=== PATIENT | female | born 1970 | race Caucasian/White ===

== ENCOUNTER 2019-03-08 19:54 | Inpatient (IN) | payer MEDICARE, MEDICAID ==
[~2019-03-08] VITALS: Ht 170.2 cm; Wt 110.7 kg
[~2019-03-08 19:54] MED LIST: AMARYL1 MG PO; ASPIRIN325 MG PO; BACLOFEN10 MG PO; BACTRIM DS TAB1 EACH PO; BUPROPION XL300 MG PO; CARISOPRODOL350 MG PO; CLINDAMYCIN HC150 MG PO; GABAPENTIN100 MG; GABAPENTIN400 MG PO; HYDROCODON-ACE1 EA10 PO; IMIPRAMINE HCL25 MG PO; KEFLEX500 MG PO; LEVOTHYROXINE112 MCG PO; LISINOPRIL-HCT1 EAC2 PO; MELOXICAM15 MG PO; METFORMIN HCL1000 MG PO; MOBIC7.5 MG PO; OMEPRAZOLE20 MG PO; OXYCODONE HCL10 MG PO; PERCOCET 5-3251 EACH PO; PREDNISONE10 MG; PRENATAL 19 TA1 EACH PO; SOMA350 MG PO; WAL-DRYL ALLERG25 MG PO
[2019-03-08] MEDS ORDERED: ALLOPURINOL300 MG PO (20:40)
[2019-03-08] MEDS ORDERED: VITAMIN D1000 UNIT PO (20:47)
--- NOTE | 2019-03-08 23:30 | NUR ---
PATIENT ARRIVED TO THE UNIT VIA STRETCHER. TRANSFERED TO BED WITHOUT ASSISTANCE. VS STABLE, HR ELEVATED. PATIENT AFEBRILE. DENIES PAIN.
--- NOTE | 2019-03-09 01:07 | NUR ---
PATIENT ASSESSMENT COMPLETE. POOR CIRCULATION AND NOTED IN SUDHAKAR LOWER EXTREMITIES. LEFT LEGS HAS NO FEELING FROM MID CALF DOWN. CAP REFILL < 3 SEC. WOUND COVERED IN ED WITH GAUZE, LEFT DRESSING IN PLACE. NO DRAINAGE NOTED. PATIENT'S VS ARE STABLE. PROVIDED WITH WATER AND CRACKERS. BCG WNL, NO INSULIN COVERAGE REQUIRED. PATIENT'S IV SITE INFILTRATED, NEW SITE ATTEMPTED BY THIS RN AND SILVANO RN WITH NO SUCCESS. BURR GRINDER CONTACTED FOR ASSISTANCE.
--- NOTE | 2019-03-09 01:54 | NUR ---
PT AMB TO BR USING OWN WALKER. BERRY WELL HR 100-110. VOIDED LARGE AMT URINE, UNABLE TO MEASURE "HAT" FELL INTO TOILET. BACK TO BED.
--- NOTE | 2019-03-09 03:00 | NUR ---
ULTRASOUND GUIDED IV ACCESS PLACED BY LANDSCAPE ARCHITECT AND PLANNER IN RIGHT UPPER ARM, INFILTRATED WITHIN 10MINS OF INFUSION. DISCUSSED DIFFICULTIES PLACING IV WITH . ORDERS FOR PICC CONSULT RECIEVED TO TAKE PLACE IN THE MORNING. LANDSCAPE ARCHITECT AND PLANNER IN WITH ULTRASOUND AGAIN, ABLE TO PLACE IV SITE IN LEFT AC AFTER 2 MORE ATTEMPTS. PATIENT TOLERATED WELL. IV FLUIDS DECREASED TO 500 ML/HR FOR LAST BOLUS AND VANCO INFUSING. VS STABLE. ENCOURAGED PATIENT TO DRINK ORAL FLUIDS.
--- NOTE | 2019-03-09 06:18 | NUR ---
PATIENT UP TO VOID. TOLERATED WELL. DILUTE YELLOW URINE, 1700 ML.
--- NOTE | 2019-03-09 08:20 | NUR ---
PT ALERT AND ORIENTED RESTING IN BED. ASSESSMENT AND VS COMPLETE. PT C/O 12/30 LOWER BACK PAIN THAT IS CHRONIC, WARM PACK PROVIDED. BREAKFAST ORDERED. CALL LIGHT IN REACH.
[2019-03-09] MEDS ORDERED: BACTRIM DS TAB1 EACH PO (08:37)
--- NOTE | 2019-03-09 08:47 | NUR ---
PT GIVEN PRN TYLENOL FOR BACK PAIN, HEATING PAD PROVIDED FOR LOWER BACK ALSO. AM MEDS GIVEN WITHOUT DIFFICULTY, CBG 119. PT SITTING UP IN BED EATING BREAKFAST AT THIS TIME.
--- NOTE | 2019-03-09 09:49 | NUR ---
PT AMB TO BR WITH PERSONAL WALKER AND SBA TO VOID 950 ML CLEAR YELLOW URINE. NO C/O PAIN WITH AMBULATION. PT BACK TO BED, LLE ELEVATED WITH PILLOWS. HEATING PAD APPLIED TO LOWER BACK. NO OTHER REQUESTS AT THIS TIME. CALL LIGHT IN REACH.
--- NOTE | 2019-03-09 10:00 | NUR ---
PT LYING IN BED RESTING WITH EYES CLOSED. LLE ELEVATED. IV ABX INFUSING WITHOUT DIFFICULTY. HR IN THE 80'S, RR EVEN AND UNLABORED. CALL LIGHT IN REACH.
--- NOTE | 2019-03-09 11:30 | NUR ---
DRESSING REPLACED ON PT'S LEFT INNER HEEL AFTER MD ASSESSMENT. KERLIX AND NON-ADHERENT PADS USED. SMALL AMOUNT OF SEROUS DRAINAGE NOTED ON PILLOW CASE UNDER FOOT. PT ABLE TO HOLD HER OWN LEG UP WHILE WRAPPING THE FOOT. DENIES PAIN.
--- NOTE | 2019-03-09 14:51 | NUR ---
UNABLE TO VISIT PT-OR STAFF AND CCU MELISSA VARELA IN WORKING TO PUT PICC LINE IN. WILL COME BACK AGAIN.
--- NOTE | 2019-03-09 16:20 | NUR ---
PT ARRIVED TO UNIT FROM CCU VIA HOSPITAL BED. PT ALERT AND ORIENTED TO ALL. DENIES PAIN OR OTHER CONCERNS AT THIS TIME. NEW PICC LINE IN PLACE TO LEFT UPPER ARM, FLUSHES EASILY WITH GOOD BLOOD RETURN TO BOTH LUMENS, DRESSING CDI. LEFT FOOT WITH CHRONIC FOOT DROP. PT REPORT CHRONIC NUMBNESS OF LEFT LE. KERLEX GAUZE AND NON ADHERANT PAD TO LEFT FOOT WOUND, SMALL AMOUNT OF SEROUS DRAINAGE NOTED. PT EDUCATED ON PLAN OF CARE. ORIENTED TO ROOM. CALL LIGHT WITHIN REACH.
--- NOTE | 2019-03-09 16:23 | NUR ---
PT TRANSPORTED TO IMAGING DEPT FOR MRI VIA WHEELCHAIR.
--- NOTE | 2019-03-09 16:24 | NUR ---
PICC INSERTION NOTE: ASKED BY DR. MACIAS TO EVALUATE PATIENT FOR POTENTIAL PICC LINE PLACEMENT. AFTER REVIEWING THE CHART AND INTERVIEWING THE PATIENT, NO ABSOLUTE CONTRAINDICATIONS WERE IDENTIFIED. PATIENT ABLE TO SIGN CONSENT. PATIENT'S RIGHT ARM WAS EVALUTED FIRST USING THE SITE RITE U/S AND BOTH THE BASILIC AND BRACHIAL VEINS WERE EASILY IDENTIFIED, AND GREATER THAN 8 FR APPROXIMATELY NOTED BY U/S. PATIENT'S CEPHALIC VEIN WAS NOT EASILY FOUND AND WAS SMALL. CDC RECOMMENDED GUIDELINES WERE FOLLOWED FOR ASEPTIC TECHNIQUE TO PREPARE PATIENT'S RIGHT ARM. PT'S BASILIC VEIN WAS ATTEMPTED FIRST AND EASILY ACCESSED UPON THE FIRST ATTEMPT. DARK BLOOD, NON PULSATILE WAS EASILY RETURNED. GUIDEWIRE DID ADVANCE INTO VEIN WITH MILD RESISTANCE. INTRODUCER WAS EASILY ADVANCED OVER WIRE. PICC WAS ALSO EASILY ADVANCED INTO VEIN, BUT SHERLOCK MAGNET SHOWED TIP TO NOT BE TRACING ACROSS CHEST IT SHOULD. ATTEMPTS WERE MADE TO READVANCE PICC WITH DIFFERENT MANUEVERS. CHEST XRAY WAS TAKEN WHICH SHOWED PICC LINE TURNING BACK UPON ITSELF. TOTAL OF 3 ATTEMPTS TO READVANCE PICC WERE TAKEN WELL 3 CHEST XRAYS. AFTER 3RD ATTEMPT, PICC WAS REMOVED. A COUPLE HOURS LATER, PATIENT'S LEFT ARM WAS EVALUATED. LEFT BASILIC VEIN WAS EASILY IDENTIFIED AND APPEARED TO BE GREATER THAN 8 FR. PT'S BRACHIAL VEIN ON LEFT SIDE WAS ANOTHER POTENTIAL CANDIDATE, BUT BASILIC WAS THE BEST CHOISE. AGAIN, FOLLOWING CDC RECOMMENDED TECHNIQUE FOR STERILE PROCEDURE, THE ARM WAS PREPPED. IV ACCESS WAS EASILY OBTAINED IN BASILIC UPON FIRST TRY, AND DARK, NON PULSATILE BLOOD WAS RETURNED. GUIDEWIRE THREADED WITH EASE, INTRODUCER AND PICC WELL. PICC WAS LEFT WITH 0 CM EXPOSED AND STERILE DRESSING PLACED. CHEST XRAY TAKEN AND TIP CONFIRMATION OBTAINED BY RACHNA FINN. PT GIVEN EDUCATION MATERIAL REGARDING HER PICC LINE AND CARE INSTRUCTIONS. PT ENCOURAGED TO ASK QUESTIONS IF SHE HAD ANY AT ANY TIME. PT TOLERATED PROCEDURE VERY WELL.
--- NOTE | 2019-03-09 17:45 | NUR ---
PT RETURNED FROM IMAGING DEPT. SITTING UP IN CHAIR. PT AMB SBA WITH FWW TO RESTROOM. VOIDED WITHOUT DIFFICULTY. PT AMB TO BED. VISITOR AT BEDSIDE. PT REFUSES DINNER AT THIS TIME, STATES SHE IS STILL FULL FROM LUNCH. PICC LINE FLUSHED AND ABX INFUSING. CALL LIGHT WITHIN REACH.
--- NOTE | 2019-03-10 00:11 | NUR ---
PATIENT'S PAIN IS DOWN TO 3/10 AND IV VANCO JUST HUNG. PATIENT HAS REQUESTED 2 HOT PACKS, ONE FOR HER NECK AND ONE FOR HER RIGHT ARM, SINTA THE CATHEAD WORKER IS GETTING THESE FOR HER.
--- NOTE | 2019-03-10 00:17 | NUR ---
2 WARM PACKS PROVIDED.
--- NOTE | 2019-03-10 02:30 | NUR ---
PATIENT RESTING QUIETLY IN SEMI-FOWLERS POSITION, EYES CLOSED, RESPIRATIONS REGULAR AND EVEN, CALL LIGHT IN REACH, AND IV INFUSING IN PICC LINE.
--- NOTE | 2019-03-10 05:35 | NUR ---
PATIENT RESTED WELL WHEN NOT BEING BOTHERED BY STAFF, BUT HAS HAD ANTIBIOTICS HUNG ALL NIGHT. OTHERWISE SHE HAS REMAINED FAIRLY COMFORTABLE AND IV IS INFUSING THROUGH PICC LINE WNL.
--- NOTE | 2019-03-10 07:40 | NUR ---
PATIENT RESTING IN BED. CLEANED HANDS AND FACE. PATIENT'S BREAKFAST ORDERED. CALL LIGHT WITHIN REACH. NO OTHER NEEDS AT THIS TIME
--- NOTE | 2019-03-10 09:40 | NUR ---
SPOKE WITH PATIENT IN ROOM. PATIENT AWAKE, ALERT. PATIENT EATING BREAKFAST. DENIES PAIN. PATIENT LIVES ALONE IN TRAILER WITH STEPS IN. HAS FWW AND 4WW IN ROOM. PATIENT PLANS TO RETURN HOME AT DISCHARGE. DISCUSSED ANTIBIOTICS, USUAL PLAN FOR STAY. DISCUSSED [facility] TREATMENT FOR HER DIAGNOSIS IS USUAL. QUESTIONS ANSWERED. PATIENT HAS FAMILY IN AREA FOR HELP WHEN NEEDED. IS DISABLED. WILL CONTINUE TO FOLLOW.
--- NOTE | 2019-03-10 09:56 | NUR ---
PATIENT SITTING UP IN BED EATING BREAKFAST AND WATCHING TV. CASE MANAGEMENT IN ROOM. ABX RUNNING AT 25 MLS/HR. HEPARIN FLUSH ADMINISTERED TO RED PORT OF PICC LINE. PATIENT DENIES ANY FURTHER NEEDS AT THIS TIME, CALL LIGHT WITHIN REACH.
--- NOTE | 2019-03-10 09:58 | NUR ---
PATIENT IN BED TAKING HER BREAKFAST. RN IN ROOM. VITAL SIGNS AND I&O DONE. CALL LIGHT WITHIN REACH. NO OTHER NEEDS AT THIS TIME
--- NOTE | 2019-03-10 10:12 | NUR ---
PATIENT RETURNED FROM PACU, REPORT RECEIVED. PATIENT TRANSFERRED TO BED, VITAL SIGNS TAKEN. WARM BLANKETS PROVIDED. PATIENT REQUESTING TO CALL SISTER, PHONE PROVIDED. PLAN OF CARE DISCUSSED, PATIENT AGREEABLE. DENIES ANY FURTHER NEEDS AT THIS TIME, CALL LIGHT WITHIN REACH.
--- NOTE | 2019-03-10 13:17 | NUR ---
PATIENT SITTING UP IN BED IN HIGH FOWLERS. DRESSING ON LEFT FOOT REDRESSED WITH NONABSORBENT PAD AND GAUZE. PURULENT DRAINAGE NOTED ON DRESSING REMOVED. FAMILY IN ROOM VISITING WITH PATIENT. DENIES ANY FURTHER NEEDS AT THIS TIME, CALL LIGHT WITHIN REACH.
--- NOTE | 2019-03-10 14:00 | NUR ---
PT SITTING UP IN BED, VISITORS IN . PT HAS GOOD ATTITUDE AND IS WORKING HARD TO STAY POSITIVE. EXTENDED A BLESSING, WILL LET PT VISIT WITH FRIENDS.
--- NOTE | 2019-03-10 14:32 | NUR ---
PATIENT RESTING IN BED. SISTER IN ROOM. VITAL SIGNS AND I&O DONE. PATIENT GOES TO USE BATHROOM. PATIENT USES WALKER. ONE PERSON ASSISTING. LINENS CHANGED. GOWN CHANGED. PATIENT BACKS TO BED. CALL LIGHT WITHIN REACH. NO OTHER NEEDS AT THIS TIME
--- NOTE | 2019-03-10 16:23 | NUR ---
PATIENT ASKING TO SEE ME. SPOKE WITH HER AND HER SISTER IN ROOM. THEY HAD QUESTIONS REGARDING TRYING TO GET MEDICAID BENEFITS TO COVER OTHER COSTS. DISCUSSED GENERAL GUIDELINES FOR THIS, ENCOURAGED THEM TO CONTACT [facility] DIRECTLY. SISTER IS GOING TO [facility] OFFICE DIRECTLY TO TALK WITH THEM AND LEFT. SPOKE WITH PATIENT AT LENGTH ABOUT HER DIAGNOSIS AND TEST RESULTS. 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 SHE STATES SHE IS GOING TO GO AHEAD WITH THIS SHE IS AFRAID SHE WILL END UP THERE EVENTUALLY ANYWAY. SHE WAS A LITTLE TEARFUL WITH TALK. PATIENT IS PLANNING TO TALK WITH DR VEGA AGAIN IN THE MORNING. WE DID NOT DISCUSS POST-OP OPTIONS THIS IS A LOT TO TAKE IN FOR TODAY. PATIENT WORRIED ABOUT HER LITTLE DOG. DID ENCOURAGE HER TO HAVE HER FAMILY BRING HIM IN FOR A VISIT IF SHE THOUGHT IT WOULD HELP. SHE WAS GREATFUL FOR THIS. NO FURTHER QUESTIONS AT THIS TIME.
--- NOTE | 2019-03-10 17:54 | NUR ---
PATIENT RESTING IN BED. RN AND VISITORS IN ROOM. VITAL SIGNS AND I&O DONE. CALL LIGHT WITHIN REACH. NO OTHER NEEDS AT THIS TIME
--- NOTE | 2019-03-10 18:10 | NUR ---
PATIENT HAS BEEN ON ABX: CEFEPIME, VANCO, AND FLAGYL. PATIENT HAS WOUND ON LEFT HEEL THAT WAS REDRESSED TODAY AND IS CONTINUING TO DRAIN. HER BLOOD SUGARS HAVE BEEN IN NORMAL RANGE AND HAS NOT REQUIRED INSULIN. SHE IS ON CONTACT PRECAUTIONS. SHE HAS A DOUBLE LUMEN PICC LINE AND THE RED PORT WAS HEPARINIZED. PATIENT IS A 1 PERSON SBA WITH WALKER.
--- NOTE | 2019-03-10 20:00 | NUR ---
PATIENT'S FAMILY AND FRIEND GOING HOME FROM VISITING. PATIENT RELAXING IN BED WATCHING TV. CALL LIGHT IN REACH.
--- NOTE | 2019-03-10 22:00 | NUR ---
PATIENT LOOKING DEPRESSED, BUT NOT TEARFUL. RESTING IN BED WATCHING TV. PICC LINE FLUSHESS WELL. PATIENT HAS NO NEEDS AT THIS TIME. CALL LIGHT IN REACH.
--- NOTE | 2019-03-11 02:10 | NUR ---
PATIENT RESTING QUITLEY IN SEMI-FOWLERS POSITION, EYES CLOSED, 0200 ANTIIOTIC UP AND RUNNING. CALL LIGHT IN REACH.
--- NOTE | 2019-03-11 03:17 | NUR ---
PATIENT RESTING IN SEMI-FOWLERS POSITION WITH REGULAR AND EVEN RESPIRATIONS. PICC LINE FLUSHING WELL AND RUNNING WELL WHEN USED. PATIENT'S EYES ARE CLOSED AND CALL LIGHT IN REACH.
--- NOTE | 2019-03-11 05:17 | NUR ---
PATIENT'S STATUS HAS PRETTY MUCH BEEN UNCHANGED THROUGH THE NIGHT, SHE HAS BEEN FAIRLY CALM INLIGHT OF HER NEW DIAGNOSIS AND TREATMENT WITH SURGERY FOR HER FOOT THAT HAS BEEN SUGGESTED TO HER. SHE SAYS,"I WILL ADAPT." SHE CONTINUES TO TRY AND BE POSITIVE SHE CAN BE AND HAS RESTED WELL WHEN WE ARE NOT IN CHANGING HER IV FLUIDS.
--- NOTE | 2019-03-11 07:10 | NUR ---
PT RESTING SUPINE IN BED, EYES CLOSED AND RESPIRATIONS EVEN AND UNLABORED AT 14. CALL LIGHT AND H2O IN REACH. REPORT RECEIVED FROM MELISSA DONALDSON.
--- NOTE | 2019-03-11 08:10 | NUR ---
PT RESTING IN SEMIFOWLERS POSITION IN BED WATCHING TV. PT ASSESSMENT COMPLETED AND AM MEDS ADMINISTERED. CALL LIGHT AND H2O IN REACH. PT DENIES PAIN, SOB OR ANY OTHER SYMPTOMS OR NEEDS. DSG HAS SCANT AMOUNT OF DRIED SS DRAINAGE NOTED.
--- NOTE | 2019-03-11 10:20 | NUR ---
Pt sitting up in chair watching TV, pt requested and received assistance in repositioning chair towards window so she could visit with family that she says will visit soon. IV ABX infusing. Pt states she is comfortable. Call light and h2o in reach. Pt denies further needs or concerns.
--- NOTE | 2019-03-11 11:00 | NUR ---
ASKED BY STAFF TO SEE PATIENT SHE HAS QUESTIONS. SPOKE WITH PATIENT IN ROOM. DISCUSSED SHE HAS CHOSEN THE AMPUTATION AND SURGERY IS FRIDAY. SHE STATES HER SISTER HAS SPOKEN WITH [facility] AND THEY ARE FILLING OUT PAPERWORK FOR POSSIBLE HELP WITH HOUSEKEEPING AFTER SHE IS DONE WITH REHAB AND HOME. SHE STATES SHE DOES NOT QUALIFY FOR STATE MEDICAID HOWEVER DUE TO DISABILITY INCOME. SHE IS WORRIED ABOUT REHAB AFTER AND HOW LONG SHE WILL NEED TO BE SEMI-INDEPENDENT AGAIN. SHE STATES SHE IS CONSIDERING MOVING CLOSER TO HER SISTER IN [place] AT SOME POINT SHE IS A GREAT HELP AND HAS TWO STRONG NEPHEWS THERE, ALSO. WE DISCUSSED REHAB POSSIBILITIES INCLUDING SNF IN [place] AND TRANSITIONAL CARE HERE. SHE WOULD LIKE TO DO THAT FIRST CHOICE. SHE UNDERSTANDS THIS CAN'T BE DECIDED UNTIL SHE IS CLOSER TO DISCHARGE FROM THE ACUTE SURGERY. QUESTIONS ANSWERED.
--- NOTE | 2019-03-11 14:15 | NUR ---
SPOKE AGAIN BY REQUEST WITH PATIENT AND HER SISTER IN ROOM. DISCUSSED [employer] VISIT BY SISTER. DISCUSSED ADVANCE DIRECTIVES, THEY HAVE THIS IN ROOM AND ARE GOING TO WORK ON THESE. QUESTIONS ANSWERED REGARDING DURABLE HEALTH POA. DISCUSSED TRANSITIONAL CARE BED PROGRAM AND BROCHURE GIVEN. LENGTHY DISCUSSION WAS HAD, ALL QUESTIONS ANSWERED AT THIS TIME.
--- NOTE | 2019-03-11 14:30 | NUR ---
PT SITTING UP IN CHAIR VISITING WITH FRIENDS. PT ASSESSMENT COMPLETED AND VSS. I/O'S NOTED. CALL LIGHT AND H2O IN REACH. PT PROVIDED WITH FRESH ICE WATER AND DENIES NEEDS OR CONCERNS.
--- NOTE | 2019-03-11 14:54 | NUR ---
PT SITTING IN CHAIR, FACING VISITORS ON COUCH. SHE IS ALERT, ORIENTED AND THANKED ME FOR CHECKING. WILL FOLLOW NEEDED
--- NOTE | 2019-03-11 16:00 | NUR ---
PT SITTING UP RECLINED IN CHAIR VISITING WITH FAMILY. FRESH H2O AND CALL LIGHT IN REACH. PT DENIES NEEDS OR CONCERNS.
--- NOTE | 2019-03-11 21:15 | NUR ---
CHARGE NURSE ROUNDING. pt RESTING IN BED. PROPER WRIST BANDS IN PLACE. WHITEBOARD UPDATED. PRIMARY RN IN ROOM. NO COMPLAINTS OR REQUESTS AT THIS TIME. CALL LIGHT WITHIN REACH.
--- NOTE | 2019-03-11 23:25 | NUR ---
Awake, watching tv, no c/o pain, L leg elevated with pillows, red tender L knee, L heel dressing intact. 2+ edema, red warm to touch area ablve L ankle. States no feelings to L leg. PICC line L arm patent, no redness. Tolerating fluids and diet well.
--- NOTE | 2019-03-12 01:02 | NUR ---
Resting, no distress, eyes closed, resp even, unlabored. On room air. Legs elevated with pullows. Fluids and call light at bedside
--- NOTE | 2019-03-12 03:41 | NUR ---
resting, eyes closed, continues on Contact Isolation. Legs elevated, no s/sx distress. call light at bedside
--- NOTE | 2019-03-12 05:33 | NUR ---
Pt has slept most of this shift, no c/o pain or distress, On room air. L leg elevated with pillows, dressing intact. c/o no feeling in lower L leg. PICC line LAC patent, no c/o adverse reaction to abx IV. No c/o urinary problems. Cooperative and pleasant.
--- NOTE | 2019-03-12 07:08 | NUR ---
PT RESTING SUPINE IN BED, EYES CLOSED AND RESPIRATIONS EVEN AND UNLABORED. CALL LIGHT AND H2O IN REACH. PT APPEARS TO BE SLEEPING COMFORTABLY. REPORT RECEIVED FROM MELISSA BOURGEOIS.
--- NOTE | 2019-03-12 08:35 | NUR ---
Pt sitting in high fowlers watchign tv and eating breakfast. Am assessment completed and am meds administered. Call light and h2o in reach. No needs or concerns voiced. Pt denies pain sob or nausea.
--- NOTE | 2019-03-12 11:38 | NUR ---
PT RESTING IN SEMI FOWLERS POSITION IN BED, ALERT AND ORIENTED. PT REQUESTED AND RECEIVED EDUCATION ON HGB A1C LAB VALUE. FRESH ICE WATER IN REACH. NO OTHER CONCERNS OR NEEDS VOICED.
--- NOTE | 2019-03-12 13:05 | NUR ---
PT TO HAVE SURGERY FRIDAY AND REQUESTED A OPERATIONS INTELLIGENCE SUPERINTENDENT TO BE WITH HER BEFORE. I NOTIFIED ON-CALL OPERATIONS INTELLIGENCE SUPERINTENDENT LARISA TO BE PRESENT, HE SAID HE WOULD PLAN ON BEING HERE. HAD GOOD VISIT WITH PT, SHE REQUESTED PRAYER. GAVE HER A PURPLE P.PATSY WILL FOLLOW NEEDED
--- NOTE | 2019-03-12 15:12 | NUR ---
PT SITTING UP IN CHAIR IN ROOM 115 CHARGE,RN FACILITATED PT'S MOVE TO THIS ROOM. PICC FLUSHED WITH NS AND HEP LOCKED -SEE EMAR. CALL LIGHT AND PERSONAL BELONGINGS IN REACH. NO NEEDS OR CONCERNS VOICED. FAMILY VISITING AT BEDSIDE.
--- NOTE | 2019-03-12 17:18 | NUR ---
PATIENT SITTING UP IN CHAIR. SISTER IN ROOM. VITAL SIGNS AND I&O DONE. PATIENT'S DINNER ORDERED. CALL LIGHT WITHIN REACH. NO OTHER NEEDS AT THIS TIME
--- NOTE | 2019-03-12 17:32 | NUR ---
PT SITTING UP IN CHAIR VISITING WITH FAMILY. ACCUCHECK COMPLETED AND CULTERELLE ADMINISTERED. NO FURHTER NEEDS OR CONCERNS VOICED. H2O AND CALL LIGHT IN REACH.
--- NOTE | 2019-03-12 19:25 | NUR ---
RECEIVED REPORT FROM MELISSA HEWITT. pt SITTING IN CHAIR WITH VISITOR AT BEDSIDE. QUESTIONS ANSWERED. WHITEBOARD UPDATED. CALL LIGHT WITHIN REACH.
--- NOTE | 2019-03-12 20:05 | NUR ---
patient requested assistance into the restroom. Her vitals and I&Os were complete. nothing further needed at this time.
--- NOTE | 2019-03-12 21:37 | NUR ---
ASSESSMENT DONE. DRESSING CDI. MEDICATIONS GIVEN (SEE MAR). WATER REFRESHED. NO FURTHER REQUESTS AT THIS TIME. CALL LIGHT WITHIN REACH.
--- NOTE | 2019-03-12 21:50 | NUR ---
PT'S IV PUMP WAS BEEPING. IT IS INFUSING FINE NOW. PT DENIES NEEDS. CALL LIGHT IS WITHIN REACH.
--- NOTE | 2019-03-12 22:06 | NUR ---
PT IS AWAKE IN BED, SHE DENIES NEEDS AT THIS TIME. CALL LIGHT IS CLOSE.
--- NOTE | 2019-03-12 22:43 | NUR ---
IV ABX COMPLETE. PICC FLUSHED. BLOOD RETURN IN BOTH LUMENS, HEP LOCKED PER PROTOCOL. ICE WATER REFILLED. NO FURTHER REQUESTS AT THIS TIME. CALL LIGHT WITHIN REACH.
--- NOTE | 2019-03-13 01:02 | NUR ---
ROUNDED ON pt. RESTING WITH EYES CLOSED, RESPIRATIONS REGULAR AND UNLABORED. CALL LIGHT WITHIN REACH.
--- NOTE | 2019-03-13 02:00 | NUR ---
ROUNDED ON pt. RESTING WITH EYES CLOSED, RESPIRATIONS REGULAR. pt AWOKE. PULSE RECHECKED, ASSESSMENT DONE. pt UP TO VOID AND BACK TO BED. 1PA FWW. NO REQUESTS AT THIS TIME. CALL LIGHT WITHIN REACH.
--- NOTE | 2019-03-13 04:00 | NUR ---
ROUNDED ON pt. RESTING WITH EYES CLOSED, RESPIRATIONS REGULAR AND UNLABORED. CALL LIGHT WITHIN REACH.
--- NOTE | 2019-03-13 06:08 | NUR ---
pt RESTED MOST OF SHIFT. ACCU CHECK. 1PA FWW. WOUND ON LEFT HEEL DRESSED, CDI. PICC HEPLOCKED, IV ABX. TOLERATING ADA DIET. USES CALL LIGHT APPROPRIATELY.
--- NOTE | 2019-03-13 06:09 | NUR ---
MEDICATIONS GIVEN (SEE MAR). VITALS AND I&O RECORDED. CALL LIGHT WITHIN REACH. NO REQUESTS AT THIS TIME.
--- NOTE | 2019-03-13 07:11 | NUR ---
PT SITTING UP IN HIGH FOWLERS IN BED VISITING WITH FAMILY. CALL LIGHT AND H2O IN REACH. PT STATES HE IS COMFORTABLE AND DENIES NEEDS OR CONCERNS. BEDSIDE REPORT RECEIVED FROM MELISSA HWANG
--- NOTE | 2019-03-13 07:30 | NUR ---
PATIENT RESTING IN BED. CLEANED HANDS AND FACE. SETS UP BATHROOM FOR SHOWER. CALL LIGHT WITHIN REACH. NO OTHER NEEDS AT THIS TIME
--- NOTE | 2019-03-13 08:22 | NUR ---
PT RESTING IN SEMIFOWLERS POSITION IN BED WATCHING TV. AM ASSESSMENT COMPLETED AND AM MEDS ADMINISTERED. CALL LIGHT AND FRESH H2O IN REACH. NO FURTHER NEEDS OR CONCERNS VOICED.
--- NOTE | 2019-03-13 09:34 | NUR ---
PATIENT SITTING UP ON THE EDGE OF THE BED. VITAL SIGNS AND I&O DONE. CALL LIGHT WITHIN REACH. NO OTHER NEEDS AT THIS TIME
--- NOTE | 2019-03-13 10:41 | NUR ---
PATIENT SITTING UP IN CHAIR. PATIENT GOES TO USE BATHROOM. PATIENT USES WALKER. ONE PERSON ASSISTING. PATIENT'S IV WRAPPED. PATIENT TAKES A SHOWER. PATIENT DID ORAL CARE. LINENS CHANGED. CALL LIGHT WITHIN REACH. NO OTHER NEEDS AT THIS TIME
--- NOTE | 2019-03-13 10:45 | NUR ---
PT FINISHED SHOWERING AND DSG SOILED SO WAS CLEANSED WITH NS PAT DRIED WITH 4X4 GUAZE AND NEW NONADHERANT GUAZE APPLIED THEN 4X4 GUAZE AND WRAPPED WITH KERLIX. PT UP TO CHAIR CALL LIGHT AND H2O IN REACH.
--- NOTE | 2019-03-13 11:07 | NUR ---
PATIENT SITTING UP IN CHAIR. PATIENT'S LUNCH ORDERED. CALL LIGHT WITHIN REACH. NO OTHER NEEDS AT THIS TIME
--- NOTE | 2019-03-13 13:25 | NUR ---
PATIENT USING BATHROOM. RN IN ROOM. PATIENT BACKS TO CHAIR. ONE PERSON ASSISTING. VITAL SIGNS AND I&O DONE. CALL LIGHT WITHIN REACH. NO OTHER NEEDS AT THIS TIME
--- NOTE | 2019-03-13 14:32 | NUR ---
PT SITTING UP IN CHAIR VISITING WITH FAMILY. PT ALERT AND ORIENTED. PT DENIES HAVING ANY SYMPTOMS, CONCERNS OR NEEDS. ASSESSMENT COMPLETED. CALL LIGHT AND H2O IN REACH.
--- NOTE | 2019-03-13 16:55 | NUR ---
Pt sitting up in chair talking on cell phone, no needs or concerns voiced. Call light and h2o in reach.
--- NOTE | 2019-03-13 17:07 | NUR ---
PATIENT USING BATHROOM. PATIENT BACKS TO CHAIR. VITAL SIGNS AND I&O DONE. ICE WATER GIVEN. CALL LIGHT WITHIN REACH. NO OTHER NEEDS AT THIS TIME
--- NOTE | 2019-03-13 19:00 | NUR ---
SHIFT REPORT RECEIVED FROM DAYSHIFT MELISSA HEWITT AT BEDSIDE. PT AWAKE AND RESTING IN CHAIR, DENIES NEEDS. APPEARS COMFORTABLE, NO DISTRESS NOTED, CALL LIGHT IN REACH.
--- NOTE | 2019-03-13 22:00 | NUR ---
ASSESSMENT COMPLETE, VSS. PT ON RA. IV ABX INFUSING THROUGH PICC LINE, BLOOD RETURN NOTED. DRESSING TO LLE C/D/I. BILATERAL PEDAL PULSES OBTAINED. PT DENIES PAIN, A/OX4. DENIES NEEDS, CALL LIGHT IN REACH.
--- NOTE | 2019-03-13 22:45 | NUR ---
IV ABXS COMPLETE, PICC LINE FLUSHED WITH NORMAL SALINE AND HEP LOCKED. NO FURTHER NEEDS, CALL LIGHT IN REACH.
--- NOTE | 2019-03-14 02:30 | NUR ---
PT RESTING IN BED, EYES CLOSED. RR WNL, NO DISTRESS NOTED. CALL LIGHT IN REACH.
--- NOTE | 2019-03-14 06:25 | NUR ---
assessment complete, no new changes or concerns. vss, pt on ra. dressing to lll c/d/i. iv abx infusing, picc line patent, blood return noted. no further needs, call light in reach.
--- NOTE | 2019-03-14 07:22 | NUR ---
PT SITTING UP IN CHAIR, ALERT AND ORIENTED. CALL LIGHT AND H2O IN REACH. PT DENIES NEEDS OR CONCERNS. DSG CDI TO LEFT FOOT. BEDSIDE REPORT RECEIVED FROM MELISSA CUENCA.
--- NOTE | 2019-03-14 08:08 | NUR ---
PATIENT RESTING IN BED. PATIENT'S BREAKFAST ORDERED. IV WRAPPED. SETS UP BATHROOM FOR SHOWER. PATIENT GOES TO USE BATHROOM. PATIENT TAKES A SHOWER. LINENS CHANGED. WARM BLANKET PROVIDED. CALL LIGHT WITHIN REACH. NO OTHER NEEDS AT THIS TIME
--- NOTE | 2019-03-14 08:53 | NUR ---
PT SITTING UP IN CHAIR DISCUSSING SURGERY WITH DR VEGA. AM MEDS ADMINISTERED AND ASSESSMENT COMPLETED. PICC LINE DSG PEELING OFF SO IT WAS CHANGED USING STERILE TECHNIQUE PER POLICY. CALL LIGHT AND FRESH ICE WATER IN REACH. NO FURTHER NEEDS VOICED.
--- NOTE | 2019-03-14 09:07 | NUR ---
PATIENT SITTING UP IN CHAIR TAKING HER BREAKFAST. VITAL SIGNS AND I&O DONE. CALL LIGHT WITHIN REACH. NO OTHER NEEDS AT THIS TIME
--- NOTE | 2019-03-14 11:45 | NUR ---
PT SITTING UP IN CHAIR USING CELL PHONE, PT DENIES NEEDS OR CONCERNS. CALL LIGHT AND H2O IN REACH.
--- NOTE | 2019-03-14 12:59 | NUR ---
PATIENT SITTING UP IN CHAIR. VITAL SIGNS AND I&O DONE. CALL LIGHT WITHIN REACH. NO OTHER NEEDS AT THIS TIME
--- NOTE | 2019-03-14 14:29 | NUR ---
IN TO SEE PATIENT, PT SITTING UP IN CHAIR TEXTING ON CELL PHONE. ASSESSMENT COMPLETED. PM MEDS ADMINISTERED. CALL LIGHT AND FRESH H2O IN REACH. NO NEEDS OR CONCERNS VOICED.
--- NOTE | 2019-03-14 17:40 | NUR ---
PATIENT SITTING UP IN CHAIR. VISITORS IN ROOM. VITAL SIGNS AND I&O DONE. CALL LIGHT WITHIN REACH. NO OTHER NEEDS AT THIS TIME
--- NOTE | 2019-03-14 18:04 | NUR ---
PT SITTING UP IN CHAIR AND TRANSFERS TO BED WITH SBA AND FWW. PM MED AMDINISTERED. PT DENIES NEEDS/CONCERNS AT THIS TIME. CALL LIGHT AND H2O IN REACH.
--- NOTE | 2019-03-14 19:15 | NUR ---
SHIFT REPORT RECEIVED FROM DAYSHIFT RN AT BEDSIDE. PT AWAKE AND RESTING IN BED. DENIES NEEEDS, APPEARS COMFORTABLE AND IN GOOD SPIRITS AT THIS TIME. CALL LIGHT IN REACH.
--- NOTE | 2019-03-14 22:20 | NUR ---
ASSESSMENT COMPLETE, PT AWAKE AND RESTING IN BED. A/OX4, VSS. SCHEDULED MEDICATIONS GIVEN (SEE EMAR). BS WNL, NO INSULIN SS REQUIRED. IV ABX GIVEN, PICC DRESSING C/D/I. BLOOD RETURN NOTED. SALINE LOCKED AT THIS TIME, PT WILL BE STARTED ON FLUIDS AT MIDNIGHT FOR UPCOMING SURGERY. DRESSING TO LLE, C/D/I, ELEVATED ON PILLOWS. NO FURTHER NEEDS, CALL LIGHT IN REACH.
--- NOTE | 2019-03-15 00:10 | NUR ---
IV FLUIDS INFUSING PER MD ORDERS, IV SITE WNL. PICC LINE DRESSING C/D/I. BLOOD RETURN NOTED. PT MADE NPO. DISCUSSED S/SX OF HYPOGLYCEMIA, PT VERBALIZED UNDERSTANDING. PT ALSO UP SBA TO VOID, 700 MLS OUTPUT. NO FURTHER NEEDS, CALL LIGHT IN REACH.
--- NOTE | 2019-03-15 01:45 | NUR ---
PT HAS DOUBLE LUMEN PICC LINE INFUSING WITH IV FLUIDS IN PURPLE LUMEN. RED LUMEN HEP LOCKED BY TORI TORRES.
--- NOTE | 2019-03-15 03:00 | NUR ---
PT RESTING IN BED, EYES CLOSED. RR WNL. PT APPEARS COMFORTABLE, NO DISTRESS NOTED. IV FLUIDS INFUSING AT 75MLS/HR. IV SITE WNL.
--- NOTE | 2019-03-15 04:00 | NUR ---
ASSESSMENT COMPLETE, NO NEW CHANGES OR CONCERNS. PT RESTING IN BED, EYES CLOSED. RR WNL. PICC LINE DRESSING C/D/I, IV FLUIDS INFUSING PER MD ORDERS. DRESSING TO LLL C/D/I, ELEVATED ON PILLOWS. NO FURTHER NEEDS, CALL LIGHT IN REACH.
--- NOTE | 2019-03-15 05:13 | NUR ---
PT HAD A GOOD NIGHT, SLEPT FOR MOST OF SHIFT. A/OX4, VSS, ON RA. SBA WITH FWW. PICC DRESSING C/D/I, IV LR INFUSING AT 75MLS/HR, PATENT WITH BLOOD RETURN. NPO SINCE MIDNIGHT, NO NAUSEA THIS SHIFT. INSULIN SS PRN WITH SCHEDULED ACCU CHECKS. DRESSING TO LLE C/D/I. PLAN IS FOR LEFT BKA. USES CALL LIGHT APPROPERAITELY.
--- NOTE | 2019-03-15 08:29 | NUR ---
PATIENT UP TO SHOWER CHAIR, 1PA FWW. PATIENT IND. IN SHOWER. HIBBACLENS PROVIDED. NEW GOWN PROVIDED. CALL LIGHT IN REACH. NO FURTHER NEEDS AT THIS TIME.
--- NOTE | 2019-03-15 09:00 | NUR ---
PT COMPLETED HIBACLEANSE SHOWER WITH ASSISTANCE FROM DEE MCKEON. PT REQUIRES MINIMAL ASSIST WITH AMB AND WALKER. LEFT ANKLE ULCER DRESSED PER PT REQUEST, DRESSED WITH NON ADHERANT PAD AND KERLEX WRAP. PT TRANSPORTED TO DAY SURGERY AT THIS TIME.
--- NOTE | 2019-03-15 09:47 | NUR ---
HAD THE OPPORTUNITY TO VISIT WITH THE PT IN DAY SURGERY. PT SEEMS TO BE DOING WELL AND IS IN RELATIVELY GOOD SPIRITS CONSIDERING THE UPCOMING SURGERY. SHE IS SAD OVER THE LOSS OF HER GRANDFATHER SO THERE IS SOME COMPOUND ISSUES THERE. SHE HAS A SUPPORT SYSTEM FOR FOLLOW UP. I PRAYED WITH THE PT AT TIME OF VISIT.
--- NOTE | 2019-03-15 11:59 | NUR ---
03/15/19 1159 Sheets,[place] 1153 PT ARRIVED TO PACU ON 6L VIA MASK, PT NONAROUSABLE TO PAINFUL STIMULI. ORAL AIRWAY ON PLACE AND RESP EVEN AND UNLABORED.
--- NOTE | 2019-03-15 13:44 | NUR ---
PT ARRIVED TO UNIT VIA HOSPITAL BED APPROX 1235. PT ALERT AND ORIENTED UPON ARRIVAL. REPORTS 5/10 CHRONIC BACK PAIN, DENIES PAIN ELSEWHERE. KPAD SET UP PER PT REQUEST, IN PLACE TO LOWER PACK. LEFT BELOW THE KNEE AMP COMPLETED, STUMP DRESSED WITH ABD AND COBAN, CDI. SATTING 95% ON RA. PICC LINE INFUSING WNL, BOTH LUMENS FLUSH EASILY WITH GOOD BLOOD RETURN, DRESSING CDI.
--- NOTE | 2019-03-15 13:48 | NUR ---
PT SITTING UP IN BED TAKING CLEAR LIQUIDS, BERRY WELL. CALL LIGHT WITHIN REACH.
--- NOTE | 2019-03-15 15:41 | NUR ---
PT SITTING UP IN BED. ALERT AND ORIENTED. DENIES PAIN OR OTHER CONCERN AT THIS TIME. DRESSING REMAINS CDI. CALL LIGHT WITHIN REACH.
--- NOTE | 2019-03-15 17:25 | NUR ---
PT ASSISTED TO BSC WITH 1PA, PIVOT TRANSFER WITH WALKER. PT BERRY WELL. VOIDED 700ML WITHOUT DIFFICULTY. PT TRANSFERRED BACK TO BED. SITTING UP IN BED EATING DINNER NOW. DENIES PAIN, NAUSEA, OR OTHER CONCERN AT THIS TIME. BOTH LUMENS OF LEFT ARM PICC GIVEN PULSATING FLUSH OF 20ML NS. HEP LOCKED, ORANGE CAPS IN PLACE. LEFT STUMP DRESSING REMAINS CDI, GOOD MOVEMENT OF LEFT LEG, WARM AND PINK. PT APPEARS TO BE IN GOOD SPIRITS. MULTIPLE VISITORS IN ROOM. CALL LIGHT WITHIN REACH.
--- NOTE | 2019-03-15 18:16 | EKG ---
[facility] [address] [facility] [place] [address] Signed Normal sinus rhythm Low voltage QRS Borderline ECG No previous ECGs available Confirmed by CORTNEY MACIAS MD ([id number]) on 03/15/2019 6:16:08 PM Electronically Signed By: CORTNEY MACIAS MD 03/15/19 1816 PATIENT NAME: ANTWAN NUNEZ Electrocardiogram DATE OF : 68 PHYSICIAN: CORTNEY MACIAS MD REPORT #: [id number] REPORT IS CONFIDENTIAL AND NOT TO BE RELEASED WITHOUT AUTHORIZATION
--- NOTE | 2019-03-15 19:30 | NUR ---
BEDSIDE REPORT RECEIVED FROM MELISSA FIELDS. PT RESTING IN BED. DENIES ANY PAIN. STATES "THE BLOCK IS STILL WORKING". NUMBNESS THIGH ON LEFT LEG DOWN. PT STATES "FEELING PHANTOM ITCH IN LEFT FOOT". CALL LIGHT IN REACH. NO REQUESTS AT THIS TIME. PICC LINE HEP LOCKED.
--- NOTE | 2019-03-15 22:28 | NUR ---
IN PT ROOM FOR SCHEDULED MEDICATION ADMINISTRATION. 2PA TO PIVOT TO BSC FOR VOID. PT REQUESTING TO SIT ON COMMODE FOR BM AT THIS TIME. CALL LIGHT IN REACH. PT VERBALIZES UNDERSTANDING NOT TO GET OUT OF BED BY SELF.
--- NOTE | 2019-03-15 22:45 | NUR ---
2PA TO PIVOT BACK TO BED. ASSESSMENT COMPLETE. PT DENIES PAIN, "STARTING TO FEEL SOME SENSATION IN LEFT LEG". NUMBNESS LEFT THIGH. LEGS ELEVATED ON PILLOWS. CALL LIGHT IN REACH. PICC LINE HEP LOCKED WNL, GOOD BLOOD RETURN. ICE WATER PROVIDED.
--- NOTE | 2019-03-16 00:36 | NUR ---
CALL LIGHT ANSWERED, PT STATES "MY LEG IS WAKING UP" DESCRIBES "IN BETWEEN A TINGLING AND BURNING AT BOTTOM OF STUMP". DENIES PAIN OR NEED FOR ADDITIONAL MEDICATIONS. DISCUSSED SCHEDULED MEDICATIONS TIMES WITH PT AND PLAN OF CARE. NO ADDITIONAL NEEDS AT THIS TIME. CALL LIGHT IN REACH.
--- NOTE | 2019-03-16 02:24 | NUR ---
IN PT ROOM FOR VS AND SCHEDULED PAIN MEDICATION ADMINISTRATION. PT SLEEPING, AWAKENS TO VOICE. VSS. PT DENIES PAIN. SENSATION IN LEFT UPPER THIGH ABOVE KNEE. PT DENIES SENSATION BELOW THIS POINT WITH PALPATION. EXTREMITY WARM TO TOUCH. DRESSING CDI. DENIES TOILETING NEEDS. CALL LIGHT IN REACH. ICE WATER PROVIDED.
--- NOTE | 2019-03-16 04:26 | NUR ---
PT RESTING IN BED WITH EYES CLOSED. APPEARS TO BE SLEEPING. RR 18. LIGHTS OFF IN ROOM. SCD ON RIGHT LEG. CALL LIGHT IN REACH.
--- NOTE | 2019-03-16 05:06 | NUR ---
2PA WITH WALKER TO PIVOT TO BSC. NO SENSATION BELOW MID THIGH ON LEFT SIDE. DENIES PAIN THROUGHOUT SHIFT. SCHEDULED PAIN MEDICATIONS. SCD ON RIGHT LEG. PT ON RA. TOLERATING ADA DIET. DRESSING CDI LEFT LEG. PICC LINE HEPARIN LOCKED WNL, GOOD BLOOD RETURN. USING CALL LIGHT APPROPRIATELY. VSS.
--- NOTE | 2019-03-16 07:53 | NUR ---
PATIENT SITTING UP IN BED WATCHING TV. HANDS AND FACE WASHED. FRESH ICE WATER. PATIENT WILL WASH UP AND BRUSH TEETH AFTER BREAKFAST. NO OTHER NEEDS AT THIS TIME CALL BUTTON IN REACH.
--- NOTE | 2019-03-16 08:01 | OR ---
[facility] [address], [place] [address] Signed DATE OF OPERATION: 03/15/2019 SURGEON: Mao Villareal MD PREOPERATIVE DIAGNOSIS: Chronic osteomyelitis, left calcaneus with acute abscesses in medial and lateral ankle. POSTOPERATIVE DIAGNOSIS: Chronic osteomyelitis, left calcaneus with acute abscesses in medial and lateral ankle. PROCEDURE PERFORMED: Below-knee amputation, left. ANESTHESIA: General. BLOOD LOSS: 150 mL. BRIEF HISTORY: Antonio is a 49-year-old female with diabetes. She had history of back surgery with resultant footdrop. She wore an AFO and ultimately developed a blister on her heel that she self-treated for 18 months. She presented to the hospital in sepsis with osteomyelitis and a large abscess in the bone and tracking medially and laterally at the ankle and into the foot. The MRI showed extensive osteomyelitis throughout the hindfoot and hip up into the midfoot. Risks and benefits of operative debridement versus amputation were discussed with her. I advised her I did not think that a debridement would work and would result in multiple surgeries in the foot that did not work any way. She elected to proceed with a below-knee amputation. DESCRIPTION OF PROCEDURE: Once consent was obtained, she was taken to the operating room. After adequate anesthesia she was placed on operating table, all downside pressure points well padded. The left leg was placed in well-padded proximal thigh tourniquet, prepped and draped in a standard sterile fashion with bag over the foot. The posterior flap amputation was then marked out 10 cm below the tuberosity. The skin incision was made and carried fully around. This was taken through the skin and subcutaneous tissue. The underlying muscle was for the most part already atrophied and due to the neuropathy. There were a couple of slips that were intact. We did go through these with the Bovie and all bleeders were clamped as we went. Once this was accomplished, Electronically Signed By: MAO VILLAREAL MD 03/16/19 0801 PATIENT NAME: ANTONIO NUNEZ OPERATIVE REPORT DATE OF : 68 REPORT #: [id number] PHYSICIAN: MAO VILLAREAL MD PCP: RHONDA BUCKLEY NP REPORT IS CONFIDENTIAL AND NOT TO BE RELEASED WITHOUT AUTHORIZATION [facility] [address], [place] [address] Signed the osteotomy of the fibula was accomplished just above the tibia. The tibial osteotomy was made 2 cm proximal to the skin cut. It was then beveled anteriorly. The sharp edges were then debrided with a rasp and the wound was copiously irrigated with antibiotic solution. All bleeders were then tied with 0 and 2-0 silk and cauterized as needed. The tourniquet was then released. Any remaining bleeders were tied off and the wound was dried at the end of the procedure. The fascia of the flap was then brought anteriorly and sutured to the anterior fascia using #1 Vicryl, the subcutaneous tissue with 2-0 Monocryl and the skin with 2-0 nylon. Excellent apposition with good skin color was obtained. The wound was then dressed with Acticoat 7 and sterile gauze and a Coban. She was awakened and taken to the recovery room in satisfactory condition. All sponge, needle, and instrument counts were correct. Mao Villareal MD BA/DELTA /[id number] Copies: ~ Electronically Signed By: MAO VILLAREAL MD 03/16/19 0801 PATIENT NAME: ANTONIO NUNEZ OPERATIVE REPORT DATE OF : [birth year] REPORT #: [id number] PHYSICIAN: MAO VILLAREAL MD PCP: RHONDA BUCKLEY NP REPORT IS CONFIDENTIAL AND NOT TO BE RELEASED WITHOUT AUTHORIZATION
--- NOTE | 2019-03-16 08:39 | NUR ---
PT SITTING UP IN BED VISITING WITH FRIENDS AND FAMILY, EATING BREAKFAST, BERRY WELL. PT DENIES PAIN, NAUSEA OR OTHER CONCERNS. REPORTS SENSATION AT LEFT MID THIGH, NUMBNESS BELOW THAT. LEFT STUMP DRESSED WITH ABD AND GAUZE, CDI. RIGHT LEG AT BASELINE. PT SATTING 98% ON RA. CALL LIGHT WITHIN REACH.
--- NOTE | 2019-03-16 09:30 | NUR ---
SPOKE WITH PATIENT IN ROOM. PATIENT FEELING WELL, SOME PAIN AT STUMP. PATIENT WANTS TO STAY FOR SWINGBED PROGRAM. DISCUSSED THAT DR MACIAS IS AGREEING TO COVER HER STAY, SHE STATES HE DID COME AND TALK WITH HER. WE DISCUSSED PROGRAM, SHE STILL HAS BROCHURE I GAVE HER LAST WEEK. SISTER CAME IN, SHE IS HELPING PATIENT WITH ADVANCE DIRECTIVE AND WORKING WITH [facility] FOR POSSIBLE IN-HOME HELP AFTER DISCHARGE HOME. WE DISCUSSED AGAIN WHAT MEDICARE COVERS FOR SWINGBED COSTS. WE DISCUSSED AGAIN THAT PARTICIPATION IS RICHARDSON AND PROGRESS MONITORED. THEY UNDERSTAND AND WANT TO MOVE FORWARD. QUESTIONS ANSWERED. WILL CONTINUE TO FOLLOW.
--- NOTE | 2019-03-16 10:11 | NUR ---
THIS PT IS IN VERY GOOD SPIRIT. HER TWO BEST FRIENDS ARE WITH HER, SO SHE HAS VERY GOOD SUPPORT. I PRAYED WITH THEM AND TALKED A FEW MINUTES. I PRAY GOOD AND SPEEDY RECOVERY FOR HER.
--- NOTE | 2019-03-16 10:19 | NUR ---
PT SITTING UP IN BED VISITING WITH FRIEND. DENIES PAIN OR OTHER CONERNS AT THIS TIME. CALL LIGHT WITHIN REACH.
== END 2019-03-16 12:15 | disposition swing bed (61) | DRG 854 ==
LOC: ED 19:54 → MS 22:15 → CCU 22:15 → MS 03-09 15:59
PROVIDERS: Specialist; ADMIT Internal Medicine
PROC: 02HV33Z Insertion of Infusion Device into Superior Vena Cava, Percutaneous Approach (ICD-10-PCS; 2019-03-09)
PROC: 3E0T3BZ Introduction of Anesthetic Agent into Peripheral Nerves and Plexi, Percutaneous Approach (ICD-10-PCS; 2019-03-15)
PROC: 3E0T33Z Introduction of Anti-inflammatory into Peripheral Nerves and Plexi, Percutaneous Approach (ICD-10-PCS; 2019-03-15)
PROC: 0Y6J0Z1 Detachment at Left Lower Leg, High, Open Approach (ICD-10-PCS; principal; 2019-03-15 12:15)
DX: A41.01 Sepsis due to Methicillin susceptible Staphylococcus aureus (principal); N17.9 Acute kidney failure, unspecified; M86.672 Other chronic osteomyelitis, left ankle and foot; L02.416 Cutaneous abscess of left lower limb; N39.0 Urinary tract infection, site not specified; R65.20 Severe sepsis without septic shock; E66.9 Obesity, unspecified; M21.372 Foot drop, left foot; I12.9 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e 4 chronic kidney disease, or unspecified chronic kidney disease; E11.22 Type 2 diabetes mellitus with diabetic chronic kidney disease; N18.9 Chronic kidney disease, unspecified; K21.9 Gastro-esophageal reflux disease without esophagitis; D63.1 Anemia in chronic kidney disease; E11.69 Type 2 diabetes mellitus with other specified complication; I25.10 Atherosclerotic heart disease of native coronary artery without angina pectoris; E11.40 Type 2 diabetes mellitus with diabetic neuropathy, unspecified; F32.9 Major depressive disorder, single episode, unspecified; G89.29 Other chronic pain; M54.9 Dorsalgia, unspecified; E79.0 Hyperuricemia without signs of inflammatory arthritis and tophaceous disease; F51.04 Psychophysiologic insomnia; B95.1 Streptococcus, group B, as the cause of diseases classified elsewhere; Z88.0 Allergy status to penicillin; Z87.891 Personal history of nicotine dependence; Z79.84 Long term (current) use of oral hypoglycemic drugs; Z79.1 Long term (current) use of non-steroidal anti-inflammatories (NSAID); Z79.82 Long term (current) use of aspirin; Z79.899 Other long term (current) drug therapy; Z68.38 Body mass index [BMI] 38.0-38.9, adult
CPT/HCPCS: 01482; 0297T; 0298T; 36415; 64445; 64447; 71045; 73723; 76942; 80048; 80053; 80202; 81001; 82570; 83036; 83605; 84300; 84540; 85025; 86060; 87040; 87070; 93005; 93010; 96361; 96365; 96375; 97110; 97163; 99284-25; A9579; C1751; J0690; J0692; J1100; J1650; J1815; J1885; J2250; J2405; J2704; J2765; J3010; J3370; J7030; J7050; J7060; J7120

== ENCOUNTER 2019-03-16 12:15 | Inpatient (IN) | payer MEDICARE, MEDICAID ==
[~2019-03-16] VITALS: Ht 170.2 cm; Wt 113.4 kg
--- OUTSIDE RECORDS SUMMARY | ~2019-03-16 | XMS | Encounter Summary ---
Demographics + + + | Address | [address] | | | [place] [address] | + + + | Home Phone | | + + + | Preferred Language | Unknown | + + + | Marital Status | Single | + + + | Jain Affiliation | Unknown | + + + | Race | White | + + + | Ethnic Group | Not or | + + + Author + + + | Author | [place] [employer] [facility] | + + + | Organization | [facility] [employer] [facility] | + + + [...] Team Providers + +------+ + | Care Checkroom Chief Name | Role | Phone | + +------+ + | Scott Parmar MD | PCP | | + +------+ + Encounter Details +--------+ + + + + | Date | Type | Department | Care Team | Description | +--------+ + + + + | 11/07/ | Hospital | Radiology/Imaging | | Canceled (Provider | | 2016 | Encounter | Lab at [facility] [address] | | Request) | | | | [address] Mailcode: | | | | | | [facility] | | [facility] | [facility], | | | | | | [facility] [address] 3rd | | | | | | Floor [place], [place] | | | | | | [address] | | | | | | [phone] | | | +--------+ + + + [...] | | 0 | | | | [id number] | | | | | | | [...] Final/Electronically | | | | | | rafael / NEELAM | | | | | [...] | | + +---------+ + + | [facility] DEPARTMENT OF | | | | | RADIOLOGY | | | | + +---------+ + + documented in this encounter Visit Diagnoses + + | Diagnosis | + + | Lumbar spine pain Lumbago | + + documented in this encounter"
--- OUTSIDE RECORDS SUMMARY | ~2019-03-16 | XMS | Encounter Summary ---
Demographics + + + | Address | [address] | | | [place] [address] | + + + | Home Phone [...] Author + + + | Author | [place] [facility] [facility] | + + + | Organization | [facility] [employer] [facility] | + + + | Address [...] Team Providers + +------+ + | Care Blade Boner Name | Role | Phone | + +------+ + | Scott Parmar MD | PCP | | + +------+ + Encounter Details +--------+ + + + + | Date | Type | Department | Care Team | Description | +--------+ + + + + | 11/07/ | Hospital | Radiology/Imaging | | | | 2015 | Encounter | Lab at [facility] [address] | | | | | | [place] Mailcode: | | | | | | [facility] | | | | | | Health and Healing, | | | | | | Building [facility] | | | | | | Floor [place], [place] | | | | | | [address] | | | | | | [phone] | | | +--------+ + + + [...] | | 0 | | | | [id number] | | | | | | | [...]
--- OUTSIDE RECORDS SUMMARY | ~2019-03-16 | XMS | Encounter Summary ---
Demographics + + + | Address | [address] | | | [place] [address] | + + + | Home Phone | | + + + | Preferred Language | Unknown | + + + | Marital Status | Single | + + + | Quaker Affiliation | Unknown | + + + | Race | White | + + + | Ethnic Group | Not or | + + + Author + + + | Author | [place] [facility] [facility] | + + + | Organization | [facility] | + + + | [...] Team Providers + +------+ + | Care Spool Carrier Name | Role | Phone | + +------+ + | Scott Parmar MD | PCP | | + +------+ + Encounter Details +--------+ + + + + | Date | Type | Department | Care Team | Description | +--------+ + + + + | 11/12/ | Documentati | Digestive Health | Radha Urbina, | | | 2016 | on | Center at [facility] [address] | [facility] [address] | | | | | [address] | [address] [place], [place] | | | | | Mailcode: [place] | [address] | | | | | [facility] and | | | | | | [place] [address] | | | | | | [place], [place] | | | | | | [address] | | | | | | | [...]
--- OUTSIDE RECORDS SUMMARY | ~2019-03-16 | XMS | Encounter Summary ---
Demographics + + + | Address | [address] | | | [place] [address] | + + + | Home Phone [...] Author + + + | Author | [place] [employer] [facility] | + + + | Organization | [facility] [employer] [facility] | + + + | Address | [...] Team Providers + +------+ + | Care Marketing Teacher Name | Role | Phone | + +------+ + | Scott Parmar MD | PCP | | + +------+ + Encounter Details +--------+---------+ + + + | Date | Type | Department | Care Team | Description | +--------+---------+ + + + | 11/29/ | Office | Neurosurgery at | Eitan Cortez, | | | 2007 | Visit | [facility] [address] | | | | | Rebekah Mailcode: [facility] | | | | | | [facility] | | | | | | and Healing, | | | | | | Building | | | | | | Floor [place], [place] | | | | | | [address] | | | | | | [phone] | | | +--------+---------+ + + + [...] Eitan Cortez - 12/02/2007 8:21 AM PDT [id number] ENRIQUE Shields [id number] Referred From and Faxed To: Scott Parmar M.D. Referred To: Eitan Cortez M.D. Consulting Physician: Eitan Cortez M.D. Consultation Date: 11/30/2007 Referring Physician: Scott Parmar M.D. Reason For Requested Consultation: Back pain and lumbar stenosis. Dear Dr. Parmar: Thank you for referring Antonio Orozco to my [facility] in [place], [place]. It was a pleasure to see this young woman and her mother today in the clinic. You may recall, this 37-year-old female is status post L3-4 and L4-5 decompressive lumbar surgery in March [address] Bryant Coker in [place], [place]. After that surgery, she has had [...] Eitan Cortez M.D. DANIEL / ANA M [id number] / [id number] / [id number] / [id number] cc: Scott Parmar M.D. [facility] [address] [place] [address] documented in this enco unter Plan of Treatment Not on filedocumented as of this encounter Visit Diagnoses Not on filedocumented in this encounter"
--- OUTSIDE RECORDS SUMMARY | ~2019-03-16 | XMS | Encounter Summary ---
Demographics + + + | Address | [address] | | | [place] [address] | + + + | Home Phone [...] + + + | Author | [place] [employer] [facility] | + + + | Organization | [facility] [employer] [facility] | + + + | Address | [...] Team Providers + +------+ + | Care Chief Informatics Officer Name | Role | Phone | + +------+ + | Scott Parmar MD | PCP | | + +------+ + Encounter Details +--------+ + + + + | Date | Type | Department | Care Team | Description | +--------+ + + + + | 12/17/ | Abstract | Digestive Health | Clinic, Surgery | | | 2015 | | Center at [facility] [address] | | | | | | [address] | | | | | | Mailcode: Center | | | | | | for Health and | | | | | | Healing, [address] | | | | | | [place], [place] | | | | | | [address] | | | | | | [phone] | | | +--------+ + + + [...]
--- OUTSIDE RECORDS SUMMARY | ~2019-03-16 | XMS | Encounter Summary ---
Demographics + + + | Address | [address] | | | [place] [address] | + + + | Home Phone [...] Author + + + | Author | [place] [employer] [facility] | + + + | Organization | [facility] [employer] [facility] | + + + | Address | [...] Team Providers + +------+ + | Care Orchid Superintendent Name | Role | Phone | + +------+ + | Scott Parmar MD | PCP | | + +------+ + Encounter Details +--------+ + + + + | Date | Type | Department | Care Team | Description | +--------+ + + + + | 12/18/ | Abstract | Digestive Health | Clinic, Surgery | | | 2015 | | Center at [facility] [address] | | | | | | [address] | | | | | | Mailcode: Center | | | | | | for Health and | | | | | | Healing, [address] | | | | | | [place], [place] | | | | | | [address] | | | | | | [phone] | | | +--------+ + + + [...]
--- OUTSIDE RECORDS SUMMARY | ~2019-03-16 | XMS | Encounter Summary ---
Demographics + + + | Address | [address] | | | [place] [address] | + + + | Home Phone | | + + + | Preferred Language | Unknown | + + + | Marital Status | Single | + + + | Confucianism Affiliation | Unknown | + + + | Race | White | + + + | Ethnic Group | Not or | + + + Author + + + | Author | [place] [employer] [facility] | + + + | Organization | [facility] [employer] [facility] | + + + | Address | [...] Team Providers + +------+ + | Care Project Analyst Name | Role | Phone | + +------+ + | Scott Parmar MD | PCP | | + +------+ + Encounter Details +--------+ + + + + | Date | Type | Department | Care Team | Description | +--------+ + + + + | 11/07/ | Hospital | Radiology/Imaging | | | | 2015 | Encounter | Lab at [facility] [address] | | | | | | [address] Mailcode: | | | | | | [facility] | | | | | | Health and Healing, | | | | | | Building [facility] | | | | | | Floor [place], [place] | | | | | | [address] | | | | | | [phone] | | | +--------+ + + + [...] | | 0 | | | | [id number] | | | | | | | [...] | | + +---------+ + + | [facility] DEPARTMENT OF | | | | | RADIOLOGY | | | | + +---------+ + + documented in this encounter Visit Diagnoses Not on filedocumented in this encounter"
--- OUTSIDE RECORDS SUMMARY | ~2019-03-16 | XMS | Encounter Summary ---
Demographics + + + | Address | [address] | | | [place] [address] | + + + | Home Phone [...] + + + | Author | [place] [employer] [facility] | + + + | Organization | [facility] [employer] [facility] | + + + | Address | [...] Providers + +------+ + | Care Senior Oracle Applications Developer Name | Role | Phone | [...] | | Scheduled | | Lumbar | [address] | [facility] | | | with FROZEN MEAT CUTTER | | spine pain | Zack Shrestha | [address] | | | | | Procedures | Alyse Berry | [address] | | | | | CONSULT TO | [place], [place] | Mailcode: | | | | | BARIATRIC | [address] | [facility] | | | | | SURG[facility] | Phone: | Health and | | | | | | [phone] | Healing, | | | | | | Fax: | Building [address] | | | | | | [phone] | [facility] [place] | | | | | | | [address] | | | | | | | Phone: | | | | | | | [phone] | | | | | | | Fax: | | | | | | | [phone] | +--------+ + + + + + [...] | | unspecified | [address] | [place], [place] | | | | | | [place], | [address] | | | | | Radiculopath | [place] [address] | Phone: | | | | | y, lumbar | Phone: | [phone] | | | | | region | [phone] | Fax: | | | | | Lumbago with | Fax: | [phone] | | | | | sciatica, | [phone] | | | | | | right side | | | +--------+--------+ + + + + Encounter Details +--------+---------+ + + + | Date | Type | Department | Care Team | Description | +--------+---------+ + + + | 11/07/ | Office | Orthopaedic Spine | Thomas Hair MD | Lumbar spine pain | | 2016 | Visit | Center at [facility] [address] | [address] | (Primary Dx) | | | | [facility] Rebekah | Alyse Berry [place], | | | | | Mailcode: [facility] | [place] [address] | | | | | [facility] | [phone] | | | | | and Healing, | | | | | | [facility] | | | | | | [place], [place] | | | | | | [address] | | | | | | [phone] | | | +--------+---------+ + + + [...] the surgery. She had surgery done at [place] on. She has gone to the surgeon [...] AM PDTCalled and spoke to someone at [facility]'s image library in [place], [place]. They will push images immediately. They will also fax over reports. They are now in [employer]. d ocumented in this encounter Plan of [...]
--- OUTSIDE RECORDS SUMMARY | ~2019-03-16 | XMS | Clinical Summary ---
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
--- OUTSIDE RECORDS SUMMARY | ~2019-03-16 | XMS | Clinical Summary ---
Demographics + + + | Address | [address] | | | [place] [address] | + + + | Home Phone [...] | Latha Solano | ECON | [address] | | | | | [place] | | | | | [address] | | + + + + + | Maria G Deutsch | ECON | Unknown | | + + + + + Care Team Providers + +------+ + | Care Dragline Engineer Name | Role | Phone | [...] | | + + + +---------+------+------+-------+ | Locke 3 1200 MG | Take by mouth. [...] | [employer] | [employer] | [id number] | 05/18/ | [phone] | | [employer] | | MEDICAID HMO [...] | | | 1 (Home) | [place] [address] | + +--------+ +--------+ + + Advance Directives Patient has advance care planning documents on file. For more information, please contact:[facility] and [facility] [place] [address]
[~2019-03-16 12:15] MED LIST changes: +ALLOPURINOL300 MG PO; +VITAMIN D1000 UNIT PO
--- NOTE | 2019-03-16 12:45 | NUR ---
PT CALLED FOR ASSISTANCE TO COMMODE. 1PA WITH WALKER FOR PIVOT TRANSFER. PT VOIDED AND HAD SMALL SOFT BM. 1P PIVOT TRANSFER BACK TO BED. PT REQURING MINIMAL ASSIST. DENIES PAIN OR OTHER CONCERNS AT THIS TIME. ICE WATER REFRESHED. CALL LIGHT WITHIN REACH.
--- NOTE | 2019-03-16 13:29 | NUR ---
PT ADMITTED TO SWINGBED STATUS AT 1215.
--- NOTE | 2019-03-16 14:49 | NUR ---
PT REQUESTING OXY. STATES "I'M NOT REALLY HAVING PAIN YET BUT I CAN FEEL MY LEG STARTING TO WAKE UP AND I WANT TO STAY AHEAD OF IT." PT JUST FINISHING UP WITH P.T. MULTIPLE VISITORS AT BEDSIDE. IV ABX INFUSION STARTED IN LEFT ARM PICC, CONT TO FLUSH EASILY WITH GOOD BLOOD RETURN. DRESSING CDI. CALL LIGHT WITHIN REACH.
--- NOTE | 2019-03-16 15:00 | NUR ---
PATIENT ADMITTED TO [facility] AND UNDERSTANDS SHE IS NOW STAYING FOR THERAPY DAILY TO PREPARE HER BEST FOR DISCHARGE SHE INTENDS TO RETURN HOME ON HER OWN. SHE UNDERSTANDS SHE NEEDS TO CONTINUE TO PROGRESS TOWARD GOALS THAT WILL BE DECIDED BETWEEN HER AND HER THERAPISTS.
--- NOTE | 2019-03-16 18:01 | NUR ---
PT UP TO COMMODE WITH 1PA MINIMAL ASSIST. BACK TO BED. DENIES PAIN OR OTHER CONCERNS AT THIS TIME. LINENS CHANGED WHILE UP. CALL LIGHT WITHIN REACH.
--- NOTE | 2019-03-16 19:38 | NUR ---
BEDSIDE REPORT RECEIVED FROM MELISSA FIELDS. PT RESTING IN BED WITH LEFT LEG ELEVATED. TALKING ON CELL PHONE. NO REQUESTS AT THIS TIME.
--- NOTE | 2019-03-16 22:50 | NUR ---
PT ASSESSMENT COMPLETE. LYING IN BED AWAKE. DRESSING CDI. PT RATES PAIN 2/10, "FEELING" IN POSTERIOR OF L THIGH. NO SENSATION BELOW MID THIGH, OCCASIONAL "TINGLE". PICC LINE FLUSHED WNL, GOOD BLOOD RETURN, SL AT THIS TIME, IV ANTIBIOTIC ADMINISTERED WNL ORDERED. CALL LIGHT IN REACH.
--- NOTE | 2019-03-17 00:52 | NUR ---
CHECKED ON PT. RESTING IN BED WITH EYES CLOSED. BREATHING EQUAL AND UNLABORED. LEFT LEG ELEVATED. SCD ON RIGHT LEG.
--- NOTE | 2019-03-17 03:35 | NUR ---
CHECKED ON PT. RESTING IN BED WITH EYES CLOSED, SNORING. RR 16. LIGHTS OFF IN ROOM. CALL LIGHT IN REACH.
--- NOTE | 2019-03-17 06:28 | NUR ---
PT AWAKENS EASILY TO VOICE. 2PA WITH FOUR WHEEL WALKER TO BSC FOR VOID AND BACK TO BED. PT DENIES ANY PAIN. ABLE TO MOVE LEFT EXTREMITY, BEND AT KNEE. PICC LINE WITH GOOD BLOOD RETURN. IV ANTIBIOTIC INFUSING ORDERED. CALL LIGHT IN REACH. ICE WATER PROVIDED.
--- NOTE | 2019-03-17 06:29 | NUR ---
PT SLEPT WELL THROUGHOUT SHIFT. PICC LINE WNL, GOOD BLOOD RETURN. IV ANTIBIOTICS. VOIDING QS. 2PA TO PIVOT TO C WITH FOUR WHEEL WALKER. FULL MOTION AT KNEE OF AMPUTATED LEG. SENSATION ABOVE KNEE, NO SENSATION BELOW KNEE ON OPERATED SIDE. DRESSING CDI. DENIES PAIN.
--- NOTE | 2019-03-17 07:40 | NUR ---
BEDSIDE REPORT RECIEVED FROM LIZ TORRES. PT RESTING IN HER BED WITH HER CALL LAMBERT WITHIN REACH. SHE APPEARS IN NO DISTRESS WITH HER LEFT BKA SITE ELEVATED ON A PILLOW AND SHE STATES HER PAIN IS UNDER GOOD CONTROL AT THIS TIME.
--- NOTE | 2019-03-17 07:41 | NUR ---
PATIENT RESTING IN BED. PATIENT CLEANED HER FACE AND HANDS. ICE WATER GIVEN. CALL LIGHT WITHIN REACH. NO OTHER NEEDS AT THIS TIME
--- NOTE | 2019-03-17 08:38 | NUR ---
PT RESTING IN HER BED AND SHE NOW STATES HER PAIN HAS INCREASED TO A 4/10 AND SHE IS REQEUSTING PAIN MEDICATION. SEE EMAR. CALL WITHIN REACH.
--- NOTE | 2019-03-17 09:53 | NUR ---
PATIENT SITTING UP IN BED. RN STUDENT IN ROOM. VITAL SIGNS AND I&O DONE. CALL LIGHT WITHIN REACH. NO OTHER NEEDS AT THIS TIME
--- NOTE | 2019-03-17 11:13 | NUR ---
PATIENT GIVEN NEWS PAPER.
--- NOTE | 2019-03-17 11:33 | NUR ---
Pt denies any new problems and states her pain is under control at this time. She denies the need of anything and her call whaley is within reach.
--- NOTE | 2019-03-17 12:00 | NUR ---
SPOKE AT LENGTH WITH PATIENT IN ROOM. FEELS SHE IS DOING WELL. IS GETTING UP WITH ASSISTANCE. DISCUSSED SWINGBED PROGRAM AGAIN, SHE HAS NO QUESTIONS AT THIS TIME. PHONE NUMBER GIVEN FOR [employer] BENEFITS PROGRAM TO CALL REGARDING OPTIONS AND POSSIBLE EXTRA COVERAGE. DISCUSSED THAT PATIENT IS STILL HOPEFUL TO RETURN HOME AFTER THERAPY STAY HERE. SHE IS CONSIDERING A LIFT CHAIR AT HOME TO HELP WITH MOBILITY. WE DISCUSSED THAT HER PCP IS IN [place], SHE WOULD LIKE TO FIND A LOCAL PCP. WE DISCUSSED THREE CLINICS SHE COULD TRY HER IN TOWN. SHE IS GOING TO THINK ABOUT THIS. QUESTIONS ANSWERED. WILL CONTINUE TO FOLLOW. ASKED CASHIER RECEPTIONIST PETROLEUM GEOLOGY FACULTY MEMBER TO HELP PATIENT WITH GADIEL FOR GETTING RECORDS TO SELECTED NEW PCP OFFICE.
--- NOTE | 2019-03-17 12:44 | NUR ---
PATIENT RESTING IN BED. PATIENT GOES TO USE BASE COMMODE. PATIENT USES WALKER. ONE PERSON ASSISTING. CALL LIGHT WITHIN REACH. NO OTHER NEEDS AT THIS TIME
--- NOTE | 2019-03-17 13:39 | NUR ---
STARTED HELPING PATIENT GET ESTABLISHED WITH A LOCAL PCP. NATY FILLING OUT INFORMATION RELEASE FORM. DR. RICH'S OFFICE TOLD ME THEY WOULD TAKE A NEW PATIENT THEN TOLD PATIENT THEY WERE UNSURE IF THEY WOULD EXCEPT HER. PATIENT WAITING TO HEAR BACK FROM DRS OFFICE. WILL CONTINUE TO HELP HER GET SET UP WHEN DECISION IN MADE.
--- NOTE | 2019-03-17 14:04 | NUR ---
PATIENT WITH PHYSICAL THERAPIST. KULDEEP BEAVER
--- NOTE | 2019-03-17 14:17 | NUR ---
PATIENT RESTING IN BED. I&O DONE. CALL LIGHT WITHIN REACH. NO OTHER NEEDS AT THIS TIME
--- NOTE | 2019-03-17 15:56 | NUR ---
PATIENT RESTING IN BED. BED BATH DONE. CALL LIGHT WITHIN REACH. NO OTHER NEEDS AT THIS TIME
--- NOTE | 2019-03-17 16:14 | NUR ---
Pt sitting at the bedside at this time, she states her pain is controled at a 2/10. Left stump site dressing is cdi.
--- NOTE | 2019-03-17 17:06 | NUR ---
Pt states her pain level is acceptable to her at this time.
--- NOTE | 2019-03-17 17:58 | NUR ---
PATIENT RESTING IN BED. PATIENT IS GOING TO USE BASE COMMODE. PATIENT USES WALKER. ONE PERSON ASSISTING. PATIENT BACKS TO BED. I&O DONE. CALL LIGHT WITHIN REACH. NO OTHER NEEDS AT THIS TIME
--- NOTE | 2019-03-17 19:07 | NUR ---
IN ROOM FOR REPORT, PT HAS A VISITOR. SHE DENIES NEEDS AT THIS TIME. CALL LIGHT IS WITHIN REACH.
--- NOTE | 2019-03-17 22:25 | NUR ---
IN ROOM TO ASSESS PT AND ADMINISTER MEDICATIONS. PT'S BKA DRESSING REMAINS INTACT AND NO DRAINAGE NOTED. ADMINISTERED OXYCODONE FOR PAIN. WILL REMOVE PICC AFTER LAST ANCEF IS INFUSED. PT DENIES NEEDS AT THIS TIME. CALL LIGHT IS WITHIN REACH.
--- NOTE | 2019-03-18 00:24 | NUR ---
REMOVED PICC LINE WITH STERILE TECHNIQUE, GAUZE AND OPSITE APPLIED FOR PRESSURE DRESSING. PT IN SUPINE POSITION AND HELD BREATH DURING REMOVAL CATH TIP IS INTACT AND PT TOLERATED WELL. PT ADVISED TO NOTIFY RN IF BLEEDING OCCURS. SHE DENIES FURTHER NEEDS AT THIS TIME. CALL LIGHT IS WITHIN REACH.
--- NOTE | 2019-03-18 02:14 | NUR ---
PT IS RESTING WITH EYES CLOSED, RR IS EVEN AND NONLABORED. CALL LIGHT IS WITHIN REACH.
--- NOTE | 2019-03-18 05:53 | NUR ---
PT IS RESTING WITH EYES CLOSED, RR IS EVEN AND NONLABORED. CALL LIGHT IS WITHIN REACH.
--- NOTE | 2019-03-18 05:55 | NUR ---
PT SLEPT WELL THE LAST HALF OF THE NIGHT. SHE AMBUALTES 1-2PA WITH FWW. HER PICC WAS REMOVED LAST NIGHT PER ORDERS. SHE RECEIVES OXYCODONE FOR PAIN. DRESSING ON LEFT BKA IS INTACT. SHE IS ON AN ADA DIET. SHE HAS NYSTATIN POWDER FOR GROIN.
--- NOTE | 2019-03-18 06:43 | NUR ---
IN ROOM TO ADMINISTER THYROID MED. FRESH WATER AT BEDSIDE AND PT DENIES FURTHER NEEDS AT THIS TIME. CALL LIGHT IS WITHIN REACH.
--- NOTE | 2019-03-18 07:00 | NUR ---
BEDSIDE HANDOFF REPORT RECEIVED FROM FOUNDRY WORKER GENERAL RN. PT SLEEPING, LEFT UNDISTURBED.
--- NOTE | 2019-03-18 09:20 | NUR ---
PT SITTING ON EDGE OF BED, FINISHING WITH BED BATH. PT ON ROOMA IR, LUNG SOUNDS CLEAR. PT RATING PAIN 2/10, DECLINING PAIN MEDICATION AT THIS TIME. PT TOLERATING 60G CRAB DIET, DENIES NAUSEA, BOWEL TONES ACTIVE. PT WITH DRESSING TO LEFT BKA STUMP, CDI. WITHOUTED EDEMA TO RIGHT LOWER LEG, SCD IN PLACE, CHRONIC NEUROPATHY. PT WITHOUT IV ACCESS. PT ASSITED TO CHAIR, 1-2PA WITH 4WW. DISCUSSSED PLAN OF CARE FOR THE DAY. PT DENIES OTHER NEEDS AT THIS TIME.
--- NOTE | 2019-03-18 13:25 | NUR ---
PT REQUESTING PAIN MEDICATION, GIVEN 5 MG OXYCODONE. PT SBA TO PIVOT TO EDGE OF BED AND BACK TO CHAIR. PT DENIES OTHER NEEDS AT THIS TIME.
--- NOTE | 2019-03-18 17:58 | NUR ---
PT HAD UNEVENTFUL DAY. PT ON ROOM AIR, LUNG SOUNDS CLEAR. PAIN WELL CONTROLLED WITH OXYCODONE. PT UP 1PA WITH 4WW, ABLE TO AMBULATE TO CHAIR. PT WITH LLE DRESSING TO BKA STUMP, CDI. PT VOIDING QS.
--- NOTE | 2019-03-18 21:43 | NUR ---
Pt continues on transitional care/Swing Bed status. Awake, alert and oriented, watching TV, c/o L stump site pain 5/10, medicated with Oxycodone 7.5mg po. Ice to area. Stump elevated in pillows, moves it well. slight edema antonia dressing, below knee, warm to touch. SCDS in R leg, no IV sites. Tolerating diet and fluids well. Call light at bedside. Has KPad at bedside, not using right now. IS at bedside.
--- NOTE | 2019-03-18 23:57 | NUR ---
Pt up to BSC, voided yellow urine. Semi indeoendent, uses FWW. Did very well. L stump dressing CDI. elevated w pillows, ice to area, Medicated with Tylenol 500mg po c/o 08/30 L stump achiness. Tolerating fluids well, no other c/o. Call light at bedside
--- NOTE | 2019-03-19 01:35 | NUR ---
Eyes closed, no resp distress noted, L stump elevated with pillows, ice to area, SCDS in R leg, IS at bedside. HOB elevated. Call light at bedside
--- NOTE | 2019-03-19 05:19 | NUR ---
PT CONTINUES ON SWING BED STATUS. ON ROOM AIR. HAS BEEN MEDICATED WITH OXYCODONE AND TYLENOL FOR LBKA WITH GOOD PAIN RELIEF. STUMP COVERED WITH PRESSURE DRESSING, ELEVATED IN PILLOWS AND ICE TO AREA HER REQUESTS, MOVES IT WELL. SCDS R LEG. UP TO BSC W MINIMUM OF ASSIST AND FWW, DOES OWN PERICARE. MUCH IMPROVED. GOOD AFFECT AND OUTLOOK TO SITUATION. CALL LIGHT AND FLUIDS AT BEDSIDE, NO N/V
--- NOTE | 2019-03-19 07:53 | NUR ---
0728: BEDSIDE REPORT RECEIVED FROM CHRISTELLE TORRES. PT LYING IN HER BED WITH HER LEFT LEG STUMP ELEVATED ON A PILLOW. THE DRESSING IS CDI WITH NO NOTED SWELLING OR REDNESS ABOUT THE DRESSING, GOOD PULSE NOTED BEHIND THE KNEE. THE PT STATES THAT HER PAIN REMAINS UNDER CONTROL AT THIS TIME. CALL LAMBERT WITHIN REACH.
--- NOTE | 2019-03-19 08:49 | NUR ---
PT SITTING UP IN HER BED EATING BREAKFAST. SHE DENIES ANY CURRENT PAIN. THE LEFT LEG SURGICAL SITE DRESSING IS INTACT WITH NO DRAINAGE NOTED. NO NOTED S/S OF INFECTION, STUMP IS ELEVATED ON A PILLOW. PT DENIES ANY NEW PROBLEMS.
--- NOTE | 2019-03-19 10:50 | NUR ---
PT WORKING WITH PHYSICAL THERAPY AT THIS TIME.
--- NOTE | 2019-03-19 12:38 | NUR ---
LEFT STUMP DRESSING HAD BEEN REMOVED BY DR VEGA. THE SITE APPEARS HEALTHY WITH SUTURES IN PLACE AND NO S/S OF INFECTION AND INCISION IS INTACT. THERE WAS A SMALL AMOUNT OF DRAINAGE PER DR VEGA WHICH WAS NO LONGER PRESENT UPON MY ARRIVAL TO THE ROOM. DRESSING APPLIED ORDERED BY DR VEGA.
--- NOTE | 2019-03-19 12:51 | NUR ---
Pt working with physical therapy at this time.
--- NOTE | 2019-03-19 13:47 | NUR ---
PT SITTING UP IN HER CHAIR SPEAKING WITH A VISITOR. SHE DENIES ANY PROBLEMS AT THIS TIME.
--- NOTE | 2019-03-19 14:21 | NUR ---
Pt resting in her chair and has visitors at this time. Pt states her pain control is good rating it at a 2/10. Pt denies any new problems.
--- NOTE | 2019-03-19 16:23 | NUR ---
Pt states her pain remains well controled at a 2/10. Pt denies any other problems.
--- NOTE | 2019-03-19 17:54 | NUR ---
Pt sleeping at this time.
--- NOTE | 2019-03-19 18:00 | NUR ---
PT SITTING IN HER CHAIR VISITING WITH HER GUEST AND WATCHING TV. SHE DENIES ANY PROBLEMS STATING, "I'M DOING GOOD".
--- NOTE | 2019-03-19 20:21 | NUR ---
coop with assessment, L BKA stump with pressure dressing in place, CDI, no c/o pain at that time. ice packs to L stump. Tolerating diet well, no c.o n/v no c/o sob , call light at bedside
--- NOTE | 2019-03-19 21:57 | NUR ---
MOLINA TORRES ROUNDING NOTE. PT RESTING IN BED WITH EYES CLOSED. RESPIRATIONS EVEN AND UNLABORED. PT APPEARS TO BE SLEEPING. CALL LIGHT IN REACH. WHITE BOARD UPDATED.
--- NOTE | 2019-03-19 22:31 | NUR ---
medicated with oxycodone 7.5mg po c/o 6/10 L BKA stump pain. leg elevated with pillows, ice to area,
--- NOTE | 2019-03-20 00:30 | NUR ---
RSTING, EYES CLOSED, NO FURTHER S/SX FACIAL C/O PAIN. LBKA STUMP ELEVATED WITH PILLOWS, ICE TO AREA. DRESSING CDI. SCDS IN R LEG, CALL LIGHT AT BEDSIDE
--- NOTE | 2019-03-20 01:33 | NUR ---
ANSWERED CALL LIGHT. 1PA TO BEDSIDE COMMODE AND BACK TO BED. ICE PACK 2 MADE. ICE WATER RREFILLED.
--- NOTE | 2019-03-20 04:54 | NUR ---
PT CURRENTLY RESTING, WAS MEDICATED WITH OXYCODONE 7.5MG PO PER LBKA STUMP PAIN. PRESSURE DRESSING INTACT, ICE TO AREA. SKIN WARM.R LEG SCDS IN PLACE, WORKING WITH OT/PT. PT REQUIRES 1PA AND FWW, TOLERATING FLUIDS WELL, CALL LIGHT AT BEDSIDE
--- NOTE | 2019-03-20 07:45 | NUR ---
0722: REPORT RECIEVED FROM CHRISTELLE TORRES. PT SLEEPING AT THIS TIME.
--- NOTE | 2019-03-20 09:29 | NUR ---
PATIENT UP TO BSC, THEN TO SHOWER CHAIR, THEN TO CHAIR, SBA FWW. PATIENT IND IN SHOWER AND GETTING DRESSED. AM CARE DONE AT SINK. LINENS CHANGED. ICE PACKS FILLED. FRESH WATER GIVEN. RN IN ROOM. CALL LIGHT IN REACH. NO FURTHER NEEDS AT THIS TIME.
--- NOTE | 2019-03-20 09:31 | NUR ---
Pt showered this am and she states that she feels great after her shower. Dressing remains intact and dry with no drainage. Pt denies any pain or new problems. VSS, stump site elevated with ice in place which she is using on and off. Pt requested to speak with the dc regional planner to help figure out her plan. DC regional planner will be called.
--- NOTE | 2019-03-20 10:45 | NUR ---
Pt just recently completed her therapy and now states her pain is a 2.5/10 which is acceptable and that she does not need anything.
--- NOTE | 2019-03-20 14:23 | NUR ---
Pt states her surgical site pain is now a 4 and she requested something for it, see emar. pt denied any other problems. Dressing remains cdi, skin around the dressing is healthy. Stump remains elevated and she continues to use ice on and off.
--- NOTE | 2019-03-20 14:31 | NUR ---
PATIENT IN CHAIR WATCHING TV. CALL LIGHT IN REACH. NO FURTHER NEEDS AT THIS TIME.
--- NOTE | 2019-03-20 16:23 | NUR ---
1545: Pt states she is doing well and that her pain level is a 3 and is decreasing and she denies the need of anything needed for her pain at this time.
--- NOTE | 2019-03-20 18:42 | NUR ---
Pt assisted to bed after using the commode. She states that her pain is a 3 which is acceptable to her. Pt denies any other problems.
--- NOTE | 2019-03-21 01:00 | NUR ---
Awake, watching TV. no c/o pain. L stump elevated with pillows, pressure dressing inplace, ice to area, call light and fluids at bedside
--- NOTE | 2019-03-21 03:17 | NUR ---
RESTING, AWAKES EASILY, NO FURTHER C/O PAIN. L STUNMP ELEVATED INPILLOWS, SKIN WARM, PINK, SCDS R LEG, CALL LIGHT AT BEDSIDEM ON ROOM AIR
--- NOTE | 2019-03-21 05:49 | NUR ---
PT HAS SLEPT MOST OF THIS SHIFT, CONTINUES ON SWING BED STATUS. SCDS R LEG. L STUMP PRESSURE DRESSING CDI, ELEVATED IN PILLOWS AND ICE TO AREA. PT CONTINUES TO STATE THAT SHE HAS NEUROPATHY BOTH LEG AND STUMP. WAS MEDICATED WITH OXYCODONE 7.5MG PO PER PAIN, EFFECTIVE, TOLERATING DIET AND FLUIDS WELL. UP TO BSC WITH MINIMUM OF ASSIST AND FWW. STATES THAT SHE DOES NOT THINK THAT SHE SHOULD GO HOME UNTIL HER PROSTHESIS GET HERE. PT INSTRUCTED TO DISCUSS HER CONCERNS WITH CM. REASSURED AND NO FURTHER QUESTIONS ASKED
--- NOTE | 2019-03-21 08:51 | NUR ---
pt up in shower at this time.
--- NOTE | 2019-03-21 12:03 | NUR ---
physical therapy in room with patient.
--- NOTE | 2019-03-21 13:24 | NUR ---
PT RESTING IN CHAIR. REPORTS BEING TIRED AFTER PHYSICAL THERAPY BUT DENIES NEEDS FOR PAIN MEDICATION AT THIS TIME.
--- NOTE | 2019-03-21 16:24 | NUR ---
pt resting in chair with visitor in room. fresh water given. denies further needs at this time. call light within reach.
--- NOTE | 2019-03-21 17:24 | NUR ---
pt has had an uneventful shift. working with physical therapy. 1 person assist with fww. dressing to left stump C/D/I. pt recieved tylenol for pain throughout shift.
--- NOTE | 2019-03-21 18:15 | NUR ---
Pt up to bedside commode with mininal assist. instructed to call when done. call light within reach.
--- NOTE | 2019-03-21 22:43 | NUR ---
COOP WITH ASSESSMENT, IN BED WATCHING TV. ON ROOM AIR, IS AT BEDSIDE, TOLERATING LIQUIDS AND DIET WELL, NO N/V. SCDS R LEG, L STUMP WITH PRESSURE DRESSING INPLACE, TRACE EDEMA , ELEVATED WITH PILLOWS, ICE TO AREA. C/O 4/10 LEFT STUMP PAIN. MEDICATED WITH 7.5MG PO OXYCODONE. CALL LIGHT AT BEDSIDE
--- NOTE | 2019-03-22 00:27 | NUR ---
PT AWAKE, PLAYING VIDEO GAMES, NO C/O PAIN, SCD R LEG, LEFT BKA STUMP WARM, PRESSURE DRESSING INPLACE, ELEVATED, ICE TO AREA. CALL LIGHT AT BEDSIDE PT ON SWING BED STATUS
--- NOTE | 2019-03-22 01:52 | NUR ---
CALL LIGHT ANSWERED. 1 SBA TO BEDSIDE COMMODE. PATIENT IS BACK IN BED. SCD ON. ICE WATER REFILLED. ICE PACK X2 MADE. NO OTHER NEEDS AT THIS TIME.
--- NOTE | 2019-03-22 02:41 | NUR ---
Resting, eyes closed, no resp distress, SCDS R leg, L stump pressure dressing in place, leg elevated in pillows, ice to area, call light at bedside
--- NOTE | 2019-03-22 06:36 | NUR ---
PT CONTINUES ON SWING BED/TRANSITIONAL CARE STATUS. HAS SLEPT ABOUT 6 HOURS THIS SHIFT. WAS MEDICATED 1X WITH OXYCODONE 7.5MG PO PER L STUMP PAIN, EFFECTIVE. L BKA W PRESSURE DRESSING IN PLACE, SKIN WARM R LEG W SCDS IN PLACE, PT STATSES SHE HAS BILAT NEUROPATHY W TINGLING AND NUMBNESS BOTH LE. L STUMP ELEVATED WITH PILLOWS ANS ICE TO AREA, . TOLERATING DIET WELL, WORKING WITH PT/OT. GETS UP TO BS WITH 1PA/FWW, VOIDING QS AND HAD A BM, TAKING SENNA TABS. PT DECLINED MIRALAX. CALL LIGHT AT BEDSIDE
--- NOTE | 2019-03-22 08:01 | NUR ---
BEDSIDE REPORT RECEIVED PT SLEEPING SOUNDLY APPEARS COMFORTABLE BREATHING EVEN AND UNLABORED
--- NOTE | 2019-03-22 08:40 | NUR ---
PATIENT WAS IN BED EATING BREAKFAST, PATIENT WAS DELIVERED A NEWS PAPER AND WAS VERY EXCITED TO READ IT
--- NOTE | 2019-03-22 09:00 | NUR ---
SPOKE AT LENGTH WITH PATIENT REGARDING DISCHARGE PLANS. ALSO IN ON THE CONVERSATION WAS HER SISTER ANUJA BY PHONE SPEAKER. PATIENT PLANS ON RETURNING HOME AT DISCHARGE. SOME CONVERSATION WAS HAS REGARDING HER GOING TO [email or web address] TO HER SISTERS HOME, BUT IT APPEARS THERE IS STAIRS AT BOTH PLACES, AND ALTHOUGH THERE ARE NARROW HALLS AT HER HOME, SISTER AND PATIENT FEEL SHE WOULD HAVE SAME BARRIERS AT SISTERS HOUSE, PLUS SHE WOULD BE LESS COMFORTABLE AND CANNOT HAVE PET. ALSO, SISTER'S FAMILY WORKS, SO SHE WILL BE ALONE ABOUT THE SAME AMOUNT OF TIME. IT WAS DECIDED TO MODIFY SOME THINGS AT HER HOME AND SISTER WILL COME AND HELP HER THERE. THEY HAVE TURNED IN PAPERS TO OBTAIN MEDICAID WITH [facility]. SHE HAS BEEN ASSIGNED A BRICK SIDING APPLICATOR THERE, CONNIE. THEY ARE LOOKING FOR IN-HOME HELP, HELP WITH A RAMP AND MODIFICATIONS TO HOUSE FOR WHEELCHAIR. WE DISCUSSED TIMELINE REGARDING PROSTHESIS, SHE HAS MANY QUESTIONS. DISCUSSED THAT IT TAKES WEEKS BEFORE THE SWELLING IS DOWN ENOUGH AND INCISION HEALED ENOUGH FOR MEASUREMENTS TO EVEN START. DISCUSSED THIS WILL BE DONE OUTPATIENT AFTER SHE SEES DR VEGA FOR FOLLOW UP. DISCUSSED SHE WILL BE DISCHARGED PRIOR TO THIS AND WE NEED TO HAVE SET-UP DONE FOR SAFETY WITHOUT PROSTHESIS. BOTH STATE UNDERSTANDING. WE DISCUSSED HER HOME SET-UP, HER BEDROOM IS STRAIGHT DOWN SHORT NARROW WILD, SHE HAS KIND SIZE BED THAT IS ABLE TO RAISE HEAD SHE HAS SLEEP APNEA. THIS BED IS TOO BIG TO BE MOVED TO LIVING ROOM. PATIENT STATES SHE IS LOOKING AT BUYING A LIFT CHAIR, SHE FEELS SHE COULD SLEEP IN THAT AND USE THE WIDER SOFA SHE HAS AT TIMES. BATHROOM IS TO THE LEFT IN WILD, WITH WATER HEATER AND LAUNDRY ACROSS FROM DOOR WHICH WILL MAKE TURNING A WHEELCHAIR HARD TO DO TO GET IN. THEY WILL BORROW A BSC [employer] App TO USE IN LIVINGROOM UNTIL SET-UP CAN BE CHANGED. IT IS DECIDED I WILL CALL [facility] AND TRY TO TALK WITH CONNIE ON WHEN THEY CAN COME DO THE ASSESSMENT FOR MEDICAID. THEY AGREE THIS CAN BE DONE AT HOME, ALSO. SISTER WILL BE AVAILABLE FRIDAY, SAT, SUN THIS WEEK TO STAY WITH HER IF DISCHARGED THEN. DISCUSSED SHE NEEDS TO MEET NEW GOALS HERE FIRST. THEY WILL WORK ON GETTING LIFT CHAIR ORDERED. DISCUSSED I WILL CALL DR VEGA TO SEE IF THEY HAVE ANYTHING DIFFERENT ON TIMELINE FOR PROSTHESIS. UPDATED OT AND STAFF.
--- NOTE | 2019-03-22 09:25 | NUR ---
PT EATS 100% OF MORNING MEAL SITTING UP IN BED LLE ELEVATED. NEWSPAPER DELIVERED. DC SCHOOL PHYSICAL THERAPIST MEETING WITH PT AT THIS TIME DISCUSSING DC AND PLANS FOR HOME SAFETY
--- NOTE | 2019-03-22 09:51 | NUR ---
PT AMBULATES TO BATHROOM USING 4WW STANDBY ASSIST ONLY SHE DOES WELL WITH THIS TASK. ASSISTED WITH NEEDED ITEMS FOR SHOWER, LOWER EXTREMITY WRAPPED, PT USING SHOWER CHAIR ABLE TO WASH INDEPENDANTLY CALL LIGHT IN REACH SHE AGREES TO CALL WHEN COMPLETE
--- NOTE | 2019-03-22 10:26 | NUR ---
PATIENT UP TO SHOWER CHAIR, THEN TO SINK FOR AM CARE, THEN TO CHAIR, SBA FWW. PATIENT IND IN SHOWER AND AT SINK DOING AM CARE. LINENS CHANGED. FRESH WATER GIVEN. CALL LIGHT IN REACH. NO FURTHER NEEDS AT THIS TIME.
--- NOTE | 2019-03-22 10:37 | NUR ---
PT BACK TO CHAIR AFTER WELL TOLERATED SHOWER. REFUSES LINEN CHANGES STATES SHE HAS PILLOWS AND ITEMS ARRANGED THE WAY SHE WANTS IT. PT RATES PAIN 3/10 REFUSES OFFER OF TYLENOL OR OTHER STATES SHE WILL REQUEST NEEDED. VERBALIZES UNDERSTANDING IT'S BETTER TO KEEP AHEAD OF PAIN RATHER THAN TRY TO CATCH UP
--- NOTE | 2019-03-22 11:40 | NUR ---
LEFT MESSAGE FOR CONNIE AT [facility] FOR RETURN CALL REGARDING ASSESSMENT SCHEDULED. SPOKE WITH ERI TORRES FOR DR VEGA REGARDING WHEN SHE WOULD BE SEEING THEM. SHE STATES AFTER SHE IS HOME 1-2 WEEKS THEY WILL SEE HER. SHE AGREES THAT PROSTHESIS WILL BE PROBABLY 1-2 MONTHS OUT, SO INFORMATION GIVEN IS CORRECT. SHE AGREES HOME HEALTH WOULD BE ORDERED AND THIS IS USUALLY DONE OUTPATIENT.
--- NOTE | 2019-03-22 12:30 | NUR ---
PT SITTING IN CHAIR, ALERT AND ORIENTED. PT HAS STRUGGLED TO FIND ANY MEAL OFFERINGS THAT ARE PLEASING. WE TALKED ABOUT SOME OTHER OPTIONS, I OFFERED TO VISIT WITH HER RN REGARDING MEAL OPTIONS. PT SEEMS FAIRLY COMFORTABLE TALKING ABOUT HER AMPUTATION. CONCERNED THOUGH ABOUT GOING HOME AND IT NOT BEING READY YET. PT WAS UNDER THE IMPRESSION THAT SHE WOULD BE HERE LONGER. PT REQUESTED PRAYER, DROPPED OFF A G.POST. WILL FOLLOW NEEDED
--- NOTE | 2019-03-22 12:51 | NUR ---
PT SITTING UP IN RECLINER CHAIR WITH LUNCH WATCHING TV. READING MATERIALS ARE AVAILABLE. SHE DENIES FURTHER NEEDS AT THIS TIME
--- NOTE | 2019-03-22 14:29 | NUR ---
PATIENT UP TO BSC AND BACK TO CHAIR, SBA FWW. CALL LIGHT IN REACH. NO FURTHER NEEDS AT THIS TIME.
--- NOTE | 2019-03-22 14:31 | NUR ---
PT UP TO BSC. CONTINUES TO TRANSFER AND MOVE ABOUT WITHOUT NEED OF ASSIST. NO C/O PAIN THIS SHIFT. PT HAS CELL PHONE AND READING ITEMS SHE IS USING. OFFERED PUZZLES AND OTHER ITEMS SHE STATES SHE HAS ALL SHE NEEDS.
--- NOTE | 2019-03-22 17:46 | NUR ---
VISITORS X2 PRESENT IN ROOM PT UP TO CHAIR FOR EVENING MEAL.
--- NOTE | 2019-03-22 18:52 | NUR ---
PATIENT TO BED FROM BSC, SBA FWW. FRESH WATER GIVEN. CALL LIGHT IN REACH. NO FURTHER NEEDS AT THIS TIME.
--- NOTE | 2019-03-22 19:22 | NUR ---
CHARGE NURSE REPORT RECEIVED FROM DAMARIS. PT IN BED, TV ON. NO NEEDS AT THIS TIME.
--- NOTE | 2019-03-22 19:43 | NUR ---
PT AWAKE IN ROOM, WATCHING TV. SHIFT REPORT RECIEVED FROM ANGÉLICA TORRES. NO NEEDS AT THIS TIME. CALL LIGHT IN REACH.
--- NOTE | 2019-03-22 22:46 | NUR ---
PT AWAKE IN ROOM, WATCHING TV. ASSESSMENT, VS AND I&O COMPLETED. SCHEDULED MEDS AND PRN PAIN MED GIVEN. PT DECLINED MIRALAX SHE HAS STARTED TO HAVE BOWEL MOVEMENTS. 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 COLD PACKS PROVIDED. NO OTHER NEEDS AT THIS TIME. CALL LIGHT IN REACH.
--- NOTE | 2019-03-23 00:48 | NUR ---
PT IN BED, PLAYING ON A HAND HELD DEVICE. PAIN 08/30. PT UP TO COMMODE AND BACK TO BED. L LEG ELEVATED. ICE PACK APPLIED. NO OTHER NEEDS AT THIS TIME. CALL LIGHT IN REACH.
--- NOTE | 2019-03-23 03:07 | NUR ---
PT RESTING IN BED WITH EYES CLOSED. RR 16, EVEN, UNLABORED. PT DOES NOT WAKE WHEN RN COMES INTO ROOM. ICE PACKS ON LLE. CALL LIGHT IN REACH.
--- NOTE | 2019-03-23 05:36 | NUR ---
PT SLEPT WELL MOST THE SHIFT. 60G CC DIET, IS ENCOURAGED, FWW, SBA, USES BEDSIDE COMMODE. COLD PACKS PROVIDED THROUGHOUT SHIFT.
--- NOTE | 2019-03-23 05:54 | NUR ---
PT RESTING IN BED WITH EYES CLOSED. RR 16, EVEN, UNLABORED. CALL LIGHT IN REACH. I&O COMPLETE.
--- NOTE | 2019-03-23 06:48 | NUR ---
PT RESTING IN BED WITH EYES CLOSED. WAKES TO VOICE. SCHEDULED MEDICATION GIVEN. PAIN 08/02. NO NEEDS AT THIS TIME.
--- NOTE | 2019-03-23 07:37 | NUR ---
In to see pt. Pt's left stump dressing came off. New dressing placed at this time to protect stump. Non adherent dressing, gauze, abd pad then ruslan wrap. Dressing placed and ensured not too tight. Pt denies pain at this time. Personal supplies and call light withini reach.
--- NOTE | 2019-03-23 11:23 | NUR ---
CHW RECEIVED CALL FROM [facility]-CONNIE CRENSHAW- STATING SHE IS RETURING ROZINA TORRESDIRECTOR OF RESERVATIONS CALL.CONNIE STATED SHE WILL COME OVER AND MEET WITH THE PATIENT TODAY AT 1300 TO DISCUSS MEDICAID INFORMATION AND ELIGIBILITY. CONNIE STATED THE ASSESSMENT FOR [facility] WILL NOT BE COMPLETED UNTIL SOMETIME NEXT WEEK WHEN SOMEONE IS AVAILABLE TO DO THE ASSESSMENT. CONNIE STATED THAT THE WHEELCHAIR RAMP ACCESS - CAN TAKE UP TO 6 MONTHS TO BE APPROVED. WHEN THE ASSESSMENT IS DONE BY [facility] THEN THE OPERATIONS LEAD CAN APPLY FOR THE WHEELCHAIR ACCESS RAMP- AND HAS TO BE APPROVED BY THE [facility] OFFICE IN [place].
--- NOTE | 2019-03-23 11:28 | NUR ---
WENW CALLED DR HORTA OFFICE-THEY HAVE NOT RECVD AN GADIEL FORM FOR PATIENT TO ESTABLISH CARE. CHW REQUESTED GADIEL FORM TO BE FAXED TO CASE MANAGEMENT OFFICE. FAX RECVD.
--- NOTE | 2019-03-23 14:49 | NUR ---
Oxycodone 4mg po admin for reports of 5/10 left knee pain.
--- NOTE | 2019-03-23 14:58 | NUR ---
PT SITTING IN CHAIR, WATCHING TV. SHE IS CHEERFUL, LITTLE PAIN WITH SOME OF THE "PHANTOM" PAIN AND SENSATIONS. GAVE PT A BLESSING, WILL FOLLOW NEEDED
--- NOTE | 2019-03-23 19:52 | NUR ---
PT RESTING IN BED, WATCHING TV. SHIFT REPORT RECIEVED FROM FRANCES TORRES. DRESSING CDI. PAIN 08/02. PT WOULD LIKE PRN PAIN MED AT BEDTIME, IF NOT NEEDED BEFORE. NO NEEDS AT THIS TIME. CALL LIGHT IN REACH.
--- NOTE | 2019-03-23 22:30 | NUR ---
PT LAYING IN BED, WATCHING TV. ASSESSMENT, VS AND I&O COMPLETED. PT IS HAVING "SHOOTERS" IN HER LLL DESCIBED A SHARP PAIN THAT SHOOT ACROSS THE LOWER LEG AREA. PAIN 4/10. SCHEDULED MEDS AND PRN PAIN MEDS GIVEN. LLL ELEVATED, ICE PACKS PROVIDED. LIGHTS LOW, CALL LIGHT IN REACH. NO OTHER NEEDS.
--- NOTE | 2019-03-24 01:07 | NUR ---
PT AWAKE IN BED, WATCHING TV. PT UP TO BEDSIDE COMMODE AND BACK TO BED, SBA, FWW. PAIN 08/30, "SHOOTING" PAIN IN LLE. ICE PACKS PROVIDED, LLL ELEVATED, REPOSITIONED. NO OTHER NEEDS AT THIS TIME. LIGHTS LOW, CALL LIGHT IN REACH.
--- NOTE | 2019-03-24 03:55 | NUR ---
PT RESTING IN BED WITH EYES CLOSED. LLL ELEVATED WITH ICE PACKS APPLIED. RR 14, EVEN, UNLABORED. CALL LIGHT IN REACH.
--- NOTE | 2019-03-24 05:37 | NUR ---
PT SLEPT MOST OF SHIFT. ADA DIET, IS. FWW, SBA, BEDSIDE COMMODE. PT HAS HAD "SHOOTING" PAIN IN LLL. COLD PACKS, ELEVATION AND PRN PAIN MEDICATION GIVEN.
--- NOTE | 2019-03-24 06:24 | NUR ---
PT RESTING IN BED WITH EYES CLOSED, WAKES TO VOICE. ICE PACKS PROVIDED. SCHEDULED MED GIVEN. PAIN 3, DENIES NEED FOR PRN PAIN MEDS. CALL LIGHT IN REACH.
--- NOTE | 2019-03-24 07:37 | NUR ---
Pt in bed at this time sleeping, resp even and non labored. Pt has no s/s of distress. Left stump elevated on pillow at this time. Personal supplies and call light within reach.
--- NOTE | 2019-03-24 10:24 | NUR ---
PATIENT SITTING UP IN CHAIR. VITAL SIGNS AND I&O DONE. CALL LIGHT WITHIN REACH. NO OTHER NEEDS AT THIS TIME
--- NOTE | 2019-03-24 11:05 | NUR ---
Tylenol 500mg po for 5/10 left leg pain.
--- NOTE | 2019-03-24 12:50 | NUR ---
SPOKE AT LENGTH WITH PATIENT REGARDING DISCHARGE PLAN. PATIENT STATES SHE HASN'T YET WORKED ON GETTING INTO A CAR. SHE STILL FEELS SHE NEEDS TO WORK ON UPPER STRENGTH USING THE WHEELCHAIR. DISCUSSED POSSIBLE DISCHARGE FRIDAY WITH HOME HEALTH COMING OVER WEEKEND. PATIENT IS "NERVOUS" BUT KNOWS SHE HAS TO GO AT SOME POINT. DISCUSSED THIS IS ALL DEPENDING ON THERAPY NEEDS AND GOALS. DISCUSSED THAT HER SISTER ANUJA HAS SAID SHE WOULD BE AVAILABLE TO STAY WITH HER FRI THROUGH FRIDAY IF SHE WENT HOME. SHE STATES SHE ORDERED HER LIFT CHAIR, IS UNSURE WHEN IT WILL BE DELIVERED. DISCUSSED SHE STILL NEEDS TO GET BSC TO USE AND SHOWER CHAIR. DISUCSSED OUR CHW PROGRAM AND THAT [facility] CHW WILL WILL MEETING HER AND COMING TO HER HOME. DISCUSSED THAT [facility] MET WITH HER YESTERDAY AND ASSESSMENT WILL BE DONE NEXT WEEK AT HER HOME WHERE THEY CAN SEE WHAT ALL SHE NEEDS. DISCUSSED WE WILL KEEP WORKING ON HER PLAN. QUESTIONS ANSWERED. WILL CONTINUE TO FOLLOW.
--- NOTE | 2019-03-24 13:12 | NUR ---
PATIENT SITTING UP IN CHAIR. I&O DONE. CALL LIGHT WITHIN REACH. NO OTHER NEEDS AT THIS TIME
--- NOTE | 2019-03-24 14:30 | NUR ---
PT SITTING IN CHAIR, ON TABLET. SHE MENTIONED THAT SHE IS BUSY TRYING TO GET THINGS READY FOR DC FRIDAY. PT REALLY DOING A GOOD JOB AT STAYING POSITIVE. I ENCOURAGED HER TO WRITE A BOOK ABOUT HER STORY. SHE SAID I JUST MIGHT DO THAT. I WILL BRING IN A NOTEBOOK FOR HER TO BEGIN TOMORROW. WILL FOLLOW NEEDED
--- NOTE | 2019-03-24 15:15 | NUR ---
CALL LIGHT ANSWERED. PATIENT SITTING UP IN CHAIR. PATIENT GOES TO USE BASE COMMODE. PATIENT USES WALKER. ONE PERSON ASSISTING. PATIENT BACKS TO CHAIR. ICE WATER GIVEN. ICE PACKS PROVIDED. CALL LIGHT WITHIN REACH. NO OTHER NEEDS AT THIS TIME
--- NOTE | 2019-03-24 16:26 | NUR ---
Pt sitting up in chair, resp even and non labored. Pt denies needs at this time. Personal supplies and call light within reach.
--- NOTE | 2019-03-24 17:22 | NUR ---
LET PATIENT KNOW ABOUT MDT MEETING TOMORROW UPON CASE MANAGMENT REQUEST.
--- NOTE | 2019-03-24 17:36 | NUR ---
PATIENT SITTING UP IN CHAIR. I&O DONE. CALL LIGHT WITHIN REACH. NO OTHER NEEDS AT THIS TIME
--- NOTE | 2019-03-24 18:55 | NUR ---
DRESSING CHANGE D/T PT REQUEST AND C/O "SWELLING FEELING". INCISION WELL APPROX, HEALING WELL, STITCHES NOTED. NON ADHERENT DRESSING, THEN ABD AND GAUZE THEN DARSHAN WRAP. DRESSING ENSURED TO BE NOT TOO TIGHT. PT TOLERATING WELL. TRACE SWELLING NOTED TO STUMP AREA. NO REDNESS NOTED.
--- NOTE | 2019-03-24 19:54 | NUR ---
PT UP IN CHAIR, FAMILY IN ROOM. PT WITH TEARS IN HER EYES. PAIN 5/10. PAIN DESCRIBED "SHOOTERS". ICE PACKS ON LLE. PRN PAIN MED PROVIDED. PT STATED SHE FEELS LIKE THE STUMP HAS "SWELLING". PT EDUCATED TO USE CALL LIGHT WHEN PAIN IS NOT COMFORTABLE. PT VERBALIZES UNDERSTANDING. CALL LIGHT IN REACH.
--- NOTE | 2019-03-24 21:54 | NUR ---
PT ASSISTED BACK TO BED FROM CHAIR TO BED. PT TOLERATED WELL. PT IS RESTING IN BED, WATCHING TV. ASSESSMENT, VS AND I&O COMPLETED. PAIN 08/30, "SHOOTING". ICE PACKS PROVIDED, LEG ELEVATED. PT DENIES NEED FOR PRN PAIN MED AT THIS TIME. NO FURTHER NEEDS AT THIS TIME. CALL LIGHT IN REACH.
--- NOTE | 2019-03-24 23:55 | NUR ---
PT UP TO BEDSIDE COMMODE AND BACK TO BED. FWW, SBA. PAIN 3/10, DULL, ACHING, "STIFF". PRN PAIN MEDICATION PROVIDED, LLL ELEVATED, COLD PACKS PROVIDED. SCD ON. ICE WATER PROVIDED. NO OTHER NEEDS AT THIS TIME. CALL LIGHT IN REACH.
--- NOTE | 2019-03-25 02:00 | NUR ---
PT RESTING IN BED WITH EYES CLOSED. RR 16, EVEN UNLABORED. LLE ELEVATED, ICE PACKS ON LLE. CALL LIGHT IN REACH.
--- NOTE | 2019-03-25 04:04 | NUR ---
PT RESTING IN BED, EYES CLOSED. SCD ON, LLE ELEVATED. RR 14, EVEN, UNLABORED. CALL LIGHT IN REACH.
--- NOTE | 2019-03-25 04:54 | NUR ---
PT HAS SLEPT MOST OF SHIFT. SBA, FWW TO BEDSIDE COMMODE. PT VOICES CONCERNS FOR HER SAFETY IF SHE IS DC'D ON FRIDAY PLANNED. EDUCATED PT TO TALK WITH FAMILY LAW ATTORNEY. PT STATES "THERE IS A MEETING IN MY ROOM AT 9:00A.M. TOMORROW." PT EDUCATED TO TALK TO HER TEAM ABOUT HER CONCERNS AT THE MEETING. SCD ON. IS PROMOTED. PAIN DESCRIBED "STIFF" AND "ACHE" HS. PRN PAIN MED PROVIDED. ICE PACKS, LLE ELEVATED.
--- NOTE | 2019-03-25 06:43 | NUR ---
PT HAS SLEPT MOST OF SHIFT. SBA, FWW TO BEDSIDE COMMODE. PT VOICES CONCERNS FOR HER SAFETY IF SHE IS DC'D ON FRIDAY PLANNED. SCD ON. IS PROMOTED. PAIN DESCRIBED "STIFF" AND "ACHE" HS. PRN PAIN MED PROVIDED. ICE PACKS, LLE ELEVATED.
--- NOTE | 2019-03-25 06:44 | NUR ---
PT RESTING IN BED WITH EYES CLOSED. PT WAKES TO VOICE. SCHEDULED MED GIVEN. ICE WATER PROVIDED. PAIN 08/30. PT DENIES NEED FOR PAIN MEDICATION AT THIS TIME. NO OTHER NEEDS. CALL LIGHT IN REACH.
--- NOTE | 2019-03-25 07:40 | NUR ---
PATIENT SLEEPING. CALL LIGHT WITHIN REACH.
--- NOTE | 2019-03-25 07:50 | NUR ---
0708: Pt sleeping, report recieved from Charisse TORRES.
--- NOTE | 2019-03-25 09:07 | NUR ---
PT JUST FINISHED BREAKFAST AND IS NOW WATCHING TV. SHE USED HER IS WHEN ENCOURAGED AND SHE STATES HER PAIN IS A 3/10 WHICH IS ACCEPTABLE. LEFT BKA DRESSING WAS CHANGED YESTERDAY PER THE PT AND IS CDI AND IS ELEVATED ON PILLOWS AT THIS TIME. WILL CONTINUE TO MONITOR.
--- NOTE | 2019-03-25 10:19 | NUR ---
PATIENT RESTING IN BED. PATIENT GOES TO USE BASE COMMODE. PATIENT USES WALKER. ONE PERSON ASSISTING. PATIENT BACKS TO CHAIR. VITAL SIGNS AND I&O DONE. LINENS CHANGED. CALL LIGHT WITHIN REACH. NO OTHER NEEDS AT THIS TIME
--- NOTE | 2019-03-25 10:21 | NUR ---
PT WORKING WITH OT AT THIS TIME. THEY ARE LEAVING THE BUILDING TO WORK ON CAR TRANSFERS.
--- NOTE | 2019-03-25 10:27 | NUR ---
CHW CALLED KAMALJIT- AT [facility] [employer]. REQUESTED PATIENT TO RECEIVE MEALS ON WHEELS. KAMALJIT STATED THEY WILL CONTACT PATIENT NEXT WEEK TO SET UP A DATE AND TIME FOR AN ASSESSMENT SO THE MEALS ON WHEELS CAN START.
[2019-03-25] MEDS ORDERED: METFORMIN HCL1000 MG PO (11:21)
--- NOTE | 2019-03-25 11:25 | NUR ---
PT RESTING IN HER CHAIR AND STATES HER PAIN REMAINS A 3 AFTER WORKING WITH OT WHICH IS ACCEPTABLE TO HER. SHE DENIES ANY NEW PROBLEMS, DRESSING REMAINS INTACT.
--- NOTE | 2019-03-25 11:53 | NUR ---
PT CALL LIGHT ON. PT REQUESTS TO SHOWER. BANDAGE COVERED. SBA, WALKER UP TO SHOWER. PT INDEPENDANT WITH SHOWER. CALL LIGHT WITHIN REACH. PT DEMONSTRATES UNDERSTANDING OF CALL LIGHT.
--- NOTE | 2019-03-25 12:08 | NUR ---
STOPPED BY TO CHECK ON PT, Blanca HANDY IN WITH PT. GAVE HER THE JOURNAL I PROMISED, GAVE BLESSING. WILL FOLLOW NEEDED
--- NOTE | 2019-03-25 12:42 | NUR ---
PATIENT USING THE BATHROOM. SHOWER DONE. ORAL CARE DONE. PATIENT BACKS TO CHAIR. PATIENT USES WALKER. ONE PERSON ASSISTING. CALL LIGHT WITHIN REACH. NO OTHER NEEDS AT THIS TIME
--- NOTE | 2019-03-25 12:56 | NUR ---
PATIENT SITTING UP IN CHAIR. I&O DONE. ICE WATER GIVEN. ICE PACKS PROVIDED. CALL LIGHT WITHIN REACH. NO OTHER NEEDS AT THIS TIME
--- NOTE | 2019-03-25 13:14 | NUR ---
THE PT IS TRYING TO BE SEEN BY A NEW PROVIDER AT DR HORTA'S OFFICE WHICH WERE NOTIFIED OF THE PT'S NEED FOR AN APPOINTMENT. THE OFFICE STATES THEY WILL CALL BACK WITH AN APPOINTMENT PER OUR WORD GINGER FARMER. DR AVALOS'S OFFICE WAS CALLED AND A REQUEST MADE FOR A FOLLOW UP APPOINTMENT AFTER THE PT IS DC'D AND TO FIND OUT WHEN THE HAO ARE TO BE DC'D. THE OFFICE STAFF STATE THEY WILL CALL BACK WITH THIS INFORMATION.
--- NOTE | 2019-03-25 14:15 | NUR ---
RECEIVED PHONE CALL FROM CONSTANTIN BREAUX WHO STATES SHE WANTS TO SCHEDULE HOME ASSESSMENT WITH PATIENT. DISCUSSED PROBABLE DISCHARGE TOMORROW. SHE ASKS TO HAVE PATIENT CALL HER HEATHER AT [phone]. WENT STRAIGHT TO PATIENTS ROOM AND GAVE MESSAGE, PATIENT CALLED PATIENT IMMEDIATELY.
--- NOTE | 2019-03-25 15:54 | NUR ---
Pt resting in her chair with no complains at this time and she denies any needs.
--- NOTE | 2019-03-25 17:01 | NUR ---
SPOKE WITH PATIENT IN ROOM REGARDING DISCHARGE TOMORROW. PATIENT SIGNED INTENT TO DISCHARGE FROM SWINGBED LETTER. COPY GIVEN, ORIGINAL TO CHART. SHE STATES SHE HAS [employer] ASSESSMENT SCHEDULED FOR FRIDAY. DISCUSSED I WILL ORDER HOME HEALTH TOMORROW, WITH PROBABLE RN VISIT OVER WEEKEND FOR ADMIT. HER SISTER IS PLANNING ON TAKING HER HOME, AND STAYING WITH HER FOR AWHILE, ESPECIALLY AT NIGHT. SHE WILL BE WORKING WITH CHW FOR LIFE ALERT AND MEALS ON WHEELS. THEY ARE WORKING WITH [employer] REGARDING RAMP. SHE HAS BORROWED A BSC FROM [facility] AND SHE FEELS SHE CAN USE HER SEATED WALKER TO GET AROUND HOUSE WITH HELP OF SISTER UNTIL HER TRANSPORT CHAIR IS HERE. HER LIFT CHAIR SHOULD BE THERE IN A FEW DAYS. SHE STATES SHE IS NERVOUS, BUT FEELS SHE HAS MOST EVERYTHING IN PLACE AND IS READY TO GO. WILL SEE HER TOMORROW. QUESTIONS ANSWERED.
--- NOTE | 2019-03-25 18:15 | NUR ---
Pt denies any new problems and her dressing is cdi.
--- NOTE | 2019-03-25 18:40 | NUR ---
PATIENT SITTING UP IN CHAIR. PATIENT GOES TO USE BASE COMMODE. PATIENT USES WALKER. ONE PERSON ASSISTING. PATIENT BACKS TO BED. I&O DONE. CALL LIGHT WITHIN REACH. NO OTHER NEEDS AT THIS TIME
--- NOTE | 2019-03-25 19:05 | NUR ---
SHIFT REPORT RECEIVED FROM DAYSHIFT MELISSA TANG AT BEDSIDE. PT AWAKE AND WATCHING TELEVISION. PT APPEARS COMFORTABLE, DENIES NEEDS, BKA DRESSING C/D/I. CALL LIGHT IN REACH.
--- NOTE | 2019-03-25 20:30 | NUR ---
ASSESSMENT COMPLETE, SCHEDULED MEDICATIONS GIVEN. PER PT REQUEST, VAGINAL SUPPOSITORY HELD UNTIL CLOSER TO 2230. VSS, PT REPORTS 3/10 PAIN, WISHES TO HAVE PAIN PILL WITH VAGINAL SUPPOSITORY. DRESSING TO LEFT BKA C/D/I. PT DESCRIBES PAIN "DULL ACHE" IN LLE. WILL MONITOR. CALL LIGHT IN REACH.
--- NOTE | 2019-03-25 22:40 | NUR ---
SCHEDULED VAGINAL SUPPOSITORY GIVEN ALONG WITH PRN OXYXODONE. PT UP SBA WITH HELP FROM GOVERNMENT CONTRACTS MANAGER. DENIES ADDITIONAL NEEDS, CALL LIGHT IN REACH.
--- NOTE | 2019-03-26 01:58 | NUR ---
PT RESTING IN BED, EYES CLOSED. RR WNL, NO DISTRESS NOTED. CALL LIGHT IN REACH.
--- NOTE | 2019-03-26 03:46 | NUR ---
PT RESTING IN BED, EYES CLOSED. RESPIRATIONS EVEN AND UNLABORED. ICE TO LLE, DRESSING C/D/I. CALL LIGHT IN REACH.
--- NOTE | 2019-03-26 06:47 | NUR ---
SCHEDULED THYROID MEDICATION GIVEN. PT DENIES NEED TO VOID, WILL MONITOR. NO ADDITIONAL NEEDS. CALL LIGHT IN REACH.
--- NOTE | 2019-03-26 06:52 | NUR ---
PT HAD UNEVENTFUL NIGHT, VSS. PAIN CONTROLLED WITH PRN OXYCODONE GIVEN X1. DRESSING TO LEFT BKA C/D/I. PT SBA WITH FWW, USES CALL LIGHT APPROPERIATELY. 60 G CARB DIET, TOLERATING WELL. DENIED NAUSEA THIS SHIFT.
--- NOTE | 2019-03-26 07:15 | NUR ---
0705: Report recieved from Dedra TORRES. Pt sleeping at this time, call whaley within reach. Pt slept well per report.
--- NOTE | 2019-03-26 08:35 | NUR ---
PATIENT SITTING UP IN BED TAKING HER BREAKFAST. RN IN ROOM. ICE WATER GIVEN. CALL LIGHT WITHIN REACH. NO OTHER NEEDS AT THIS TIME
--- NOTE | 2019-03-26 08:40 | NUR ---
PT RESTING IN BED HAVING JUST AWAKEN THIS AM. ANTWAN STATES SHE SLEPT WELL AND THAT HER PAIN IS A 3 WHICH IS UNDER CONTROL FOR HER. SHE IS NOW HAVING HER BREAKFAST AND DENIES ANY NEW PROBLEMS. CALL LAMBERT WITHIN REACH.
[2019-03-26] MEDS ORDERED: MICONAZOLE 7100 MG PV (08:55)
[2019-03-26] MEDS ORDERED: HEALTHYLAX17 GM PO (08:55)
[2019-03-26] MEDS ORDERED: SENNA-TIME S T1 EACH PO (08:55)
--- NOTE | 2019-03-26 10:00 | NUR ---
SPOKE WITH PATIENT REGARDING DISCHARGE TODAY. SHE IS "LITTLE NERVOUSE BUT FEEL LIKE I'M READY I EVER WILL BE". HER SISTER WILL BE PICKING HER UP. SHE HAS CHW COMING FRIDAY TO HELP WORK ON LIFE [employer] AND MEALS ON WHEELS. SHE HAS [employer] SCHEDULED FOR ASSESSMENT AT HOME FRIDAY AT 11AM. SHE KNOWS [facility] WILL BE CALLING HER TO SCHEDULE ADMITTING HER THIS AND THEN SHE WILL HAVE RN, PT, OT AND BATH AIDE WEEKLY WITH THEM. SHE HAS HER LIFT CHAIR COMING, SHE HAS BSC HER FAMILY IS PICKING UP TODAY. SHE WILL USE A LIFT ASSIST FROM EMS TO GET INSIDE HER HOME AFTER DISCHARGE. SHE UNDERSTANDS SHE WILL HAVE A FOLLOW UP APPOINTMENT WITH DR VEGA AND HER CHW WILL CHECK NEXT WEEK ON GETTING HER A NEW PATIENT APPT WITH [facility]. QUESTIONS ANSWERED. SHE HAS OUR CONTACT INFO TO CALL IF SHE HAS CONCERNS. REMINDED HER WITH HOME HEALTH SHE WILL HAVE ON-CALL RN 13/01 TO CALL IF NEEDED.
--- NOTE | 2019-03-26 10:17 | NUR ---
Pt just got out of the shower and the dressing remains cdi and she denies any new problems.
--- NOTE | 2019-03-26 10:32 | NUR ---
PATIENT SITTING UP IN CHAIR. VITAL SIGNS AND I&O DONE. CALL LIGHT WITHIN REACH. NO OTHER NEEDS AT THIS TIME
--- NOTE | 2019-03-26 11:54 | NUR ---
PT IS VISITING WITH HER SISTER AT THIS TIME. PT CONTINUES TO APPEAR COMFORTABLE AND DENIE ANY PAIN.
--- NOTE | 2019-03-26 12:13 | NUR ---
LEFT BKA DRESSING CHANGED PER THE PT'S REQUEST. THERE WAS NO DRAINAGE NOTED ON THE OUTSIDE OR THE INSIDE OF THE DRESSING. THE SURGICAL SITE APPEARS HEALTHY WITH NO DRAINAGE, REDNESS, OPEN AREAS OR SIGNS OR SYMPTOMS OF INFECTION. SUTURES REMAIN INPLACE. PT TOLERATED THE DRESSING CHANGE WELL AND IS NOW ELEVATING HER LEFT LEG.
--- NOTE | 2019-03-26 12:42 | NUR ---
PT SITTING IN CHAIR, WATCHING TV. SHE IS DRESSED AND SEEMS READY FOR DC. PT HAD ME PRAY FOR HER, EXTENDED A BLESSING. SHE TOLD ME I WILL BE OK WITH A TWINKLE IN HER EYE
--- NOTE | 2019-03-26 13:32 | NUR ---
HOME HEALTH ORDER/CLINICALS SCANNED TO [facility]. SPOKE WITH JOHN AND THEY RECEIVED. THEY PLAN FOR RN TO ADMIT HER THIS WEEKEND.
--- NOTE | 2019-03-26 13:36 | NUR ---
PATIENT USING BASE COMMODE. PATIENT BACKS TO CHAIR. PATIENT USES WALKER. ONE PERSON ASSISTING. I&O DONE. CALL LIGHT WITHIN REACH. NO OTHER NEEDS AT THIS TIME
[2019-03-26] MEDS ORDERED: OXYCODONE HCL5 MG PO (15:44)
== END 2019-03-26 15:53 | disposition home health service (06) | DRG 561 ==
LOC: MS 12:15
PROVIDERS: ADMIT Internal Medicine
DX: Z47.81 Encounter for orthopedic aftercare following surgical amputation (principal); Z89.512 Acquired absence of left leg below knee; I10 Essential (primary) hypertension; E11.9 Type 2 diabetes mellitus without complications; K21.9 Gastro-esophageal reflux disease without esophagitis; E79.0 Hyperuricemia without signs of inflammatory arthritis and tophaceous disease; F39 Unspecified mood [affective] disorder; M54.9 Dorsalgia, unspecified; G89.29 Other chronic pain; G47.00 Insomnia, unspecified; E03.9 Hypothyroidism, unspecified; E66.9 Obesity, unspecified; Z68.39 Body mass index [BMI] 39.0-39.9, adult; Z88.0 Allergy status to penicillin; Z79.84 Long term (current) use of oral hypoglycemic drugs; Z79.1 Long term (current) use of non-steroidal anti-inflammatories (NSAID); Z79.82 Long term (current) use of aspirin; Z79.891 Long term (current) use of opiate analgesic; Z79.899 Other long term (current) drug therapy
CPT/HCPCS: 90688; 97110; 97116; 97166; 97530; 97535; J0690; J1650

== ENCOUNTER 2019-03-26 17:37 | Observation (INO) | payer MEDICARE, MEDICAID ==
[~2019-03-26] VITALS: Ht 170.2 cm; Wt 104.1 kg
--- OUTSIDE RECORDS SUMMARY | ~2019-03-26 | XMS | Clinical Summary ---
Demographics + + + | Address | [address] | | | [place] [address] | + + + | Home Phone | | + + + | Preferred Language | Unknown | + + + | Marital Status | Single | + + + | Presybeterian Affiliation | Unknown | + + + | Race | White | + + + | Ethnic Group | Not or | + + + Author + + + | Author | [facility] | + + + | Organization | [facility] | + + + | Address | [...] Team Providers + +------+ + | Care Form Setter Steel Forms Name | Role | Phone | + +------+ + | Scott Parmar MD | PCP | | + +------+ + Source Comments [facility]ТР[facility] is fully live on both EpicCare Ambulatory and EpicCare InPatient[facility] Allergies + + + + + + | Active Allergy | Reactions | Severity | Noted | Comments | | | | | Date | | + + + + + + | Penicillins | Rash | Low | 11/08/19 | | | | | | 16 | | + + + + + + Medications + + + +---------+------+------+-------+ | Medication | Sig | Dispensed | Refills | Star | End | Statu | | | | | | t | Date | s | | | | | | Date | | | + + + +---------+------+------+-------+ | aspirin 325 mg | Take by mouth. | | 0 | | | Activ | | oral tablet | | | | | | e | + + + +---------+------+------+-------+ | buPROPion XL 300 | Take by mouth. | | 0 | | | Activ | | mg oral tablet | | | | | | e | | extended release 24 | | | | | | | | hr | | | | | | | + + + +---------+------+------+-------+ | levothyroxine 112 | Take by mouth. | | 0 | | | Activ | | mcg oral tablet | | | | | | e | + + + +---------+------+------+-------+ | omeprazole 20 mg | Take by mouth. | | 0 | | | Activ | | oral capsule,delayed | | | | | | e | | release(DR/EC) | | | | | | | + + + +---------+------+------+-------+ | gabapentin 400 mg | Take by mouth. | | 0 | | | Activ | | oral capsule | | | | | | e | + + + +---------+------+------+-------+ | metFORMIN 1,000 mg | Take by mouth. | | 0 | | | Activ | | oral tablet | | | | | | e | + + + +---------+------+------+-------+ | meloxicam 15 mg | Take by mouth. | | 0 | | | Activ | | oral tablet | | | | | | e | + + + +---------+------+------+-------+ | | Take by mouth. | | 0 | | | Activ | | gpwqckef-qpao-jpnbf | | | | | | e | | acid 27-0.8 mg oral | | | | | | | | tablet | | | | | | | + + + +---------+------+------+-------+ | | Take by mouth. | | 0 | | | Activ | | lisinopril-hydrochlo | | | | | | e | | rothiazide 10-12.5 | | | | | | | | mg oral tablet | | | | | | | + + + +---------+------+------+-------+ | glimepiride 1 mg | Take by mouth. | | 0 | | | Activ | | oral tablet | | | | | | e | + + + +---------+------+------+-------+ | carisoprodol 350 | Take by mouth. | | 0 | | | Activ | | mg oral tablet | | | | | | e | + + + +---------+------+------+-------+ | | Take by mouth. | | 0 | 11/2 | | Activ | | oxyCODONE-acetaminop | | | | 7/20 | | e | | hen 5-325 mg oral | | | | 15 | | | | tablet | | | | | | | + + + +---------+------+------+-------+ | imipramine 25 mg | Take by mouth. | | 0 | | | Activ | | oral tablet | | | | | | e | + + + +---------+------+------+-------+ Active Problems Not on file Social History + +-------+ +--------+------+ | Tobacco [...] recent travel history available. | + + Last Filed Vital Signs + + + + + | Vital Sign | Reading | Time Taken | Comments | + + + + + | Blood Pressure | 143/88 | 11/08/2015 11:15 AM | | | | | PDT | | + + + + + | Pulse | 117 | 11/08/2015 11:15 AM | | | | | PDT | | + + + + + | Temperature | - | - | | + + + + + | Respiratory Rate | - | - | | + + + + + | Oxygen Saturation | 96% | 11/08/2015 11:15 AM | | | | | PDT | | + + + + + | Inhaled Oxygen | - | - | | | Concentration | | | | + + + + + | Weight | 119.7 kg (264 lb) | 11/08/2015 11:15 AM | | | | | PDT | | + + + + + | Height | 172.7 cm (5' 8") | 11/08/2015 11:15 AM | | | | | PDT | | + + + + + | Body Mass Index | 40.14 | 11/08/2015 11:15 AM | | | | | PDT | | + + + + + Plan of Treatment + + + + + | Health Maintenance | Due Date | Last Done | Comments | + + + + + | Influenza (Flu) | | | | | vaccination (#1) | 9 | | | + + + + + | Pneumococcal | Aged Out | | No longer eligible | | vaccination | | | based on patient's | | | | | age to complete this | | | | | topic | + + + + + Results Not on filefrom Last 3 Months Insurance + +--------+ +--------+-------+---------+--------+ | Payer | Benefi | Subscriber | Effect | Phone | Address | Type | | | t Plan | ID | maxine | | | | | | / | | Dates | | | | | | Group | | | | | | + +--------+ +--------+-------+---------+--------+ | [employer]ER [employer]ICAID | HEELER | xxxxxxxx | 12/27/19 | | | Medica | | | [place] | | 15-Pre | | | id | | | [place] | | sent | | | | + +--------+ +--------+-------+---------+--------+ + +--------+ +--------+ + + | Guarantor Name | Accoun | Relation to | Date | Phone | Billing Address | | | t Type | Patient | of | | | | | | | | | | + +--------+ +--------+ + + | Antonio Orozco | Person | Self [birth year] | [address] | | | al/Fam | | 1970 | [phone] [place] | | | danika | | | [address] (Home) | [place] [address] | + +--------+ +--------+ + +
--- OUTSIDE RECORDS SUMMARY | ~2019-03-26 | XMS | Encounter Summary ---
Demographics + + + | Address | [address] | | | [place] [address] | + + + | Home Phone | | + + + | Preferred Language | Unknown | + + + | Marital Status | Single | + + + | Lutheran Affiliation | Unknown | + + + | Race | White | + + + | Ethnic Group | Not or | + + + Author + + + | Author | [place] [employer] [facility] | + + + | Organization | [facility] | + + + | Address | [...] Team Providers + +------+ + | Care Sleep Tech Name | Role | Phone | + +------+ + | Scott Parmar MD | PCP | | + +------+ + Encounter Details +--------+---------+ + + + | Date | Type | Department | Care Team | Description | +--------+---------+ + + + | 11/29/ | Office | Neurosurgery at | Eitan Cortez, | | | 2007 | Visit | [facility] [address] | | | | | Rebekah Mailcode: [facility] | | | [facility] | | [facility] | | | [facility], | | | | | | Building | | | | | | Floor [place], [place] | | | | | | [address] | | | | | | [phone] | | | +--------+---------+ + + + Social History [...] + + documented as of this encounter Progress Notes Eitan Cortez - 12/02/2007 8:21 AM PDT [id number] ENRIQUE Shields [id number] Referred From and Faxed To: Scott Parmar M.D. Referred To: Eitan Cortez M.D. Consulting Physician: Eitan Cortez M.D. Consultation Date: 11/30/2007 Referring Physician: Scott Parmar M.D. Reason For Requested Consultation: Back pain and lumbar stenosis. Dear Dr. Parmar: Thank you for referring Antonio Orozco to my [facility] in [place], [place]. It was a pleasure to see this young woman and her mother today in the clinic. You may recall, this 37-year-old female is status post L3-4 and L4-5 decompressive lumbar surgery in March [address] Bryant Coker in [place], [place]. After that surgery, she has had a progressive increase in her low back pain as well as a left-sided footdrop. She states that the footdrop has significantly improved over the last several months with physical therapy and strengthening, but she still has unremitting severe low back pain. She denies bowel and bladder incontinence. She denies significant pain down her right leg though she does sometimes get mild pain down that leg. She states that most of her pain is in her back, and the leg pain represents a small portion of it. She says sometimes her foot feels numb. Past Medical History: Significant for diabetes mellitus and hypertension. She also is beng treated for depression and hypothyroidism. Past Surgical History: She had an L3-4 and L4-5 diskectomy in 2006 as noted in the history of present illness. Social History: She is single with no children, rarely drinks alcohol and does not use tobacco. Medications: Levoxyl, lisinopril, Budeprion, aspirin, Nexium, piroxicam, glipizide, gabapentin, oxycodone, carisoprodol, Lunesta, and Vicodin. Allergies: SHE STATES SHE IS ALLERGIC TO PENICILLIN. Review of Systems: Review of systems is negative except as noted in the HPI. Physical Exam: She is alert and oriented x3, very obese female who looks appropriate for her stated age. She stands in a position such that she is leaning forward and way out of sagittal balance. Manual motor muscle testing reveals 4/5 strength in the left tibialis anterior and the left extensor hallucis longus. She does not drag her foot when she walks. She has difficulty with walking on her heel on the left side. Her ankle jerk reflexes are absent in the left ankle. Otherwise, her lower extremity reflexes are 2+ and symmetric. She complains of numbness in a left L5 distribution; however, she does seem to sense light touch and pinprick on today's exam. She has significant pain with range of motion of her lumbar spine. More so with flexion than extension. MRI scan: An MRI scan from August 12, 2007, with and without contrast. This shows postoperative changes at L3-4 and L4-5 with some residual mild disk bulging. She also has a herniated disk at L1-2 which is eccentric to the left side. Of note, she has a near-complete loss of lordosis in her lumbar spine with an almost perfectly flat back. 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 This is largely due to a loss of lordosis in her spine and severe degenerative disk disease. While this may sometimes be addressed surgically with fusion-type operations with very limited successes, this patient is absolutely not a surgical candidate given her morbid obesity in addition to her diabetes. Recommendations: At this point, I would refer her to a Pain Management Center for management of her leg pain. It appears that her footdrop is improving significantly with physical therapy, and I will continue with this. I would also refer her for evaluation for bariatric surgery as a woman of this size certainly must suffer from increased risks of other medical problems. If she were to lose 100 pounds or more, she may be considered a surgical candidate for fusion surgery for her low back. At that point in time, I would consider doing a discogram, and if this were concordant with the MRI scan and with her pain, we could discuss the possibility of fusion surgery for her low back pain. Again, today I discussed with her extensively the fact that even in the best of circumstances for good surgical candidates, the results of the surgery for this kind of a problem are in fact relatively mediocre. I told her that approximately 50% of the patient have a 50% reduction in their pain. She understands, and she will be contacting her primary care doctor to discuss weight loss options. Thank you again for referring this nice woman to my clinic for evaluation and management. I do not feel that there are indications for decompressive surgery on her at present, and I do not feel that the L1-2 disk there is likely causing any of her symptoms as that would tend to cause symptoms in more of an L2 distribution, and her problems neurologically clearly are more localized to the lower lumbar spine and represent likely damage either from the previous disk herniation or perhaps iatrogenic injury after surgery. This is unclear to me given her history and exam. Please feel free to call me should you have any questions or concerns about her care, and again, it was a pleasure to meet your patient in clinic today. Eitan Cortez M.D. DANIEL / ANA M [id number] / [id number] / [id number] / [id number] cc: Scott Parmar M.D. [facility] [address] [place] [address] documented in this enco unter Plan of Treatment Not on filedocumented as of this encounter Visit Diagnoses Not on filedocumented in this encounter"
--- OUTSIDE RECORDS SUMMARY | ~2019-03-26 | XMS | Encounter Summary ---
Demographics + + + | Address | [address] | | | [place] [address] | + + + | Home Phone | | + + + | Preferred Language | Unknown | + + + | Marital Status | Single | + + + | Temple Affiliation | Unknown | + + + | Race | White | + + + | Ethnic Group | Not or | + + + Author + + + | Author | [place] [employer] | + + + | Organization | [facility] | + + + | Address | [...] Team Providers + +------+ + | Care Wildlife And Game Protector Name | Role | Phone | + +------+ + | Scott Parmar MD | PCP | | + +------+ + Encounter Details +--------+ + + + + | Date | Type | Department | Care Team | Description | +--------+ + + + + | 11/07/ | Hospital | Radiology/Imaging | | | | 2015 | Encounter | Lab at [facility] [address] | | | | | | [address] Mailcode: | | | | | | [facility] | | | | | [facility] and [facility], | | | | | | Building [facility] | | | | | | Floor [place], [place] | | | | | | [address] | | | | | | [phone] | | | +--------+ + + + [...] | | 0 | | | | [id number] | | | | | | | [...]
--- OUTSIDE RECORDS SUMMARY | ~2019-03-26 | XMS | Encounter Summary ---
Demographics + + + | Address | [address] | | | [place] [address] | + + + | Home Phone | | + + + | Preferred Language | Unknown | + + + | Marital Status | Single | + + + | Amish Affiliation | Unknown | + + + | Race | White | + + + | Ethnic Group | Not or | + + + Author + + + | Author | [place] [facility] | + + + | Organization | [facility] | + + + | [...] Team Providers + +------+ + | Care Hot Strip Mill Supervisor Name | Role | Phone | + +------+ + | Scott Parmar MD | PCP | | + +------+ + Encounter Details +--------+ + + + + | Date | Type | Department | Care Team | Description | +--------+ + + + + | 12/17/ | Abstract | Digestive Health | Clinic, Surgery | | | 2015 | | Center at [facility] [address] | | | | | | [address] | | | | | | Mailcode: Center | | | | | | for Health and | | | | | | Healing, [address] | | | | | | [place], [place] | | | | | | [address] | | | | | | [phone] | | | +--------+ + + + [...]
--- OUTSIDE RECORDS SUMMARY | ~2019-03-26 | XMS | Clinical Summary ---
Demographics + + + | Address | [address] | | | [place] [address] | + + + | Home Phone | | + + + | Preferred Language | Unknown | + + + | Marital Status | Single | + + + | Orthodox Affiliation | Unknown | + + + | Race | Unknown | + + + | Ethnic Group | Unknown | + + + Author + + + | Author | [facility] | | | and [place] | + + + | Organization | [facility] | | | and [place] | + + + | Address | Unknown | + + + | Phone | Unavailable | + + + Support + + + + + | Name | Relationship | Address | Phone | + + + + + | Latha Solano | ECON | [address] | | | | | [place] | | | | | [address] | | + + + + + | Maria G Deutsch | ECON | Unknown | | + + + + + Care Team Providers + +------+ + | Care Pecan Cleaner Name | Role | Phone | + +------+ + | Scott Parmar | PCP | Unavailable | + +------+ + Allergies + + + + + + | Active Allergy | Reactions | Severity | Noted | Comments | | | | | Date | | + + + + + + | Penicillins | Rash | Low | 05/18/20 | | | | | | 15 | | + + + + + + Medications + + + +---------+------+------+-------+ | Medication | Sig | Dispensed | Refills | Star | End | Statu | | | | | | t | Date | s | | | | | | Date | | | + + + +---------+------+------+-------+ | | Take 1-2 tablets by | 15 | 0 | 11/2 | | Activ | | oxyCODONE-acetaminop | mouth every 4 hours | tablet | | /20 | | e | | hen (PERCOCET) 5-325 | as needed for Pain. | | | 15 | | | | mg per tablet | | | | | | | + + + +---------+------+------+-------+ | promethazine | Take 25 mg by mouth | | 0 | | | Activ | | (PHENERGAN) 25 mg | every 6 hours as | | | | | e | | tablet | needed. | | | | | | + + + +---------+------+------+-------+ | meloxicam (MOBIC) | Take 15 mg by mouth | | 0 | | | Activ | | 15 mg tablet | Daily. | | | | | e | + + + +---------+------+------+-------+ | clindamycin | Take 300 mg by mouth | | 0 | | | Activ | | (CLEOCIN) 300 MG | 3 times daily. | | | | | e | | capsule | | | | | | | + + + +---------+------+------+-------+ | levothyroxine | Take 112 mcg by | | 0 | | | Activ | | (SYNTHROID, | mouth every morning | | | | | e | | LEVOTHROID) 112 mcg | (before breakfast). | | | | | | | tablet | | | | | | | + + + +---------+------+------+-------+ | | Take 1 tablet by | | 0 | | | Activ | | lisinopril-hydrochlo | mouth Daily. | | | | | e | | rothiazide | | | | | | | | (PRINZIDE,ZESTORETIC | | | | | | | | ) 10-12.5 MG per | | | | | | | | tablet | | | | | | | + + + +---------+------+------+-------+ | metFORMIN | Take 1,000 mg by | | 0 | | | Activ | | (GLUCOPHAGE) 1000 MG | mouth 2 times daily | | | | | e | | tablet | (with breakfast & | | | | | | | | dinner). | | | | | | + + + +---------+------+------+-------+ | imipramine | Take 25 mg by mouth | | 0 | | | Activ | | (TOFRANIL) 25 mg | nightly. | | | | | e | | tablet | | | | | | | + + + +---------+------+------+-------+ | [place] 3 1200 MG | Take by mouth. | | 0 | | | Activ | | CAPS | | | | | | e | + + + +---------+------+------+-------+ | aspirin 325 mg | Take 325 mg by mouth | | 0 | | | Activ | | tablet | Daily. | | | | | e | + + + +---------+------+------+-------+ | gabapentin | Take 400 mg by mouth | | 0 | | | Activ | | (NEURONTIN) 400 mg | 3 times daily. | | | | | e | | capsule | | | | | | | + + + +---------+------+------+-------+ | omeprazole | Take 20 mg by mouth | | 0 | | | Activ | | (PRILOSEC) 20 mg | every morning | | | | | e | | capsule | (before breakfast). | | | | | | + + + +---------+------+------+-------+ | | Inject 150 mg into | | 0 | | | Activ | | medroxyPROGESTERone | the muscle Every 3 | | | | | e | | (DEPO-PROVERA) 150 | months. | | | | | | | mg/mL injection | | | | | | | + + + +---------+------+------+-------+ | carisoprodol | Take 350 mg by mouth | | 0 | | | Activ | | (SOMA) 350 mg tablet | 4 times daily as | | | | | e | | | needed for Muscle | | | | | | | | spasms. | | | | | | + + + +---------+------+------+-------+ | buPROPion | Take 300 mg by mouth | | 0 | | | Activ | | (WELLBUTRIN XL) 300 | every morning. | | | | | e | | mg 24 hr tablet | | | | | | | + + + +---------+------+------+-------+ | mupirocin | Apply topically 2 | | 0 | | | Activ | | (BACTROBAN) 2% | times daily. | | | | | e | | ointment | | | | | | | + + + +---------+------+------+-------+ | glimepiride | Take 1 mg by mouth 2 | | 0 | | | Activ | | (AMARYL) 1 mg tablet | times daily. | | | | | e | + + + +---------+------+------+-------+ | 27-0.8 mg | Take 1 tablet by | | 0 | | | Activ | | multivitamin tablet | mouth Daily. | | | | | e | + + + +---------+------+------+-------+ Active Problems No known active problems Family History + + +---------+ + | Medical History | Relation | Name | Comments | + + +---------+ + | Heart defect | Brother | | | + + +---------+ + | Mental illness | Brother | | | + + +---------+ + | Heart defect | Father | | | + + +---------+ + | High blood pressure | Father | | | + + +---------+ + | Diabetes | Maternal | | | | | Grandfath | | | | | er | | | + + +---------+ + | Diabetes | Maternal | | | | | Grandmoth | | | | | er | | | + + +---------+ + | Alcohol abuse | Maternal | | | | | Uncle | | | + + +---------+ + | Diabetes | Maternal | | | | | Uncle | | | + + +---------+ + | Arthritis | Mother | MARIA G DEUTSCH | | + + +---------+ + | COPD | Mother | MARIA G DEUTSCH | | + + +---------+ + | Emphysema | Mother | MARIA G DEUTSCH | | + + +---------+ + | Lupus | Paternal | | | | | Aunt | | | + + +---------+ + | Arthritis | Sister | | | + + +---------+ + | Asthma | Sister | | | + + +---------+ + | High blood pressure | Sister | | | + + +---------+ + + +---------+ + + | Relation | Name | Status | Comments | + +---------+ + + | Brother | | | | + +---------+ + + | Father | | | | | | | (Age | | | | | 59) | | + +---------+ + + | Maternal Grandfather | | | | + +---------+ + + | Maternal Grandmother | | | | + +---------+ + + | Maternal Uncle | | | | + +---------+ + + | Mother | MARIA G DEUTSCH | Alive | | + +---------+ + + | Paternal Aunt | | | | + +---------+ + + | Sister | | | | + +---------+ + + Social History + +-------+ +--------+------+ [...] + +---------+ + | Alcohol Use | Drinks/We | oz/Week | Comments | | | ek | | | + + +---------+ + | Yes | 0 | 0.0 | rarely | | | Standard | | | | | drinks or | | | | | | | | | | equivalen | | | | | t | | | + + +---------+ + [...] Filed Vital Signs + + + + | Vital Sign | Reading | Time Taken | + + + + | Blood Pressure | 118/83 | 10/02/20151112 PDT | + + + + | Pulse | 112 | 10/02/20151112 PDT | + + + + | Temperature | 37.9 C (100.3 F) | 09/21/2015 1018 PDT | + + + + | Respiratory Rate | 20 | 10/02/20151112 PDT | + + + + | Oxygen Saturation | 99% | 05/18/20152200 PST | + + + + | Inhaled Oxygen | - | - | | Concentration | | | + + + + | Weight | 119.7 kg (264 lb) | 10/02/20151112 PDT | + + + + | Height | 170.2 cm (5' 7") | 10/02/20151112 PDT | + + + + | Body Mass Index | 41.35 | 10/02/20151112 PDT | + + + + Plan of Treatment + + + + + | Health Maintenance | Due Date | Last Done | Comments | + + + + + | Vaccine: | | | | | Dtap/Tdap/Td (1 - | 8 | | | | Tdap) | | | | + + + + + | Cervical Cancer | | | | | Screening (Pap) | 9 | | | + + + + + | Vaccine: Zoster (1 | | | | | of 2) | 9 | | | + + + + + | Vaccine: Influenza | | | | | (#1) | 9 | | | + + + + + Results Not on filefrom Last 3 Months Insurance + +--------+ +--------+ +---------+--------+ | Payer | Benefi | Subscriber | Effect | Phone | Address | Type | | | t Plan | ID | maxine | | | | | | / | | Dates | | | | | | Group | | | | | | + +--------+ +--------+ +---------+--------+ | [employer] | MODA | [id number] | 05/18/ | [phone] | | Medica | | MEDICAID HMO | HEALTH | | 2015-P | 1 | | id | | | MDCD | | [place] | | | | | | [place] | | | | | | + +--------+ +--------+ +---------+--------+ + +--------+ +--------+ + + | Guarantor Name | Accoun | Relation to | Date | Phone | Billing Address | | | t Type | Patient | of | | | | | | | | | | + +--------+ +--------+ + + | Antonio Orozco | Person | Self [birth year] | [address] | | | al/Fam | | 1970 | [phone] | [address] [place], | | | [place] | | | 1 (Home) | [place] [address] | + +--------+ +--------+ + + Advance Directives Patient has advance care planning documents on file. For more information, please contact:[facility] [place] [address]
--- OUTSIDE RECORDS SUMMARY | ~2019-03-26 | XMS | Clinical Summary ---
Demographics + + + | Address | [address] | | | [place] [address] | + + + | Home Phone | | + + + | Preferred Language | Unknown | + + + | Marital Status | Single | + + + | Jewish Affiliation | Unknown | + + + [...] Team Providers + +------+ + | Care Yard Demurrage Clerk Name | Role | Phone | + +------+ + | Scott Parmar MD | PCP | | + +------+ + Source Comments ДМИТРИЙ is fully live on both EpicCare Ambulatory and EpicCare InPatient.[facility] Allergies + + + + + + [...] 0 | | | Activ | | [id number] | | | | | | e [...] | | | + +--------+ +--------+-------+---------+--------+ | DENTAL AIDE MEDICAID | DENTAL AIDE | [id number] | 12/27/19 | | | [...] Self | [birth year] | [address] | | | al/Fam | | 1970 | [phone] | [address] [place] | | | [place] | | | 1 (Home) | [place] [address] | + +--------+ +--------+ + +
--- OUTSIDE RECORDS SUMMARY | ~2019-03-26 | XMS | Clinical Summary ---
Demographics + + + | Address | [address] | | | [place] [address] | + + + | Home Phone | | + + + | Preferred Language | Unknown | + + + | Marital Status | Single | + + + | Rastafari Affiliation | Unknown | + + + | Race | Unknown | + + + | Ethnic Group | Unknown | + + + Author + + + | Author | [facility] | | | and [place] | + + + | Organization | [facility] | | | and [place] | + + + | Address | Unknown | + + + | Phone | Unavailable | + + + Support + + + + + | Name | Relationship | Address | Phone | + + + + + | Latha Solano | ECON | [address] | | | | | [place] | | | | | [address] | | + + + + + | Maria G Deutsch | ECON | Unknown | | + + + + + Care Team Providers + +------+ + | Care Tester Electronic Scale Name | Role | Phone | + [...] | | + + + +---------+------+------+-------+ | [place] 3 1200 MG | Take by mouth. [...] | + + + + + | Breast Cancer | | | | | Screening | 4 | | | + + + + [...] | [employer] | MODA | [id number] | 05/18/ | [phone] | | Medica | | MEDICAID HMO [...] Self | [birth year] | [address] | | | al/Fam | | 1970 | [phone] | [address] [place], | | | [place] | | | 1 (Home) | [place] [address] | + +--------+ +--------+ + + Advance Directives Patient has advance care planning documents on file. For more information, please contact:[facility] [place] [address]
--- OUTSIDE RECORDS SUMMARY | ~2019-03-26 | XMS | Encounter Summary ---
Demographics + + + | Address | [address] | | | [place] [address] | + + + | Home Phone [...] + + + | Author | [place] [employer] [facility] | + + + | Organization | [facility] | + + + | Address [...] Team Providers + +------+ + | Care Last Code Striper Name | Role | Phone | + +------+ + | Scott Parmar MD | PCP | | + +------+ + Encounter Details +--------+ + + + + | Date | Type | Department | Care Team | Description | +--------+ + + + + | 12/17/ | Abstract | Digestive Health | Clinic, Surgery | | | 2015 | | Center at [facility] [address] | | | | | | [address] | | | | | | Mailcode: Center | | | | | | for Health and | | | | | | Healing, [address] | | | | | | [place], [place] | | | | | | [address] | | | | | | [phone] | | | +--------+ + + + [...]
--- OUTSIDE RECORDS SUMMARY | ~2019-03-26 | XMS | Encounter Summary ---
Demographics + + + | Address | [address] | | | [place] [address] | + + + | Home Phone [...] + + + | Author | [place] [employer] [facility] | + + + | Organization | [facility] [employer] [facility] | + + + | [...] Team Providers + +------+ + | Care Community Organization Worker Name | Role | Phone | + +------+ + | cSott Parmar MD | PCP | | + +------+ + Encounter Details +--------+ + + + + | Date | Type | Department | Care Team | Description | +--------+ + + + + | 11/07/ | Hospital | Radiology/Imaging | | | | 2015 | Encounter | Lab at [facility] [address] | | | | | | [address] Mailcode: | | | | | | [facility] | | | | | | Health and Healing, | | | | | | Building [facility] | | | | | | Floor [place], [place] | | | | | | [address] | | | | | | [phone] | | | +--------+ + + + [...] | | 0 | | | | [id number] | | | | | | | [...] | | + +---------+ + + | [facility] DEPARTMENT OF | | | | | RADIOLOGY | | | | + +---------+ + + documented in this encounter Visit Diagnoses Not on filedocumented in this encounter"
--- OUTSIDE RECORDS SUMMARY | ~2019-03-26 | XMS | Encounter Summary ---
Demographics + + + | Address | [address] | | | [place] [address] | + + + | Home Phone [...] Author + + + | Author | [place] [employer] [facility] | + + + | Organization | [facility] [employer] [facility] | + + + | [...] Team Providers + +------+ + | Care Medical Collector Name | Role | Phone | + +------+ + | Scott Parmar MD | PCP | | + +------+ + Encounter Details +--------+---------+ + + + | Date | Type | Department | Care Team | Description | +--------+---------+ + + + | 11/29/ | Office | Neurosurgery at | Eitan Cortez, | | | 2007 | Visit | [facility] [address] | | | | | [place] Mailcode: CH[address]N | | | | | | Center for Health | | | | | | and Healing, | | | | | | Building | | | | | | Floor [place], [place] | | | | | | [address] | | | | | | [phone] | | | +--------+---------+ + + + [...] Eitan Cortez - 12/02/2007 8:21 AM PDT [id number] [place] [id number] Referred From and Faxed To: Scott Parmar M.D. Referred To: Eitan Cortez M.D. Consulting Physician: Eitan Cortez M.D. Consultation Date: 11/30/2007 Referring Physician: Scott Parmar M.D. Reason For Requested Consultation: Back pain and lumbar stenosis. Dear Dr. Parmar: Thank you for referring Antonio Orozco to [facility] [place], [place]. It was a pleasure to see this young woman and her mother today in the clinic. You may recall, this 37-year-old female is status post L3-4 and L4-5 decompressive lumbar surgery in March [address] Bryant Coker in [place], [place]. After that surgery, she has had [...] Eitan Cortez M.D. DANIEL / ANA M [id number] / [id number] / [id number] / [id number] cc: Scott Parmar M.D. [facility] [address] [place] [address] documented in this enco unter Plan of Treatment Not on filedocumented as of this encounter Visit Diagnoses Not on filedocumented in this encounter"
--- OUTSIDE RECORDS SUMMARY | ~2019-03-26 | XMS | Encounter Summary ---
Demographics + + + | Address | [address] | | | [place] [address] | + + + | Home Phone [...] Author + + + | Author | [place] [employer] [facility] | + + + | Organization | [facility] | + + + | Address | [...] Team Providers + +------+ + | Care Office Assistant Name | Role | Phone | + +------+ + | Scott Parmar MD | PCP | | + +------+ + Encounter Details +--------+ + + + + | Date | Type | Department | Care Team | Description | +--------+ + + + + | 11/12/ | Documentati | Digestive Health | Radha Urbina, | | | 2016 | on | Center at [facility] [address] | ACNP [address] | | | | | [address] | Ave [place], [place] | | | | | Mailcode: [place] | [address] | | | | | [facility] and | | | | | | [place] [address] | | | | | | [place], [place] | | | | | | [address] | | | | | | | [...]
--- OUTSIDE RECORDS SUMMARY | ~2019-03-26 | XMS | Encounter Summary ---
Demographics + + + | Address | [address] | | | [place] [address] | + + + | Home Phone | | + + + | Preferred Language | Unknown | + + + | Marital Status | Single | + + + | Islam Affiliation | Unknown | + + + | Race | White | + + + | Ethnic Group | Not or | + + + Author + + + | Author | [place] [employer] [facility] | + + + | Organization | [facility] [employer] [facility] | + + + | Address | [...] Team Providers + +------+ + | Care Chlorine Cells Operator Name | Role | Phone | + +------+ + | Scott Parmar MD | PCP | | + +------+ + Encounter Details +--------+ + + + + | Date | Type | Department | Care Team | Description | +--------+ + + + + | 12/18/ | Abstract | Digestive Health | Clinic, Surgery | | | 2015 | | Center at [facility] [address] | | | | | | [address] | | | | | | Mailcode: Center | | | | | | for Health and | | | | | | Healing, [address] | | | | | | [place], [place] | | | | | | [address] | | | | | | [phone] | | | +--------+ + + + [...]
--- OUTSIDE RECORDS SUMMARY | ~2019-03-26 | XMS | Encounter Summary ---
Demographics + + + | Address | [address] | | | [place] [address] | + + + | Home Phone [...] Author + + + | Author | [place] [facility] | + + + | Organization | [facility] | + + + | Address | [...] Team Providers + +------+ + | Care Pineapple Plantation Manager Name | Role | Phone | [...] | | Scheduled | | Lumbar | [address] | | | with OXYGEN FURNACE OPERATOR | | spine pain | Zack [address]restha | [address] | | | | | Procedures | [address] | [address] | | | | | CONSULT TO | [place], [place] | Mailcode: | | | | | BARIATRIC | [address] | Center for | | | | | SURGERY | Phone: | Health and | | | | | | [phone] | Healing, | | | | | | Fax: | [address] | | | | | | [phone] | [facility] [place] | | | | | | | [address] | | | | | | | Phone: | | | | | | | [phone] | | | | | | | Fax: | | | | | | | [phone] | +--------+ + + + + + [...] | | unspecified | [address] | [place], [place] | | | | | | [place], | [address] | | | | | Radiculopath | [place] [address] | Phone: | | | | | y, lumbar | Phone: | [phone] | | | | | region | [phone] | Fax: | | | | | Lumbago with | Fax: | [phone] | | | | | sciatica, | [phone] | | | | | | right side | | | +--------+--------+ + + + + Encounter Details +--------+---------+ + + + | Date | Type | Department | Care Team | Description | +--------+---------+ + + + | 11/07/ | Office | Orthopaedic Spine | Thomas Hair MD | Lumbar spine pain | | 2016 | Visit | Center at [facility] [address] | [address] | (Primary Dx) | | | | [address] | [place], | | | | | Mailcode: [facility] | [place] [address] | | | | | [facility] | [phone] | | | | | and Healing, | | | | | | [facility] | | | | | | [place], [place] | | | | | | [address] | | | | | | [phone] | | | +--------+---------+ + + + [...] the surgery. She had surgery done at [place] on. She has gone to the surgeon [...] AM PDTCalled and spoke to someone at [facility]'s image library in [place], [place]. They will push images immediately. They will also fax over reports. They are now in [employer]. d ocumented in this encounter Plan of [...]
--- OUTSIDE RECORDS SUMMARY | ~2019-03-26 | XMS | Encounter Summary ---
Demographics + + + | Address | [address] | | | [place] [address] | + + + | Home Phone [...] Author + + + | Author | [place] [employer] [facility] | + + + | Organization | [facility] | + + + [...] Team Providers + +------+ + | Care Program Clinician Name | Role | Phone | + +------+ + | Scott Parmar MD | PCP | | + +------+ + Encounter Details +--------+ + + + + | Date | Type | Department | Care Team | Description | +--------+ + + + + | 11/07/ | Hospital | Radiology/Imaging | | Canceled (Provider | | 2016 | Encounter | Lab at [facility] [address] | | Request) | | | | [address] Mailcode: | | | | | | [facility] for | | | | | | Health and Healing, | | | | | | [facility] [address], 3rd | | | | | | Floor [place], [place] | | | | | | [address] | | | | | | [phone] | | | +--------+ + + + [...] | | 0 | | | | [id number]-ymem-iigcl | | | | | | | [...] | | + +---------+ + + | [facility] DEPARTMENT OF | | | | | RADIOLOGY | | | | + +---------+ + + documented in this encounter Visit Diagnoses + + | Diagnosis | + + | Lumbar spine pain Lumbago | + + documented in this encounter"
--- OUTSIDE RECORDS SUMMARY | ~2019-03-26 | XMS | Encounter Summary ---
Demographics + + + | Address | [address] | | | [place] [address] | + + + | Home Phone | | + + + | Preferred Language | Unknown | + + + | Marital Status | Single | + + + | Mosque Affiliation | Unknown | + + + | Race | White | + + + | Ethnic Group | Not or | + + + Author + + + | Author | [place] [employer] [facility] | + + + | Organization | [facility] | + + + [...] Team Providers + +------+ + | Care Bibliographic Services Specialist Name | Role | Phone | + +------+ + | Scott Parmar MD | PCP | | + +------+ + Encounter Details +--------+ + + + + | Date | Type | Department | Care Team | Description | +--------+ + + + + | 11/07/ | Hospital | Radiology/Imaging | | | | 2015 | Encounter | Lab at [facility] [address] | | | | | | [address] Mailcode: | | | | | | [facility] | | | | | | Health and Healing, | | | | | | Building [facility] | | | | | | Floor [place], [place] | | | | | | [address] | | | | | | [phone] | | | +--------+ + + + [...] | | 0 | | | | [id number]-vnhr-jyulj | | | | | | | [...] | | + +---------+ + + | [facility] DEPARTMENT OF | | | | | RADIOLOGY | | | | + +---------+ + + documented in this encounter Visit Diagnoses Not on filedocumented in this encounter"
--- OUTSIDE RECORDS SUMMARY | ~2019-03-26 | XMS | Encounter Summary ---
Demographics + + + | Address | [address] | | | [place] [address] | + + + | Home Phone | | + + + | Preferred Language | Unknown | + + + | Marital Status | Single | + + + | Hindu Affiliation | Unknown | + + + | Race | White | + + + | Ethnic Group | Not or | + + + Author + + + | Author | [place] [facility] | + + + | Organization | [facility] | + + + | Address [...] Team Providers + +------+ + | Care Area Loss Prevention Manager Name | Role | Phone | + +------+ + | Scott Parmar MD | PCP | | + +------+ + Encounter Details +--------+---------+ + + + | Date | Type | Department | Care Team | Description | +--------+---------+ + + + | 11/29/ | Office | Neurosurgery at | Eitan Cortez, | | | 2007 | Visit | [facility] [address] | | | | | Rebekah Mailcode: CH8N | | | | | | Center for Health | | | | | | and Healing, | | | | | | Building | | | | | | Floor [place], [place] | | | | | | [address] | | | | | | [phone] | | | +--------+---------+ + + + [...] Eitan Cortez - 12/02/2007 8:21 AM PDT [id number] ENRIQUE Shields [id number] Referred From and Faxed To: Scott Parmar M.D. Referred To: Eitan Cortez M.D. Consulting Physician: Eitan Cortez M.D. Consultation Date: 11/30/2007 Referring Physician: Scott Parmar M.D. Reason For Requested Consultation: Back pain and lumbar stenosis. Dear Dr. Parmar: Thank you for referring Antonio Orozco to my [facility] in [place], [place]. It was a pleasure to see this young woman and her mother today in the clinic. You may recall, this 37-year-old female is status post L3-4 and L4-5 decompressive lumbar surgery in March [address] Bryant Coker in [place], [place]. After that surgery, she has had [...] Eitan Cortez M.D. DANIEL / ANA M [id number] / [id number] / [id number] / [id number] cc: Scott Parmar M.D. [facility] [address] [place] [address] documented in this enco unter Plan of Treatment Not on filedocumented as of this encounter Visit Diagnoses Not on filedocumented in this encounter"
--- OUTSIDE RECORDS SUMMARY | ~2019-03-26 | XMS | Encounter Summary ---
Demographics + + + | Address | [address] | | | [place] [address] | + + + | Home Phone | | + + + | Preferred Language | Unknown | + + + | Marital Status | Single | + + + | Catholic Affiliation | Unknown | + + + | Race | White | + + + | Ethnic Group | Not or | + + + Author + + + | Author | [place] [facility] [employer] [facility] | + + + | Organization | [facility] | + + + | [...] Team Providers + +------+ + | Care Laboratory Coordinator Name | Role | Phone | + +------+ + | Scott Parmar MD | PCP | | + +------+ + Encounter Details +--------+ + + + + | Date | Type | Department | Care Team | Description | +--------+ + + + + | 11/07/ | Hospital | Radiology/Imaging | | | | 2015 | Encounter | Lab at [facility] [address] | | | | | | [address] Mailcode: | | | | | | [facility] | | | | | | Health and Healing, | | | | | | Building [facility] | | | | | | Floor [place], [place] | | | | | | [address] | | | | | | [phone] | | | +--------+ + + + [...] | | 0 | | | | [id number] | | | | | | | [...]
--- OUTSIDE RECORDS SUMMARY | ~2019-03-26 | XMS | Encounter Summary ---
Demographics + + + | Address | [address] | | | [place] [address] | + + + | Home Phone | | + + + | Preferred Language | Unknown | + + + | Marital Status | Single | + + + | Rastafarian Affiliation | Unknown | + + + | Race | White | + + + | Ethnic Group | Not or | + + + Author + + + | Author | [place] [facility] | + + + | Organization | [facility] | + + + [...] Team Providers + +------+ + | Care Kiosk Sales Representative Name | Role | Phone | + +------+ + | Scott Parmar MD | PCP | | + +------+ + Encounter Details +--------+ + + + + | Date | Type | Department | Care Team | Description | +--------+ + + + + | 11/07/ | Hospital | Radiology/Imaging | | Canceled (Provider | | 2016 | Encounter | Lab at [facility] [address] | | Request) | | | | [address] Mailcode: | | | | | | [facility] | | | | | | Health and Healing, | | | | | | [facility] [address] 3rd | | | | | | Floor [place], [place] | | | | | | [address] | | | | | | [phone] | | | +--------+ + + + [...] | | 0 | | | | [id number] | | | | | | | [...] | | + +---------+ + + | [facility] DEPARTMENT OF | | | | | RADIOLOGY | | | | + +---------+ + + documented in this encounter Visit Diagnoses + + | Diagnosis | + + | Lumbar spine pain Lumbago | + + documented in this encounter"
--- OUTSIDE RECORDS SUMMARY | ~2019-03-26 | XMS | Encounter Summary ---
Demographics + + + | Address | [address] | | | [place] [address] | + + + | Home Phone | | + + + | Preferred Language | Unknown | + + + | Marital Status | Single | + + + | Denominational Affiliation | Unknown | + + + | Race | White | + + + | Ethnic Group | Not or | + + + Author + + + | Author | [place] [facility] | + + + | Organization | [facility] | + + + | Address | [...] Team Providers + +------+ + | Care Court Stenographer Name | Role | Phone | + +------+ + | Scott Parmar MD | PCP | | + +------+ + Encounter Details +--------+ + + + + | Date | Type | Department | Care Team | Description | +--------+ + + + + | 12/18/ | Abstract | Digestive Health | Clinic, Surgery | | | 2015 | | Center at [facility] [address] | | | | | | [address] | | | | | | Mailcode: Center | | | | | | for Health and | | | | | | Healing, Building [address] | | | | | | [place], [place] | | | | | | [address] | | | | | | [phone] | | | +--------+ + + + [...]
--- OUTSIDE RECORDS SUMMARY | ~2019-03-26 | XMS | Clinical Summary ---
Demographics + + + | Address | [address] | | | [place] [address] | + + + | Home Phone | | + + + | Preferred Language | Unknown | + + + | Marital Status | Single | + + + | Yazdanism Affiliation | Unknown | + + + | Race | Unknown | + + + | Ethnic Group | Unknown | + + + Author + + + | Author | [facility] | | | and [place] | + + + | Organization | [facility] | | | and [place] | + + + | Address | Unknown | + + + | Phone | Unavailable | + + + Support + + + + + | Name | Relationship | Address | Phone | + + + + + | Latha Solano | ECON | [address] | | | | | [place] | | | | | [address] | | + + + + + | Maria G Deutsch | ECON | Unknown | | + + + + + Care Team Providers + +------+ + | Care Rest Room Attendant Name | Role | Phone | + [...] | | + + + +---------+------+------+-------+ | [place] 3 1200 MG | Take by mouth. [...] | [employer] | [employer] | [id number] | 05/18/ | [phone] | | [employer] | | MEDICAID HMO [...] | | | 1 (Home) | [place] [address] | + +--------+ +--------+ + + Advance Directives Patient has advance care planning documents on file. For more information, please contact:[facility] [place] [address]
--- OUTSIDE RECORDS SUMMARY | ~2019-03-26 | XMS | Encounter Summary ---
Demographics + + + | Address | [address] | | | [place] [address] | + + + | Home Phone [...] + + | Author | [place] [employer] [facility] | + + + | Organization | [facility] [employer] [facility] | + + + | Address | [...] Team Providers + +------+ + | Care Hemmer Chainstitch Name | Role | Phone | + +------+ + | Scott Parmar MD | PCP | | + +------+ + Encounter Details +--------+ + + + + | Date | Type | Department | Care Team | Description | +--------+ + + + + | 11/07/ | Hospital | Radiology/Imaging | | | | 2015 | Encounter | Lab at [facility] [address] | | | | | | [address] Mailcode: | | | | | | [facility] | | | | | | Health and Healing, | | | | | | Building [facility] | | | | | | Floor [place], [place] | | | | | | [address] | | | | | | [phone] | | | +--------+ + + + [...] | | 0 | | | | [id number] | | | | | | | [...] | | + +---------+ + + | [facility] DEPARTMENT OF | | | | | RADIOLOGY | | | | + +---------+ + + documented in this encounter Visit Diagnoses Not on filedocumented in this encounter"
--- OUTSIDE RECORDS SUMMARY | ~2019-03-26 | XMS | Encounter Summary ---
Demographics + + + | Address | [address] | | | [place] [address] | + + + | Home Phone [...] + + + | Author | [place] [facility] | + + + | Organization | [facility] [employer] [facility] | + + + | Address | [...] Team Providers + +------+ + | Care Hop Separator Name | Role | Phone | + +------+ + | Scott Parmar MD | PCP | | + +------+ + Encounter Details +--------+ + + + + | Date | Type | Department | Care Team | Description | +--------+ + + + + | 11/07/ | Hospital | Radiology/Imaging | | | | 2015 | Encounter | Lab at [facility] [address] | | | | | | [address] Mailcode: | | | | | | [facility] | | | | | | Health and Healing, | | | | | | Building [facility] | | | | | | Floor [place], [place] | | | | | | [address] | | | | | | [phone] | | | +--------+ + + + [...] | | 0 | | | | [id number] | | | | | | | [...]
--- OUTSIDE RECORDS SUMMARY | ~2019-03-26 | XMS | Encounter Summary ---
Demographics + + + | Address | [address] | | | [place] [address] | + + + | Home Phone [...] + + | Author | [place] [facility] | + + + | Organization | [facility] | + + + | Address | [...] Team Providers + +------+ + | Care Enterprise Systems Architect Name | Role | Phone | + +------+ + | Scott Parmar MD | PCP | | + +------+ + Encounter Details +--------+ + + + + | Date | Type | Department | Care Team | Description | +--------+ + + + + | 11/07/ | Hospital | Radiology/Imaging | | Canceled (Provider | | 2016 | Encounter | Lab at [facility] [address] | | Request) | | | | [address] Mailcode: | | | | | | [facility] | | | | | | Health and Healing, | | | | | | [facility] 1, 3rd | | | | | | Floor [place], [place] | | | | | | [address] | | | | | | [phone] | | | +--------+ + + + [...] | | 0 | | | | [id number] | | | | | | | [...] | | + +---------+ + + | [facility] DEPARTMENT OF | | | | | RADIOLOGY | | | | + +---------+ + + documented in this encounter Visit Diagnoses + + | Diagnosis | + + | Lumbar spine pain Lumbago | + + documented in this encounter"
--- OUTSIDE RECORDS SUMMARY | ~2019-03-26 | XMS | Encounter Summary ---
Demographics + + + | Address | [address] | | | [place] [address] | + + + | Home Phone | | + + + | Preferred Language | Unknown | + + + | Marital Status | Single | + + + | Buddhism Affiliation | Unknown | + + + | Race | White | + + + | Ethnic Group | Not or | + + + Author + + + | Author | [place] [facility] | + + + | Organization | [facility] | + + + [...] Providers + +------+ + | Care Structural Worker Name | Role | Phone | [...] | | Scheduled | | Lumbar | [address] | | | with CLOCK MECHANIC | | spine pain | [address]restha | [address] | | | | | Procedures | Alyse Berry | [address] | | | | | CONSULT TO | [place], [place] | Mailcode: | | | | | BARIATRIC | [address] | Center for | | | | | SURGERY | Phone: | Health and | | | | | | [phone] | Healing, | | | | | | Fax: | Building 2 | | | | | | [phone] | [facility] [place] | | | | | | | [address] | | | | | | | Phone: | | | | | | | [phone] | | | | | | | Fax: | | | | | | | [phone] | +--------+ + + + + + [...] | | unspecified | [address] | [place], [place] | | | | | | [place], | [address] | | | | | Radiculopath | [place] [address] | Phone: | | | | | y, lumbar | Phone: | [phone] | | | | | region | [phone] | Fax: | | | | | Lumbago with | Fax: | [phone] | | | | | sciatica, | [phone] | | | | | | right side | | | +--------+--------+ + + + + Encounter Details +--------+---------+ + + + | Date | Type | Department | Care Team | Description | +--------+---------+ + + + | 11/07/ | Office | Orthopaedic Spine | Thomas Hair MD | Lumbar spine pain | | 2016 | Visit | Center at [facility] [address] | [address] | (Primary Dx) | | | | [address] | [address] [place], | | | | | Mailcode: [facility] | [place] [address] | | | | | [facility] | [phone] | | | | | and Healing, | | | | | | [facility] | | | | | | [place], [place] | | | | | | [address] | | | | | | [phone] | | | +--------+---------+ + + + [...] the surgery. She had surgery done at [place] on. She has gone to the surgeon [...] AM PDTCalled and spoke to someone at [facility]'s image library in [place], [place]. They will push images immediately. They will also fax over reports. They are now in [employer]. d ocumented in this encounter Plan of [...]
--- OUTSIDE RECORDS SUMMARY | ~2019-03-26 | XMS | Encounter Summary ---
Demographics + + + | Address | [address] | | | [place] [address] | + + + | Home Phone | | + + + | Preferred Language | Unknown | + + + | Marital Status | Single | + + + | Evangelical Affiliation | Unknown | + + + | Race | White | + + + | Ethnic Group | Not or | + + + Author + + + | Author | [place] [facility] | + + + | Organization | [facility] [employer] [facility] | + + + | Address [...] Team Providers + +------+ + | Care Recreational Resort Manager Name | Role | Phone | + +------+ + | Scott Parmar MD | PCP | | + +------+ + Encounter Details +--------+ + + + + | Date | Type | Department | Care Team | Description | +--------+ + + + + | 12/18/ | Abstract | Digestive Health | Clinic, Surgery | | | 2015 | | Center at [facility] [address] | | | | | | [address] | | | | | | Mailcode: Center | | | | | | for Health and | | | | | | Healing, Building [address] | | | | | | [place], [place] | | | | | | [address] | | | | | | [phone] | | | +--------+ + + + [...]
--- OUTSIDE RECORDS SUMMARY | ~2019-03-26 | XMS | Encounter Summary ---
Demographics + + + | Address | [address] | | | [place] [address] | + + + | Home Phone [...] + + | Author | [place] [employer] [facility] | + + + | Organization | [facility] [employer] [facility] | + + + | [...] Team Providers + +------+ + | Care Facility Designer Name | Role | Phone | + +------+ + | Scott Parmar MD | PCP | | + +------+ + Encounter Details +--------+ + + + + | Date | Type | Department | Care Team | Description | +--------+ + + + + | 12/17/ | Abstract | Digestive Health | Clinic, Surgery | | | 2015 | | Center at [facility] [address] | | | | | | [address] | | | | | | Mailcode: Center | | | | | | for Health and | | | | | | Healing, Building [address] | | | | | | [place], [place] | | | | | | [address] | | | | | | [phone] | | | +--------+ + + + [...]
--- OUTSIDE RECORDS SUMMARY | ~2019-03-26 | XMS | Encounter Summary ---
Demographics + + + | Address | [address] | | | [place] [address] | + + + | Home Phone [...] + + + | Author | [place] [email or web address] [facility] | + + + | Organization | [facility] [employer] [facility] | + + [...] Team Providers + +------+ + | Care Science Writer Name | Role | Phone | + [...] | | Scheduled | | Lumbar | [address] | [address] | | | with DOCUMENT MANAGER | | spine pain | Z[address] Shrestha | [address] | | | | | Procedures | Alyse Berry | [address] | | | | | CONSULT TO | [place], [place] | Mailcode: | | | | | BARIATRIC | [address] | Center for | | | | | SURGERY | Phone: | Health and | | | | | | [phone] | Healing, | | | | | | Fax: | Building 2 | | | | | | [phone] | [facility] [place] | | | | | | | [address] | | | | | | | Phone: | | | | | | | [phone] | | | | | | | Fax: | | | | | | | [phone] | +--------+ + + + + + [...] | | unspecified | [address] | [place], [place] | | | | | | [place], | [address] | | | | | Radiculopath | [place] [address] | Phone: | | | | | y, lumbar | Phone: | [phone] | | | | | region | [phone] | Fax: | | | | | Lumbago with | Fax: | [phone] | | | | | sciatica, | [phone] | | | | | | right side | | | +--------+--------+ + + + + Encounter Details +--------+---------+ + + + | Date | Type | Department | Care Team | Description | +--------+---------+ + + + | 11/07/ | Office | Orthopaedic Spine | Thomas Hair MD | Lumbar spine pain | | 2016 | Visit | Center at [facility] [address] | [address] | (Primary Dx) | | | | [address] | Alyse Berry [place], | | | | | Mailcode: [facility] | [place] [address] | | | | | [facility] | [phone] | | | | | and Healing, | | | | | | [facility] | | | | | | [place], [place] | | | | | | [address] | | | | | | [phone] | | | +--------+---------+ + + + [...] the surgery. She had surgery done at [place] on. She has gone to the surgeon [...] AM PDTCalled and spoke to someone at [facility]'s image library in [place], [place]. They will push images immediately. They will also fax over reports. They are now in [employer]. d ocumented in this encounter Plan of [...]
--- OUTSIDE RECORDS SUMMARY | ~2019-03-26 | XMS | Encounter Summary ---
Demographics + + + | Address | [address] | | | [place] [address] | + + + | Home Phone | | + + + | Preferred Language | Unknown | + + + | Marital Status | Single | + + + | Sabianist Affiliation | Unknown | + + + | Race | White | + + + | Ethnic Group | Not or | + + + Author + + + | Author | [place] [employer] [facility] | + + + | Organization | [facility] [employer] [facility] | + + + [...] Team Providers + +------+ + | Care Dental Scheduler Name | Role | Phone | + +------+ + | Scott Parmar MD | PCP | | + +------+ + Encounter Details +--------+ + + + + | Date | Type | Department | Care Team | Description | +--------+ + + + + | 11/12/ | Documentati | Digestive Health | Radha Urbina, | | | 2016 | on | Center at [facility] [address] | ACNP [address] | | | | | [address] | Ave [place], [place] | | | | | Mailcode: [place] | [address] | | | | | [facility] and | | | | | | [place] [address] | | | | | | [place], [place] | | | | | | [address] | | | | | | | [...]
--- OUTSIDE RECORDS SUMMARY | ~2019-03-26 | XMS | Encounter Summary ---
Demographics + + + | Address | [address] | | | [place] [address] | + + + | Home Phone | | + + + | Preferred Language | Unknown | + + + | Marital Status | Single | + + + | Voodoo Affiliation | Unknown | + + + | Race | White | + + + | Ethnic Group | Not or | + + + Author + + + | Author | [place] [employer] [facility] | + + + | Organization | [facility] | + + + [...] Team Providers + +------+ + | Care Aeronautics Commission Director Name | Role | Phone | + +------+ + | Scott Parmar MD | PCP | | + +------+ + Encounter Details +--------+ + + + + | Date | Type | Department | Care Team | Description | +--------+ + + + + | 11/12/ | Documentati | Digestive Health | Radha Urbina, | | | 2016 | on | Center at [facility] [address] | [facility] [address] | | | | | [address] | [place], [place] | | | | | Mailcode: [place] | [address] | | | | | [facility] and | | | | | | [address] [address] | | | | | | [place], [place] | | | | | | [address] | | | | | | | [...]
--- OUTSIDE RECORDS SUMMARY | ~2019-03-26 | XMS | Clinical Summary ---
Demographics + + + | Address | [address] | | | [place] [address] | + + + | Home Phone | | + + + | Preferred Language | Unknown | + + + | Marital Status | Single | + + + | Yarsani Affiliation | Unknown | + + + [...] Team Providers + +------+ + | Care Sustainable Agriculture Faculty Name | Role | Phone | + +------+ + | Scott Parmar MD | PCP | | + +------+ + Source Comments ДМИТРИЙ is fully live on both EpicCare Ambulatory and EpicCare InPatient.[facility] Allergies + + + + [...] 0 | | | Activ | | [id number] | | | | | | e [...] | | | + +--------+ +--------+-------+---------+--------+ | SECURITY TECH MEDICAID | SECURITY TECH | xxxxxxxx | 12/27/19 | | | [...] | | | 1 (Home) | [place] [address] | + +--------+ +--------+ + +
[~2019-03-26 17:37] MED LIST changes: +HEALTHYLAX17 GM PO; +MICONAZOLE 7100 MG PV; +OXYCODONE HCL5 MG PO; +SENNA-TIME S T1 EACH PO
--- OUTSIDE RECORDS SUMMARY | 2019-03-26 17:40 | XMS ---
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 Carolann has no Care Guidelines for this patient. Karen VISIT COUNT (12 MO.) 2 [facility] T[facility] 2 NOTE: Visits indicate total known visits. ED/C VISIT TRACKING (12 MO.) 03/26/2019 17:37 [facility] [place] TYPE: Emergency COMPLAINT: - LEFT ARM SWELLING, NON INJ 03/08/2019 19:55 [facility] [place] TYPE: Emergency COMPLAINT: - SKIN ISSUE INPATIENT VISIT TRACKING (12 MO.) 03/16/2019 12:15 [facility] [place] TYPE: Medical Surgical COMPLAINT: - SEPSIS DIAGNOSES: - Other chronic pain - rn long term care (current) use of opiate analgesic - Unspecified mood [affective] disorder - Encounter for orthopedic aftercare following surgical amputation - Dorsalgia, unspecified - Type 2 diabetes mellitus without complications - rn long term care (current) use of oral hypoglycemic drugs - Essential (primary) hypertension - Insomnia, unspecified - Hyperuricemia without signs of inflammatory arthritis and tophaceous disease - Gastro-esophageal reflux disease without esophagitis - intermediate (current) use of aspirin - rn long term care (current) use of non-steroidal anti-inflammatories (NSAID) - Other superintendent container terminal (current) drug therapy - Allergy status to penicillin - Acquired absence of left leg below knee 03/08/2019 22:[address] [facility] [place] TYPE: Medical Surgical COMPLAINT: - SEPSIS DIAGNOSES: - intermediate (current) use of non-steroidal anti-inflammatories (NSAID) - Body mass index (BMI) 38.0-38.9, adult - Psychophysiologic insomnia - Body mass index (BMI) 38.0-38.9, adult - Acute kidney failure, unspecified - Foot drop, left foot - Other chronic osteomyelitis, left ankle and foot - Allergy status to penicillin - Type 2 diabetes mellitus with other specified complication - Type 2 diabetes mellitus with other specified complication - Major depressive disorder, single episode, unspecified - Dorsalgia, unspecified - Other superintendent container terminal (current) drug therapy - Streptococcus, group B, as the cause of diseases classified elsewhere - intermediate (current) use of aspirin - 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e 4 chronic kidney disease, or unspecified chronic kidney disease - Gastro-esophageal reflux disease without esophagitis - Type 2 diabetes mellitus with diabetic chronic kidney disease - Anemia in chronic kidney disease - Hyperuricemia without signs of inflammatory arthritis and tophaceous disease - Sepsis due to Methicillin susceptible Staphylococcus aureus - Foot drop, left foot - intermediate (current) use of oral hypoglycemic drugs - Personal history of nicotine dependence - Other acute postprocedural pain - Cutaneous abscess of left lower limb - Obesity, unspecified - Type 2 diabetes mellitus with diabetic neuropathy, unspecified - Allergy status to penicillin - Chronic kidney disease, unspecified - Severe sepsis without septic shock - Psychophysiologic insomnia - Major depressive disorder, single episode, unspecified - Sepsis, unspecified organism - 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 - Other chronic pain - Other chronic osteomyelitis, left ankle and foot - 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e 4 chronic kidney disease, or unspecified chronic kidney disease - Personal history of nicotine dependence - Chronic kidney disease, unspecified - Type 2 diabetes mellitus with diabetic chronic kidney disease - Other chronic pain - Urinary tract infection, site not specified - rn long term care (current) use of aspirin - Obesity, unspecified - Other superintendent container terminal (current) drug therapy - Severe sepsis without septic shock - 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 - Sepsis due to Methicillin susceptible Staphylococcus aureus - Acute kidney failure, unspecified - Anemia in chronic kidney disease - Gastro-esophageal reflux disease without esophagitis - Streptococcus, group B, as the cause of diseases classified elsewhere - intermediate (current) use of oral hypoglycemic drugs - Urinary tract infection, site not specified - Cutaneous abscess of left lower limb - Hyperuricemia without signs of inflammatory arthritis and tophaceous disease - Type 2 diabetes mellitus with diabetic neuropathy, unspecified - intermediate (current) use of non-steroidal anti-inflammatories (NSAID) - Dorsalgia, unspecified [email or web address]
[2019-03-30] MEDS ORDERED: ELIQUIS5 MG PO (11:37)
[2019-03-30] MEDS ORDERED: OXYCODONE HCL5 MG PO (11:38)
[2019-03-30] MEDS ORDERED: TYLENOL EXTRA500 MG PO (11:38)
== END 2019-03-30 14:20 ==
LOC: ED 17:37 → MS 17:38
PROVIDERS: ADMIT Student in an Organized Health Care Education/Training Program
DX: I82.622 Acute embolism and thrombosis of deep veins of left upper extremity (principal); E11.9 Type 2 diabetes mellitus without complications; I10 Essential (primary) hypertension; K21.9 Gastro-esophageal reflux disease without esophagitis; E79.0 Hyperuricemia without signs of inflammatory arthritis and tophaceous disease; F39 Unspecified mood [affective] disorder; E03.9 Hypothyroidism, unspecified; M54.9 Dorsalgia, unspecified; M54.5 Low back pain; Z89.512 Acquired absence of left leg below knee; Z88.0 Allergy status to penicillin; Z79.84 Long term (current) use of oral hypoglycemic drugs; Z79.1 Long term (current) use of non-steroidal anti-inflammatories (NSAID); Z79.82 Long term (current) use of aspirin; Z79.891 Long term (current) use of opiate analgesic; Z79.899 Other long term (current) drug therapy
CPT/HCPCS: 36415; 73206; 80053; 85025; 85610; 85730; 93971; 97110; 97162; 97166; 99285-25; G0378; J1170; J1815; Q9967

== ENCOUNTER 2019-11-01 06:05 | Inpatient (IN) | payer MEDICARE, OTHER ==
[~2019-11-01] VITALS: Ht 167.6 cm; Wt 100.5 kg
--- OUTSIDE RECORDS SUMMARY | ~2019-11-01 | XMS | Encounter Summary ---
Demographics + + + | Address | [address] | | | [place] [address] | + + + | Home Phone | | + + + | Preferred Language | Unknown | + + + | Marital Status | Single | + + + | Church Affiliation | Unknown | + + + | Race | Unknown | + + + | Ethnic Group | Unknown | + + + Author + + + | Author | [facility] | | | and [place] | + + + | Organization | [facility] | | | and [place] | + + + | Address | Unknown | + + + | Phone | Unavailable | + + + Support + + + + + | Name | Relationship | Address | Phone | + + + + + | Latha Solano | ECON | [address] | | | | | [place] | | | | | [address] | | + + + + + | Maria G Nj | ECON | Unknown | | + + + + + Care Team Providers + +------+ + | [facility] General Manager Name | Role | Phone | + +------+ + | Scott Parmar MD | PCP | | + +------+ + Reason for Referral Evaluate & Treat (Routine) +--------+ + + + + + | Status | Reason | Specialty | Diagnoses / | Referred By | Referred To | | | | | Procedures | Contact | Contact | +--------+ + + + + + | Closed | Specialty | Orthopedic | Diagnoses | Jerson, | Grabiel, | | | Services | Surgery | | Declan Johns, | Garfield Kelly MD | | | Required | | Contracture, | PA-C [address] | | | | | left foot | [address] | [address] [place] | | | | | Pain in left | [address] | [place], [place] | | | | | ankle and | [place], | [address] Phone: | | | | | joints of | [place] [address] | [phone] | | | | | left foot | Phone: | Fax: | | | | | Other | [phone] | [phone] | | | | | instability, | Fax: | | | | | | left ankle | [phone] | | | | | | Foot drop, | | | | | | | left foot | | | +--------+ + + + + + Reason for Visit + + + | Reason | Comments | + + + | New Patient | Back pain | + + + Evaluate & Treat (Routine) +--------+--------+ + + + + | Status | Reason | Specialty | Diagnoses / | Referred By | Referred To | | | | | Procedures | Contact | Contact | +--------+--------+ + + + + | Closed | | Neurosurgery | Diagnoses | [facility] | Samantha, | | | | | Back pain | Followup | Werner Dover DO | | | | | Procedures | | [address] | | | | | AR OFFICE | | [address] | | | | | CONSULTATION | | [place] | | | | | [place]/ESTAB | | [address] Phone: | | | | | PATIENT 60 | | [phone] | | | | | MIN | | Fax: | | | | | | | [phone] | +--------+--------+ + + + + Encounter Details +--------+---------+ + + + | Date | Type | Department | Care Team | Description | +--------+---------+ + + + | 07/05/ | Office | [facility] | Declan Arthur, | Left ankle pain | | 2016 | Visit | NEUROSURGERY [address] PA-C [address] | (Primary Dx); Left | | | | [address] [place] | ankle instability; | | | | [place], [place] | [place] [address] | Left foot drop; | | | | [id number] | [phone] | Lumbar foraminal | | | | [phone] | | stenosis; Postural | | | | | | kyphosis of lumbar | | | | | | region; Lumbar | | | | | | spinal stenosis; | | | | | | Flexion contracture | | | | | | of joint of left | | | | | | foot; Poor | | | | | | peripheral | | | | | | circulation (HCC) | +--------+---------+ + + + Social History + +-------+ +--------+------+ | Tobacco Use | Types | Packs/Day | Years | Date | | | | | Used | | + +-------+ +--------+------+ | Never Smoker | | | | | + +-------+ +--------+------+ + +---+---+---+ | Smokeless Tobacco: | | | | | Never Used | | | | + +---+---+---+ + + +---------+ + | Alcohol Use | Drinks/Week | oz/Week | Comments | + + +---------+ + | Yes | 0 Standard drinks | 0.0 | rarely | | | or equivalent | | | + + +---------+ + + + + | Sex Assigned at | Date Recorded | | | | + + + | Not on file | | + + + + + + + | Job Start Date | Occupation | Industry | + + + + | Not on file | Not on file | Not on file | + + + + + + + + | Travel History | Travel Start | Travel End | + + + + + + | No recent travel history available. | + + documented as of this encounter Last Filed Vital Signs + + + + + | Vital Sign | Reading | Time Taken | Comments | + + + + + | Blood Pressure | 112/82 | 07/05/2015 10:51 AM | | | | | PST | | + + + + + | Pulse | 111 | 07/05/2015 10:51 AM | | | | | PST | | + + + + + | Temperature | - | - | | + + + + + | Respiratory Rate | 16 | 07/05/2015 10:51 AM | | | | | PST | | + + + + + | Oxygen Saturation | - | - | | + + + + + | Inhaled Oxygen | - | - | | | Concentration | | | | + + + + + | Weight | 120.2 kg (265 lb) | 07/05/2015 10:51 AM | | | | | PST | | + + + + + | Height | 170.2 cm (5' 7") | 07/05/2015 10:51 AM | | | | | PST | | + + + + + | Body Mass Index | 41.5 | 07/05/2015 10:51 AM | | | | | PST | | + + + + + documented in this encounter Progress Notes Andreea Ferreira, Molded Grid And Parts Inspector - 07/05/2015 11:06 AM PST RIK Alexander [address] [place], [place] [address] FAX: NEUROSURGERY HISTORY AND PHYSICAL EXAMINATION CHIEF COMPLAINT: Chief Complaint Patient presents with New Patient Back pain HISTORY OF PRESENT ILLNESS: The patient is a 45 y.o. female with the complaint of Back and left leg symptoms that began 2004 after she fell at [employer]. following this , patient missed 2 weeks of work and ultimately progressed into work slowly with the help of physical therapy. For 18-24 months after this patient had ongoing back pain that was intol erable and she was able to go to work. Then, in February or March 2007 patient had surgery in [place] where she underwent an L3-L 4 and L4-L5 laminectomy and discectomy. Patient struggled recovering from the surgery. Jazmyn olivas had severe pain for several months following the surgery. She did ultimately receive a n epidural steroid injection 2 months after surgery and recalls that this helped quite a bit . Patient did not have physical therapy following the surgery and lives with her mother for 3 months. As a result of the surgery, patient ended up with a left foot drop that has porfirioe nancy been addressed or treated. Patient worked at a [employer] and did purchase an L FO but has never gotten it fit. Following this surgery patient never recovered to the level that she was at prior to surgery. Patient ultimately went to a pain clinic in the [facility] where she has continued to get conservative treatment primarily through injections for th e last 7 or 8 years. She has had 2 rounds of facet injections at L5-S1 on the left and L2-L 5 on the right. Typically these would give her about 50% relief for 3 weeks. During this time patient also underwent nerve conduction studies by Dr. Daniel in 2005. 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 Patient has enough loss of sensation in her foot that she was unaware that the na il had protruded into her foot. Then, on April 282014 patient was lifting a tire and twisting when she had a sudden o nset of severe back pain. This is the worst back pain that she has had. Long time. In Apr 12 after 6 days of trying to treat this conservatively she went to the walk-in clinic where she was given pain medication. 2 days later, through an unknown source, patient devel oped significant left leg cellulitis. Patient was put on 3 weeks of oral antibiotics and ul timately the cellulitis cleared. However, since this time patient has noted a change in the color of her foot as well as increased coldness in her left foot. Patient states that prio r to this she did not have left foot circulation problems. However, during her exam today I noticed that her right foot has similar but less severe findings. Following this injury in early April patient had 5-8 weeks where she was unable to care for herself. During this time her sister who lives in [place] would have to clean the house, help her get dresse d, and go grocery shopping for her. Since this time, patient has improved close to her bas courtney that she was at prior to April. With this being said, and further discussion, it was evident that during this time patient could not walk for more than 30 minutes. Even then, patient needed a shopping cart to rest on and then forward. Patient is unable to stand up straight and is flexed at the hips by ab out 30. Patient has not been able to stand up straight for several years. Patient back i nto her house sitting in a 4 wheeled walker with a seat. She does her dishes the same way. At times, patient has been unable to sleep in bed and would stand at her bedside, bent at 90, and sleep with her chest resting on the mattress. Due to her footdrop patient has fal clark several times. The last important historic event occurred in the last year where she underwent a disabilit y evaluation. The patient and her sister who accompanied her stated that they felt this exa mination was completely inadequate and lacked significant thoroughness. In total, approxima tely 20 minutes was spent on her evaluation and exam. Patient's disability was denied and s he is currently trying to appeal this decision. She has been let go from her job at the [employer] and is currently unemployed. Patient feels at this time there are very fe w jobs that she can successfully participate in. As far as her specific symptoms. Patient now complains of constant back pain. At best her pain as a 5-6 out of 10. On average her pain is around a 7 or 8. Patient states that at l east 5 days a week her back will be at a 9 or 10 for several hours. Patient has bilateral l eg pain associated with her back pain but reports that the left leg is much worse than the r ight. The pain that she has in her left leg appears to be sciatic pain running straight justin n the back of her leg. Patient also describes some mild associated L5 pathology but readily admits that a lot of this is probably from her peripheral neuropathy as well. On occasion patient has had her left leg give out on her. The symptoms have been gradually worsening. Patient's leg pain is intermittent but daily. The patient does not report any change in bowel or bladder function recently. Her symptoms improve with rest and changing position. Her symptoms worsen with changing position, standing, sitting, walking, bending, twisting a nd light exertion. She has tried physical therapy multiple times, surgery is mentioned above, TENS unit, stero id injections as mentioned above, muscle relaxers, anti-inflammatories, and intermittent sergei cotics. All of these have provided her temporary and partial relief. PAST MEDICAL HISTORY: Past Medical History Diagnosis Date Benign essential hypertension Type 2 diabetes mellitus (HCC) Hypothyroidism Diverticulitis Spondylosis Acute maxillary sinusitis Cystitis Bronchitis Irregular menstrual cycle Hypertension PAST SURGICAL HISTORY: Past Surgical History Procedure Laterality Date Back surgery 04/09/2007 [facility] CURRENT MEDICATIONS: Current Outpatient Prescriptions Medication Sig Dispense Refill aspirin 325 mg tablet Take 325 mg by mouth Daily. buPROPion (WELLBUTRIN XL) 300 mg 24 hr tablet Take 300 mg by mouth every morning. carisoprodol (SOMA) 350 mg tablet Take 350 mg by mouth 4 times daily as needed for Musc le spasms. clindamycin (CLEOCIN) 300 MG capsule Take 300 mg by mouth 3 times daily. gabapentin (NEURONTIN) 400 mg capsule Take 400 mg by mouth 3 times daily. glimepiride (AMARYL) 1 mg tablet Take 1 mg by mouth 2 times daily. imipramine (TOFRANIL) 25 mg tablet Take 25 mg by mouth nightly. levothyroxine (SYNTHROID, LEVOTHROID) 112 mcg tablet Take 112 mcg by mouth every mornin g (before breakfast). lisinopril-hydrochlorothiazide (PRINZIDE,ZESTORETIC) 10-12.5 MG per tablet Take 1 table t by mouth Daily. medroxyPROGESTERone (DEPO-PROVERA) 150 mg/mL injection Inject 150 mg into the muscle Ev kera 3 months. meloxicam (MOBIC) 15 mg tablet Take 15 mg by mouth Daily. metFORMIN (GLUCOPHAGE) 1000 MG tablet Take 1,000 mg by mouth 2 times daily (with breakf ast & dinner). mupirocin (BACTROBAN) 2% ointment Apply topically 2 times daily. [place] 3 1200 MG CAPS Take by mouth. omeprazole (PRILOSEC) 20 mg capsule Take 20 mg by mouth every morning (before breakfast ). oxyCODONE-acetaminophen (PERCOCET) 5-325 mg per tablet Take 1-2 tablets by mouth every 4 hours as needed for Pain. 15 tablet 0 27-0.8 mg multivitamin tablet Take 1 tablet by mouth Daily. promethazine (PHENERGAN) 25 mg tablet Take 25 mg by mouth every 6 hours as needed. No current facility-administered medications for this visit. ALLERGIES: Allergies Allergen Reactions Penicillins Rash SOCIAL HISTORY: The patient reports that she has never smoked. She has never used smokeless tobacco. She r eports that she drinks alcohol. She reports that she does not use illicit drugs. FAMILY HISTORY: Family History Problem Relation Age of Onset High blood pressure Father Heart defect Father Emphysema Mother COPD Mother Arthritis Mother Heart defect Brother Mental illness Brother High blood pressure Sister Asthma Sister Arthritis Sister Diabetes Maternal Grandfather Diabetes Maternal Grandmother Lupus Paternal Aunt Diabetes Maternal Uncle Alcohol abuse Maternal Uncle REVIEW OF SYSTEMS GENERALLY: No fever, no night sweats, no anemia, no fatigue, - recent profound weight kian nges. EYES: No eye problems, + use of corrective lenses, no eye injury, no double vision, no bli ndness. EARS, NOSE, AND THROAT: No changes in taste or smell, no hearing difficulty, no ringing in the ears, no ear drainage, no dizziness, no voice changes, no difficulty swallowing, + sign ificant snoring, + sleep apnea, no sinus problems, no major dental work. NEUROLOGICALLY: Please see the review of systems discussed above in the history of present illness. In addition, the patient has numbness/fingers, numbness/pain of legs, weakness,mu scle aching, coordination difficulty, change in walk, back injury, pain in back, numbness of face. PSYCHIATRIC: + depression, + sleep disorders, no anxiety, no bipolar disorder, no psychoti c episodes. CARDIOVASCULAR: No heart attacks, no heart murmur, no heart fluttering, no chest pain, + a nkle swelling. LUNG DISEASE: No shortness of breath, no cough, no tuberculosis, no bloody cough, no asth ma, no emphysema/COPD. GASTROINTESTINAL: + bowel disease, no nausea or vomiting, no rectal bleeding, no constipat ion, no stool incontinence, no liver disease, no gallbladder disease, no abdominal pain, no ulcers. KIDNEY DISEASE: No urinary frequency, no painful or difficult urination, no incontinence. ENDOCRINE: + diabetes, + thyroid disease, no osteopenia or osteoporosis, no breast drainag e. SKIN: No breast lumps, + skin changes, no rashes, no itches. HEMATOLOGIC/LYMPHATIC: No enlarged lymph nodes, no easy or unusual bleeding, no personal h istory of cancer. RHEUMATOLOGIC: + joint arthritis, no rheumatoid arthritis. PHYSICAL EXAMINATION: Blood pressure 112/82, pulse 111, resp. rate 16, height 1.702 m (5' 7"), weight 120.203 kg (265 lb). Body mass index is 41.5 kg/(m^2). GENERAL: Antonio Orozco is in no acute distress with unlabored respirations. The pat ient does not appear uncomfortable throughout the exam today. Patient is unable to stand up straight. Patient is flexed forward at her hips about 30. If patient stands up straight thighs will follow-up into flexion to keep the 30 angle consistent. HEENT: Head: Normocephalic/atraumatic with no areas of recent trauma. Eyes: Normal sclerae without icterus. Ears: No drainage or tenderness. Nasopharnyx: Clear without drainage. Oropharnyx: Clear without erythema. NECK (ANTERIOR): Supple and without palpable masses. CHEST: Clear to ausculation without crackles or wheeze. HEART: Regular rate and rhythm without murmurs. ABDOMEN: Soft, non-tender, non-distended, and without palpable masses. The patient is obese . Most of her obesity appears to be carried in front which is a benefit if surgery is consi dered. SPINE: There is no midline tenderness of the cervical spine. The lumbar spine shows there is tenderness in the midline of the L1, L2, L3, L4, L5, S1 lev els. To palpation, there is significant bilateral myofascial tenderness. Left worse than r ight. There is no significant pain to provacative testing of the SI joint. There is kyphosis of the lumbar region. EXTREMITIES: No cyanosis, clubbing, or edema. Distal pulses are palpable. Patient has a p lantarflexion flexion contracture. I am unable to get the foot into a neutral position of 9 0 on the left. Both feet have mild to moderate swelling with ecchymosis. The left is sig nificantly worse than the right. The feet are cold bilaterally with the left again being wo rse than the right. NEUROLOGICAL EXAM: MENTAL STATUS: The patient is awake, alert, and oriented. She follows simple and complex commands. Her speech is fluent, she comprehends speech well, and she repeats well. She has no apparent deficits with short or care home memory. CRANIAL NERVES: II: Acuity is intact. Villegas are full to confrontation. III, IV, : The pupils are reactive. Extraocular movements are intact. No ptosis is note d. V: Facial sensation is intact and symmetric. VII: Facial movements are symmetric. VIII: Hearing is intact bilaterally. IX, X: The uvula and palate move appropriately. XI: Shrug is equal bilaterally. XII: Tongue protrusion is midline. MOTOR EXAM: (5 IS NORMAL) * Indicates pain limited MUSCLE/ MOVEMENT: RIGHT LEFT Deltoids 5 5 Biceps 5 5 Triceps 5 5 Wrist Flexion 5 5 Wrist Extension 5 5 Median Intrinsics 5 5 Ulnar Intrinsics 5 5 Efficiency Analyst Strength 5 5 Hip Flexion 5 5 Hip Extension 5 5 Knee Flexion 5 5 Knee Extension 5 5 Dorsiflexion 5 0 to maybe 1? Extensor Hallicus Longus 5 5 Plantarflexion 5 5 SENSORY EXAM: Sensory exam shows no diminished sensation to light touch or pain throughout the upper and lower extremities. REFLEXES: (2 OR 2+ IS NORMAL) REFLEX: RIGHT LEFT BICEPS 2+ 2+ BRACHIORADIALIS 2+ 2+ TRICEPS 2+ 2+ PATELLAR 2+ 2+ ACHILLES 1+ unable to assess NOLAND'S ABSENT ABSENT PLANTAR DOWNGOING DOWNGOING GAIT: Gait is steady. PERIPHERAL NERVE/MISC: Tinel is negative at the wrists and elbows bilaterally. Phalen is negative. Straight leg raise is negative bilaterally. Calin's test of the hips is negative bilaterally. TEST AND RADIOGRAPHIC REVIEW: The patient's imaging was reviewed in detail with the patient today during the visit. The MRI of her lumbar spine from May 2015 shows reverse lumbar lordosis. There are multipl e levels of degenerative disc disease with the worst occurring at L3-L4 with the anterior en dplates being a near contact with each other. This results in subsequent anterior osteophyt e formation. In addition, there are multiple levels of lumbar spondylosis with bulging disk s causing very degrees of spinal stenosis. At L3-L4 there is a bulging disc that occurs in the central and left lateral recess likely affecting the traversing L4 nerve root. There is another large bulging disc on the right at L4-L5 but this does not seem to have as signific ant effect on the traversing nerve. Behind the body of L5 is a extruded disc fragment that appears to be affecting the traversing S1 nerve on the left. This is likely the main source of her pain down her leg. In reviewing the upper images there is a fairly large disc fragm ent between L1 and L2 in the central and left lateral recess that is quite prominent and com pressing the traversing L2 nerve root. I'm unable to appreciate the exiting L5 nerve root o n the left or the right. Lumbar x-rays show degenerative disc disease, reverse lordosis of the lumbar spine, osteoph yte formation, no evidence of spondylolisthesis is appreciated. I did order x-rays of her ankle today. There is no fracture is appreciated there is multip le joints with mild arthritis and osteophytes were mentioned. There is no widening of the a nkle mortise joint. There is no obvious instability on evaluation with plain x-ray. ASSESSMENT: NEUROSURGICAL DIAGNOSES: Encounter Diagnoses Name Primary? Left ankle pain Yes Left ankle instability Left foot drop GENERAL DIAGNOSES: Past Medical History Diagnosis Date Benign essential hypertension Type 2 diabetes mellitus (HCC) Hypothyroidism Diverticulitis Spondylosis Acute maxillary sinusitis Cystitis Bronchitis Irregular menstrual cycle Hypertension PLAN: At this point, Antonio is in a difficult position. It is obvious that her back pain has been affecting her quality of life and her activities of daily living for a long time. Furtherm ore, she has failed conservative treatment after years of physical therapy, injections, and activity modifications. These problems have been exacerbated by a foot drop that has been i nadequately cared for, her diabetes and its vascular effects on her lower Bryan disease, a nd lastly her inability to stand straight which I believe may be a result of a flexion contr acture of her iliopsoas. Patient has obvious pathology that could benefit from surgery. However, her general health and body habitus are concerns for her ability to heal from the surgery predictably well. F urthermore, she is relatively young at age 45. However, it is likely that her life expectan cy is significantly less than that of an average healthy patient. Without surgery patient's mobility certainly be less and this sedentary state will likely exacerbate this problem. T hese issues need to be considered when deciding whether or not to pursue surgery. Lastly, i f she is a surgical candidate at all it will need to be decided what levels to pursue. David retically, patient could be fused from L1-S1 if Dr. Singh felt this was in her best interes t. I have sent her to see Dr. Spain to have her left ankle evaluated since it is causing o ngoing instability. I'm curious if he might be able to do a small procedure making micro-cu ts in the Achilles tendon allowing the foot to come into a neutral position. Following this , we could appropriately fit her with an AFO. I believe this would help address her left an kle issues in her following issues. It is doubtful that any surgery would allow her dorsifl exion function to return. Patient has lost approximate 70 pounds. I am referring her to the [facility] or she ca n participate in weekly classes in the pool. I believe this is the only place that she can exercise safely with significantly decreased risk of further injuring herself. I did not delve into this very much with her today. However, it is entirely possible that patient may need a referral to see Dr. Burnham for vascular evaluation of her lower extremitie s. I do have patient scheduled to see Dr. Singh in August to discuss potential surgical option s. I have prepared the patient for the realistic possibility that Dr. Singh may not recomm end surgery. In the meantime, patient can continue to moderate her activities as tolerated. I do not believe that in her current health status she is capable of very many jobs if any at this time. I do believe it is appropriate for her to go on disability this time. It is possible that with the appropriate procedures and physical therapy patient may be able to r eturn to the work force in the next 1-3 years. ELECTRONICALLY SIGNED BY: RIK Alexander, 07/05/2015 15:26 documented in this encounter Plan of Treatment + + +--------+ + + | Name | Type | Priori | Associated Diagnoses | Order Schedule | | | | ty | | | + + +--------+ + + | Ambulatory referral | Outpatient | Routin | Left ankle pain | Ordered: 07/05/2015 | | to Orthopedic | Referral | e | Left ankle | | | Surgery | | | instability Left | | | | | | foot drop Flexion | | | | | | contracture of joint | | | | | | of left foot | | + + +--------+ + + documented as of this encounter Results XR Ankle Left 3 + Vw (07/05/2015 1:08 PM PST) + + | Specimen | + + | | + + + + + | Narrative | Performed At | + + + | XR ANKLE LEFT 3 + [facility]W 07/05/2015 1:08 PM HISTORY: Left ankle pain | [facility] | | and instability. COMPARISON: None. FINDINGS: There are no | [facility] | | acute osseous abnormalities. Moderate spurs are present of the | [facility] | | calcaneus. Bone mineralization is normal. There is mild soft tissue | - IMAGING | | swelling. IMPRESSION - No acute findings moderate spurs of the | | | calcaneus. Dictated and Signed by: Sherif Hurst MD | | | Electronically signed: 07/05/2015 1:18 PM | | + + + + + | Procedure Note | + + | Marcello, Rad Results In - 07/05/2015 1:21 PM PST XR ANKLE LEFT 3 + VW 07/05/2015 1:08 PM | | | | HISTORY: Left ankle pain and instability. | | | | COMPARISON: None. | | | | FINDINGS: | | There are no acute osseous abnormalities. Moderate spurs are present of the | | calcaneus. Bone mineralization is normal. There is mild soft tissue swelling. | | | | IMPRESSION - | | No acute findings moderate spurs of the calcaneus. | | | | Dictated and Signed by: Sherif Hurst MD | | Electronically signed: 07/05/2015 1:18 PM | + + + + + + + | Performing | Address | City/State/Zipcode | Phone Number | | Organization | | | | + + + + + | [facility] | [address] | [place] | [phone] | | [facility] | | [address] | | | - IMAGING | | | | + + + + + documented in this encounter Visit Diagnoses + + | Diagnosis | + + | Left ankle pain - Primary Pain in joint, ankle and foot | + + | Left ankle instability Other joint derangement, not elsewhere classified, ankle and | | foot | + + | Left foot drop Other acquired deformity of ankle and foot | + + | Lumbar foraminal stenosis Spinal stenosis, lumbar region, without neurogenic | | claudication | + + | Postural kyphosis of lumbar region | + + | Lumbar spinal stenosis Spinal stenosis, lumbar region, without neurogenic | | claudication | + + | Flexion contracture of joint of left foot | + + | Poor peripheral circulation | + + documented in this encounter
--- OUTSIDE RECORDS SUMMARY | ~2019-11-01 | XMS | Encounter Summary ---
Demographics + + + | Address | [address] | | | [place] [address] | + + + | Home Phone | | + + + | Preferred Language | Unknown | + + + | Marital Status | Single | + + + | Confucianist Affiliation | Unknown | + + + | Race | White | + + + | Ethnic Group | Not or | + + + Author + + + | Author | [place] [employer] [facility] | + + + | Organization | [facility] [employer] [facility] | + + + | Address | Unknown | + + + | Phone | Unavailable | + + + Support + + +---------+ + | Name | Relationship | Address | Phone | + + +---------+ + | Namrata Solano | ECON | Unknown | Unavailable | + + +---------+ + | Maria G Nj | ECON | Unknown | | + + +---------+ + Care Team Providers + +------+ + | Care Hunting And Fishing Guide Name | Role | Phone | + +------+ + | Scott Parmar MD | PCP | | + +------+ + Encounter Details +--------+ + + + + | Date | Type | Department | Care Team | Description | +--------+ + + + + | 11/07/ | Hospital | Radiology/Imaging | | | | 2016 | Encounter | Lab at [facility] [address] | | | | | | [address] Mailcode: | | | | | | [facility] | | | | | | [facility] and Healing, | | | | | | Building [facility] | | | | | | Floor [place], [place] | | | | | | [address] | | | | | | [phone] | | | +--------+ + + + + Social History + +-------+ [...] Comments | + + +---------+ + | Not Asked | 0 Standard drinks | 0.0 | | | | or equivalent | | [...] + + documented as of this encounter Medications at Time of Discharge + + + +---------+ + + | Medication | Sig | Dispensed | Refills | Start | End Date | | | | | | Date | | + + + +---------+ + + | aspirin 325 mg | Take by mouth. | | 0 | | | | oral tablet | | | | | | + + + +---------+ + + | buPROPion XL 300 | Take by mouth. | | 0 | | | | mg oral tablet | | | | | | | extended release 24 | | | | | | | hr | | | | | | + + + +---------+ + + | carisoprodol 350 | Take by mouth. | | 0 | | | | mg oral tablet | | | | | | + + + +---------+ + + | gabapentin 400 mg | Take by mouth. | | 0 | | | | oral capsule | | | | | | + + + +---------+ + + | glimepiride 1 mg | Take by mouth. | | 0 | | | | oral tablet | | | | | | + + + +---------+ + + | imipramine 25 mg | Take by mouth. | | 0 | | | | oral tablet | | | | | | + + + +---------+ + + | levothyroxine 112 | Take by mouth. | | 0 | | | | mcg oral tablet | | | | | | + + + +---------+ + + | | Take by mouth. | | 0 | | | | lisinopril-hydrochlo | | | | | | | rothiazide 10-12.5 | | | | | | | mg oral tablet | | | | | | + + + +---------+ + + | meloxicam 15 mg | Take by mouth. | | 0 | | | | oral tablet | | | | | | + + + +---------+ + + | metFORMIN 1,000 mg | Take by mouth. | | 0 | | | | oral tablet | | | | | | + + + +---------+ + + | omeprazole 20 mg | Take by mouth. | | 0 | | | | oral capsule,delayed | | | | | | | release(DR/EC) | | | | | | + + + +---------+ + + | | Take by mouth. | | 0 | 05/19/20 | | | oxyCODONE-acetaminop | | | | 15 | | | hen 5-325 mg oral | | | | | | | tablet | | | | | | + + + +---------+ + + | | Take by mouth. | | 0 | | | | szdireee-swdg-gjfgr | | | | | | | acid 27-0.8 mg oral | | | | | | | tablet | | | | | | + + + +---------+ + + documented as of this encounter Plan of Treatment Not on filedocumented as of this encounter Procedures + +--------+ + + + | Procedure Name | Priori | Date/Time | Associated Diagnosis | Comments | | | ty | | | | + +--------+ + + + | X-RAY SPINE | Routin | 11/08/2015 | Lumbar spine pain | Results for this | | LUMBOSACRAL 1 VIEW | e | 12:37 PM | | procedure are in the | | | | PDT | | results section. | + +--------+ + + + documented in this encounter Results X-RAY SPINE LUMBOSACRAL 1 VIEW (11/08/2015 12:37 PM PDT) + + + + + + | Component | Value | Ref Range | Performed | Pathologist | | | | | At | Signature | + + + + + + | SPINE | STUDY: SPINE LUMBOSACRAL | | | | | LUMBOSACRAL | 1 VIEW 11/08/15 | | | | | 1 VIEW | 12:37:00 COMPARISON: | | | | | | None. HISTORY: Low back | | | | | | pain. FINDINGS: Supine | | | | | | cross table lateral | | | | | | views are provided. | | | | | | There is reversal of | | | | | | normallumbar lordosis | | | | | | centered at L3-L4. | | | | | | Vertebral body heights | | | | | | are maintained. | | | | | | Nofracture or focal | | | | | | destruction is seen. | | | | | | Multilevel endplate | | | | | | spurring is notedwith | | | | | | mild L3-L4 and moderate | | | | | | to severe L4-S1 disc | | | | | | space narrowing. Lumbar | | | | | | facethypertrophy is | | | | | | observed. Endplate | | | | | | spurring is also seen of | | | | | | the lower | | | | | | thoracicspine. No gross | | | | | | soft tissue abnormality | | | | | | is evident. IMPRESSION: | | | | | | Mild L3-L4 and | | | | | | moderate/severe L4-S1 | | | | | | degenerative disc | | | | | | disease and lumbar | | | | | | facethypertrophy. | | | | | | Reversal of normal | | | | | | lumbar lordosis. | | | | | | Attending Radiologists: | | | | | | NEELAM DUPREE, | | | | | | MDAuthor: NEELAM | | | | | | MD Audrey DUPREE | | | | | | personally reviewed the | | | | | | images and, if | | | | | | necessary, edited the | | | | | | report. I agreewith the | | | | | | report as now presented. | | | | | | | | | | | | Final/Electronically | | | | | | signed / NEELAM | | | | | | LEIA 11/08/2015 | | | | | | 13:17 PM | | | | + + + + + + + + | Specimen | + + | | + + + +---------+ + + | Performing | Address | City/State/Zipcode | Phone Number | | Organization | | | | + +---------+ + + | [facility] DEPARTMENT OF | | | | | RADIOLOGY | | | | + +---------+ + + documented in this encounter Visit Diagnoses Not on filedocumented in this encounter"
--- OUTSIDE RECORDS SUMMARY | ~2019-11-01 | XMS | Encounter Summary ---
Demographics + + + | Address | [address] | | | [place] [address] | + + + | Home Phone | | + + + | Preferred Language | Unknown | + + + | Marital Status | Single | + + + | Buddhist Affiliation | Unknown | + + + | Race | White | + + + | Ethnic Group | Not or | + + + Author + + + | Author | [place] [employer] [facility] | + + + | Organization | [facility] | + + + | Address | Unknown | + + + | Phone | Unavailable | + + + Support + + +---------+ + | Name | Relationship | Address | Phone | + + +---------+ + | Namrata Solano | ECON | Unknown | Unavailable | + + +---------+ + | Mraia G Nj | ECON | Unknown | | + + +---------+ + Care Team Providers + +------+ + | Care Door Closer Mechanic Name | Role | Phone | + +------+ + | Scott Parmar MD | PCP | | + +------+ + Encounter Details +--------+ + + + + | Date | Type | Department | Care Team | Description | +--------+ + + + + | 11/12/ | Documentati | [facility] | Radha Urbina, | | | 2016 | on | Center at [facility] [address] | [facility] [address] | | | | | [address] | Ave [place], [place] | | | | | Mailcode: [place] | [address] | | | | | [facility] and | | | | | | [place] [address] | | | | | | [place], [place] | | | | | | [address] | | | | | | | | | +--------+ + + + [...] Not on filedocumented as of this encounter Visit Diagnoses Not on filedocumented in this encounter"
--- OUTSIDE RECORDS SUMMARY | ~2019-11-01 | XMS | Encounter Summary ---
Demographics + + + | Address | [address] | | | [place] [address] | + + + | Home Phone | | + + + | Preferred Language | Unknown | + + + | Marital Status | Single | + + + | Adventism Affiliation | Unknown | + + + | Race | Unknown | + + + | Ethnic Group | Unknown | + + + Author + + + | Author | [facility] | | | and [place] | + + + | Organization | [facility] | | | and [...] [place] | | | | | [address] | | + + + + + | Maria G Nj | ECON | Unknown | | + + + + + Care Team Providers + +------+ + | Care Employment Representative Name | Role | Phone | + [...] + + | Closed | Specialty | Neurosurgery | Diagnoses | Samantha, | [facility] | | | Services | | Kyphosis, | Werner Dover DO | DEPARTMENT OF | | | Required | | unspecified | [address] | NEUROLOGICAL | | | | | kyphosis | [address] | SURGERY | | | | | type, | [place] | [address] | | | | | unspecified | [address] | [address] | | | | | spinal | Phone: | [place], [place] | | | | | region | [phone] | [address] | | | | | Lumbar | Fax: | Phone: | | | | | radicular | [phone] | [phone] | | | | | pain | | Fax: | | | | | Chronic low | | [phone] | | | | | back pain | | | | | | | with | | | | | | | bilateral | | | | | | | sciatica, | | | | | | | unspecified | | | | | | | back pain | | | | | | | laterality | | | +--------+ + + + + + Reason for Visit + + + | Reason | Comments | + + + | Follow-up | MRI f/u | + + + Encounter Details +--------+---------+ + + + | Date | Type | Department | Care Team | Description | +--------+---------+ + + + | 10/01/ | Office | [facility] | Werner Singh, | Kyphosis, | | 2015 | Visit | NEUROSURGERY [address] | DO [address] | unspecified kyphosis | | | | [address] | [address] [place], [place] | type, unspecified | | | | [place], [place] | [id number] | spinal region | | | | [address] | | (Primary Dx); Lumbar | | | | [phone] | | radicular pain; | | | | | | Chronic low back | | | | | | pain with bilateral | | | | | | sciatica, | | | | | | unspecified back | | | | | | pain laterality | +--------+---------+ + + + Social History [...] + + + | Blood Pressure | 118/83 | 10/02/2015 11:13 AM | | | | | PDT | | + + + + + | Pulse | 112 | 10/02/2015 11:13 AM | | | | | PDT | | + + + + + | Temperature | - | - | | + + + + + | Respiratory Rate | 20 | 10/02/2015 11:13 AM | | | | | PDT | | + + + + + | Oxygen Saturation | - | - | | + + + + + | Inhaled Oxygen | - | - | | | Concentration | | | | + + + + + | Weight | 119.7 kg (264 lb) | 10/02/2015 11:13 AM | | | | | PDT | | + + + + + | Height | 170.2 cm (5' 7") | 10/02/2015 11:13 AM | | | | | PDT | | + + + + + | Body Mass Index | 41.35 | 10/02/2015 11:13 AM | | | | | PDT | | + + + + + documented in this encounter Patient Instructions Patient Instructions Werner Singh DO - 10/02/2015 11:41 AM PDTPlease follow-up at [facility]. Please follow-up with me as needed.Electronically signed by Werner Singh DO at 11:41 AM PDT documented in this encounter Progress Notes Werner Singh DO - 10/02/2015 11:42 AM PDTFormatting of this note might be different fro m the original. Werner Singh DO [address] [place] [address] FAX: NEUROSURGERY HISTORY AND PHYSICAL EXAMINATION CHIEF COMPLAINT: Chief Complaint Patient presents with Follow-up MRI f/u HISTORY OF PRESENT ILLNESS: The patient is a 45 y.o. female with the complaint of Back and left leg symptoms that began 2004 after she fell at [employer]. following this , patient missed 2 weeks of work and ultimately progressed into work slowly with the help of physical therapy. For 18-24 months after this patient had ongoing back pain that was intol erable and she was able to go to work. Then, in February or March 2007 patient had surgery in [place] where she underwent an L3-L 4 and [...] with a left foot drop that has josephine cruz been addressed or treated. Patient worked at a [employer] and did purchase an L FO but has never gotten it fit. Following this surgery patient never recovered to the level that she was at prior to surgery. Patient ultimately went to a pain clinic in the [facility] where she has continued to get conservative [...] studies by Dr. Daniel in 2005. T koby studies showed, "evidence of a mostly axonal [...] she has had. Long time. In Apr after 6 days of trying to treat [...] this time her sister who lives in [place] would have to clean the house, help [...] let go from her job at the [employer] and is currently unemployed. Patient feels at [...] have provided her temporary and partial relief. Since her last visit she underwent MRI of the cervical and thoracic spine and scoliosis raquel dies. She presents to discuss options. PAST MEDICAL HISTORY: Past Medical History Diagnosis Date Benign essential hypertension Type 2 diabetes mellitus (HCC) Hypothyroidism Diverticulitis Spondylosis Acute maxillary sinusitis Cystitis Bronchitis Irregular menstrual cycle Hypertension PAST SURGICAL HISTORY: Past Surgical History Procedure Laterality Date Back surgery 04/09/2007 [facility] CURRENT MEDICATIONS: Current Outpatient Prescriptions Medication Sig [...] 2% ointment Apply topically 2 times daily. Idalia 3 1200 MG CAPS Take by mouth. [...] no rheumatoid arthritis. PHYSICAL EXAMINATION: Blood pressure 118/83, pulse 112, resp. rate 20, height 1.702 m (5' 7"), weight 119.75 kg ( 264 lb). Body mass index is 41.34 kg/(m^2). GENERAL: Antonio Orozco is in no [...] clubbing, or edema. Distal pulses are palpable. NEUROLOGICAL EXAM: MENTAL STATUS: The patient is awake, alert, and oriented. She follows simple and complex commands. Her speech is fluent, she comprehends speech well, and she repeats well. She has no apparent deficits with short or terminal worker memory. CRANIAL NERVES: II: Acuity is intact. [...] Intrinsics 5 5 Ulnar Intrinsics 5 5 Tailoring Teacher Strength 5 5 Hip Flexion 5 5 Hip Extension 5 5 Knee Flexion 5 5 Knee Extension 5 5 Dorsiflexion 5 1 Extensor Hallicus Longus 5 5 Plantarflexion 5 5 SENSORY EXAM: Sensory exam shows left L5 and S1-type dysesthesia. REFLEXES: (2 OR 2+ IS NORMAL) REFLEX: RIGHT LEFT BICEPS 2+ 2+ BRACHIORADIALIS 2+ 2+ TRICEPS 2+ 2+ PATELLAR 2+ 2+ ACHILLES 1+ 0 NOLAND'S ABSENT ABSENT PLANTAR DOWNGOING DOWNGOING GAIT: Gait is antalgic and stooped. PERIPHERAL NERVE/MISC: Tinel is negative at the wrists and elbows bilaterally. Phalen is negative. Straight leg raise is negative bilaterally. Calin's test of the hips is negative bilaterally. TEST AND RADIOGRAPHIC REVIEW: MRI of the cervical spine from 09/29/15 demonstrates loss of cervical lordosis with kyphosis from C2-6. There is mild spondylosis and stenosis from C3-6. MRI of the thoracic spine from 09/29/15 demonstrates spondylosis with mild central stenosis T 3-4, and moderate stenosis T10-11 and T11-12. MRI of the lumbar spine from 06/05/15 demonstrates lumbar kyphosis with spondylolisthesis L 2-3. There is diffuse spondylosis with varying degrees of central and lateral recess stenosi s throughout. Lumbar x-rays show lumbar kyphosis and spondylolisthesis L2-3. Scoliosis films demonstrates approximately 6 degrees of thoracolumbar scoliosis with SVA of approximately 23 cm. ASSESSMENT: NEUROSURGICAL DIAGNOSES: Encounter Diagnoses Name Primary? Kyphosis, unspecified kyphosis type, unspecified spinal region Yes Lumbar radicular pain Chronic low back pain with bilateral sciatica, unspecified back pain laterality GENERAL DIAGNOSES: Past Medical History Diagnosis Date Benign essential hypertension Type 2 diabetes mellitus (HCC) Hypothyroidism Diverticulitis Spondylosis Acute maxillary sinusitis Cystitis Bronchitis Irregular menstrual cycle Hypertension PLAN: It was a pleasure seeing this patient and discussing her conditions. She has lumbar kyphosi s, spondylolisthesis, ands stenosis. This is likely contributing to her back pain, leg pain, and leg weakness. After a full discusIion of operative and nonoperative options, she will follow-up at [facility] or neurosurgery consultation. Her deformity, if determined to be operable, will require exte nsive surgery that is safer at a tertiary care center. She will follow-up with me as needed. ELECTRONICALLY SIGNED BY: Werner Singh DO, 10/02/2015 11:55 documented in this en counter Plan of Treatment + + +--------+ + + | Name | Type | Priori | Associated Diagnoses | Order Schedule | | | | ty | | | + + +--------+ + + | Neurosurgery, | Outpatient | Routin | Kyphosis, | Ordered: 10/02/2015 | | External - AMB | Referral | e | unspecified kyphosis | | | Referral | | | type, unspecified | | | | | | spinal region | | | | | | Lumbar radicular | | | | | | pain Chronic Low | | | | | | Back Pain With | | | | | | Bilateral Sciatica, | | | | | | Unspecified Back | | | | | | Pain Laterality | | + + +--------+ + + documented as of this encounter Visit Diagnoses + + | Diagnosis | + + | Kyphosis, unspecified kyphosis type, unspecified spinal region - Primary | + + | Lumbar radicular pain Thoracic or lumbosacral neuritis or radiculitis, unspecified | + + | Chronic low back pain with bilateral sciatica, unspecified back pain laterality | + + documented in this encounter
--- OUTSIDE RECORDS SUMMARY | ~2019-11-01 | XMS | Encounter Summary ---
Demographics + + + | Address | [address] | | | [place] [address] | + + + | Home Phone | | + + + | Preferred Language | Unknown | + + + | Marital Status | Single | + + + | Taoist Affiliation | Unknown | + + + | Race | Unknown | + + + | Ethnic Group | Unknown | + + + Author + + + | Author | [facility] | | | and [place] | + + + | Organization | [facility] | | | and [place] | + + + | Address | Unknown | + + + | Phone | Unavailable | + + + Support + + + + + | Name | Relationship | Address | Phone | + + + + + | Latha Solano | ECON | [address] | | | | | [place] | | | | | [address] | | + + + + + | Maria G Nj | ECON | Unknown | | + + + + + Care Team Providers + +------+ + | Care Stock Digger Name | Role | Phone | + +------+ + | Scott Parmar MD | PCP | | + +------+ + Reason for Visit + + + | Reason | Comments | + + + | Imaging Only | Schedule MRI/Scoliosis | + + + Encounter Details +--------+ + + + + | Date | Type | Department | Care Team | Description | +--------+ + + + + | 09/19/ | Telephone | [facility] | Werner Singh, | Imaging Only | | 2015 | | PHYSIATRY [address] | DO [address] | (Schedule | | | | [address] | [address] [place], [place] | MRI/Scoliosis) | | | | [place], [place] | [address] | | | | | [address] | | | | | | [phone] | | | +--------+ + + + [...]
--- OUTSIDE RECORDS SUMMARY | ~2019-11-01 | XMS | Encounter Summary ---
Demographics + + + | Address | [address] | | | [place] [address] | + + + | Home Phone | | + + + | Preferred Language | Unknown | + + + | Marital Status | Single | + + + | Yazidism Affiliation | Unknown | + + + | Race | Unknown | + + + | Ethnic Group | Unknown | + + + Author + + + | Author | [facility] | | | and [place] | + + + | Organization | [facility] | | [...] [place] | | | | | [address] | | + + + + + | Maria G Nj | ECON | Unknown | | + + + + + Care Team Providers + +------+ + | Care Quality Control Associate Name | Role | Phone | + +------+ + PCP | Unavailable | + +------+ + Encounter Details +--------+ + + + + | Date | Type | Department | Care Team | Description | +--------+ + + + + | 03/03/ | Hospital | [facility] | Garfield De Santiago | | | 1999 | Encounter | MED CTR SLEEP | MD Ingris [address] | | | | | [place] [address] | [address] [facility] | | | | | [place], [place] | [place] [address] | | | | | [address] | [phone] | | | | | [phone] | | | +--------+ + + + + Social History + +-------+ +--------+------+ | Tobacco Use | Types | Packs/Day | Years | Date | | | | | Used | | + +-------+ +--------+------+ | Never Assessed | | | | | + +-------+ +--------+------+ + + + | Sex Assigned at [...]
--- OUTSIDE RECORDS SUMMARY | ~2019-11-01 | XMS | Encounter Summary ---
Demographics + + + | Address | [address] | | | [place] [address] | + + + | Home Phone | | + + + | Preferred Language | Unknown | + + + | Marital Status | Single | + + + | Restorationist Affiliation | Unknown | + + + | Race | Unknown | + + + | Ethnic Group | Unknown | + + + Author + + + | Author | [facility] | | | and [place] | + + + | Organization | [facility] | | [...] [place] | | | | | [address] | | + + + + + | Maria G Nj | ECON | Unknown | | + + + + + Care Team Providers + +------+ + | Care Industrial Mechanic Name | Role | Phone | + +------+ + | Scott Parmar MD | PCP | | + +------+ + Encounter Details +--------+ + + + + | Date | Type | Department | Care Team | Description | +--------+ + + + + | 09/28/ | Hospital | [facility] | Werner Singh, | Postural kyphosis of | | 2016 | Encounter | MED CTR XRAY [address] | DO [address] | lumbar region; | | | | [place] | [address] [place], [place] | Spondylolisthesis, | | | | [place] [address] | [address] | lumbar region; | | | | [phone] | | Lumbar stenosis; | | | | | | Lumbar radicular | | | | | | pain; Bilateral low | | | | | | back pain with | | | | | | left-sided sciatica; | | | | | | Left foot drop; | | | | | | Cervical radicular | | | | | | pain | +--------+ + + + + Social [...] + | aspirin 325 mg | Take 325 mg by mouth | | 0 | | | | tablet | Daily. | | | | | + + + +---------+ + + | buPROPion | Take 300 mg by mouth | | 0 | | | | (WELLBUTRIN XL) 300 | every morning. | | | | | | mg 24 hr tablet | | | | | | + + + +---------+ + + | carisoprodol | Take 350 mg by mouth | | 0 | | | | (SOMA) 350 mg tablet | 4 times daily as | | | | | | | needed for Muscle | | | | | | | spasms. | | | | | + + + +---------+ + + | clindamycin | Take 300 mg by mouth | | 0 | | | | (CLEOCIN) 300 MG | 3 times daily. | | | | | | capsule | | | | | | + + + +---------+ + + | gabapentin | Take 400 mg by mouth | | 0 | | | | (NEURONTIN) 400 mg | 3 times daily. | | | | | | capsule | | | | | | + + + +---------+ + + | glimepiride | Take 1 mg by mouth 2 | | 0 | | | | (AMARYL) 1 mg tablet | times daily. | | | | | + + + +---------+ + + | imipramine | Take 25 mg by mouth | | 0 | | | | (TOFRANIL) 25 mg | nightly. | | | | | | tablet | | | | | | + + + +---------+ + + | levothyroxine | Take 112 mcg by | | 0 | | | | (SYNTHROID, | mouth every morning | | | | | | LEVOTHROID) 112 mcg | (before breakfast). | | | | | | tablet | | | | | | + + + +---------+ + + | | Take 1 tablet by | | 0 | | | | lisinopril-hydrochlo | mouth Daily. | | | | | | rothiazide | | | | | | | (PRINZIDE,ZESTORETIC | | | | | | | ) 10-12.5 MG per | | | | | | | tablet | | | | | | + + + +---------+ + + | | Inject 150 mg into | | 0 | | | | medroxyPROGESTERone | the muscle Every 3 | | | | | | (DEPO-PROVERA) 150 | months. | | | | | | mg/mL injection | | | | | | + + + +---------+ + + | meloxicam (MOBIC) | Take 15 mg by mouth | | 0 | | | | 15 mg tablet | Daily. | | | | | + + + +---------+ + + | metFORMIN | Take 1,000 mg by | | 0 | | | | (GLUCOPHAGE) 1000 MG | mouth 2 times daily | | | | | | tablet | (with breakfast & | | | | | | | dinner). | | | | | + + + +---------+ + + | mupirocin | Apply topically 2 | | 0 | | | | (BACTROBAN) 2% | times daily. | | | | | | ointment | | | | | | + + + +---------+ + + | [place] 3 1200 MG | Take by mouth. | | 0 | | | | CAPS | | | | | | + + + +---------+ + + | omeprazole | Take 20 mg by mouth | | 0 | | | | (PRILOSEC) 20 mg | every morning | | | | | | capsule | (before breakfast). | | | | | + + + +---------+ + + | | Take 1-2 tablets by | 15 | 0 | 05/19/20 | | | oxyCODONE-acetaminop | mouth every 4 hours | tablet | | 15 | | | hen (PERCOCET) 5-325 | as needed for Pain. | | | | | | mg per tablet | | | | | | + + + +---------+ + + | 27-0.8 mg | Take 1 tablet by | | 0 | | | | multivitamin tablet | mouth Daily. | | | | | + + + +---------+ + + | promethazine | Take 25 mg by mouth | | 0 | | | | (PHENERGAN) 25 mg | every 6 hours as | | | | | | tablet | needed. | | | | | + + + +---------+ + + documented as of this encounter Plan of Treatment Not on filedocumented as of this encounter Procedures + +--------+ + + + | Procedure Name | Priori | Date/Time | Associated Diagnosis | Comments | | | ty | | | | + +--------+ + + + | XR SCOLIOSIS ENTIRE | Routin | 09/29/2015 | Postural kyphosis | Results for this | | SPINE 6+ VIEWS | e | 11:36 AM | of lumbar region | procedure are in the | | | | PDT | Spondylolisthesis, | results section. | | | | | lumbar region | | | | | | Lumbar stenosis | | | | | | Lumbar radicular | | | | | | pain Bilateral low | | | | | | back pain with | | | | | | left-sided sciatica | | | | | | Left foot drop | | | | | | Cervical radicular | | | | | | pain | | + +--------+ + + + documented in this encounter Results XR Scoliosis Entire Spine 6+ Views (09/29/2015 11:36 AM PDT) + + | Specimen | + + | | + + + + + | Narrative | Performed At | + + + | [facility] SCOLIOSIS SERIES 09/29/2015 11:35 AM CLINICAL HISTORY: | [facility] | | postural abnormality COMPARISON: Lumbar radiographs July 05 | [facility] | | FINDINGS: A lateral view and frontal views of the thoracolumbar spine [facility] | | in neutral and lateral bending positions are provided. Five non | - IMAGING | | rib-bearing, lumbar-type vertebrae are again visible. There is | | | persistent mild lumbar levoscoliosis centered at L2-3, measuring | | | approximately 6 degrees in the neutral position, decreasing to 4 | | | degrees with left lateral bending and increasing to 9 degrees with | | | right lateral bending. Vertebral height and alignment are otherwise | | | maintained, without evident fracture or spondylolisthesis. There is | | | multilevel thoracolumbar vertebral spondylosis as well as lumbar | | | facet hypertrophy. No vertebral anomaly is apparent. The visible | | | cervical spine is unremarkable. The thoracic cage and bony pelvis | | | are grossly unremarkable. No intrathoracic or abdominal abnormality | | | is apparent aside from scattered abdominal aortic calcification. | | | IMPRESSION - 1. MILD LUMBAR LEVOSCOLIOSIS AND MULTILEVEL | | | SPONDYLOSIS. Dictated and Signed by: Laurent Mata MD | | | Electronically signed: 09/29/2015 1:33 PM | | + + + + + | Procedure Note | + + | Marcello, Rad Results In - 09/29/2015 1:36 PM PDT [facility] SCOLIOSIS SERIES 09/29/2015 | | 11:35 AMCLINICAL HISTORY: postural abnormalityCOMPARISON: Lumbar radiographs June | | 13FINDINGS: A lateral view and frontal views of the thoracolumbar spine in neutraland | | lateral bending positions are provided. Five non rib-bearing, lumbar-typevertebrae are | | again visible. There is persistent mild lumbar levoscoliosiscentered at L2-3, measuring | | approximately 6 degrees in the neutral position,decreasing to 4 degrees with left | | lateral bending and increasing to 9 degreeswith right lateral bending. Vertebral height | | and alignment are otherwisemaintained, without evident fracture or spondylolisthesis. | | There is multilevelthoracolumbar vertebral spondylosis as well as lumbar facet | | hypertrophy. Novertebral anomaly is apparent. The visible cervical spine is | | unremarkable. Thethoracic cage and bony pelvis are grossly unremarkable. No | | intrathoracic orabdominal abnormality is apparent aside from scattered abdominal | | aorticcalcification.IMPRESSION -1. MILD LUMBAR LEVOSCOLIOSIS AND MULTILEVEL | | SPONDYLOSIS.Dictated and Signed by: Laurent Mata MD Electronically signed: 09/29/2015 | | 1:33 PM | |thoracic cage and bony pelvis are grossly unremarkable. No intrathoracic or | |abdominal abnormality is apparent aside from scattered abdominal aortic | |calcification. | | | |IMPRESSION - | |1. MILD LUMBAR LEVOSCOLIOSIS AND MULTILEVEL SPONDYLOSIS. | | | |Dictated and Signed by: Laurent Mata MD | | Electronically signed: 09/29/2015 1:33 PM | + + + + + + + | Performing | Address | City/State/Zipcode | Phone Number | | Organization | | | | + + + + + | [facility] | [address] | [place], [place] | [phone] | | [facility] | | [id number] | | | - IMAGING | | | | + + + + + documented in this encounter Visit Diagnoses + + | Diagnosis | + + | Postural kyphosis of lumbar region | + + | Spondylolisthesis, lumbar region | + + | Lumbar stenosis Spinal stenosis, lumbar region, without neurogenic claudication | + + | Lumbar radicular pain Thoracic or lumbosacral neuritis or radiculitis, unspecified | + + | Bilateral low back pain with left-sided sciatica | + + | Left foot drop Other acquired deformity of ankle and foot | + + | Cervical radicular pain Brachial neuritis or radiculitis nos | + + documented in this encounter"
--- OUTSIDE RECORDS SUMMARY | ~2019-11-01 | XMS | Encounter Summary ---
Demographics + + + | Address | [address] | | | [place] [address] | + + + | Home Phone | | + + + | Preferred Language | Unknown | + + + | Marital Status | Single | + + + | Orthodoxy Affiliation | Unknown | + + + | Race | Unknown | + + + | Ethnic Group | Unknown | + + + Author + + + | Author | [facility] | | | and [place] | + + + | Organization | [facility] | | [...] [place] | | | | | [address] | | + + + + + | Maria G Nj | ECON | Unknown | | + + + + + Care Team Providers + +------+ + | Care Fusion Juncture Grinder Name | Role | Phone | + +------+ + | Scott Parmar MD | PCP | | + +------+ + Encounter Details +--------+ + + + + | Date | Type | Department | Care Team | Description | +--------+ + + + + | 07/05/ | Abstract | [facility] | Declan Arthur, | | | 2015 | | NEUROSURGERY [address] | PA-C [address] | | | | | [address] | [address] | | | | | [place], [place] | [place] [address] | | | | | [address] | [phone] | | | | | [phone] | | | +--------+ + + + [...]
--- OUTSIDE RECORDS SUMMARY | ~2019-11-01 | XMS | Encounter Summary ---
Demographics + + + | Address | [address] | | | [place] [address] | + + + | Home Phone | | + + + | Preferred Language | Unknown | + + + | Marital Status | Single | + + + | Synagogue Affiliation | Unknown | + + + | Race | Unknown | + + + | Ethnic Group | Unknown | + + + Author + + + | Author | [facility] | | | and [place] | + + + | Organization | [facility] | | | and [place] | + + + | Address | Unknown | + + + | Phone | Unavailable | + + + Support + + + + + | Name | Relationship | Address | Phone | + + + + + | Latha Solano | ECON | [address] | | | | | [place] | | | | | [address] | | + + + + + | Maria G Nj | ECON | Unknown | | + + + + + Care Team Providers + +------+ + | Care Foundry Process Engineer Name | Role | Phone | + +------+ + | Scott Parmar MD | PCP | | + +------+ + Reason for Visit + + + | Reason | Comments | + + + | Follow-up | left ankle pain | + + + Encounter Details +--------+---------+ + + + | Date | Type | Department | Care Team | Description | +--------+---------+ + + + | 09/20/ | Office | [facility] | Declan Arthur, | Lumbosacral | | 2016 | Visit | ORTHOPEDIC SURGERY | PA-C [address] | radiculopathy at L5 | | | | [address] [facility] | [address] | (Primary Dx); | | | | [place] | [place] [address] | Equinus deformity of | | | | [address] | [phone] | foot | | | | [phone] | | | | | | | Garfield Spain | | | | | | MD Robin [address] | | | | | | [place] | | | | | | [address] | | | | | | | | +--------+---------+ + + + [...] + + + | Blood Pressure | - | - | | + + + + + | Pulse | - | - | | + + + + + | Temperature | 37.9 C (100.3 F) | 09/21/2015 10:18 AM | | | | | PDT [...] Weight | 119.7 kg (264 lb) | 09/21/2015 10:18 AM | | | | | PDT | | + + + + + | Height | 170.2 cm (5' 7") | 09/21/2015 10:18 AM | | | | | PDT | | + + + + + | Body Mass Index | 41.35 | 09/21/2015 10:18 AM | | | | | PDT | | + + + + + documented in this encounter Progress Notes Garfield Spain MD - 09/21/2015 10:44 AM PDTSee soap note [id number].Electronically sign ed by Garfield Spain MD at 09/21/2015 10:44 AM PDTHenGarfield zaragoza MD - 10:43 AM PDT [facility] [address] [place] [id number] OFFICE NOTE GARFIELD SPAIN MD Patient: ANTONIO NUNEZ Admitting: MR #: [id number] LOC: PT TYPE: Adm Date: 09/21/2015 : 1970 SUBJECTIVE: Antonio returns today for follow up of her left ankle equinus contracture secon ryan to complete loss of active dorsiflexion due to an underlying L5 radiculopathy. Antonio has just obtained a custom ankle/foot orthosis from [employer] in [facility]. This is wor serg well. He did place the dorsiflexion spring on a mild setting and plans to increase t he spring tension in approximately 3 weeks. EXAMINATION: Exam reveals that Antonio is wearing her spring-assisted left ankle/foot arthr osis. It appears to fit her well. There is no evidence of any skin irritation. The patie nt reports that she has not tripped or fallen since wearing the brace for the past 2 days. ELECTRODIAGNOSTIC TESTING: Antonio was able to be evaluated by Dr. Lowry, who indeed p erformed an electrodiagnostic evaluation on 08/21. This showed evidence of rather severe b ilateral lower extremity peripheral neuropathy with a prominent electrical instability of t he left extensor hallucis longus and left anterior tibialis muscles. ADVICE: Antonio clearly has electrodiagnostic evidence of an L5 radiculopathy on the left. She is currently undergoing evaluation by Dr. Singh for this problem and may be a alessandra te for surgical intervention. In the meantime, her new ankle/foot orthosis is helping her in terms of left ankle and foot stability and, hopefully, will help to stretch out her mod erate gastroc-soleus contracture. Currently, she appears to be doing well and we, therefor e, will plan to see Antonio back in the future on an as-needed basis. GARFIELD SPAIN MD Dictated by GARFIELD SPAIN MD 09/21/2015 10:43:59 Transcribed on 09/21/2015 11:07:27 by jeri job# [id number] Confirmation #: [id number] cc: SCOTT PARMAR MD documented in this encounter Plan of Treatment Not on filedocumented as of this encounter Visit Diagnoses + + | Diagnosis | + + | Lumbosacral radiculopathy at L5 - Primary Thoracic or lumbosacral neuritis or | | radiculitis, unspecified | + + | Equinus deformity of foot Other congenital deformity of feet | + + documented in this encounter
--- OUTSIDE RECORDS SUMMARY | ~2019-11-01 | XMS | Encounter Summary ---
Demographics + + + | Address | [address] | | | [place] [address] | + + + | Home Phone | | + + + | Preferred Language | Unknown | + + + | Marital Status | Single | + + + | Sikhism Affiliation | Unknown | + + + | Race | Unknown | + + + | Ethnic Group | Unknown | + + + Author + + + | Author | [facility] | | | and [place] | + + + | Organization | [facility] | | | and [...] [place] | | | | | [address] | | + + + + + | Maria G Nj | ECON | Unknown | | + + + + + Care Team Providers + +------+ + | Care Relocation Commissioner Name | Role | Phone | + +------+ + | Scott Parmar MD | PCP | | + +------+ + Reason for Referral Service/Procedure (Urgent) +--------+ + + + + + | Status | Reason | Specialty | Diagnoses / | Referred By | Referred To | | | | | Procedures | Contact | Contact | +--------+ + + + + + | Closed | Specialty | Physical | Diagnoses | Grabiel, | Essence, | | | Services | Medicine and | Disturbance | Garfield Kelly, | Nikita Boggs MD | | | Required | Rehabilitatio | of skin | MD [address] | | | | n | sensation | [address] | [address] [place] | | | | | Equinus | [place], | [place], [place] | | | | | deformity of | [place] [address] | [address] Phone: | | | | | foot Foot | Phone: | [phone] | | | | | drop, left | [phone] | Fax: | | | | | foot | Fax: | [phone] | | | | | Procedures | [phone] | | | | | | [place] MOTOR | | | | | | | &/SENS 1-2 | | | | | | | NRV CNDJ | | | | | | | PRECONF | | | | | | | ELTRODE LIMB | | | | | | | [place] NEEDLE | | | | | | | EMG EA | | | | | | | EXTREMTY | | | | | | | W/PARASPINL | | | | | | | AREA | | | | | | | COMPLETE | | | +--------+ + + + + + Reason for Visit + + + | Reason | Comments | + + + | New Patient | establish care with Dr. Spain | + + + | Ankle Problem | left ankle problem onset 8 years but worse since 04/2015 | + + + Evaluate & Treat (Routine) +--------+ + + [...] | ankle and | [place], | [address] Phone: | | | | | joints of | [place] [address] | [phone] | | | | | left foot | Phone: | Fax: | | | | | Other | [phone] | [phone] | | | | | instability, | Fax: | | | | | | left ankle | [phone] | | | | | | Foot drop, | | | | | | | left foot | | | +--------+ + + + + + Encounter Details +--------+---------+ + + + | Date | Type | Department | Care Team | Description | +--------+---------+ + + + | 08/14/ | Office | [facility] | Jerson Declan Nat, | Left foot drop | | 2016 | Visit | ORTHOPEDIC SURGERY | PA-C [address] | (Primary Dx); | | | | [address] | [address] [place] | Equinus deformity of | | | | [place], [place] | [place] [address] | foot | | | | [address] | [phone] | | | | | [phone] | | | | | | | Garfield Spain | | | | | | MD Robin [address] | | | | | | [place], [place] | | | | | | [address] | | | | | | | [...] + + + + | Temperature | 36.9 C (98.5 F) | 08/14/2015 3:39 PM | | | | | PST | [...] Weight | 119.7 kg (264 lb) | 08/14/2015 3:39 PM | | | | | PST | | + + + + + | Height | 170.2 cm (5' 7") | 08/14/2015 3:39 PM | | | | | PST | | + + + + + | Body Mass Index | 41.35 | 08/14/2015 3:39 PM | | | | | PST | | + + + + + documented in this encounter Progress Notes Garfield Spain MD - 08/14/2015 5:49 PM PSTSee soap note [id number].Electronically sign ed by Garfield Spain MD at 08/14/2015 5:49 PM Garfield Saucedo MD - 5:39 PM PST [facility] [address] [place] [address] [id number] OFFICE NOTE GARFIELD SPAIN MD Patient: ANTONIO OROZCO Admitting: MR #: [id number] LOC: PT TYPE: Adm Date: 08/14/2015 : 1970 IDENTIFICATION: Antonio Orozco is a 45-year-old female who resides in [place]. She see s Dr. Parmar for primary care. CHIEF COMPLAINT: Left ankle pain and flexion contracture. HISTORY: Antonio states that she sustained an injury in 2004 while employed by a [employer]. She had persistent and worsening back pain and ultimately underwent an L3-4 and L4-5 laminectomy and discectomy. Unfortunately, she had rather severe pain postoperati vely and ended up with a complete left foot drop. She states that she received approximate ly 6 months of physical therapy on her left ankle and her back in 2007. She did have one ep idural steroid injection, postoperatively, which helped transiently. More recently, she stark s been seen at a pain clinic in [facility] where she has had several injections that have helped to relieve some pain for several weeks at a time. She was employed for almost 9 yea rs by in[employer]home [employer] in [place], but was let go from that job in April 2014 a nd has not worked since then. She is currently surviving with help from her family members in terms of financial support. She was seen by Declan Arthur in neurosurgery on and has now been subsequently referred to our office for suggestions regarding her left foot drop as well as ankle pain. Currently, Antonio is unable to stand fully erect. She ei ther has to bend forward if her knee is fully extended, or she has to keep her knees flexe d if her back is fully straight. She states that she is falling on an occasional basis and also sustains inversion rolling injuries of her left ankle because of weakness. She is cu rrently in the process of undergoing a more complete neurosurgical evaluation to address t he cause of her foot drop. PAST MEDICAL HISTORY: Hypertension, type 2 diabetes mellitus, hypothyroidism, diverticuli tis, spondylosis, history of maxillary sinusitis, cystitis, bronchitis, and obesity with a BMI of 41.3. PAST SURGICAL HISTORY: Includes L3-4, L4-5, decompression 04/09/2007. MEDICATION ALLERGIES: PENICILLIN. CURRENT MEDICATIONS: Aspirin 325 mg per day. Wellbutrin XL 300 mg by mouth every morning. Soma 350 mg by mouth 4 times a day as needed for muscle spasm. Neurontin 400 mg by mouth 3 times a day. Amaryl 1 mg by mouth daily. Tofranil 25 mg by mouth at bedtime. Levothyroxine 112 mcg by mouth every day. Prinzide 04/03.5 one by mouth every day. Depo-Provera 150 mg IM every 3 months. Mobic 15 mg by mouth daily. Metformin 1000 mg by mouth twice daily. Bactroban ointment. Parker caps daily. Prilosec 20 mg by mouth every morning. Oxycodone as needed for pain. vitamins daily. Phenergan as needed for nausea. FAMILY HISTORY: Positive for hypertension, heart defect, emphysema, COPD, osteoarthritis, mental illness, asthma, diabetes, lupus, and alcohol abuse. SOCIAL HISTORY: The patient denies use of tobacco. REVIEW OF SYSTEMS: Positive for glasses, hypertension, rheumatic fever, ankle swelling, l eg cramps, teeth problems, diarrhea, constipation, diverticulitis, back pain, joint pain, s welling, skin rashes, depression, sleep pattern changes, numbness, change in handwriting, shooting pains down her left leg, thyroid disorder, diabetes syndrome, a 40-pound weight lo ss in the past year, hot and cold sensitivity, fatigue and sleeping difficulties. EXAMINATION: Exam of the patient's left lower extremity reveals chronic skin changes with some degree of stasis dermatitis over her left distal leg and ankle. She can allow the an kle to be passively flexed to a neutral position with the knee flexed and to approximately 5 degrees of plantar flexion with the knee fully extended, suggesting mild increased tight ness of the gastrocnemius muscles. When standing, she can touch the heal to the floor with the left knee straight only if she is flexed forward at the hip level. She cannot touch t he heal to the floor with her back straight because she has to flex her left knee. Sensati on testing reveals that she has completely absent sensation over the medial left foot and decreased sensation over the dorsum of the foot and the lateral aspect of the left foot. T he patient has absolute complete loss of active left ankle dorsiflexion. Deep tendon refle xes are 2+ in the left infrapatellar tendon, 1-2+ in the right infrapatellar tendon and ab sent in both Achilles tendons. ASSESSMENT: 1. Mild equinus contracture, left ankle secondary to complete loss of active dorsiflexion , left ankle, probably due to underlying left L5 radiculopathy with superimposed diabetic n europathy. 2. Multiple medical comorbidities. ADVICE: I feel that the initial step in controlling Antonio's left ankle instability is to brace it. We will refer her to one of the local prosthetic and orthotic shops for a left a nkle/foot orthosis. She may have to start out with a fixed orthosis and then may be able t o progress to a spring loaded orthosis if possible. We also will refer her to Dr. Savage randhawa for a complete lower extremity electrodiagnostic evaluation to help sort out her nerve dysfunction. We will plan to see her back in our office following completion of her ankle brace. GARFIELD SPAIN MD Dictated by GARFIELD SPAIN MD 08/14/2015 17:39:03 Transcribed on 08/15/2015 08:41:36 by nallely job# [id number] Confirmation #: [id number] cc: SCOTT PARMAR MD documented in this encounter Plan of Treatment + + +--------+ + + | Name | Type | Priori | Associated Diagnoses | Order Schedule | | | | ty | | | + + +--------+ + + | EMG - PHYSIATRY | Outpatient | Routin | Left foot drop | Expected: 08/14/2015 | | | Referral | e | Equinus deformity of | (Approximate), | | | | | foot | Expires: 08/14/2016 | + + +--------+ + + documented as of this encounter Visit Diagnoses + + | Diagnosis | + + | Left foot drop - Primary Other acquired deformity of ankle and foot | + + | Equinus deformity of foot Other congenital deformity of feet | + + documented in this encounter
--- OUTSIDE RECORDS SUMMARY | ~2019-11-01 | XMS | Encounter Summary ---
Demographics + + + | Address | [address] | | | [place] [address] | + + + | Home Phone | | + + + | Preferred Language | Unknown | + + + | Marital Status | Single | + + + | Druze Affiliation | Unknown | + + + | Race | White | + + + | Ethnic Group | Not or | + + + Author + + + | Author | [facility] | + + + | Organization | [facility] | + + + | Address | [...] Team Providers + +------+ + | Care Clinical Data Management Manager Name | Role | Phone | + +------+ + | Scott Parmar MD | PCP | | + +------+ + Reason for Referral Consultation (Routine) +--------+ + + + + + | Status | Reason | Specialty | Diagnoses / | Referred By | Referred To | | | | | Procedures | Contact | Contact | +--------+ + + + + + | Closed | BAR: | Surgery | Diagnoses | Thomas Hair, | Bar | | | Scheduled | | Lumbar | [address] | [facility] | | | with LIGHTOUT EXAMINER | | spine pain | [address] | [address] | | | | | Procedures | [address] | [address] | | | | | CONSULT TO | [place], [place] | Mailcode: | | | | | BARIATRIC | [address] | [facility] | [facility] | Phone: | Health and | | | | | | [phone] | Healing, | | | | | | Fax: | [address] | | | | | | [phone] | [facility] [place] | | | | | | | [address] | | | | | | | Phone: | | | | | | | [phone] | | | | | | | Fax: | | | | | | | [phone] | +--------+ + + + + + Reason for Visit + + + | Reason | Comments | + + + | New patient | NEW PT - review xrays | | consultation | | + + + Consultation (Urgent) +--------+--------+ + + + + | Status | Reason | Specialty | Diagnoses / | Referred By | Referred To | | | | | Procedures | Contact | Contact | +--------+--------+ + + + + | Closed | | Orthopedics | Diagnoses | Samantha, | Thomas Hair, | | | | | Unspecified | Werner Dover DO | [address] | | | | | kyphosis, | [address] | [address] | | | | | site | [address] | [address] | | | | | unspecified | [address] | [place], [place] | | | | | | [place], | [address] | | | | | Radiculopath | [place] [address] | Phone: | | | | | y, lumbar | Phone: | [phone] | | | | | region | [phone] | Fax: | | | | | Lumbago with | Fax: | [phone] | | | | | sciatica, | [phone] | | | | | | right side | | | +--------+--------+ + + + + Encounter Details +--------+---------+ + + + | Date | Type | Department | Care Team | Description | +--------+---------+ + + + | 11/07/ | Office | Orthopaedic Spine | Thomas Hair MD | Lumbar spine pain | | 2016 | Visit | Center at [facility] [address] | (Primary Dx) | | | | [address] | [address] [place], | | | | | Mailcode: [facility] | [place] [address] | | | | | [facility] | [phone] | | | | | and Healing, | | | | | | [facility] | | | | | | [place], [place] | | | | | | [address] | | | | | | [phone] | | | +--------+---------+ + + + [...] + documented in this encounter Progress Notes Thomas Hair MD - 11/08/2015 11:47 AM PDTThe patient is a 45-year-old white female who presen ts moving the back pain and bilateral leg pain. She has had problem for more than 8 years. S he has noticed progressive kyphosis developing since her last back surgery about 8 years ago . She does not remember the nature of the surgery. She had surgery done at [place]. She has gone to the surgeon and Discussed the kyphosis with her. However she was only given pain m edications and no treatment was given to her. She now has to walk with a walker. She does ta ke oxycodone at night but this is rare. She tries to manage pain with a non-opioid medicatio ns. She cannot walk without a walker. That she cannot stand straight. She cannot lay down ei ther arm. She has lost more than 60 pounds. However she still weighs 265 pounds. She has tried to sig n up for gastric procedure but was denied by a private health insurance. She is not currentl y on Medicaid. On physical examination she is a heavy White female in moderate amount of discomfort. She cannot get to an erect position. She is very kyphotic. She has to use a walker for balance. She has had foot drop on the left side for more than 8 years and recently obtained the ankle -foot orthosis. She has 5 over 5 motor strength except for her left ankle dorsiflexion. MRI shows kyphosis of the lumbar spine. X-ray also shows kyphosis and and extension x-ray s he does not come to a neutral position. Assessment this time as patient has fixed kyphosis of the lumbar spine. However she is too heavy to consider any type of surgery at this point. I do not know if she qualifies for the gastric procedure. I will have patient see our Bariatric program to see if she qualifies.El ectronically signed by Thomas Hair MD at 11/08/2015 1:00 PM Trupti Antonio MA - 11/08/2015 11:32 AM PDTCalled and spoke to someone at [facility]'s image library in [place], [place]. They will push images immediately. They will also fax over reports. They are now in [place]. d ocumented in this encounter Plan of Treatment + +---------+--------+ + + | Name | Type | Priori | Associated Diagnoses | Order Schedule | | | | ty | | | + +---------+--------+ + + | X-RAY SPINE | Imaging | Routin | Lumbar spine pain | Expected: | | LUMBOSACRAL 3 VIEWS | | e | | 11/02/2015, Expires: | | | | | | 12/02/2016 | + +---------+--------+ + + documented as of this encounter Results X-RAY SPINE LUMBOSACRAL 1 [...] | | | | | | MD LEIA I | | | | | | personally [...] | | + +---------+ + + | [facility] DEPARTMENT OF | | | | | RADIOLOGY | | | | + +---------+ + + documented in this encounter Visit Diagnoses + + | Diagnosis | + + | Lumbar spine pain - Primary Lumbago | + + documented in this encounter
--- OUTSIDE RECORDS SUMMARY | ~2019-11-01 | XMS | Encounter Summary ---
Demographics + + + | Address | [address] | | | [place] [address] | + + + | Home Phone | | + + + | Preferred Language | Unknown | + + + | Marital Status | Single | + + + | Presybeterian Affiliation | Unknown | + + + | Race | Unknown | + + + | Ethnic Group | Unknown | + + + Author + + + | Author | [facility] | | | and [place] | + + + | Organization | [facility] | | | [...] [place] | | | | | [address] | | + + + + + | Maria G Nj | ECON | Unknown | | + + + + + Care Team Providers + +------+ + | Care Principal Developer Name | Role | Phone | + +------+ + | Scott Parmar MD | PCP | | + +------+ + Reason for Referral Diagnostic/Screening (Routine) +--------+--------+ + + + + | Status | Reason | Specialty | Diagnoses / | Referred By | Referred To | | | | | Procedures | Contact | Contact | +--------+--------+ + + + + | Closed | | Radiology | Diagnoses | Ghulam, | | | | | | Spinal | Scott | | | | | | stenosis of | MD Luis | | | | | | lumbar | [address] | | | | | | region | [address] | | | | | | Procedures | Evelyn, | | | | | | MRI Lumbar | [place] | | | | | | Spine w wo | [address] | | | | | | Contrast | Phone: | | | | | | | [phone] | | | | | | | Fax: | | | | | | | [phone] | | +--------+--------+ + + + + Reason for Visit Diagnostic/Screening (Routine) +--------+--------+ + + + + | Status | Reason | Specialty | Diagnoses / | Referred By | Referred To | | | | | Procedures | Contact | Contact | +--------+--------+ + + + + | Closed | | Radiology | Diagnoses | Ghulam | | | | | | Spinal | Scott | | | | | | stenosis of | MD Luis | | | | | | lumbar | [address] | | | | | | region | [address] | | | | | | Procedures | Evelyn, | | | | | | MRI Lumbar | [place] | | | | | | Spine w wo | [address] | | | | | | Contrast | Phone: | | | | | | | [phone] | | | | | | | Fax: | | | | | | | [phone] | | +--------+--------+ + + + + Encounter Details +--------+ + + + + | Date | Type | Department | Care Team | Description | +--------+ + + + + | 06/05/ | Hospital | [facility] | Scott Parmar | Spinal stenosis of | | 2015 | Encounter | MED CTR MRI [address] | MD Luis [address] | lumbar region | | | | [place], | [address] | | | | | [place] [address] | [place] | | | | | [phone] | [address] | | | | | | [phone] | | | | | | | | +--------+ + + + + Social History + +-------+ +--------+------+ | Tobacco Use | Types | Packs/Day | Years | Date | | | | | Used | | + +-------+ +--------+------+ | Never Smoker | | | | | + +-------+ +--------+------+ + + +---------+ + | Alcohol Use | Drinks/Week | oz/Week | Comments | + + +---------+ + | No | | | | + + +---------+ + [...] | + +--------+ + + + | MRI LUMBAR SPINE W | Routin | 06/05/2015 | Spinal stenosis of | Results for this | | WO CONTRAST | e | 12:59 PM | lumbar region | procedure are in the | | | | PST | | results section. | + +--------+ + + + documented in this encounter Results MRI Lumbar Spine w wo Contrast (06/05/2015 12:59 PM PST) + + | Specimen | + + | | + + + + + | Narrative | Performed At | + + + | EXAM: MRI LUMBAR SPINE W WO CONTRAST dated 06/05/2015 11:58 AM | [facility] | | HISTORY:SPINAL STENOSIS COMPARISON: Lumbar spine MRI dated | | | May 18, 2015. The April study was significantly motion | | | degraded. TECHNIQUE: Multiplanar multisequence MR imaging of the | | | lumbar spine performed prior to and following the uneventful | | | intravenous administration of 10 cc of gadolinium contrast. This is | | | performed on a 3Tesla MRI scanner. FINDINGS:There are 5 | | | lumbar-type vertebral bodies. This is either assumed for counting | | | purposes or documented on prior studies. Leftward curvature may be | | | positional. Reversal of the normal lumbar lordosis. There is | | | slight retrolisthesis of L4 and L5. Anterolisthesis of L2. There | | | are Modic type II endplate changes anteriorly at L3-L4. There are | | | no compression deformities. There is diffuse disc desiccation. | | | There is mild to moderate disc narrowing at L3-L4 and L4-L5. The | | | conus terminates at the T11-T12 level. The following levels are | | | evaluated in the axial plane: T11-T12: Patent central spinal canal | | | and neural foramen. There is a focal area of ligamentous | | | thickening centrally just below the T11-T12 disc which minimally | | | narrows the central spinal canal. T12-L1: Small posterior disc | | | protrusion. Left eccentric component. This does encroach upon the | | | left subarticular recess. The left neural foramen are patent. | | | Similar ligament is thickening below the disc level. L1-2: Central | | | and left eccentric focal disc protrusion. This impacts | | | significantly on the left subarticular recess deviating the course of | | | the left L2 nerve. The neural foramen bilaterally remain patent. | | | L2-3: No significant disc bulge or protrusion. Moderate facet | | | arthrosis bilaterally. Mild ligamentum flavum redundancy. Mild | | | narrowing of the central spinal canal. The neural foramen remain | | | patent. L3-4: Left eccentric focal disc protrusion. This impacts | | | upon the left subarticular recess and the coursing left L4 nerve | | | root bilateral facet arthrosis. Mild left neural foraminal | | | narrowing. L4-5: Right eccentric focal disc protrusion. Mild | | | impact upon the right subarticular recess. Bilateral facet | | | arthrosis. Mild bilateral neural foraminal narrowing. L5-S1: | | | No disc bulge or protrusion. Somewhat high taper of the thecal sac. | | | Bilateral facet arthrosis. Small facet effusions. Severe | | | bilateral neural foraminal narrowing. Small isodense nodular tissue | | | along the posterior left of center aspect of the L5 vertebral body. | | | It is subligamentous. There is peripheral enhancement around it | | | after contrast administration. Small follicle in the left ovary. | | | IMPRESSION - Reversal of the normal lumbar lordosis. | | | Diffuse lumbar spondylosis. Details are as above. Left eccentric | | | discs at L1-L2 and L3-L4 impact upon the subarticular recesses. | | | Right eccentric disc at L4-L5 impacts on the right subarticular | | | recess. Probable sequestered disc fragment left of midline along | | | the posterior aspect of the L5 vertebral body. Severe bilateral | | | neural foraminal narrowing at L5-S1. Dictated and Signed by: Richard | | | T MD Mayra Electronically signed: 06/05/2015 3:52 PM | | + + + + + | Procedure Note | + + | Marcello, Rad Results In - 06/05/2015 3:55 PM PST EXAM: MRI LUMBAR SPINE W WO CONTRAST | | dated 06/05/2015 11:58 AMHISTORY:SPINAL STENOSISCOMPARISON: Lumbar spine MRI dated | | May 18, 2015. The April study wassignificantly motion degraded.TECHNIQUE: | | Multiplanar multisequence MR imaging of the lumbar spine performedprior to and following | | the uneventful intravenous administration of 10 cc ofgadolinium contrast. This is | | performed on a 3Tesla MRI scanner. FINDINGS:There are 5 lumbar-type vertebral bodies. | | This is either assumed forcounting purposes or documented on prior studies. Leftward | | curvature may bepositional. Reversal of the normal lumbar lordosis. There is | | slightretrolisthesis of L4 and L5. Anterolisthesis of L2. There are Modic type | | IIendplate changes anteriorly at L3-L4. There are no compression deformities. There is | | diffuse disc desiccation. There is mild to moderate disc narrowing atL3-L4 and L4-L5. | | The conus terminates at the T11-T12 level.The following levels are evaluated in the | | axial plane:T11-T12: Patent central spinal canal and neural foramen. There is a focal | | areaof ligamentous thickening centrally just below the T11-T12 disc which | | minimallynarrows the central spinal canal.T12-L1: Small posterior disc protrusion. Left | | eccentric component. This doesencroach upon the left subarticular recess. The left | | neural foramen are patent. Similar ligament is thickening below the disc level.L1-2: | | Central and left eccentric focal disc protrusion. This impactssignificantly on the left | | subarticular recess deviating the course of the leftL2 nerve. The neural foramen | | bilaterally remain patent.L2-3: No significant disc bulge or protrusion. Moderate facet | | arthrosisbilaterally. Mild ligamentum flavum redundancy. Mild narrowing of the | | centralspinal canal. The neural foramen remain patent.L3-4: Left eccentric focal disc | | protrusion. This impacts upon the leftsubarticular recess and the coursing left L4 | | nerve root bilateral facetarthrosis. Mild left neural foraminal narrowing. L4-5: Right | | eccentric focal disc protrusion. Mild impact upon the rightsubarticular recess. | | Bilateral facet arthrosis. Mild bilateral neuralforaminal narrowing. L5-S1: No disc | | bulge or protrusion. Somewhat high taper of the thecal sac. Bilateral facet arthrosis. | | Small facet effusions. Severe bilateral neuralforaminal narrowing. Small isodense | | nodular tissue along the posterior left ofcenter aspect of the L5 vertebral body. It is | | subligamentous. There isperipheral enhancement around it after contrast | | administration.Small follicle in the left ovary. IMPRESSION - Reversal of the normal | | lumbar lordosis.Diffuse lumbar spondylosis. Details are as above.Left eccentric discs | | at L1-L2 and L3-L4 impact upon the subarticular recesses.Right eccentric disc at L4-L5 | | impacts on the right subarticular recess.Probable sequestered disc fragment left of | | midline along the posterior aspect ofthe L5 vertebral body.Severe bilateral neural | | foraminal narrowing at L5-S1.Dictated and Signed by: Richard Nunez MD Electronically | | signed: 06/05/2015 3:52 PM | |L3-4: Left eccentric focal disc protrusion. This impacts upon the left | |subarticular recess and the coursing left L4 nerve root bilateral facet | |arthrosis. Mild left neural foraminal narrowing. | | | |L4-5: Right eccentric focal disc protrusion. Mild impact upon the right | |subarticular recess. Bilateral facet arthrosis. Mild bilateral neural | |foraminal narrowing. | | | |L5-S1: No disc bulge or protrusion. Somewhat high taper of the thecal sac. | |Bilateral facet arthrosis. Small facet effusions. Severe bilateral neural | |foraminal narrowing. Small isodense nodular tissue along the posterior left of | |center aspect of the L5 vertebral body. It is subligamentous. There is | |peripheral enhancement around it after contrast administration. | | | |Small follicle in the left ovary. | | | |IMPRESSION - | | | |Reversal of the normal lumbar lordosis. | | | |Diffuse lumbar spondylosis. Details are as above. | | | |Left eccentric discs at L1-L2 and L3-L4 impact upon the subarticular recesses. | | | |Right eccentric disc at L4-L5 impacts on the right subarticular recess. | | | |Probable sequestered disc fragment left of midline along the posterior aspect of | |the L5 vertebral body. | | | |Severe bilateral neural foraminal narrowing at L5-S1. | | | |Dictated and Signed by: Richard Nunez MD | | Electronically signed: 06/05/2015 3:52 PM | + + + +---------+ + + | Performing | Address | City/State/Zipcode | Phone Number | | Organization | | | | + +---------+ + + | [facility] | | | | + +---------+ + + documented in this encounter Visit Diagnoses + + | Diagnosis | + + | Spinal stenosis of lumbar region Spinal stenosis, lumbar region, without neurogenic | | claudication | + + documented in this encounter Administered Medications + +--------+ +--------+------+------+ | Medication Order | MAR | Action | Dose | Rate | Site | | | Action | Date | | | | + +--------+ +--------+------+------+ | gadobutrol (GADAVIST) injection | Given | 06/05/20 | 10 mLs | | | | 10 mL 10 mL, Intravenous, ONCE | | 15 1:00 | | | | | PRN, Other, Starting 06/05/15 | | PM PST | | | | | at 1300, For 1 dose, MRI | | | | | | + +--------+ +--------+------+------+ +---+---+ | | | +---+---+ documented in this encounter"
--- OUTSIDE RECORDS SUMMARY | ~2019-11-01 | XMS | Encounter Summary ---
Demographics + + + | Address | [address] | | | [place] [address] | + + + | Home Phone [...] + + + | Author | [address] [facility] | + + + | Organization | [facility] | + + + | Address | [...] Team Providers + +------+ + | Care Smalltalk Developer Name | Role | Phone | + +------+ + | Scott Parmar MD | PCP | | + +------+ + Encounter Details +--------+ + + + + | Date | Type | Department | Care Team | Description | +--------+ + + + + | 11/07/ | Hospital | Radiology/Imaging | | | | 2016 | Encounter | Lab at [facility] [address] | | | | | [address] Mailcode: | | | | | | [facility] | | | | | | Health and Healing, | | | | | | Building [facility] | | | | | | Floor [place], [place] | | | | | | [address] | | | | | | [phone] | | | +--------+ + + + [...] | | 0 | | | | [id number] | | | | | | | [...]
--- OUTSIDE RECORDS SUMMARY | ~2019-11-01 | XMS | Encounter Summary ---
Demographics + + + | Address | [address] | | | [place] [address] | + + + | Home Phone | | + + + | Preferred Language | Unknown | + + + | Marital Status | Single | + + + | Jehovah'S Witness Affiliation | Unknown | + + + | Race | White | + + + | Ethnic Group | Not or | + + + Author + + + | Author | [facility] | + + + | Organization | [facility] | + + + | [...] Team Providers + +------+ + | Care Analysis Consultant Name | Role | Phone | + +------+ + | Scott Parmar MD | PCP | | + +------+ + Encounter Details +--------+ + + + + | Date | Type | Department | Care Team | Description | +--------+ + + + + | 12/18/ | Abstract | Digestive Health | Clinic, Surgery | | | 2015 | | Center at [facility] [address] | | | | | | [address] | | | | | | Mailcode: Center | | | | | | for Health and | | | | | | Healing, [address] | | | | | | [place], [place] | | | | | | [address] | | | | | | [phone] | | | +--------+ + + + [...]
--- OUTSIDE RECORDS SUMMARY | ~2019-11-01 | XMS | Encounter Summary ---
Demographics + + + | Address | [address] | | | [place] [address] | + + + | Home Phone | | + + + | Preferred Language | Unknown | + + + | Marital Status | Single | + + + | Shinto Affiliation | Unknown | + + + | Race | White | + + + | Ethnic Group | Not or | + + + Author + + + | Author | [facility] | + + + | Organization | [facility] | + + + | Address | [...] Team Providers + +------+ + | Care Financial Management Consultant Name | Role | Phone | + +------+ + | Scott Parmar MD | PCP | | + +------+ + Encounter Details +--------+---------+ + + + | Date | Type | Department | Care Team | Description | +--------+---------+ + + + | 11/29/ | Office | Neurosurgery at | Eitan Cortez, | | | 2007 | Visit | [facility] [address] [place] | | | | | Rebekah Mailcode: [facility] | | | | | | [facility] | | | | | | and Healing, | | | | | | Building | | | | | | Floor [place], [place] | | | | | | [address] | | | | | | [phone] | | | +--------+---------+ + + + [...] Eitan Cortez - 12/02/2007 8:21 AM PDT [id number] ENRIQUE Shields [id number] Referred From and Faxed To: Scott Parmar M.D. Referred To: Eitan Cortez M.D. Consulting Physician: Eitan Cortez M.D. Consultation Date: 11/30/2007 Referring Physician: Scott Parmar M.D. Reason For Requested Consultation: Back pain and lumbar stenosis. Dear Dr. Parmar: Thank you for referring Antonio Orozco to my [facility] in [place], [place]. It was a pleasure to see this young woman and her mother today in the clinic. You may recall, this 37-year-old female is status post L3-4 and L4-5 decompressive lumbar surgery in March [address] Bryant Coker in [place], [place]. After that surgery, she has had [...] Eitan Cortez M.D. DANIEL / ANA M [id number] / [id number] / [id number] / [id number] cc: Scott Parmar M.D. [facility] [address] [place] [address] documented in this enco unter Plan of Treatment Not on filedocumented as of this encounter Visit Diagnoses Not on filedocumented in this encounter"
--- OUTSIDE RECORDS SUMMARY | ~2019-11-01 | XMS | Encounter Summary ---
Demographics + + + | Address | [address] | | | [place] [address] | + + + | Home Phone | | + + + | Preferred Language | Unknown | + + + | Marital Status | Single | + + + | Adventism Affiliation | Unknown | + + + | Race | Unknown | + + + | Ethnic Group | Unknown | + + + Author + + + | Author | [facility] | | | and [place] | + + + | Organization | [facility] | | [...] [place] | | | | | [address] | | + + + + + | Maria G Nj | ECON | Unknown | | + + + + + Care Team Providers + +------+ + | Care Aerobics Instructor Name | Role | Phone | + +------+ + | Scott Parmar MD | PCP | | + +------+ + Encounter Details +--------+ + + + + | Date | Type | Department | Care Team | Description | +--------+ + + + + | 07/05/ | Hospital | [facility] | Werner Singh, | Back pain, | | 2016 | Encounter | MED CTR XRAY [address] | DO [address] | unspecified back | | | | [place] | [address] [place], [place] | pain laterality, | | | | [place] [address] | [id number] | unspecified location | | | | [phone] | | | +--------+ + + + [...] + + + +---------+ + + | [place] 3 1200 MG | Take by mouth. [...] + +--------+ + + + | XR LUMBAR SPINE 4 + | Routin | 07/05/2015 | Back pain, | Results for this | | VW | e | 9:31 AM | unspecified back | procedure are in the | | | | PST | pain laterality, | results section. | | | | | unspecified location | | + +--------+ + + + documented in this encounter Results XR Lumbar Spine 4 + Vw (07/05/2015 9:31 AM PST) + + | Specimen | + + | | + + + + + | Narrative | Performed At | + + + | XR LUMBAR SPINE 4 + VW 07/05/2015 9:31 AM HISTORY: Back pain. | [facility] | | COMPARISON: Multiple priors. FINDINGS: Mild left curvature of | [facility] | | the lumbar spine is present. Loss of the usual lordosis is seen. | [facility] | | There is moderate spondylosis. No stability is visualized with flexion | - [facility] | | and extension. Bone mineralization is normal. Vertebral body height | | | are preserved with no evidence for compression fractures. Moderate | | | disc narrowing are at L3-4 and L4-5. Multilevel facet sclerosis and | | | hypertrophy are seen. Visualized ribs and pelvic osseous structures | | | show no acute findings. There is mild atherosclerosis. IMPRESSION | | | - Multilevel degenerative changes with no instability. Dictated | | | and Signed by: Sherif Hurst MD Electronically signed: 07/05/2015 | | | 9:35 AM | | + + + + + | Procedure Note | + + | Marcello, Rad Results In - 07/05/2015 9:38 AM PST XR LUMBAR SPINE 4 + VW 07/05/2015 9:31 | | AMHISTORY: Back pain.COMPARISON: Multiple priors.FINDINGS:Mild left curvature of the | | lumbar spine is present. Loss of the usual lordosisis seen. There is moderate | | spondylosis. No stability is visualized with flexionand extension. Bone mineralization | | is normal. Vertebral body height arepreserved with no evidence for compression | | fractures. Moderate disc narrowingare at L3-4 and L4-5. Multilevel facet sclerosis and | | hypertrophy are seen.Visualized ribs and pelvic osseous structures show no acute | | findings. There ismild atherosclerosis.IMPRESSION -Multilevel degenerative changes with | | no instability.Dictated and Signed by: Sherif Hurst MD Electronically signed: 07/05/2015 | | 9:35 AM | |preserved with no evidence for compression fractures. Moderate disc narrowing | |are at L3-4 and L4-5. Multilevel facet sclerosis and hypertrophy are seen. | |Visualized ribs and pelvic osseous structures show no acute findings. There is | |mild atherosclerosis. | | | |IMPRESSION - | |Multilevel degenerative changes with no instability. | | | |Dictated and Signed by: Sherif Hurst MD | | Electronically signed: 07/05/2015 9:35 AM | + + + + + + + | Performing | Address | City/State/Zipcode | Phone Number | | Organization | | | | + + + + + | [facility] [facility] | [address] | [place] | [phone] | | [facility] | | [address] | | | - IMAGING | | | | + + + + + documented in this encounter Visit Diagnoses + + | Diagnosis | + + | Back pain, unspecified back pain laterality, unspecified location | + + documented in this encounter"
--- OUTSIDE RECORDS SUMMARY | ~2019-11-01 | XMS | Encounter Summary ---
Demographics + + + | Address | [address] | | | [place] [address] | + + + | Home Phone | | + + + | Preferred Language | Unknown | + + + | Marital Status | Single | + + + | Yazdanism Affiliation | Unknown | + + + | Race | Unknown | + + + | Ethnic Group | Unknown | + + + Author + + + | Author | [facility] | | | and [place] | + + + | Organization | [facility] | | | and [place] | + + + | Address | Unknown | + + + | Phone | Unavailable | + + + Support + + + + + | Name | Relationship | Address | Phone | + + + + + | Latha Solano | ECON | [address] | | | | | [place] | | | | | [address] | | + + + + + | Maria G Nj | ECON | Unknown | | + + + + + Care Team Providers + +------+ + | Care Horn Player Name | Role | Phone | + [...] Closed | | Radiology | Diagnoses | Samantha, | [facility] | | | | | Postural | Werner Dover DO | [address] | | | | | kyphosis of | [address] | [place], | | | | | lumbar | [address] | [place] | | | | | region | [place] | [address] | | | | | Spondylolist | [address] | Phone: | | | | | hesis, | Phone: | [phone] | | | | | lumbar | [phone] | Fax: | | | | | region | Fax: | [phone] | | | | | Lumbar | [phone] | | | | | | stenosis | | | | | | | Lumbar | | | | | | | radicular | | | | | | | pain | | | | | | | Bilateral | | | | | | | low back | | | | | | | pain with | | | | | | | left-sided | | | | | | | sciatica | | | | | | | Left foot | | | | | | | drop | | | | | | | Procedures | | | | | | | MRI Thoracic | | | | | | | Spine wo | | | | | | | Contrast | | | +--------+--------+ + + + + Reason for Visit Diagnostic/Screening (Routine) +--------+--------+ + + + + | Status | Reason | Specialty | Diagnoses / | Referred By | Referred To | | | | | Procedures | Contact | Contact | +--------+--------+ + + + + | Closed | | Radiology | Diagnoses | Samantha, | [facility] | | | | | Postural | Werner Dover DO | [address] | | | | | kyphosis of | [address] | [place], | | | | | lumbar | [address] | [place] | | | | | region | [place], [place] | [address] | | | | | Spondylolist | [address] | Phone: | | | | | hesis, | Phone: | [phone] | | | | | lumbar | [phone] | Fax: | | | | | region | Fax: | [phone] | | | | | Lumbar | [phone] | | | | | | stenosis | | | | | | | Lumbar | | | | | | | radicular | | | | | | | pain | | | | | | | Bilateral | | | | | | | low back | | | | | | | pain with | | | | | | | left-sided | | | | | | | sciatica | | | | | | | Left foot | | | | | | | drop | | | | | | | Procedures | | | | | | | MRI Thoracic | | | | | | | Spine wo | | | | | | | Contrast | | | +--------+--------+ + + + + Encounter Details +--------+ + + + + | Date | Type | Department | Care Team | Description | +--------+ + + + + | 09/28/ | Hospital | [facility] | Werner Singh, | Postural kyphosis of | | 2016 | Encounter | [facility] MRI [address] | DO [address] | lumbar region; | | | | [address] [place], | [address] [place], [place] | Spondylolisthesis, | | | | [place] [address] | [address] | lumbar region; | | | | [phone] | | Lumbar stenosis; | | | | | | Lumbar radicular | | | | | | pain; Bilateral low | | | | | | back pain with | | | | | | left-sided sciatica; | | | | | | Left foot drop | +--------+ + + + + Social [...] + + + +---------+ + + | Strong 3 1200 MG | Take by mouth. [...] + +--------+ + + + | MRI THORACIC SPINE | Routin | 09/29/2015 | Postural kyphosis | Results for this | | WO CONTRAST | e | 1:20 PM | of lumbar region | procedure are [...] | | Left foot drop | | + +--------+ + + + documented in this encounter Results MRI Thoracic Spine wo Contrast (09/29/2015 1:20 PM PDT) + + | Specimen | + + | | + + + + + | Narrative | Performed At | + + + | MRI THORACIC SPINE WITHOUT CONTRAST: 09/29/2015 12:35 PM CLINICAL | [facility] | | HISTORY: Severe posture abnormality with inability to stand or walk | Amina LISA | | without difficulty COMPARISON: None TECHNIQUE: In the [address] [facility] | | scanner, multiplanar, multisequence imaging of the thoracic spine is | - IMAGING | | performed. No contrast utilized. FINDINGS: Thoracic spine | | | alignment is normal. Vertebral body heights are normal. No marrow | | | signal abnormality. Thoracic cord shows normal volume and signal. | | | Conus medullaris terminates at T11. T1-T2 and T2-T3: No disc or | | | disc space abnormality. T3-T4: There is a large broad-based disc | | | bulge eccentric to the right. This extends 5 mm posteriorly. It | | | contacts the anterior margin of the cord but does not produce | | | deformity or central canal stenosis. T4-T5 to T7-T8: Minimal | | | prominence of the disc posteriorly without central canal or foraminal | | | narrowing. T8-T9: Mild broad-based disc bulge. Ligamentous | | | thickening and hypertrophy of the right facet joint. These changes | | | narrow the right lateral aspect of the canal and contours the cord. | | | The also produce moderate right foraminal narrowing. T9-T10: Minimal | | | broad-based disc bulge. Bilateral facet hypertrophy. When | | | superimposed on short pedicles, this results in a moderately severe | | | central canal stenosis at this level. T10-T11 and T11-T12: Low | | | signal material along the posterior margin of the inferior aspect of | | | T10, extending across the interspaces, down to mid body T12. This may | | | be partially extruded disc material, but low signal and distribution | | | raises the question of ossification of posterior longitudinal | | | ligament. This produces moderate central canal stenosis (9 mm at | | | T11-T12) with no foraminal narrowing. IMPRESSION - 1. Large | | | broad-based disc bulge eccentric to the right at T3-T4. 2. Facet | | | joint hypertrophy and overlying ligamentous thickening posteriorly on | | | the right at T8-T9 and bilaterally at T9-T10, with moderate right | | | foraminal narrowing at T8-T9 and moderately severe central canal | | | stenosis at T9-T10. 3. Low signal material along the posterior | | | margins of the vertebral bodies from T10-T11 to mid body T12 as | | | discussed above. This is suspicious for calcification of posterior | | | longitudinal ligament and it produces moderate central canal | | | stenosis. 4. Somewhat high conus medullaris, terminating at T11. | | | Dictated and Signed by: Rob Griffin MD Electronically | | | signed: 09/29/2015 3:24 PM | | + + + + + | Procedure Note | + + | Marcello, Rad Results In - 09/29/2015 3:27 PM PDT MRI THORACIC SPINE WITHOUT CONTRAST: | | 09/29/2015 12:35 PMCLINICAL HISTORY: Severe posture abnormality with inability to stand or | | walkwithout difficultyCOMPARISON: NoneTECHNIQUE: In the 3 T scanner, multiplanar, | | multisequence imaging of thethoracic spine is performed. No contrast utilized.FINDINGS: | | Thoracic spine alignment is normal.Vertebral body heights are normal. No marrow signal | | abnormality.Thoracic cord shows normal volume and signal. Conus medullaris terminates | | atT11.T1-T2 and T2-T3: No disc or disc space abnormality.T3-T4: There is a large | | broad-based disc bulge eccentric to the right. Thisextends 5 mm posteriorly. It contacts | | the anterior margin of the cord but doesnot produce deformity or central canal | | stenosis.T4-T5 to T7-T8: Minimal prominence of the disc posteriorly without central | | canalor foraminal narrowing.T8-T9: Mild broad-based disc bulge. Ligamentous thickening | | and hypertrophy ofthe right facet joint. These changes narrow the right lateral aspect | | of thecanal and contours the cord. The also produce moderate right | | foraminalnarrowing.T9-T10: Minimal broad-based disc bulge. Bilateral facet hypertrophy. | | Whensuperimposed on short pedicles, this results in a moderately severe centralcanal | | stenosis at this level.T10-T11 and T11-T12: Low signal material along the posterior | | margin of theinferior aspect of T10, extending across the interspaces, down to mid body | | T12.This may be partially extruded disc material, but low signal and distributionraises | | the question of ossification of posterior longitudinal ligament. Thisproduces moderate | | central canal stenosis (9 mm at T11-T12) with no foraminalnarrowing.IMPRESSION -1. Large | | broad-based disc bulge eccentric to the right at T3-T4.2. Facet joint hypertrophy and | | overlying ligamentous thickening posteriorly onthe right at T8-T9 and bilaterally at | | T9-T10, with moderate right foraminalnarrowing at T8-T9 and moderately severe central | | canal stenosis at T9-T10.3. Low signal material along the posterior margins of the | | vertebral bodies [id number] to mid body T12 as discussed above. This is suspicious for | | calcificationof posterior longitudinal ligament and it produces moderate central | | canalstenosis.4. Somewhat high conus medullaris, terminating at T11.Dictated and Signed | | by: Rob Griffin MD Electronically signed: 09/29/2015 3:24 PM | |superimposed on short pedicles, this results in a moderately severe central | |canal stenosis at this level. | |T10-T11 and T11-T12: Low signal material along the posterior margin of the | |inferior aspect of T10, extending across the interspaces, down to mid body T12. | |This may be partially extruded disc material, but low signal and distribution | |raises the question of ossification of posterior longitudinal ligament. This | |produces moderate central canal stenosis (9 mm at T11-T12) with no foraminal | |narrowing. | | | |IMPRESSION - | |1. Large broad-based disc bulge eccentric to the right at T3-T4. | | | |2. Facet joint hypertrophy and overlying ligamentous thickening posteriorly on | |the right at T8-T9 and bilaterally at T9-T10, with moderate right foraminal | |narrowing at T8-T9 and moderately severe central canal stenosis at T9-T10. | | | |3. Low signal material along the posterior margins of the vertebral bodies from | |T10-T11 to mid body T12 as discussed above. This is suspicious for calcification | |of posterior longitudinal ligament and it produces moderate central canal | |stenosis. | | | |4. Somewhat high conus medullaris, terminating at T11. | | | |Dictated and Signed by: Rob Griffin MD | | Electronically signed: 09/29/2015 3:24 PM | + + + + + + + | Performing | Address | City/State/Zipcode | Phone Number | | Organization | | | | + + + + + | [facility] | [address] | [place], [place] | [phone] | | [facility] | | [address] | | | - IMAGING | | [...] of ankle and foot | + + documented in this encounter"
--- OUTSIDE RECORDS SUMMARY | ~2019-11-01 | XMS | Encounter Summary ---
Demographics + + + | Address | [address] | | | [place] [address] | + + + | Home Phone | | + + + | Preferred Language | Unknown | + + + | Marital Status | Single | + + + | Hoahaoism Affiliation | Unknown | + + + | Race | Unknown | + + + | Ethnic Group | Unknown | + + + Author + + + | Author | [facility] | | | and [place] | + + + | Organization | [facility] | | | and [...] [place] | | | | | [address] | | + + + + + | Maria G Nj | ECON | Unknown | | + + + + + Care Team Providers + +------+ + | Care Shuttle Fixer Name | Role | Phone | + +------+ + | Scott Parmar MD | PCP | | + +------+ + Reason for Visit + + + | Reason | Comments | + + + | Appointment Question | | + + + Encounter Details +--------+ + + + + | Date | Type | Department | Care Team | Description | +--------+ + + + + | 08/16/ | Telephone | [facility] | Garfield Spain | Appointment Question | | 2015 | | ORTHOPEDIC SURGERY | MD Robin [address] [facility] | | | | | [address] [facility] | [place], [place] | | | | | [place], [place] | [address] | | | | | [address] | | | | | | [phone] | | | +--------+ + + + [...]
--- OUTSIDE RECORDS SUMMARY | ~2019-11-01 | XMS | Encounter Summary ---
Demographics + + + | Address | [address] | | | [place] [address] | + + + | Home Phone | | + + + | Preferred Language | Unknown | + + + | Marital Status | Single | + + + | Worship Affiliation | Unknown | + + + | Race | Unknown | + + + | Ethnic Group | Unknown | + + + Author + + + | Author | [facility] | | | and [place] | + + + | Organization | [facility] | | | [...] [place] | | | | | [address] | | + + + + + | Maria G Nj | ECON | Unknown | | + + + + + Care Team Providers + +------+ + | Care Php Software Engineer Name | Role | Phone | + +------+ + | Scott Parmar MD | PCP | | + +------+ + Reason for Visit + + + | Reason | Comments | + + + | Disability Form | | + + + Encounter Details +--------+ + + + + | Date | Type | Department | Care Team | Description | +--------+ + + + + | 08/21/ | Telephone | [facility] | Werner Singh, | Disability Form | | 2017 | | NEUROSURGERY [address] | DO [address] | | | | | [address] | [address] [place], [place] | | | | | [place], [place] | [id number] | | | | | [address] | | | | | | [phone] | | | +--------+ + + + [...]
--- OUTSIDE RECORDS SUMMARY | ~2019-11-01 | XMS | Encounter Summary ---
Demographics + + + | Address | [address] | | | [place] [address] | + + + | Home Phone | | + + + | Preferred Language | Unknown | + + + | Marital Status | Single | + + + | Baptism Affiliation | Unknown | + + + | Race | Unknown | + + + | Ethnic Group | Unknown | + + + Author + + + | Author | [facility] | | | and [place] | + + + | Organization | [facility] | | | and [place] | + + + | Address | Unknown | + + + | Phone | Unavailable | + + + Support + + + + + | Name | Relationship | Address | Phone | + + + + + | Latha Solano | ECON | [address] | | | | | [place] | | | | | [address] | | + + + + + | Maria G Nj | ECON | Unknown | | + + + + + Care Team Providers + +------+ + | Care French Polisher Name | Role | Phone | + +------+ + | cSott Parmar MD | PCP | | + +------+ + Reason for Visit + + + | Reason | Comments | + + + | Numbness | bilateral legs, left greater than right | + + + Service/Procedure (Urgent) +--------+ + + + + [...] Required | Rehabilitatio | of skin | [address] | | | | n | sensation | [address] | [address] [place] | | | | | Equinus | [place], | [place], [place] | | | | | deformity of | [place] [address] | [address] Phone: | | | | | foot Foot | Phone: | [phone] | | | | | drop, left | [phone] | Fax: | | | | | foot | Fax: | [phone] | | | | | Procedures | [phone] | | | | | | SC MOTOR | | | | | | | &/SENS 1-2 | | | | | | | NRV CNDJ | | | | | | | PRECONF | | | | | | | ELTRODE LIMB | | | | | | | SC NEEDLE | | | | | | | EMG EA | | | | | | | EXTREMTY | | | | | | | W/PARASPINL | | | | | | | AREA | | | | | | | COMPLETE | | | +--------+ + + + + + Encounter Details +--------+ + + + + | Date | Type | Department | Care Team | Description | +--------+ + + + + | 08/21/ | Procedure | [facility] | Nikita Lowry | Diabetic peripheral | | 2016 | visit | PHYSIATRY [address] | MD [place] [address] | neuropathy (HCC) | | | | [address] | [place] | (Primary Dx); Lumbar | | | | [place] | [address] | radiculopathy | | | | [address] | | | | | | [phone] | | | +--------+ + + + [...] + + + | Blood Pressure | 112/79 | 08/22/2015 8:21 AM | | | | | PST | | + + + + + | Pulse | 118 | 08/22/2015 8:21 AM | | | | | PST [...] Weight | 119.7 kg (264 lb) | 08/22/2015 8:21 AM | | | | | PST | | + + + + + | Height | 170.2 cm (5' 7") | 08/22/2015 8:21 AM | | | | | PST | | + + + + + | Body Mass Index | 41.35 | 08/22/2015 8:21 AM | | | | | PST | | + + + + + documented in this encounter Progress Notes Nikita Lowry MD - 08/22/2015 9:36 AM PST [facility] Musculoskeletal, Sports and Spine, Physiatry [facility] [address] [place] [address] Test Date: 08/21/2015 Patient Name: Antonio Orozco : 1970 Physician: Nikita Lowry MD MR #: [id number] Sex: Male Referring Physician: Garfield Spain MD HISTORY: The patient is a pleasant 45 year-old female who is being seen today at the [facility] of Dr. Garfield Spain for complaints of left foot drop which has been present since a lumbar spine surgery in 2006. The patient reports that it was a partial foot drop until Nov when she sustained another injury lifting a heavy car tire to put it up on a hook in t he garage. She reports a sudden onset of back and leg pain and has had more weakness in the left leg since that time, to the point that she can no longer voluntarily dorsiflex the mahad t or great toe. She can still bring invert and lorena the foot a little and has some plantar flexion but those movements are also weaker. The patient does have a history of diabetes, h ypothyroidism and the prior lumbar radiculopathy. She denies any history of alcoholism, can cer, renal failure or vitamin deficiency. Nerve Conduction Studies Anti Sensory Summary Table Site NR Peak (ms) Norm Peak (ms) P-T Amp (V) Norm P-T Amp Site1 Site2 Delta-P (ms) Dist (cm) Feliz (m/s) Norm Feliz (m/s) Left Sup Peron Anti Sensory (Ant Lat Mall) 14 cm *NR <4.4 >5.0 14 cm Ant Lat Mall 14.0 >32 Right Sup Peron Anti Sensory (Ant Lat Mall) 14 cm *NR <4.4 >5.0 14 cm Ant Lat Mall 14.0 >32 Left Sural Anti Sensory (Lat Mall) Calf *NR <4.0 >5.0 Calf Lat Mall 14.0 >35 Right Sural Anti Sensory (Lat Mall) Calf *NR <4.0 >5.0 Calf Lat Mall 14.0 >35 Motor Summary Table Site NR Onset (ms) Norm Onset (ms) O-P Amp (mV) Norm O-P Amp Site1 Site2 Delta-0 (ms) Dist (cm) Feliz (m/s) Norm Feliz (m/s) Left Peroneal Motor (Ext Dig Brev) Ankle *NR <6.1 >2.5 Right Peroneal Motor (Ext Dig Brev) Ankle *NR <6.1 >2.5 Left Peroneal TA Motor (Tib Ant) Fib Head 4.1 <4.2 0.4 Poplit Fib Head 1.4 8.0 57 >40.5 Poplit 5.5 <5.7 0.4 Right Peroneal TA Motor (Tib Ant) Fib Head 2.8 <4.2 2.2 Poplit Fib Head 1.7 8.0 47 >40.5 Poplit 4.5 <5.7 1.6 Left Tibial Motor (Abd Correa Brev) Ankle *NR <6.1 >3.0 Right Tibial Motor (Abd Correa Brev) Ankle *NR <6.1 >3.0 EMG Side Muscle Nerve Root Ins Act Fibs Psw Amp Dur Poly Recrt Int Pat Comment Left VastusMed Femoral L2-4 Nml Nml Nml Nml Nml 0 Nml Nml Left AntTibialis Dp Br Peron L4-5 Nml *3+ *3+ *Incr *>12ms *2+ *Reduced *25% Left ExtHallLong Dp Br Peron L5, S1 Nml *3+ *3+ *Incr Nml *2+ *Reduced *25% Left Gastroc Tibial S1-2 Nml Nml Nml Nml Nml 0 Nml Nml Left Flex Dig Long Tibial L5-S2 Nml *3+ *3+ *Incr Nml *2+ *Reduced *25% Nerve Conduction Studies Motor Left/Right Comparison Site L Lat (ms) R Lat (ms) L-R Lat (ms) L Amp (mV) R Amp (mV) L-R Amp (%) Site1 Site2 L Ve l (m/s) R Feliz (m/s) L-R Feliz (m/s) Peroneal Motor (Ext Dig Brev) Ankle Peroneal TA Motor (Tib Ant) Fib Head 4.1 2.8 1.3 0.4 2.2 81.8 Poplit Fib Head 57 47 10 Poplit 5.5 4.5 1.0 0.4 1.6 75.0 Tibial Motor (Abd Correa Brev) Ankle Anti Sensory Left/Right Comparison Site L Lat (ms) R Lat (ms) L-R Lat (ms) L Amp (V) R Amp (V) L-R Amp (%) Site1 Site2 L Feliz (m/s) R Feliz (m/s) L-R Feliz (m/s) Sup Peron Anti Sensory (Ant Lat Mall) 14 cm 14 cm Ant Lat Mall Sural Anti Sensory (Lat Mall) Calf Calf Lat Mall NCV FINDINGS: Evaluation of the Left peroneal motor, the Right peroneal motor, the Left tibial motor, and the Right tibial motor nerves showed no response (Ankle). The Left superficial peroneal se nsory and the Right superficial peroneal sensory nerves showed no response (14 cm). The Lef t sural sensory and the Right sural sensory nerves showed no response (Calf). All remaining nerves (as indicated in the preceding tables) were within normal limits. EMG FINDINGS: Needle evaluation of the Left anterior tibialis muscle showed increased spontaneous activit y, increased motor unit amplitude, increased motor unit duration, moderately increased polyp hasic potentials, diminished recruitment, and very decreased interference pattern. The Left extensor hallucis longus and the Left flexor digitorum longus muscles showed increased spon taneous activity, increased motor unit amplitude, moderately increased polyphasic potentials , diminished recruitment, and very decreased interference pattern. All remaining muscles (a s indicated in the preceding table) showed no evidence of electrical instability. IMPRESSION: This is a somewhat complex study with multiple abnormal findings. In summary, there was el ectrodiagnostic evidence of a severe peripheral neuropathy in both lower extremities, likely due to her history of chronic diabetes and/or hypothyroidism. There is also electrodiagnostic evidence of a concomitant severe right L5 radiculopathy wit h extensive denervation throughout the L5 innervated muscles. I did not see any evidence of focal peripheral nerve entrapment. The patient is being seen by both neurosurgery and orthopedic surgery for these issues and will follow-up with them for further discussion of treatment options. Nikita Lowry MD Fellow, [employer] documented in this encounter Plan of Treatment Not on filedocumented as of this encounter Visit Diagnoses + + | Diagnosis | + + | Diabetic peripheral neuropathy (HCC) - Primary Type II or unspecified type diabetes | | mellitus with neurological manifestations, not stated as uncontrolled | + + | Lumbar radiculopathy Thoracic or lumbosacral neuritis or radiculitis, unspecified | + + documented in this encounter
--- OUTSIDE RECORDS SUMMARY | ~2019-11-01 | XMS | Encounter Summary ---
Demographics + + + | Address | [address] | | | [place] [address] | + + + | Home Phone | | + + + | Preferred Language | Unknown | + + + | Marital Status | Single | + + + | Restorationism Affiliation | Unknown | + + + [...] [place] | | | | | [address] | | + + + + + | Maria G Nj | ECON | Unknown | | + + + + + Care Team Providers + +------+ + | Care Crane Man Name | Role | Phone | + +------+ + | Scott Parmar MD | PCP | | + +------+ + Encounter Details +--------+ + + + + | Date | Type | Department | Care Team | Description | +--------+ + + + + | 06/30/ | Abstract | [facility] [place] | Declan Arthur, | | | 2015 | | NEUROSURGERY [address] | PA-C [address] | | | | | [address] | [address] [place] | | | | | [place], [place] | [place] [address] | | | | | [address] | [phone] | | | | | [phone] | | | +--------+ + + + [...] + + +---------+ + | No | 0 Standard drinks | 0.0 | [...]
--- OUTSIDE RECORDS SUMMARY | ~2019-11-01 | XMS | Encounter Summary ---
Demographics + + + | Address | [address] | | | [place] [address] | + + + | Home Phone | | + + + | Preferred Language | Unknown | + + + | Marital Status | Single | + + + | Mormonism Affiliation | Unknown | + + + | Race | White | + + + | Ethnic Group | Not or | + + + Author + + + | Author | [facility] | + + + | Organization | [facility] | + + + | Address [...] Team Providers + +------+ + | Care Manager Cardiac Cath Name | Role | Phone | + +------+ + | Scott Parmar MD | PCP | | + +------+ + Encounter Details +--------+ + + + + | Date | Type | Department | Care Team | Description | +--------+ + + + + | 11/07/ | Hospital | Radiology/Imaging | | Canceled (Provider | | 2016 | Encounter | Lab at [id number] | | Request) | | | | [address] [place] Mailcode: | | | | | | [facility] | [facility], | | | | | | [facility] [address]rd | | | | | | Floor [place], [place] | | | | | | [address] | | | | | | [phone] | | | +--------+ + + + [...] | | 0 | | | | [id number] | | | | | | | [...] | | + +---------+ + + | [facility] DEPARTMENT OF | | | | | RADIOLOGY | | | | + +---------+ + + documented in this encounter Visit Diagnoses + + | Diagnosis | + + | Lumbar spine pain Lumbago | + + documented in this encounter"
--- OUTSIDE RECORDS SUMMARY | ~2019-11-01 | XMS | Encounter Summary ---
Demographics + + + | Address | [address] | | | [place] [address] | + + + | Home Phone | | + + + | Preferred Language | Unknown | + + + | Marital Status | Single | + + + | Judaism Affiliation | Unknown | + + + | Race | Unknown | + + + | Ethnic Group | Unknown | + + + Author + + + | Author | [facility] | | | and [place] | + + + | Organization | [facility] | | | and [place] | + [...] [place] | | | | | [address] | | + + + + + | Maria G Nj | ECON | Unknown | | + + + + + Care Team Providers + +------+ + | Care Skiing Teacher Name | Role | Phone | + [...] | Werner Dover DO | [address] | | | | | kyphosis of | [address] | [place], | | | | | lumbar | [address] | [place] | | | | | region | [place] | [address] | | | | | Spondylolist | [address] | Phone: | | | | | hesis, | Phone: | [phone] | | | | | lumbar | [phone] | Fax: | | | | | region | Fax: | [phone] | | | | | Lumbar | [phone] | | | | | | stenosis [...] | | +--------+--------+ + + + + Diagnostic/Screening (Routine) +--------+--------+ + + + + | Status | Reason | Specialty | Diagnoses / | Referred By | Referred To | | | | | Procedures | Contact | Contact | +--------+--------+ + + + + | Closed | | Radiology | Diagnoses | [facility], | [facility] | | | | | Cervical | Werner Dover DO | [address] | | | | | radicular | [address] | [place], | | | | | pain | [address] | [place] | | | | | Procedures | [place] | [address] | | | | | MRI Cervical | [address] | Phone: | | | | | Spine wo | Phone: | [phone] | | | | | Contrast | [phone] | Fax: | | | | | | Fax: | [phone] | | | | | | [phone] | | +--------+--------+ + + + + Reason for Visit + + + | Reason | Comments | + + + | Follow-up | Discuss surgery | + + + Encounter Details +--------+---------+ + + + | Date | Type | Department | Care Team | Description | +--------+---------+ + + + | 09/11/ | Office | [facility] | Werner Singh, | Postural kyphosis of | | 2016 | Visit | NEUROSURGERY [address] | DO [address] | lumbar region | | | | [address] | [address] [place], [place] | (Primary Dx); | | | | [place], [place] | [address] | Spondylolisthesis, | | | | [address] | | lumbar region; | | | | [phone] | | Lumbar stenosis; | | | | | | Lumbar radicular | | | | | | pain; Bilateral low | | | | | | back pain with | | | | | | left-sided sciatica; | | | | | | Left foot drop; | | | | | | Cervical radicular | | | | | | pain | +--------+---------+ + + + Social History [...] + + + | Blood Pressure | 115/85 | 09/12/2015 9:13 AM | | | | | PDT | | + + + + + | Pulse | 115 | 09/12/2015 9:13 AM | | | | | PDT | | + + + + + | Temperature | - | - | | + + + + + | Respiratory Rate | 20 | 09/12/2015 9:13 AM | | | | | PDT | | + + + + + | Oxygen Saturation | - | - | | + + + + + | Inhaled Oxygen | - | - | | | Concentration | | | | + + + + + | Weight | 119.7 kg (264 lb) | 09/12/2015 9:13 AM | | | | | PDT | | + + + + + | Height | 170.2 cm (5' 7") | 09/12/2015 9:13 AM | | | | | PDT | | + + + + + | Body Mass Index | 41.35 | 09/12/2015 9:13 AM | | | | | PDT | | + + + + + documented in this encounter Patient Instructions Patient Instructions Werner Singh DO - 09/12/2015 10:10 AM PDTPlease undergo MRI of the cervical and thoracic spine. Please undergo scoliosis series x-rays. Please follow-up after the imaging.Electronically signed by Werner Singh DO at 6 10:11 AM PDT documented in this encounter Progress Notes Werner Singh DO - 09/12/2015 10:11 AM PDTFormatting of this note might be different fro m the original. Werner Singh DO [address] [place], [place] [address] FAX: NEUROSURGERY HISTORY AND PHYSICAL EXAMINATION CHIEF COMPLAINT: Chief Complaint Patient presents with Follow-up Discuss surgery HISTORY OF PRESENT ILLNESS: The patient is a 45 y.o. female with the complaint of Back and left leg symptoms that began 2004 after she fell at [employer]. following this , patient missed 2 weeks of work and ultimately progressed into work slowly with the help of physical therapy. For 18-24 months after this patient had ongoing back pain that was intol erable and she was able to go to work. Then, in February or March 2007 patient had surgery in [place] where she underwent an L3-L 4 and [...] a left foot drop that has josephine r been addressed or treated. Patient worked at [employer] and did purchase an L FO but has never gotten it fit. Following this surgery patient never recovered to the level that she was at prior to surgery. Patient ultimately went to a pain clinic in the [facility] where she has continued to get conservative [...] this time her sister who lives in [place] would have to clean the house, help [...] let go from her job at the [employer] and is currently unemployed. Patient feels at [...] partial relief. Since her last visit she mentions new tingling in her hands bilaterally. She presents to [facility]. PAST MEDICAL HISTORY: Past Medical History Diagnosis Date Benign essential hypertension Type 2 diabetes mellitus (HCC) Hypothyroidism Diverticulitis Spondylosis Acute maxillary sinusitis Cystitis Bronchitis Irregular menstrual cycle Hypertension PAST SURGICAL HISTORY: Past Surgical History Procedure Laterality Date Back surgery 04/09/2007 [facility] CURRENT MEDICATIONS: Current Outpatient Prescriptions Medication Sig [...] 2% ointment Apply topically 2 times daily. [place] 3 1200 MG CAPS Take by mouth. [...] no rheumatoid arthritis. PHYSICAL EXAMINATION: Blood pressure 115/85, pulse 115, resp. rate 20, height 1.702 m (5' [...] has no apparent deficits with short or extermination supervisor memory. CRANIAL NERVES: II: Acuity is intact. 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 There are multiple levels of degenerative disc disease with the worst occurring at L3-L4 with the anterior endplates b eing a near contact with each other. This results in subsequent anterior osteophyte formati on. In addition, there are multiple levels of lumbar spondylosis with bulging disks causing very degrees of spinal stenosis. At L3-L4 there is a bulging disc that occurs in the centr al and left lateral recess likely affecting the traversing L4 nerve root. There is another large bulging disc on the right at L4-L5 but this does not seem to have as significant effec t on the traversing nerve. Behind the body of L5 is a extruded disc fragment that appears t o be affecting the traversing S1 nerve on the left. This is likely the main source of her p ain down her leg. In reviewing the upper images there is a fairly large disc fragment betwe en L1 and L2 in the central and left lateral recess that is quite prominent and compressing the traversing L2 nerve root. I'm unable to appreciate the exiting L5 nerve root on the lef t or the right. Lumbar x-rays show lumbar kyphosis and spondylolisthesis L2-3. ASSESSMENT: NEUROSURGICAL DIAGNOSES: Encounter Diagnoses Name Primary? Postural kyphosis of lumbar region Yes Spondylolisthesis, lumbar region Lumbar stenosis Lumbar radicular pain Bilateral low back pain with left-sided sciatica Left foot drop Cervical radicular pain GENERAL DIAGNOSES: Past Medical History Diagnosis Date [...] of operative and nonoperative options, she will continue conservati ve management with further workup. I will order scoliosis x-rays and MRI of the cervical and thoracic spine. We talked about the possibility of lumbar deformity surgery here or at [facility] depending on the imaging results. She will follow-up with me after the imaging is complete. ELECTRONICALLY SIGNED BY: Werner Singh DO, 09/12/2015 10:18 documented in this en counter Plan of Treatment Not on filedocumented as of this encounter Results MRI Thoracic Spine wo Contrast (09/29/2015 1:20 PM PDT) + + | Specimen | + + | | + + + + + | Narrative | Performed At | + + + | MRI THORACIC SPINE WITHOUT CONTRAST: 09/29/2015 12:35 PM CLINICAL | [facility] | | HISTORY: Severe posture abnormality with inability to stand or walk | [facility] | | without difficulty COMPARISON: None TECHNIQUE: In the 3 T [facility] | | scanner, multiplanar, multisequence imaging of [...] margins of the | | vertebral bodies [id number] to mid body T12 as discussed above. [...] ST. | [address] | [place] | [phone] | | [facility] | | [address] | | | - IMAGING | | | | + + + + + MRI Cervical Spine wo Contrast (09/29/2015 1:20 PM PDT) + + | Specimen | + + | | + + + + + | Narrative | Performed At | + + + | MRI CERVICAL SPINE WITHOUT CONTRAST: 09/29/2015 12:34 PM CLINICAL | [facility] | | HISTORY: Cervical radiculopathy COMPARISON: None TECHNIQUE: | [facility] | | Multiplanar, multisequence imaging of the cervical spine is | MEDICAL CENTER | | performed. FINDINGS: Straightening of the normal cervical | - IMAGING | | lordosis, with no focal loss of alignment. Vertebral body heights are | | | normally maintained. No marrow signal abnormality. Multiple small | | | anterior cervical lymph nodes, largest measuring 6 mm. No other | | | extra spinous soft tissue abnormalities. Posterior fossa contents | | | included and the cervical cord show normal signal and appearance. | | | C3-C4: Minimal central disc bulge. No central canal or foraminal | | | narrowing. C4-C5: Minimal central disc bulge. No central canal or | | | foraminal narrowing. C5-C6: Minimal central disc bulge. No central | | | canal or foraminal narrowing. C6-C7: Within normal limits. | | | C7-T1: Within normal limits. IMPRESSION - 1. Straightening of the | | | normal cervical lordosis. Minimal prominence of the posterior disc | | | margin in the upper cervical spine. Appearances within normal limits | | | for age. Dictated and Signed by: Rob Griffin MD | | | Electronically signed: 09/29/2015 3:05 PM | | + + + + + | Procedure Note | + + | Marcello, Rad Results In - 09/29/2015 3:08 PM PDT MRI CERVICAL SPINE WITHOUT CONTRAST: | | 09/29/2015 12:34 PMCLINICAL HISTORY: Cervical radiculopathyCOMPARISON: NoneTECHNIQUE: | | Multiplanar, multisequence imaging of the cervical spine | | isperformed.FINDINGS:Straightening of the normal cervical lordosis, with no focal loss | | of alignment.Vertebral body heights are normally maintained. No marrow signal | | abnormality.Multiple small anterior cervical lymph nodes, largest measuring 6 mm. No | | otherextra spinous soft tissue abnormalities.Posterior fossa contents included and the | | cervical cord show normal signal andappearance.C3-C4: Minimal central disc bulge. No | | central canal or foraminal narrowing.C4-C5: Minimal central disc bulge. No central canal | | or foraminal narrowing.C5-C6: Minimal central disc bulge. No central canal or foraminal | | narrowing.C6-C7: Within normal limits.C7-T1: Within normal limits.IMPRESSION -1. | | Straightening of the normal cervical lordosis. Minimal prominence of theposterior disc | | margin in the upper cervical spine. Appearances within normallimits for age.Dictated and | | Signed by: Rob Griffin MD Electronically signed: 09/29/2015 3:05 PM | |extra spinous soft tissue abnormalities. | | | |Posterior fossa contents included and the cervical cord show normal signal and | |appearance. | | | |C3-C4: Minimal central disc bulge. No central canal or foraminal narrowing. | | | |C4-C5: Minimal central disc bulge. No central canal or foraminal narrowing. | | | |C5-C6: Minimal central disc bulge. No central canal or foraminal narrowing. | | | |C6-C7: Within normal limits. | | | |C7-T1: Within normal limits. | | | |IMPRESSION - | |1. Straightening of the normal cervical lordosis. Minimal prominence of the | |posterior disc margin in the upper cervical spine. Appearances within normal | |limits for age. | | | |Dictated and Signed by: Rob Griffin MD | | Electronically signed: 09/29/2015 3:05 PM | + + + + + + + | Performing | Address | City/State/Zipcode | Phone Number | | Organization | | | | + + + + + | [facility] | [address] | [place] | [phone] | | [facility] | | [address] | | | - IMAGING | | | | + + + + + XR Scoliosis Entire Spine 6+ Views (09/29/2015 11:36 AM PDT) + + | Specimen | + + | | + + + + + | Narrative | Performed At | + + + | FOUR VIEW SCOLIOSIS SERIES 09/29/2015 11:35 AM CLINICAL HISTORY: | [facility] | | postural abnormality COMPARISON: Lumbar radiographs July 05 | [facility] | | FINDINGS: A lateral view and frontal views of the thoracolumbar spine [facility] | | in neutral and lateral bending [...] + | [facility] | [address] | [place] | [phone] | | [facility] | | [address] | | | - IMAGING | | | | + + + + + documented in this encounter Visit Diagnoses + + | Diagnosis | + + | Postural kyphosis of lumbar region - Primary | + + | Spondylolisthesis, lumbar region [...] nos | + + documented in this encounter
--- OUTSIDE RECORDS SUMMARY | ~2019-11-01 | XMS | Encounter Summary ---
Demographics + + + | Address | [address] | | | [place] [address] | + + + | Home Phone | | + + + | Preferred Language | Unknown | + + + | Marital Status | Single | + + + | Restorationist Affiliation | Unknown | + + + | Race | Unknown | + + + | Ethnic Group | Unknown | + + + Author + + + | Author | [facility] | | | and [place] | + + + | Organization | [facility] | | | [...] [place] | | | | | [address] | | + + + + + | Maria G Nj | ECON | Unknown | | + + + + + Care Team Providers + +------+ + | Care Structural Iron Worker Name | Role | Phone | [...] | | | deformity of | [place] [address] | [address] Phone: | | | | | foot Foot | Phone: | [phone] | | | | | drop, left | [phone] | Fax: | | | | | foot | Fax: | [phone] | | | | | Procedures | [phone] | | | | | | TX MOTOR | | | | | | | &/SENS 1-2 | | | | | | | NRV CNDJ | | | | | | | PRECONF | | | | | | | ELTRODE LIMB | | | | | | | TX NEEDLE | | | | | | [...] (HCC) | | | | [address] | [place] | (Primary Dx); Lumbar | | | | [place] | [address] | radiculopathy | | | | [address] | | | | | | [phone] | | | +--------+ + + + [...] Lowry MD - 08/22/2015 9:36 AM PST [facility] Musculoskeletal, Sports and Spine, Physiatry [facility] [address] [place] [address] Test Date: 08/21/2015 Patient Name: Antonio Orozco : 1970 Physician: Nikita Lowry MD MR #: [id number] Sex: Male Referring Physician: Garfield Spain MD HISTORY: The patient is a pleasant 45 year-old female who is being seen today at the [facility] of Dr. Garfield Spain for complaints of [...] (V) L-R Amp (%) Site1 Site2 L Fleiz (m/s) R Feliz (m/s) L-R Feliz (m/s) [...] of treatment options. Nikita Lowry MD Fellow, [place] [employer] documented [...]
--- OUTSIDE RECORDS SUMMARY | ~2019-11-01 | XMS | Encounter Summary ---
Demographics + + + | Address | [address] | | | [place] [address] | + + + | Home Phone | | + + + | Preferred Language | Unknown | + + + | Marital Status | Single | + + + | Mandaeism Affiliation | Unknown | + + + | Race | White | + + + | Ethnic Group | Not or | + + + Author + + + | Author | [facility] | + + + | Organization | [facility] | + + + | Address | [...] Team Providers + +------+ + | Care Healthcare Consultant Name | Role | Phone | + +------+ + | Scott Parmar MD | PCP | | + +------+ + Encounter Details +--------+ + + + + | Date | Type | Department | Care Team | Description | +--------+ + + + + | 11/07/ | Hospital | Radiology/Imaging | | | | 2016 | Encounter | Lab at [facility] [address] | | | | | | [address] Mailcode: | | | | | | [facility] | | | | | | Health and Healing, | | | | | | Building [facility] | | | | | | Floor [place], [place] | | | | | | [address] | | | | | | [phone] | | | +--------+ + + + [...] | | 0 | | | | [id number] | | | | | | | [...] | | + +---------+ + + | [facility] DEPARTMENT OF | | | | | RADIOLOGY | | | | + +---------+ + + documented in this encounter Visit Diagnoses Not on filedocumented in this encounter"
--- OUTSIDE RECORDS SUMMARY | ~2019-11-01 | XMS | Encounter Summary ---
Demographics + + + | Address | [address] | | | [place] [address] | + + + | Home Phone [...] + + + | Author | [facility] | | | and [place] | + + + | Organization | [facility] | | [...] [place] | | | | | [address] | | + + + + + | Maria G Nj | ECON | Unknown | | + + + + + Care Team Providers + +------+ + | Care Energy Professional Name | Role | Phone | + +------+ + | Scott Parmar MD | PCP | | + +------+ + Encounter Details +--------+ + + + + | Date | Type | Department | Care Team | Description | +--------+ + + + + | 08/14/ | Orders Only | [facility] [place] | Garfield Spain | Left foot drop; | | 2015 | | ORTHOPEDIC SURGERY | MD Robin [address] [place] [address] | Equinus deformity of | | | | [address] [facility] [address] | [place], [place] | foot | | | | [place], [place] | [address] | | | | | [address] | | | | | | [phone] | | | +--------+ + + + [...] feet | + + documented in this encounter"
--- OUTSIDE RECORDS SUMMARY | ~2019-11-01 | XMS | Clinical Summary ---
Demographics + + + | Address | [address] | | | [place] [address] | + + + | Home Phone | | + + + | Preferred Language | Unknown | + + + | Marital Status | Single | + + + | Mormon Affiliation | Unknown | + + + [...] [place] | | | | | [address] | | + + + + + | Maria G Deutsch | ECON | Unknown | | + + + + + Care Team Providers + +------+ + | Care Patient Safety Sitter Name | Role | Phone | + +------+ + | Scott Parmar MD | PCP | | + +------+ + Allergies + + [...] every 4 hours | tablet | | 01/09 | | e | | hen (PERCOCET) [...] | | + + + +---------+------+------+-------+ | [place] 3 1200 MG | Take by mouth. [...] + | Oxygen Saturation | 99% | 05/18/2015 10:01 PM | | | | | PST [...] | | | Dtap/Tdap/Td (1 - | 0 | | | | Tdap) | | [...] Vaccine: Influenza | | | | | (Season Ended) | 0 | | | + + + + [...] | [employer] | [employer] | [id number] | 05/18/ | [phone] | | [employer] | | MEDICAID HMO [...] Person | Self | [birth year] | [address] | | | al/Ry | | 1970 | [phone] | [address] [place], | | | [place] | | | 1 (Home) | [place] [address] | + +--------+ +--------+ + + Advance Directives + + + + + | Type | Date Recorded | Patient | Explanation | | | | Wharf Tender | | + + + + + | Power of | | | | | Health Center Manager | | | | + + + + + | Advance | | | | | Directive | | | | + + + + +
--- OUTSIDE RECORDS SUMMARY | ~2019-11-01 | XMS | Encounter Summary ---
Demographics + + + | Address | [address] | | | [place] [address] | + + + | Home Phone | | + + + | Preferred Language | Unknown | + + + | Marital Status | Single | + + + | Advent Affiliation | Unknown | + + + | Race | Unknown | + + + | Ethnic Group | Unknown | + + + Author + + + | Author | [facility] | | | and [place] | + + + | Organization | [facility] | | | [...] [place] | | | | | [address] | | + + + + + | Maria G Nj | ECON | Unknown | | + + + + + Care Team Providers + +------+ + | Care Front Office Specialist Name | Role | Phone | + [...] | | ORTHOPEDIC SURGERY | MD Robin [address] [place] [address] | Equinus deformity of | | | | [address] [facility] | [place], [place] | foot | | | | [place], [place] | [address] | | | | | [address] | | | | | | [phone] | | | +--------+ + + + [...]
--- OUTSIDE RECORDS SUMMARY | ~2019-11-01 | XMS | Encounter Summary ---
Demographics + + + | Address | [address] | | | [place] [address] | + + + | Home Phone | | + + + | Preferred Language | Unknown | + + + | Marital Status | Single | + + + | Spiritism Affiliation | Unknown | + + + | Race | Unknown | + + + | Ethnic Group | Unknown | + + + Author + + + | Author | [facility] | | | and [place] | + + + | Organization | [facility] | | | and [...] [place] | | | | | [address] | | + + + + + | Maria G Nj | ECON | Unknown | | + + + + + Care Team Providers + +------+ + | Care Family Practice Physician Assistant Name | Role | Phone | [...] | | | Spine w wo | [address] | | | | | | Contrast | Phone: | | | | | | | [phone] | | | | | | | Fax: | | | | | | | [phone] | | +--------+--------+ + + + + [...] | | | Spine w wo | [address] | | | | | | Contrast | Phone: | | | | | | | [phone] | | | | | | | Fax: | | | | | | | [phone] | | +--------+--------+ + + + + Encounter Details +--------+ + + + + | Date | Type | Department | Care Team | Description | +--------+ + + + + | 06/05/ | Hospital | [facility] | Scott Parmar | Spinal stenosis of | | 2015 | Encounter | MED CTR MRI [address] | MD Luis [address] | lumbar region | | | | [place], | [address] | | | | | [place] [address] | [place] | | | | | [phone] | [address] | | | | | | [phone] | | | | | | | [...]
--- OUTSIDE RECORDS SUMMARY | ~2019-11-01 | XMS | Encounter Summary ---
Demographics + + + | Address | [address] | | | [place] [address] | + + + | Home Phone | | + + + | Preferred Language | Unknown | + + + | Marital Status | Single | + + + | Mormon Affiliation | Unknown | + + + | Race | Unknown | + + + | Ethnic Group | Unknown | + + + Author + + + | Author | [facility] | | | and [place] | + + + | Organization | [facility] | | | and [...] [place] | | | | | [address] | | + + + + + | Maria G Nj | ECON | Unknown | | + + + + + Care Team Providers + +------+ + | Care Email Marketing Executive Name | Role | Phone | + +------+ + | Scott Parmar MD | PCP | | + +------+ + Encounter Details +--------+ + + + + | Date | Type | Department | Care Team | Description | +--------+ + + + + | 09/28/ | Hospital | [facility] | Werner Singh, | Postural kyphosis of | | 2016 | Encounter | MED CTR XRAY [address] | DO [address] | lumbar region; | | | | [place] | [address] [place], [place] | Spondylolisthesis, | | | | [place] [address] | [address] | lumbar region; | | | | [phone] | | Lumbar stenosis; | | | [...] + + + +---------+ + + | [place] 3 1200 MG | Take by mouth. [...] abnormality COMPARISON: Lumbar radiographs July 05 | [facility] | | FINDINGS: A lateral view and frontal views of the thoracolumbar spine [facility] | | in neutral and lateral [...] | + + + + + | [facility] | [address] | [place], [place] | [phone] | | [facility] | | [address] | | | - IMAGING | | [...]
--- OUTSIDE RECORDS SUMMARY | ~2019-11-01 | XMS | Encounter Summary ---
Demographics + + + | Address | [address] | | | [place] [address] | + + + | Home Phone [...] + + + | Author | [place] [employer] [facility] | + + + | Organization | [facility] [employer] [facility] | + + + | Address [...] Team Providers + +------+ + | Care Track Moving Machine Operator Name | Role | Phone | + +------+ + | Scott Parmar MD | PCP | | + +------+ + Encounter Details +--------+ + + + + | Date | Type | Department | Care Team | Description | +--------+ + + + + | 12/18/ | Abstract | Digestive Health | Clinic, Surgery | | | 2015 | | Center at [facility] [address] | | | | | | [address] | | | | | | Mailcode: Center | | | | | | for Health and | | | | | | Healing, Building [address] | | | | | | [place], [place] | | | | | | [address] | | | | | | [phone] | | | +--------+ + + + [...]
--- OUTSIDE RECORDS SUMMARY | ~2019-11-01 | XMS | Encounter Summary ---
Demographics + + + | Address | [address] | | | [place] [address] | + + + | Home Phone [...] Author + + + | Author | [place] [employer] [facility] | + + + | Organization | [facility] [employer] [facility] | + + + | [...] Team Providers + +------+ + | Care Personnel Research Scientist Name | Role | Phone | + +------+ + | Scott Parmar MD | PCP | | + +------+ + Encounter Details +--------+ + + + + | Date | Type | Department | Care Team | Description | +--------+ + + + + | 12/17/ | Abstract | Digestive Health | Clinic, Surgery | | | 2015 | | Center at [facility] [address] | | | | | | [address] | | | | | | Mailcode: Center | | | | | | for Health and | | | | | | Healing, Building [address] | | | | | | [place], [place] | | | | | | [address] | | | | | | [phone] | | | +--------+ + + + [...]
--- OUTSIDE RECORDS SUMMARY | ~2019-11-01 | XMS | Encounter Summary ---
Demographics + + + | Address | [address] | | | [place] [address] | + + + | Home Phone [...] + + + | Author | [place] [employer] [facility] | + + + | Organization | [facility] [employer] [facility] | + + + | Address | [...] Team Providers + +------+ + | Care Mucker Cofferdam Name | Role | Phone | + [...] | | | | | | Floor [place], [place] | | | | | | [address] | | | | | | [phone] | | | +--------+---------+ + + + [...] Eitan Cortez - 12/02/2007 8:21 AM PDT [id number] ENRIQUE Shields [id number] Referred From and Faxed To: Scott Parmar M.D. Referred To: Eitan Cortez M.D. Consulting Physician: Eitan Cortez M.D. Consultation Date: 11/30/2007 Referring Physician: Scott Parmar M.D. Reason For Requested Consultation: Back pain and lumbar stenosis. Dear Dr. Parmar: Thank you for referring Antonio Orozco to [facility] in [place], [place]. It was a pleasure to see this young woman and her mother today in the clinic. You may recall, this 37-year-old female is status post L3-4 and L4-5 decompressive lumbar surgery in March [address] Bryant Coker in [place], [place]. After that surgery, she has had [...] Eitan Cortez M.D. DANIEL / ANA M [id number] / [id number] / [id number] / [phone] cc: Scott Parmar M.D. [facility] [address] [place] [address] documented in this enco unter Plan of Treatment Not on filedocumented as of this encounter Visit Diagnoses Not on filedocumented in this encounter"
--- OUTSIDE RECORDS SUMMARY | ~2019-11-01 | XMS | Encounter Summary ---
Demographics + + + | Address | [address] | | | [place] [address] | + + + | Home Phone | | + + + | Preferred Language | Unknown | + + + | Marital Status | Single | + + + | Lutheran Affiliation | Unknown | + + + | Race | Unknown | + + + | Ethnic Group | Unknown | + + + Author + + + | Author | [facility] | | | and [place] | + + + | Organization | [facility] | | | [...] [place] | | | | | [address] | | + + + + + | Maria G Nj | ECON | Unknown | | + + + + + Care Team Providers + +------+ + | Care Or Nurse Manager Name | Role | Phone | + +------+ + | Scott Parmar MD | PCP | | + +------+ + Reason for Visit + + + | Reason | Comments | + + + | Back Pain | | + + + Encounter Details +--------+ + + + + | Date | Type | Department | Care Team | Description | +--------+ + + + + | 05/18/ | Emergency | [facility] | [place] | Herniation of lumbar | | 2014 - | | [facility] EM[facility] | Luis Dover MD [address] | intervertebral disc | | | | [place] [address] | [facility] | with radiculopathy | | 05/19/ | | [place] | [place] [address] | | | 2014 | | [address] | [phone] | | | | | [phone] | | | +--------+ + + + [...] + + + | Blood Pressure | 136/85 | 05/18/2015 10:01 PM | | | | | PST | | + + + + + | Pulse | 118 | 05/18/2015 10:01 PM | | | | | PST | | + + + + + | Temperature | 37.3 C (99.1 F) | 05/18/2015 10:01 PM | | | | | PST | | + + + + + | Respiratory Rate | 16 | 05/18/2015 10:01 PM | | | [...] Weight | 120.2 kg (265 lb) | 05/18/2015 10:01 PM | | | | | PST | | + + + + + | Height | 170.2 cm (5' 7") | 05/18/2015 10:01 PM | | | | | PST | | + + + + + | Body Mass Index | 41.5 | 05/18/2015 10:01 PM | | | | | PST | | + + + + + documented in this encounter Discharge Instructions Instructions Luis Pettit MD - 05/19/2015You may use Percocet instead of Colbert fo r pain control. Do not take both of these together. I do recommend use of a stool softener to help prevent constipation. Recommend follow-up with neurosurgery as discussed as well as primary care. AttachmentsThe following attachments cannot be sent through Care Everywhere.HERNIATED INTER VERTEBRAL DISK (YORUBA)documented in this encounter Medications at Time of Discharge [...] + + + | MRI LUMBAR SPINE WO | STAT | 05/19/2015 | | Results for this | | CONTRAST | | 12:29 AM | | procedure are in the | | | | PST | | results section. | + +--------+ + + + | ED INFORMATION | Routin | 05/18/2015 | | Results for this | | EXCHANGE | e | 9:52 PM | | procedure are in the | | | | PST | | results section. | + +--------+ + + + documented in this encounter Results MRI Lumbar Spine wo Contrast (05/19/2015 12:29 AM PST) + + | Specimen | + + | | + + + + + | Narrative | Performed At | + + + | UNENHANCED MRI LUMBAR SPINE 05/19/2015 12:28 AM CLINICAL | [facility] | | HISTORY: worsening LBP with left leg radiculopathy and h/o weakness | | | COMPARISON: None available TECHNIQUE:? The following 3T MR | | | sequences of the lumbar spine were obtained: 1.? Sagittal T1 with in | | | and out of phase images as well. 2.? Axial, sagittal, and coronal | | | T2. 3.? Sagittal STIR. FINDINGS: Five non rib-bearing, lumbar | | | type vertebrae are suggested on the coronal sequence. The study is | | | degraded by motion artifact on all sequences. There is leftward | | | lumbar curvature. Lumbar vertebral height and alignment otherwise | | | appear maintained, without evident fracture, conclusive spondylolysis | | | or spondylolisthesis. The conus medullaris appears to terminate at | | | T11-12. Imaged intra-abdominal and paraspinal structures are | | | unremarkable. Posterior disc protrusions are present at T11-12 and | | | T12-L1, appearing to at least mildly narrow the central canal on | | | provided sagittal images through the region. Disc desiccation, | | | mild Modic endplate hyperintensity and the left paramedian disc | | | protrusion are present at L1-2, combining with dorsal ligamentous | | | hypertrophy to moderately narrow the central canal and encroach on the | | | left subarticular recess and likely the descending left L2 nerve | | | root. No foraminal stenosis is evident. Disc desiccation, | | | anterior disc space narrowing, mild Modic endplate hyperintensity and | | | a broad-based right foraminal disc bulge are present at L2-3, | | | combining with ligamentous and facet hypertrophy to mild to moderately | | | narrow the central canal and right neural foramen without visible | | | nerve root encroachment. Disc desiccation, moderate to severe | | | disc space narrowing, Modic endplate hyperintensity, generalized | | | posterior disc bulge and a left paramedian disc protrusion are | | | present at L3-4, moderately narrowing the central canal, effacing the | | | left subarticular recess and likely encroaching on the descending | | | left L4 nerve root. There is only minimal foraminal stenosis. | | | Disc desiccation, mild disc space narrowing and a broad-based central | | | to right paramedian disc protrusion are present at L4-5, combining | | | with dorsal ligamentous and facet hypertrophy to fairly mildly narrow | | | the central canal and neural foramina although there is some | | | encroachment on the right subarticular recess and potentially the | | | descending right L5 nerve root as well. Disc desiccation, | | | generalized posterior disc bulge and left lateral disc osteophyte | | | complex are present at L5-S1, combining with ligamentous and facet | | | hypertrophy to moderately narrow the central canal and moderate to | | | severely narrow the neural foramina, left greater than right, with | | | encroachment on the exiting L5 nerve roots. Subarticular recess | | | narrowing and encroachment on the descending S1 nerve roots are | | | suggested also. Facet joint effusions are present. IMPRESSION - | | | 1. DEGENERATIVE DISC DISEASE AND MULTIFACTORIAL CENTRAL CANAL AND | | | NEUROFORAMINAL STENOSIS AT L5-S1 WITH ENCROACHMENT ON THE EXITING L5 | | | NERVE ROOTS AND POTENTIALLY THE DESCENDING S1 NERVE ROOTS WELL. | | | 2. DEGENERATIVE DISC DISEASE AND MILD STENOSIS AT L4-5 WITH | | | POTENTIAL ENCROACHMENT ON THE DESCENDING RIGHT L5 NERVE ROOT. 3. | | | DEGENERATIVE DISC DISEASE AND MODERATE CENTRAL CANAL STENOSIS AT | | | L3-4 WITH PROBABLE ENCROACHMENT ON THE DESCENDING LEFT L4 NERVE ROOT. | | | 4. DEGENERATIVE DISC DISEASE AND MILD TO MODERATE STENOSIS AT | | | L2-3 WITHOUT VISIBLE NERVE ROOT ENCROACHMENT. 5. DEGENERATIVE | | | DISC DISEASE AND MODERATE CENTRAL CANAL STENOSIS AT L1-2 WITH | | | PROBABLE ENCROACHMENT ON THE DESCENDING LEFT L2 NERVE ROOT. 6. | | | LEFTWARD LUMBAR CURVATURE AND MULTILEVEL FACET ARTHROPATHY. 7. | | | SIGNIFICANTLY MOTION DEGRADED STUDY. Preliminary results of this | | | study were reported to the ER staff by the [facility] radiologist on | | | May 19, 2015 at 0114 hours. Dictated and Signed by: Laurent | | | MD Adolfo Electronically signed: 05/19/2015 7:21 AM | | + + + + + | Procedure Note | + + | Marcello, Rad Results In - 05/19/2015 7:25 AM PST UNENHANCED MRI LUMBAR SPINE 05/19/2015 | | 12:28 AMCLINICAL HISTORY: worsening LBP with left leg radiculopathy and h/o weakness | | COMPARISON: None availableTECHNIQUE:? The following 3T MR sequences of the lumbar spine | | were obtained:1.? Sagittal T1 with in and out of phase images as well.2.? Axial, | | sagittal, and coronal T2.3.? Sagittal STIR.FINDINGS: Five non rib-bearing, lumbar type | | vertebrae are suggested on thecoronal sequence. The study is degraded by motion artifact | | on all sequences. There is leftward lumbar curvature. Lumbar vertebral height and | | alignmentotherwise appear maintained, without evident fracture, conclusive | | spondylolysisor spondylolisthesis. The conus medullaris appears to terminate at T11-12. | | Imaged intra-abdominal and paraspinal structures are unremarkable.Posterior disc | | protrusions are present at T11-12 and T12-L1, appearing to atleast mildly narrow the | | central canal on provided sagittal images through theregion.Disc desiccation, mild Modic | | endplate hyperintensity and the left paramediandisc protrusion are present at L1-2, | | combining with dorsal ligamentoushypertrophy to moderately narrow the central canal and | | encroach on the leftsubarticular recess and likely the descending left L2 nerve root. | | No foraminalstenosis is evident.Disc desiccation, anterior disc space narrowing, mild | | Modic endplatehyperintensity and a broad-based right foraminal disc bulge are present at | | L2-3,combining with ligamentous and facet hypertrophy to mild to moderately narrowthe | | central canal and right neural foramen without visible nerve rootencroachment.Disc | | desiccation, moderate to severe disc space narrowing, Modic endplatehyperintensity, | | generalized posterior disc bulge and a left paramedian discprotrusion are present at | | L3-4, moderately narrowing the central canal, effacingthe left subarticular recess and | | likely encroaching on the descending left K3itdtm root. There is only minimal foraminal | | stenosis.Disc desiccation, mild disc space narrowing and a broad-based central to | | rightparamedian disc protrusion are present at L4-5, combining with dorsalligamentous | | and facet hypertrophy to fairly mildly narrow the central canal andneural foramina | | although there is some encroachment on the right subarticularrecess and potentially the | | descending right L5 nerve root as well.Disc desiccation, generalized posterior disc | | bulge and left lateral discosteophyte complex are present at L5-S1, combining with | | ligamentous and facethypertrophy to moderately narrow the central canal and moderate to | | severelynarrow the neural foramina, left greater than right, with encroachment on | | theexiting L5 nerve roots. Subarticular recess narrowing and encroachment on | | thedescending S1 nerve roots are suggested also. Facet joint effusions | | arepresent.IMPRESSION -1. DEGENERATIVE DISC DISEASE AND MULTIFACTORIAL CENTRAL CANAL | | ANDNEUROFORAMINAL STENOSIS AT L5-S1 WITH ENCROACHMENT ON THE EXITING L5 NERVE ROOTSAND | | POTENTIALLY THE DESCENDING S1 NERVE ROOTS WELL.2. DEGENERATIVE DISC DISEASE AND MILD | | STENOSIS AT L4-5 WITH POTENTIALENCROACHMENT ON THE DESCENDING RIGHT L5 NERVE ROOT.3. | | DEGENERATIVE DISC DISEASE AND MODERATE CENTRAL CANAL STENOSIS AT L3-4 WITHPROBABLE | | ENCROACHMENT ON THE DESCENDING LEFT L4 NERVE ROOT.4. DEGENERATIVE DISC DISEASE AND MILD | | TO MODERATE STENOSIS AT L2-3 WITHOUTVISIBLE NERVE ROOT ENCROACHMENT.5. DEGENERATIVE | | DISC DISEASE AND MODERATE CENTRAL CANAL STENOSIS AT L1-2 WITHPROBABLE ENCROACHMENT ON | | THE DESCENDING LEFT L2 NERVE ROOT.6. LEFTWARD LUMBAR CURVATURE AND MULTILEVEL FACET | | ARTHROPATHY.7. SIGNIFICANTLY MOTION DEGRADED STUDY.Preliminary results of this study | | were reported to the [facility] staff [facility] on May 19, 2015 at 0114 | | hours.Dictated and Signed by: Laurent Mata MD Electronically signed: 05/19/2015 7:21 AM | | | |Disc desiccation, generalized posterior disc bulge and left lateral disc | |osteophyte complex are present at L5-S1, combining with ligamentous and facet | |hypertrophy to moderately narrow the central canal and moderate to severely | |narrow the neural foramina, left greater than right, with encroachment on the | |exiting L5 nerve roots. Subarticular recess narrowing and encroachment on the | |descending S1 nerve roots are suggested also. Facet joint effusions are | |present. | | | |IMPRESSION - | |1. DEGENERATIVE DISC DISEASE AND MULTIFACTORIAL CENTRAL CANAL AND | |NEUROFORAMINAL STENOSIS AT L5-S1 WITH ENCROACHMENT ON THE EXITING L5 NERVE ROOTS | |AND POTENTIALLY THE DESCENDING S1 NERVE ROOTS WELL. | | | |2. DEGENERATIVE DISC DISEASE AND MILD STENOSIS AT L4-5 WITH POTENTIAL | |ENCROACHMENT ON THE DESCENDING RIGHT L5 NERVE ROOT. | | | |3. DEGENERATIVE DISC DISEASE AND MODERATE CENTRAL CANAL STENOSIS AT L3-4 WITH | |PROBABLE ENCROACHMENT ON THE DESCENDING LEFT L4 NERVE ROOT. | | | |4. DEGENERATIVE DISC DISEASE AND MILD TO MODERATE STENOSIS AT L2-3 WITHOUT | |VISIBLE NERVE ROOT ENCROACHMENT. | | | |5. DEGENERATIVE DISC DISEASE AND MODERATE CENTRAL CANAL STENOSIS AT L1-2 WITH | |PROBABLE ENCROACHMENT ON THE DESCENDING LEFT L2 NERVE ROOT. | | | |6. LEFTWARD LUMBAR CURVATURE AND MULTILEVEL FACET ARTHROPATHY. | | | |7. SIGNIFICANTLY MOTION DEGRADED STUDY. | | | |Preliminary results of this study were reported to the ER staff by the [facility] | |radiologist on May 19, 2015 at 0114 hours. | | | |Dictated and Signed by: Laurent Mata MD | | Electronically signed: 05/19/2015 7:21 AM | + + + +---------+ + + | Performing | Address | City/State/Zipcode | Phone Number | | Organization | | | | + +---------+ + + | [facility] | | | | + +---------+ + + ED INFORMATION EXCHANGE (05/18/2015 9:52 PM PST) + + | Specimen | + + | | + + + + + | Narrative | Performed At | + + + | ED/UCC VISIT TRACKING (3 MO.) Visit Date | [place] [facility] | | Location Type | | | Dx / Complaint -------- | | | ---- | | | 05/18/2015 21:49 [facility] | | | [facility] Emergency -hip pain 05/18/2015 18:37 | | | [facility] Emergency BACK | | | PAIN/ NO INJURY 05/07/2015 13:49 [facility] | | | Emergency -Disorder of thyroid, unspecified | | | | | | -Cellulitis of right lower limb | | | | | | -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 | | | | | | -Lumbago with sciatica, left side | | | | | | -Other specified postprocedural | | | states | | | -Pain in left leg | | | | | | -Cellulitis of left lower limb | | | | | | -Allergy status to penicillin | | | 05/06/2015 08:26 [facility] | | | Emergency -Allergy status to penicillin | | | | | | -Lumbago with sciatica, left side | | | | | | -Unspecified fall, initial encounter | | | | | | -Strain of muscle, fascia and tendon of lower | | | back, initial | | | encounter | | | | | | -Unspecified place in unspecified | | | non-institutional (private) | | | | | | residence as the place of occurrence of the external cause | | | | | | -Low back pain | | | | | | -Disorder of thyroid, unspecified | | | | | | -Other specified postprocedural states | | | | | | -Cellulitis of left lower limb | | | | | | -Essential (primary) hypertension | | | | | | -Type 2 diabetes mellitus without complications | | | | | | -Intervertebral disc disorders | | | with radiculopathy, lumbar region | | | | | | -Allergy status to other drugs, medicaments and biological | | | | | | substances status INPATIENT VISIT | | | TRACKING (1 MO.) Visit Date LocationTypeDx / | | | Complaint | | | ED VISIT COUNT (1 | | | YR.) Visits [place] Dx Location ------ | | | --------- 1 0 | | | [facility] 3 0 | | | [facility] 4 0 | | | Total Note: Visits indicate total known visits. [place] | | | Dx are the number of primary diagnoses on the [facility] ED's non-emergent dx | | | list. | | | | | | --- [facility] has no Care Guidelines for this patient. [place] | | | Prescription Review PDMP Report No PDMP report found. | | + + + + +---------+ + + | Performing | Address | City/State/Zipcode | Phone Number | | Organization | | | | + +---------+ + + | [facility] | | | | + +---------+ + + documented in this encounter Visit Diagnoses + + | Diagnosis | + + | Herniation of lumbar intervertebral disc with radiculopathy Intervertebral lumbar | | disc disorder with myelopathy, lumbar region | + + documented in this encounter Administered Medications + +--------+ +------+------+------+ | Medication Order | MAR | Action | Dose | Rate | Site | | | Action | Date | | | | + +--------+ +------+------+------+ | HYDROmorphone (DILAUDID) 1 | Given | 05/18/20 | 1 mg | | | | mg/mL injection 1 mg 1 mg, | | 15 11:22 | | | | | Intravenous, ONCE, [facility] 05/18/15 | | PM PST | | | | | at 2230, For 1 dose | | | | | | + +--------+ +------+------+------+ +---+---+ | | | +---+---+ + +-------+ +------+---+---+ | HYDROmorphone (DILAUDID) 1 | Given | 05/19/20 | 1 mg | | | | mg/mL injection 1 mg 1 mg, | | 15 12:05 | | | | | Intravenous, EVERY 15 MIN PRN, | | AM PST | | | | | Pain, Starting Christin 05/18/15 at | | | | | | | 2336, For 4 doses | | | | | | + +-------+ +------+---+---+ +-------+ +------+---+---+ | Given | 05/18/20 | 1 mg | | | | | 15 11:44 | | | | | | PM PST | | | | +-------+ +------+---+---+ +---+---+ | | | +---+---+ + +-------+ +------+---+---+ | LORazepam (ATIVAN) injection 1 | Given | 05/18/20 | 1 mg | | | | mg 1 mg, Intravenous, ONCE, [facility] | | 15 11:22 | | | | | 05/18/15 at 2230, For 1 dose | | PM PST | | | | + +-------+ +------+---+---+ +---+---+ | | | +---+---+ + +-------+ +------+---+---+ | LORazepam (ATIVAN) injection 1 | Given | 05/18/20 | 1 mg | | | | mg 1 mg, Intravenous, ONCE, [facility]in | | 15 11:45 | | | | | 05/18/15 at 2340, For 1 dose | | PM PST | | | | + +-------+ +------+---+---+ +---+---+ | | | +---+---+ + + + + +---+---+ | oxyCODONE-acetaminophen | Dispense | 05/19/20 | 1 tablet | | | | (PERCOCET) 5-325 mg per tablet | to Home | 15 2:03 | | | | | (ED prepack) 1-2 tablet 1-2 | | AM PST | | | | | tablet, Oral, ONCE, 05/19/15 | | | | | | | at 0145, For 1 dose, 1-2 | | | | | | | tablet(s) every 4-6 hours prn | | | | | | | pain Dispense for home use., | | | | | | + + + + +---+---+ +---+---+ | | | +---+---+ documented in this encounter
--- OUTSIDE RECORDS SUMMARY | ~2019-11-01 | XMS | Encounter Summary ---
Demographics + + + | Address | [address] | | | [place] [address] | + + + | Home Phone | | + + + | Preferred Language | Unknown | + + + | Marital Status | Single | + + + | Yarsanism Affiliation | Unknown | + + + | Race | Unknown | + + + | Ethnic Group | Unknown | + + + Author + + + | Author | [facility] | | | and [place] | + + + | Organization | [facility] | | [...] [place] | | | | | [address] | | + + + + + | Maria G Nj | ECON | Unknown | | + + + + + Care Team Providers + +------+ + | Care Python Programmer Name | Role | Phone | + +------+ + | Scott Parmar MD | PCP | | + +------+ + Encounter Details +--------+ + + + + | Date | Type | Department | Care Team | Description | +--------+ + + + + | 07/05/ | Hospital | [facility] | MellisaDeclan ramirez, | Left ankle pain; | | 2015 | Encounter | MED CTR XRAY [address] | PA-C [address] | Left ankle | | | | [place] | [address] [place] | instability; Left | | | | [place] [address] | [place] [address] | foot drop | | | | [phone] | [phone] | | | | | | | [...] + + + +---------+ + + | Peosta 3 1200 MG | Take by mouth. [...] + +--------+ + + + | XR ANKLE LEFT 3 + VW | Routin | 07/05/2015 | Left ankle pain | Results for this | | | e | 1:08 PM | Left ankle | procedure are in the | | | | PST | instability Left | results section. | | | | | foot drop | | + +--------+ + + + documented in this encounter Results XR Ankle Left 3 [...] + | [facility] | [address] | [place] | [phone] | | [facility] | | [address] | | | - IMAGING | | | | + + + + + documented in this encounter Visit Diagnoses + + | Diagnosis | + + | Left ankle pain Pain in joint, ankle and foot | + + | Left ankle instability Other joint derangement, not elsewhere classified, ankle and | | foot | + + | Left foot drop Other acquired deformity of ankle and foot | + + documented in this encounter"
--- OUTSIDE RECORDS SUMMARY | ~2019-11-01 | XMS | Encounter Summary ---
Demographics + + + | Address | [address] | | | [place] [address] | + + + | Home Phone | | + + + | Preferred Language | Unknown | + + + | Marital Status | Single | + + + | Worship Affiliation | Unknown | + + + | Race | Unknown | + + + | Ethnic Group | Unknown | + + + Author + + + | Author | [facility] | | | and [place] | + + + | Organization | [facility] | | | [...] [place] | | | | | [address] | | + + + + + | Maria G Nj | ECON | Unknown | | + + + + + Care Team Providers + +------+ + | Care Bell Person Name | Role | Phone | + [...] + + | 09/20/ | Office | [facility] | Declan Arthur, | Lumbosacral | | 2016 | Visit | ORTHOPEDIC SURGERY | PA-C [address] | radiculopathy at L5 | | | | [address] [facility] | [address] | (Primary Dx); | | | | [place] | [place] [address] | Equinus deformity of | | | | [address] | [phone] | foot | | | | [phone] | | | | | | | Garfield Spain | | | | | | MD Robin [address] | | | | | | [place] | | | | | | [address] | | | | | | | [...] - 09/21/2015 10:44 AM PDTSee soap note [id number].Electronically sign ed by Garfield Spain MD at 09/21/2015 10:44 AM PDTHenGarfield zaragoza MD - 10:43 AM PDT [facility]TH[facility]IC SURGERY [address] [place] [address] OFFICE NOTE GARFIELD SPAIN MD Patient: ANTONIO NUNEZ Admitting: MR #: [id number] LOC: PT TYPE: Adm Date: 09/21/2015 : 1970 SUBJECTIVE: Antonio returns today for follow up of her left ankle equinus contracture secon ryan to complete loss of active dorsiflexion due to an underlying L5 radiculopathy. Antonio has just obtained a custom ankle/foot orthosis from [employer] in [facility]. This is wor serg well. He did [...] Transcribed on 09/21/2015 11:07:27 by jeri job# [id number] Confirmation #: [id number] cc: SCOTT PARMAR MD documented in this [...]
--- OUTSIDE RECORDS SUMMARY | ~2019-11-01 | XMS | Encounter Summary ---
Demographics + + + | Address | [address] | | | [place] [address] | + + + | Home Phone [...] + + | Author | [place] [facility] | + + + | Organization | [email or web address] [facility] | + + + | Address | [...] Team Providers + +------+ + | Care Hydraulic Press Servicer Name | Role | Phone | + +------+ + | Scott Parmar MD | PCP | | + +------+ + Encounter Details +--------+ + + + + | Date | Type | Department | Care Team | Description | +--------+ + + + + | 11/07/ | Hospital | Radiology/Imaging | | | | 2016 | Encounter | Lab at [facility] [address] | | | | | | [address] [place] Mailcode: | | | | | | [facility] | | | | | | Health and Healing, | | | | | | Building [place] | | | | | | Floor [place], [place] | | | | | | [address] | | | | | | [phone] | | | +--------+ + + + [...] | | 0 | | | | [id number] | | | | | | | [...]
--- OUTSIDE RECORDS SUMMARY | ~2019-11-01 | XMS | Encounter Summary ---
Demographics + + + | Address | [address] | | | [place] [address] | + + + | Home Phone | | + + + | Preferred Language | Unknown | + + + | Marital Status | Single | + + + | Jain Affiliation | Unknown | + + + | Race | Unknown | + + + | Ethnic Group | Unknown | + + + Author + + + | Author | [facility] | | | and [place] | + + + | Organization | [facility] | | | [...] [place] | | | | | [address] | | + + + + + | Maria G Nj | ECON | Unknown | | + + + + + Care Team Providers + +------+ + | Care Java Project Manager Name | Role | Phone | + +------+ + | Scott Parmar MD | PCP | | + +------+ + Encounter Details +--------+ + + + + | Date | Type | Department | Care Team | Description | +--------+ + + + + | 06/27/ | Orders Only | [facility] [place] | Werner Singh, | Back pain, | | 2016 | | NEUROSURGERY [address] | DO [address] | unspecified back | | | | [address] | [address] [place], [place] | pain laterality, | | | | [place], [place] | [id number] | unspecified location | | | | [address] | | (Primary Dx) | | | | [phone] | | | +--------+ + + + [...] on filedocumented as of this encounter Results XR Lumbar Spine 4 [...] + + | [facility] | [address] | [place] | [phone] | | [facility] | | [address] | | | - IMAGING | | | | + + + + + documented in this encounter Visit Diagnoses + + | Diagnosis | + + | Back pain, unspecified back pain laterality, unspecified location - Primary | + + documented in this encounter"
--- OUTSIDE RECORDS SUMMARY | ~2019-11-01 | XMS | Encounter Summary ---
Demographics + + + | Address | [address] | | | [place] [address] | + + + | Home Phone | | + + + | Preferred Language | Unknown | + + + | Marital Status | Single | + + + | Pentecostalism Affiliation | Unknown | + + + | Race | Unknown | + + + | Ethnic Group | Unknown | + + + Author + + + | Author | [facility] | | | and [place] | + + + | Organization | [facility] | | | [...] [place] | | | | | [address] | | + + + + + | Maria G Nj | ECON | Unknown | | + + + + + Care Team Providers + +------+ + | Care Ged Teacher Name | Role | Phone | + +------+ + | Scott Parmar MD | PCP | | + +------+ + Reason for Visit +--------+ + | Reason | Comments | +--------+ + | Letter | | +--------+ + Encounter Details +--------+ + + + + | Date | Type | Department | Care Team | Description | +--------+ + + + + | 10/03/ | Telephone | [facility] | Werner Singh, | Letter | | 2015 | | NEUROSURGERY [address] | DO [address] | | | | | [address] [facility] [address] | [address] [place], [place] | | | | | [place], [place] | [id number] | | | | | [address] | | | | | | [phone] | | | +--------+ + + + [...]
--- OUTSIDE RECORDS SUMMARY | ~2019-11-01 | XMS | Encounter Summary ---
Demographics + + + | Address | [address] | | | [place] [address] | + + + | Home Phone | | + + + | Preferred Language | Unknown | + + + | Marital Status | Single | + + + | Congregational Affiliation | Unknown | + + + | Race | Unknown | + + + | Ethnic Group | Unknown | + + + Author + + + | Author | [facility] | | | and [place] | + + + | Organization | [facility] | | | [...] [place] | | | | | [address] | | + + + + + | Maria G Nj | ECON | Unknown | | + + + + + Care Team Providers + +------+ + | Care Beater Room Supervisor Name | Role | Phone | [...] + | 08/21/ | Telephone | [facility] | Werner Singh, | Disability Form | | 2017 | | NEUROSURGERY [address] | DO [address] | | | | | [address] | [address] [place], [place] | | | | | [place], [place] | [id number] | | | | | [address] | | | | | | [phone] | | | +--------+ + + + [...]
--- OUTSIDE RECORDS SUMMARY | ~2019-11-01 | XMS | Encounter Summary ---
Demographics + + + | Address | [address] | | | [place] [address] | + + + | Home Phone | | + + + | Preferred Language | Unknown | + + + | Marital Status | Single | + + + | Zoroastrian Affiliation | Unknown | + + + | Race | Unknown | + + + | Ethnic Group | Unknown | + + + Author + + + | Author | [facility] | | | and [place] | + + + | Organization | [facility] | | | [...] [place] | | | | | [address] | | + + + + + | Maria G Nj | ECON | Unknown | | + + + + + Care Team Providers + +------+ + | Care Recreation Programmer Name | Role | Phone | + +------+ + | Scott Parmar MD | PCP | | + +------+ + Encounter Details +--------+ + + + + | Date | Type | Department | Care Team | Description | +--------+ + + + + | 07/05/ | Hospital | [facility] | Werner Singh, | Back pain, | | 2016 | Encounter | MED CTR XRAY [address] | DO [address] | unspecified back | | | | [place] | [address] [place], [place] | pain laterality, | | | | [place] [address] | [id number] | unspecified location | | | | [phone] | | | +--------+ + + + [...] + + + +---------+ + + | [place] 3 1200 MG | Take by mouth. [...] + + | [facility] | [address] | [place] | [phone] | | [facility] | | [address] | | | - IMAGING | | | | + + + + + documented in this encounter Visit Diagnoses + + | Diagnosis | + + | Back pain, unspecified back pain laterality, unspecified location | + + documented in this encounter"
--- OUTSIDE RECORDS SUMMARY | ~2019-11-01 | XMS | Encounter Summary ---
Demographics + + + | Address | [address] | | | [place] [address] | + + + | Home Phone [...] + + + | Author | [facility] | + + + | Organization | [facility] | + + + | Address | [...] Team Providers + +------+ + | Care Social Media Senior Associate Name | Role | Phone | [...] | 2016 | on | Center at [facility] [address] | ACNP [address] | | | | | [address] | Ave [place], [place] | | | | | Mailcode: [place] | [address] | | | | | [facility] and | | | | | | [place] [address] | | | | | | [place], [place] | | | | | | [address] | | | | | | | [...]
--- OUTSIDE RECORDS SUMMARY | ~2019-11-01 | XMS | Encounter Summary ---
Demographics + + + | Address | [address] | | | [place] [address] | + + + | Home Phone | | + + + | Preferred Language | Unknown | + + + | Marital Status | Single | + + + | Alevism Affiliation | Unknown | + + + | Race | Unknown | + + + | Ethnic Group | Unknown | + + + Author + + + | Author | [facility] | | | and [place] | + + + | Organization | 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 Do not take both of these together. I do recommend use of a stool softener to help prevent constipation. Recommend follow-up with neurosurgery as discussed as well as primary care. AttachmentsThe following attachments cannot be sent through Care Everywhere.HERNIATED INTER VERTEBRAL DISK (FRISIAN)documented in this encounter Medications at Time of [...] | likely encroaching on the descending left I7cgdyq root. There is only minimal foraminal | [...] [facility] on May 19, 2015 at 0114 [...] reported to the ER staff by the [facility] | |radiologist on May 19, 2015 [...] | ---- | | | 05/18/2015 21:49 [facility] | | | [facility] Emergency -hip pain 05/18/2015 18:37 | | | [facility] BACK | | | PAIN/ NO INJURY 05/07/2015 13:49 [facility] | | | Emergency -Disorder of thyroid, unspecified | | | | | | -Cellulitis of right lower limb | | | | | | -Other tank terminal gauger (current) drug therapy | | | | | | -Lumbago with sciatica, left side | | | | | | -Other specified postprocedural | | | states | | | -Pain in left leg | | | | | | -Cellulitis of left lower limb | | | | | | -Allergy status to penicillin | | | 05/06/2015 08:26 [facility] | | | Emergency -Allergy status to [...] | --------- 1 0 | | | [facility] 3 0 | | | [facility] 4 0 | | | Total Note: Visits indicate total known visits. [place] | | | Dx are the number of primary diagnoses on the [facility]'s non-emergent dx | | | list. | | | | | | --- [facility] has no Care Guidelines for this patient. [place] | | | Prescription Review PDMP Report [...] | | | | | Intravenous, ONCE, [facility] 05/18/15 | | PM PST | | [...]
--- OUTSIDE RECORDS SUMMARY | ~2019-11-01 | XMS | Encounter Summary ---
Demographics + + + | Address | [address] | | | [place] [address] | + + + | Home Phone | | + + + | Preferred Language | Unknown | + + + | Marital Status | Single | + + + | Alevism Affiliation | Unknown | + + + | Race | Unknown | + + + | Ethnic Group | Unknown | + + + Author + + + | Author | [facility] | | | and [place] | + + + | Organization | [facility] | [...] [place] | | | | | [address] | | + + + + + | Maria G Nj | ECON | Unknown | | + + + + + Care Team Providers + +------+ + | Care Hand Cementer Name | Role | Phone | + [...] | Werner Dover DO | [address] | | | | | kyphosis of | [address] | [place], | | | | | lumbar | [address] | [place] | | | | | region | [place] | [address] | | | | | Spondylolist | [address] | Phone: | | | | | hesis, | Phone: | [phone] | | | | | lumbar | [phone] | Fax: | | | | | region | Fax: | [phone] | | | | | Lumbar | [phone] | | | | | | stenosis [...] | Werner Dover DO | [address] | | | | | kyphosis of | [address] | [place], | | | | | lumbar | [address] | [place] | | | | | region | [place], [place] | [address] | | | | | Spondylolist | [address] | Phone: | | | | | hesis, | Phone: | [phone] | | | | | lumbar | [phone] | Fax: | | | | | region | Fax: | [phone] | | | | | Lumbar | [phone] | | | | | | stenosis [...] + + | 09/28/ | Hospital | [facility] | Werner Singh, | Postural kyphosis of | | 2016 | Encounter | MED CTR MRI [address] | DO [address] | lumbar region; | | | | [address] [place], | [address] [place], [place] | Spondylolisthesis, | | | | [place] [address] | [address] | lumbar region; | | | | [phone] | | Lumbar stenosis; | | | [...] + + + +---------+ + + | [place] 3 1200 MG | Take by mouth. [...] COMPARISON: None TECHNIQUE: In the 3 T [facility] | | scanner, multiplanar, multisequence imaging of [...] margins of the | | vertebral bodies [id number] to mid body T12 as discussed above. [...] + | [facility] | [address] | [place], [place] | [phone] | | [facility] | | [address] | | | - IMAGING | | [...]
--- OUTSIDE RECORDS SUMMARY | ~2019-11-01 | XMS | Encounter Summary ---
Demographics + + + | Address | [address] | | | [place] [address] | + + + | Home Phone [...] + + + | Author | [place] [employer] [facility] | + + + | Organization | [facility] | + + + | Address | Unknown | + + + | Phone | Unavailable | + + + Support + + +---------+ + | Name | Relationship | Address | Phone | + + +---------+ + | Namrata Solano | ECON | Unknown | Unavailable | + + +---------+ + | Maria G Jn | ECON | Unknown | | + + +---------+ + Care Team Providers + +------+ + | Care Generator Mechanic Name | Role | Phone | [...] | 2016 | on | Center at [facility] [address] | ACNP [address] | | | | | [address] | Ave [place], [place] | | | | | Mailcode: [place] | [address] | | | | | [facility] and | | | | | | [place] [address] | | | | | | [place], [place] | | | | | | [address] | | | | | | | [...]
--- OUTSIDE RECORDS SUMMARY | ~2019-11-01 | XMS | Encounter Summary ---
Demographics + + + | Address | [address] | | | [place] [address] | + + + | Home Phone | | + + + | Preferred Language | Unknown | + + + | Marital Status | Single | + + + | Adventism Affiliation | Unknown | + + + | Race | Unknown | + + + | Ethnic Group | Unknown | + + + Author + + + | Author | [facility] | | | and [place] | + + + | Organization | [facility] | | | [...] [place] | | | | | [address] | | + + + + + | Maria G Nj | ECON | Unknown | | + + + + + Care Team Providers + +------+ + | Care Integration Aide Name | Role | Phone | + [...] [address] | | | | | [place], [place] | [place] [address] | | | | | [address] | [phone] | | | | | [phone] | | | +--------+ + + + [...]
--- OUTSIDE RECORDS SUMMARY | ~2019-11-01 | XMS | Encounter Summary ---
Demographics + + + | Address | [address] | | | [place] [address] | + + + | Home Phone | | + + + | Preferred Language | Unknown | + + + | Marital Status | Single | + + + | Religion Affiliation | Unknown | + + + | Race | Unknown | + + + | Ethnic Group | Unknown | + + + Author + + + | Author | [facility] | | | and [place] | + + + | Organization | [facility] | | [...] [place] | | | | | [address] | | + + + + + | Maria G Nj | ECON | Unknown | | + + + + + Care Team Providers + +------+ + | Care Replenisher Name | Role | Phone | + [...] | Werner Dover DO | [address] | | | | | kyphosis of | [address] | [place], | | | | | lumbar | [address] | [place] | | | | | region | [place] | [address] | | | | | Spondylolist | [address] | Phone: | | | | | hesis, | Phone: | [phone] | | | | | lumbar | [phone] | Fax: | | | | | region | Fax: | [phone] | | | | | Lumbar | [phone] | | | | | | stenosis [...] | Werner Dover DO | [address] | | | | | radicular | [address] | [place], | | | | | pain | [address] | [place] | | | | | Procedures | [place] | [address] | | | | | MRI Cervical | [address] | Phone: | | | | | Spine wo | Phone: | [phone] | | | | | Contrast | [phone] | Fax: | | | | | | Fax: | [phone] | | | | | | [phone] | | +--------+--------+ + + + + Reason for Visit + + + | Reason | Comments | + + + | Follow-up | Discuss surgery | + + + Encounter Details +--------+---------+ + + + | Date | Type | Department | Care Team | Description | +--------+---------+ + + + | 09/11/ | Office | [facility] | Werner Singh, | Postural kyphosis of | | 2016 | Visit | NEUROSURGERY [address] | DO [address] | lumbar region | | | | [address] | [address] [place], [place] | (Primary Dx); | | | | [place], [place] | [address] | Spondylolisthesis, | | | | [address] | | lumbar region; | | | | [phone] | | Lumbar stenosis; | | | [...] [address] [facility] [place], [place] [id number] FAX: NEUROSURGERY HISTORY AND PHYSICAL EXAMINATION CHIEF COMPLAINT: Chief Complaint Patient presents with Follow-up Discuss surgery HISTORY OF PRESENT ILLNESS: The patient is a 45 y.o. female with the complaint of Back and left leg symptoms that began 2004 after she fell at [employer]. following this , patient missed 2 weeks of work and ultimately progressed into work slowly with the help of physical therapy. For 18-24 months after this patient had ongoing back pain that was intol erable and she was able to go to work. Then, in February or March 2007 patient had surgery in [place] where she underwent an L3-L 4 and [...] addressed or treated. Patient worked at a [employer] and did purchase an L FO but has never gotten it fit. Following this surgery patient never recovered to the level that she was at prior to surgery. Patient ultimately went to a pain clinic in the [facility] where she has continued to get [...] this time her sister who lives in [place] would have to clean the house, help [...] let go from her job at the [employer] and is currently unemployed. Patient feels at [...] Laterality Date Back surgery 04/09/2007 [facility] CURRENT MEDICATIONS: Current Outpatient Prescriptions Medication Sig [...] 2% ointment Apply topically 2 times daily. [place] 3 1200 MG CAPS Take by mouth. [...] has no apparent deficits with short or equipment planner memory. CRANIAL NERVES: II: Acuity is intact. [...] Intrinsics 5 5 Ulnar Intrinsics 5 5 Security Intelligence Analyst Strength 5 5 Hip Flexion 5 [...] of lumbar deformity surgery here or at [facility] depending on the imaging results. She [...] None TECHNIQUE: In the [address] [facility] | | scanner, multiplanar, multisequence imaging [...] margins of the | | vertebral bodies [id number] to mid body T12 as discussed above. [...] [address] | [place] | [phone] | | [facility] | | [address] | | | - IMAGING | | [...] HISTORY: Cervical radiculopathy COMPARISON: None TECHNIQUE: | [facility] | | Multiplanar, multisequence imaging of the [...] + | [facility] | [address] | [place] | [phone] | | [facility] | | [address] | | | - IMAGING | | [...] abnormality COMPARISON: Lumbar radiographs July 05 | [facility] | | FINDINGS: A lateral view and frontal views of the thoracolumbar spine [facility] | | in neutral and lateral [...] + | [facility] | [address] | [place] | [phone] | | [facility] | | [address] | | | - IMAGING | | [...]
--- OUTSIDE RECORDS SUMMARY | ~2019-11-01 | XMS | Encounter Summary ---
Demographics + + + | Address | [address] | | | [place] [address] | + + + | Home Phone | | + + + | Preferred Language | Unknown | + + + | Marital Status | Single | + + + | Taoism Affiliation | Unknown | + + + [...] [place] | | | | | [address] | | + + + + + | Maria G Nj | ECON | Unknown | | + + + + + Care Team Providers + +------+ + | Care Lace Cutter Name | Role | Phone | + [...] | | | Spine w wo | [address] | | | | | | Contrast | Phone: | | | | | | | [phone] | | | | | | | Fax: | | | | | | | [phone] | | +--------+--------+ + + + + [...] | | | Spine w wo | [address] | | | | | | Contrast | Phone: | | | | | | | [phone] | | | | | | | Fax: | | | | | | | [phone] | | +--------+--------+ + + + + Encounter Details +--------+ + + + + | Date | Type | Department | Care Team | Description | +--------+ + + + + | 06/05/ | Hospital | [facility] | Scott Parmar | Spinal stenosis of | | 2015 | Encounter | MED CTR MRI [address] | MD Luis [address] | lumbar region | | | | [place], | [address] | | | | | [place] [address] | [place] | | | | | [phone] | [address] | | | | | | [phone] | | | | | | | [...]
--- OUTSIDE RECORDS SUMMARY | ~2019-11-01 | XMS | Encounter Summary ---
Demographics + + + | Address | [address] | | | [place] [address] | + + + | Home Phone [...] [place] | | | | | [address] | | + + + + + | Maria G Nj | ECON | Unknown | | + + + + + Care Team Providers + +------+ + | Care Hoist Cylinder Loader Name | Role | Phone | + [...] + + | 09/19/ | Telephone | [facility] | Werner Singh, | Imaging Only | | 2015 | | PHYSIATRY [address] | DO [address] | (Schedule | | | | [address] | [address] [place], [place] | MRI/Scoliosis) | | | | [place], [place] | [address] | | | | | [address] | | | | | | [phone] | | | +--------+ + + + [...]
--- OUTSIDE RECORDS SUMMARY | ~2019-11-01 | XMS | Encounter Summary ---
Demographics + + + | Address | [address] | | | [place] [address] | + + + | Home Phone [...] [place] | | | | | [address] | | + + + + + | Maria G Nj | ECON | Unknown | | + + + + + Care Team Providers + +------+ + | Care Vine Pruner Name | Role | Phone | + +------+ + | Scott Parmar MD | PCP | | + +------+ + Encounter Details +--------+ + + + + | Date | Type | Department | Care Team | Description | +--------+ + + + + | 07/05/ | Hospital | [facility] | MellisaDeclan ramirez, | Left ankle pain; | | 2015 | Encounter | MED CTR XRAY [address] | PA-C [address] | Left ankle | | | | [address] | [address] [place] | instability; Left | | | | [place] [address] | [place] [address] | foot drop | | | | [phone] | [phone] | | | | | | | [...] + + + +---------+ + + | [place] 3 1200 MG | Take by mouth. [...] + | [facility] | [address] | [place] | [phone] | | [facility] | | [address] | | | - IMAGING | | [...]
--- OUTSIDE RECORDS SUMMARY | ~2019-11-01 | XMS | Encounter Summary ---
Demographics + + + | Address | [address] | | | [place] [address] | + + + | Home Phone | | + + + | Preferred Language | Unknown | + + + | Marital Status | Single | + + + | Anabaptist Affiliation | Unknown | + + + | Race | White | + + + | Ethnic Group | Not or | + + + Author + + + | Author | [place] [facility] | + + + | Organization | [facility] | + + + | Address | [...] Team Providers + +------+ + | Care Racecourse Barrier Attendant Name | Role | Phone | [...] | | Scheduled | | Lumbar | [address] | [facility] Surg | | | with ROUSTABOUT CREW | | spine pain | Zack [address]restha | [address] | | | | | Procedures | Alyse Berry | [address] | | | | | CONSULT TO | [place], [place] | Mailcode: | | | | | BARIATRIC | [address] | Center for | | | | | SURGERY | Phone: | Health and | | | | | | [phone] | Healing, | | | | | | Fax: | Building 2 | | | | | | [phone] | [facility] [place] | | | | | | | [address] | | | | | | | Phone: | | | | | | | [phone] | | | | | | | Fax: | | | | | | | [phone] | +--------+ + + + + + [...] | | unspecified | [address] | [place], [place] | | | | | | [place], | [address] | | | | | Radiculopath | [place] [address] | Phone: | | | | | y, lumbar | Phone: | [phone] | | | | | region | [phone] | Fax: | | | | | Lumbago with | Fax: | [phone] | | | | | sciatica, | [phone] | | | | | | right side | | | +--------+--------+ + + + + Encounter Details +--------+---------+ + + + | Date | Type | Department | Care Team | Description | +--------+---------+ + + + | 11/07/ | Office | Orthopaedic Spine | Thomas Hair MD | Lumbar spine pain | | 2016 | Visit | Center at [facility] | [address] | (Primary Dx) | | | | [address] | [place], | | | | | Mailcode: [facility] | [place] [address] | | | | | [facility] | [phone] | | | | | and Healing, | | | | | | [facility] | | | | | | [place], [place] | | | | | | [address] | | | | | | [phone] | | | +--------+---------+ + + + [...] the surgery. She had surgery done at [place]. She has gone to the surgeon [...] AM PDTCalled and spoke to someone at [facility]'s image library in [place], [place]. They will push images immediately. They will also fax over reports. They are now in [place]. d ocumented in this encounter Plan of [...]
--- OUTSIDE RECORDS SUMMARY | ~2019-11-01 | XMS | Encounter Summary ---
Demographics + + + | Address | [address] | | | [place] [address] | + + + | Home Phone [...] [place] Guill[place] | | | | | [address] | | + + + + + | Mari aG Nj | ECON | Unknown | | + + + + + Care Team Providers + +------+ + | Care Metal Mine Inspector Name | Role | Phone | + [...] [address] [place] | | | | | [place], [place] | [place] [address] | | | | | [address] | [phone] | | | | | [phone] | | | +--------+ + + + [...]
--- OUTSIDE RECORDS SUMMARY | ~2019-11-01 | XMS | Clinical Summary ---
Demographics + + + | Address | [address] | | | [place] [address] | + + + | Home Phone | | + + + | Preferred Language | Unknown | + + + | Marital Status | Single | + + + | Mandaen Affiliation | Unknown | + + + [...] Team Providers + +------+ + | Care Rigging Foreman Name | Role | Phone | + +------+ + | Scott Parmar MD | PCP | | + +------+ + Source Comments ДМИТРИЙ is fully live on both EpicCare Ambulatory and EpicCare InPatient.[facility] Allergies + + + + + + [...] 0 | | | Activ | | [id number] | | | | | | e [...] | | | + +--------+ +--------+-------+---------+--------+ | GIS MAPPING TECHNICIAN MEDICAID | GIS MAPPING TECHNICIAN | xxxxxxxx | 12/27/19 | | | [...] Self | [birth year] | | [address] | | | al/Fam | | 1970 | [phone] | [address] [place] | | | danika | | | 1 (Home) | [place] [address] | + +--------+ +--------+ + +
--- OUTSIDE RECORDS SUMMARY | ~2019-11-01 | XMS | Encounter Summary ---
Demographics + + + | Address | [address] | | | [place] [address] | + + + | Home Phone | | + + + | Preferred Language | Unknown | + + + | Marital Status | Single | + + + | Cheondoism Affiliation | Unknown | + + + | Race | Unknown | + + + | Ethnic Group | Unknown | + + + Author + + + | Author | [facility] | | | and [place] | + + + | Organization | [facility] | | | [...] [place] | | | | | [address] | | + + + + + | Maria G Nj | ECON | Unknown | | + + + + + Care Team Providers + +------+ + | Care Managing Consultant Clinical Professor Name | Role | Phone | + [...] | ankle and | [place], | [address] Phone: | | | | | joints of | [place] [address] | [phone] | | | | | left foot | Phone: | Fax: | | | | | Other | [phone] | [phone] | | | | | instability, | Fax: | | | | | | left ankle | [phone] | | | | | | Foot [...] Closed | | Neurosurgery | Diagnoses | [facility], Ed | Samantha, | | | | | Back pain | Followup | Werner Dover DO | | | | | Procedures | | [address] | | | | | AR OFFICE | | [address] | | | | | CONSULTATION | | [place] | | | | | DEBBIE/ESTAB | | [address] Phone: | | | | | PATIENT 60 | | [phone] | | | | | MIN | | Fax: | | | | | | | [phone] | +--------+--------+ + + + + Encounter Details +--------+---------+ + + + | Date | Type | Department | Care Team | Description | +--------+---------+ + + + | 07/05/ | Office | [facility] | Declan Arthur, | Left ankle pain | | 2016 | Visit | NEUROSURGERY [address] | PA-C [address] | (Primary Dx); Left | | | | [address] | [address] [place] | ankle instability; | | | | [place], [place] | [place] [address] | Left foot drop; | | | | [address] | [phone] | Lumbar foraminal | | | | [phone] | | stenosis; Postural | | | [...] in this encounter Progress Notes Andreea Ferreira, Avionics Electrical Engineer - 07/05/2015 11:06 AM PST RIK Alexander [address] [facility] [place], [place] [address] FAX: NEUROSURGERY HISTORY AND PHYSICAL EXAMINATION CHIEF COMPLAINT: Chief Complaint Patient presents with New Patient Back pain HISTORY OF PRESENT ILLNESS: The patient is a 45 y.o. female with the complaint of Back and left leg symptoms that began 2004 after she fell at [employer]. following this , patient missed 2 weeks [...] addressed or treated. Patient worked at a [employer] and did purchase an L FO but has never gotten it fit. Following this surgery patient never recovered to the level that she was at prior to surgery. Patient ultimately went to a pain clinic in the [facility] where she has continued to get [...] this time her sister who lives in [place] would have to clean the house, help [...] let go from her job at the [employer] and is currently unemployed. Patient feels at [...] Laterality Date Back surgery 04/09/2007 [facility] CURRENT MEDICATIONS: Current Outpatient Prescriptions Medication Sig [...] 2% ointment Apply topically 2 times daily. [place] 3 1200 MG CAPS Take by mouth. [...] Intrinsics 5 5 Ulnar Intrinsics 5 5 Clean Room Operator Strength 5 5 Hip Flexion 5 5 [...] pounds. I am referring her to the [facility] or she ca n participate in weekly [...] [address] | [place] | [phone] | | [facility] | | [address] | | | - IMAGING | | [...]
--- OUTSIDE RECORDS SUMMARY | ~2019-11-01 | XMS | Encounter Summary ---
Demographics + + + | Address | [address] | | | [place] [address] | + + + | Home Phone [...] Author + + + | Author | [place] [facility] [place] [facility] | + + + | Organization | [facility] | + + + | Address | [...] Team Providers + +------+ + | Care Paint Trimmer Pipe Bowls Name | Role | Phone | + [...] Healing, | | | | | | [facility] 1, 3rd | | | | | | Floor [place], [place] | | | | | | [address] | | | | | | [phone] | | | +--------+ + + + [...] | | 0 | | | | [id number] | | | | | | | [...] | | + +---------+ + + | [facility] DEPARTMENT OF | | | | | RADIOLOGY | | | | + +---------+ + + documented in this encounter Visit Diagnoses + + | Diagnosis | + + | Lumbar spine pain Lumbago | + + documented in this encounter"
--- OUTSIDE RECORDS SUMMARY | ~2019-11-01 | XMS | Encounter Summary ---
Demographics + + + | Address | [address] | | | [place] [address] | + + + | Home Phone [...] [place] | | | | | [address] | | + + + + + | Maria G Nj | ECON | Unknown | | + + + + + Care Team Providers + +------+ + | Care Overnight Stocker Name | Role | Phone | + +------+ + | Scott Parmar MD | PCP | | + +------+ + Reason for Visit + + + | Reason | Comments | + + + | Referral (Follow up) | | + + + Encounter Details +--------+ + + + + | Date | Type | Department | Care Team | Description | +--------+ + + + + | 10/15/ | Telephone | [facility] | Werner Singh, | Referral (Follow up) | | 2015 | | NEUROSURGERY [address] | DO [address] | | | | | [address] [facility] [address] | [address] [place], [place] | | | | | [place], [place] | [id number] | | | | | [address] | | | | | | [phone] | | | +--------+ + + + [...]
--- OUTSIDE RECORDS SUMMARY | ~2019-11-01 | XMS | Encounter Summary ---
Demographics + + + | Address | [address] | | | [place] [address] | + + + | Home Phone [...] Author + + + | Author | [place] [facility] | + + + | Organization | [facility] [employer] [facility] | + + + | Address [...] Team Providers + +------+ + | Care Electric Golf Cart Repairer Name | Role | Phone | + +------+ + | Scott Parmar MD | PCP | | + +------+ + Encounter Details +--------+ + + + + | Date | Type | Department | Care Team | Description | +--------+ + + + + | 11/07/ | Hospital | Radiology/Imaging | | | | 2016 | Encounter | Lab at [facility] [address] | | | | | | [address] Mailcode: | | | | | | [facility] | | | | | | Health and Healing, | | | | | | Building [facility] | | | | | | Floor [place], [place] | | | | | | [address] | | | | | | [phone] | | | +--------+ + + + [...] | | 0 | | | | [id number] | | | | | | | [...]
--- OUTSIDE RECORDS SUMMARY | ~2019-11-01 | XMS | Encounter Summary ---
Demographics + + + | Address | [address] | | | [place] [address] | + + + | Home Phone [...] [place] | | | | | [address] | | + + + + + | Maria G Nj | ECON | Unknown | | + + + + + Care Team Providers + +------+ + | Care Crab Fisher Name | Role | Phone | + [...] | Werner Dover DO | [address] | | | | | radicular | [address] | [place], | | | | | pain | [address] | [place] | | | | | Procedures | [place] | [address] | | | | | MRI Cervical | [address] | Phone: | | | | | Spine wo | Phone: | [phone] | | | | | Contrast | [phone] | Fax: | | | | | | Fax: | [phone] | | | | | | [phone] | | +--------+--------+ + + + + [...] | Werner Dover DO | [address] | | | | | radicular | [address] | [place], | | | | | pain | [address] | [place] | | | | | Procedures | [place], [place] | [address] | | | | | MRI Cervical | [address] | Phone: | | | | | Spine wo | Phone: | [phone] | | | | | Contrast | [phone] | Fax: | | | | | | Fax: | [phone] | | | | | | [phone] | | +--------+--------+ + + + + Encounter Details +--------+ + + + + | Date | Type | Department | Care Team | Description | +--------+ + + + + | 09/28/ | Hospital | [facility] | Werner Singh, | Cervical radicular | | 2016 | Encounter | MED CTR MRI [address] | DO [address] | pain | | | | [address] [place], | [address] [place] | | | | | [place] [address] | [address] | | | | | [phone] | | | +--------+ + + + [...] + + + +---------+ + + | [place] 3 1200 MG | Take by mouth. [...] + +--------+ + + + | MRI CERVICAL SPINE | Routin | 09/29/2015 | Cervical radicular | Results for this | | WO CONTRAST | e | 1:20 PM | pain | procedure are in the | | | | PDT | | results section. | + +--------+ + + + documented in this encounter Results MRI Cervical Spine wo Contrast (09/29/2015 1:20 PM PDT) + + | Specimen | + + | | + + + + + | Narrative | Performed At | + + + | MRI CERVICAL SPINE WITHOUT CONTRAST: 09/29/2015 12:34 PM CLINICAL | [facility] | | HISTORY: Cervical radiculopathy COMPARISON: None TECHNIQUE: | LISA | | Multiplanar, multisequence imaging of the [...] ST. | [address] | [place], [place] | [phone] | | [facility] | | [address] | | | - IMAGING | | | | + + + + + documented in this encounter Visit Diagnoses + + | Diagnosis | + + | Cervical radicular pain Brachial neuritis or radiculitis nos | + + documented in this encounter"
--- OUTSIDE RECORDS SUMMARY | ~2019-11-01 | XMS | Encounter Summary ---
Demographics + + + | Address | [address] | | | [place] [address] | + + + | Home Phone | | + + + | Preferred Language | Unknown | + + + | Marital Status | Single | + + + | Pentecostal Affiliation | Unknown | + + + | Race | Unknown | + + + | Ethnic Group | Unknown | + + + Author + + + | Author | [facility] | | | and [place] | + + + | Organization | [facility] | | | [...] [place] | | | | | [address] | | + + + + + | Maria G Nj | ECON | Unknown | | + + + + + Care Team Providers + +------+ + | Care Equipment Services Associate Name | Role | Phone | [...] + + | 10/15/ | Telephone | [facility] | Werner Singh, | Referral (Follow up) | | 2015 | | NEUROSURGERY [address] | DO [address] | | | | | [address] [facility] | [address] [place], [place] | | | | | [place], [place] | [id number] | | | | | [address] | | | | | | [phone] | | | +--------+ + + + [...]
--- OUTSIDE RECORDS SUMMARY | ~2019-11-01 | XMS | Encounter Summary ---
Demographics + + + | Address | [address] | | | [place] [address] | + + + | Home Phone | | + + + | Preferred Language | Unknown | + + + | Marital Status | Single | + + + | Anglican Affiliation | Unknown | + + + | Race | White | + + + | Ethnic Group | Not or | + + + Author + + + | Author | [employer] [facility] | + + + | Organization | [facility] | + + + | Address [...] Team Providers + +------+ + | Care Senior Net Developer Architect Name | Role | Phone | + [...] | | | | | | Floor [place], [place] | | | | | | [address] | | | | | | [phone] | | | +--------+---------+ + + + [...] Eitan Cortez - 12/02/2007 8:21 AM PDT [id number] [place] [id number] Referred From and Faxed To: Scott Parmar M.D. Referred To: Eitan Cortez M.D. Consulting Physician: Eitan Cortez M.D. Consultation Date: 11/30/2007 Referring Physician: Scott Parmar M.D. Reason For Requested Consultation: Back pain and lumbar stenosis. Dear Dr. Parmar: Thank you for referring Antonio Orozco to my [facility] in [place], [place]. It was a pleasure to see this young woman and her mother today in the clinic. You may recall, this 37-year-old female is status post L3-4 and L4-5 decompressive lumbar surgery in March [address] Bryant Coker in [place], [place]. After that surgery, she has had [...] Eitan Cortez M.D. DANIEL / ANA M [id number] / [id number] / [id number] / [id number] cc: Scott Parmar M.D. [facility] [address] [place] [address] documented in this enco unter Plan of Treatment Not on filedocumented as of this encounter Visit Diagnoses Not on filedocumented in this encounter"
--- OUTSIDE RECORDS SUMMARY | ~2019-11-01 | XMS | Encounter Summary ---
Demographics + + + | Address | [address] | | | [place] [address] | + + + | Home Phone | | + + + | Preferred Language | Unknown | + + + | Marital Status | Single | + + + | Mandaen Affiliation | Unknown | + + + | Race | Unknown | + + + | Ethnic Group | Unknown | + + + Author + + + | Author | [facility] | | | and [place] | + + + | Organization | [facility] | | | [...] [place] | | | | | [address] | | + + + + + | Maria G Nj | ECON | Unknown | | + + + + + Care Team Providers + +------+ + | Care Metal Door Assembler Name | Role | Phone | + [...] | | | deformity of | [place] [address] | [address] Phone: | | | | | foot Foot | Phone: | [phone] | | | | | drop, left | [phone] | Fax: | | | | | foot | Fax: | [phone] | | | | | Procedures | [phone] | | | | | | [place] [...] | ankle and | [place], | [address] Phone: | | | | | joints of | [place] [address] | [phone] | | | | | left foot | Phone: | Fax: | | | | | Other | [phone] | [phone] | | | | | instability, | Fax: | | | | | | left ankle | [phone] | | | | | | Foot drop, | | | | | | | left foot | | | +--------+ + + + + + Encounter Details +--------+---------+ + + + | Date | Type | Department | Care Team | Description | +--------+---------+ + + + | 08/14/ | Office | [facility] | Jerson Declan Nat, | Left foot drop | | 2016 | Visit | ORTHOPEDIC SURGERY | PA-C [address] | (Primary Dx); | | | | [address] | [address] [place] | Equinus deformity of | | | | [place], [place] | [place] [address] | foot | | | | [address] | [phone] | | | | | [phone] | | | | | | | Garfield Spain | | | | | | MD Robin [address] | | | | | | [place], [place] | | | | | | [address] | | | | | | | [...] - 08/14/2015 5:49 PM PSTSee soap note [id number].Electronically sign ed by Garfield Spain MD at 08/14/2015 5:49 PM Garfield Saucedo MD - 5:39 PM PST [facility] ORTHOPEDIC SURGERY [address] [place] [address] [phone] OFFICE NOTE GARFIELD SPAIN MD Patient: ANTONIO OROZCO Admitting: MR #: [id number] LOC: PT TYPE: Adm Date: 08/14/2015 : 1970 IDENTIFICATION: Antonio Orozco is a 45-year-old female who resides in [place]. She see s Dr. Parmar for primary care. CHIEF COMPLAINT: Left ankle pain and flexion contracture. HISTORY: Antonio states that she sustained an injury in 2004 while employed by a [employer]. She had persistent and worsening back pain [...] been seen at a pain clinic in [facility] where she has had several injections that have helped to relieve some pain for several weeks at a time. She was employed for almost 9 yea rs by in-home [employer] in [place], but was let go from that job [...] mg by mouth twice daily. Bactroban ointment. [place] caps daily. Prilosec 20 mg by mouth [...] Transcribed on 08/15/2015 08:41:36 by nallely job# [id number] Confirmation #: [id number] cc: SCOTT PARMAR MD documented in this [...]
--- OUTSIDE RECORDS SUMMARY | ~2019-11-01 | XMS | Clinical Summary ---
Demographics + + + | Address | [address] | | | [place] [address] | + + + | Home Phone | | + + + | Preferred Language | Unknown | + + + | Marital Status | Single | + + + | Gnosticist Affiliation | Unknown | + + + [...] Team Providers + +------+ + | Care Hydroelectric Station Operator Name | Role | Phone | + +------+ + | Scott Parmar MD | PCP | | + +------+ + Source Comments ДМИТРИЙ is fully live on both EpicCare Ambulatory and EpicCare InPatient.[facility] Allergies + + + + + + [...] 0 | | | Activ | | [id number] | | | | | | e [...] | | | + +--------+ +--------+-------+---------+--------+ | AEROSPACE ENGINEER OFFICER [employer] MEDICAID | AEROSPACE ENGINEER OFFICER ARMAMENT | xxxxxxxx | 12/27/19 | | | [...] Self | [birth year] | | [address] | | | al/Fam | | 1970 | [phone] | [address] [place] | | | danika | | | [address] (Home) | [place] [address] | + +--------+ +--------+ + +
--- OUTSIDE RECORDS SUMMARY | ~2019-11-01 | XMS | Encounter Summary ---
Demographics + + + | Address | [address] | | | [place] [address] | + + + | Home Phone | | + + + | Preferred Language | Unknown | + + + | Marital Status | Single | + + + | Taoist Affiliation | Unknown | + + + | Race | Unknown | + + + | Ethnic Group | Unknown | + + + Author + + + | Author | [facility] | | | and [place] | + + + | Organization | [facility] | | [...] [place] | | | | | [address] | | + + + + + | Maria G Nj | ECON | Unknown | | + + + + + Care Team Providers + +------+ + | Care High School Combination Teacher Name | Role | Phone | [...] | Werner Dover DO | [address] | | | | | radicular | [address] | [place], | | | | | pain | [address] | [place] | | | | | Procedures | [place] | [address] | | | | | MRI Cervical | [address] | Phone: | | | | | Spine wo | Phone: | [phone] | | | | | Contrast | [phone] | Fax: | | | | | | Fax: | [phone] | | | | | | [phone] | | +--------+--------+ + + + + [...] | Werner Dover DO | [address] | | | | | radicular | [address] | [place], | | | | | pain | [address] | [place] | | | | | Procedures | [place], [place] | [address] | | | | | MRI Cervical | [address] | Phone: | | | | | Spine wo | Phone: | [phone] | | | | | Contrast | [phone] | Fax: | | | | | | Fax: | [phone] | | | | | | [phone] | | +--------+--------+ + + + + Encounter Details +--------+ + + + + | Date | Type | Department | Care Team | Description | +--------+ + + + + | 09/28/ | Hospital | [facility] | Werner Singh, | Cervical radicular | | 2016 | Encounter | MED CTR MRI [address] | DO [address] | pain | | | | [place], | [address] [place] | | | | | [place] [address] | [address] | | | | | [phone] | | | +--------+ + + + [...] + + + +---------+ + + | [place] 3 1200 MG | Take by mouth. [...] ST. | [address] | [place], [place] | [phone] | | [facility] | | [address] | | | - IMAGING | | | | + + + + + documented in this encounter Visit Diagnoses + + | Diagnosis | + + | Cervical radicular pain Brachial neuritis or radiculitis nos | + + documented in this encounter"
--- OUTSIDE RECORDS SUMMARY | ~2019-11-01 | XMS | Encounter Summary ---
Demographics + + + | Address | [address] | | | [place] [address] | + + + | Home Phone | | + + + | Preferred Language | Unknown | + + + | Marital Status | Single | + + + | Rastafari Affiliation | Unknown | + + + | Race | Unknown | + + + | Ethnic Group | Unknown | + + + Author + + + | Author | [facility] | | | and [place] | + + + | Organization | [facility] | | | [...] [place] | | | | | [address] | | + + + + + | Maria G Nj | ECON | Unknown | | + + + + + Care Team Providers + +------+ + | Care Air Bag Buffer Name | Role | Phone | + [...] + + | 09/20/ | Office | [facility] | Declan Arthur, | Lumbosacral | | 2016 | Visit | ORTHOPEDIC SURGERY | PA-C [address] | radiculopathy at L5 | | | | [address] [facility] | [address] | (Primary Dx); | | | | [place] | [place] [address] | Equinus deformity of | | | | [address] | [phone] | foot | | | | [phone] | | | | | | | Garfield Spain | | | | | | MD Robin [address] | | | | | | [place] | | | | | | [address] | | | | | | | [...] - 09/21/2015 10:44 AM PDTSee soap note [id number].Electronically sign ed by Garfield Spain MD at 09/21/2015 10:44 AM PDTHenGarfield zaragoza MD - 10:43 AM PDT [facility] [address] [place] [address] OFFICE NOTE GARFIELD SPAIN MD Patient: ANTONIO NUNEZ Admitting: MR #: [id number] LOC: PT TYPE: Adm Date: 09/21/2015 : 1970 SUBJECTIVE: Antonio returns today for follow up of her left ankle equinus contracture secon ryan to complete loss of active dorsiflexion due to an underlying L5 radiculopathy. Antonio has just obtained a custom ankle/foot orthosis from [facility] in [facility]. This is wor serg well. He [...] Transcribed on 09/21/2015 11:07:27 by jeri job# [id number] Confirmation #: [id number] cc: SCOTT PARMAR MD documented in this [...]
--- OUTSIDE RECORDS SUMMARY | ~2019-11-01 | XMS | Encounter Summary ---
Demographics + + + | Address | [address] | | | [place] [address] | + + + | Home Phone | | + + + | Preferred Language | Unknown | + + + | Marital Status | Single | + + + | Moravian Affiliation | Unknown | + + + | Race | White | + + + | Ethnic Group | Not or | + + + Author + + + | Author | [place] [facility] | + + + | Organization | [facility] | + + + | Address [...] Team Providers + +------+ + | Care Negative Notcher Name | Role | Phone | + +------+ + | Scott Parmar MD | PCP | | + +------+ + Encounter Details +--------+ + + + + | Date | Type | Department | Care Team | Description | +--------+ + + + + | 12/17/ | Abstract | Digestive Health | Clinic, Surgery | | | 2015 | | Center at [facility] [address] | | | | | | [address] | | | | | | Mailcode: Center | | | | | | for Health and | | | | | | Healing, Building 2 | | | | | | [place], [place] | | | | | | [address] | | | | | | [phone] | | | +--------+ + + + [...]
--- OUTSIDE RECORDS SUMMARY | ~2019-11-01 | XMS | Encounter Summary ---
Demographics + + + | Address | [address] | | | [place] [address] | + + + | Home Phone [...] [place] | | | | | [address] | | + + + + + | Maria G Nj | ECON | Unknown | | + + + + + Care Team Providers + +------+ + | Care Manager Mental Health Name | Role | Phone | + +------+ + | Scott Parmar MD | PCP | | + +------+ + Encounter Details +--------+ + + + + | Date | Type | Department | Care Team | Description | +--------+ + + + + | 07/05/ | Hospital | [facility] | Werner Singh, | Back pain, | | 2016 | Encounter | MED CTR XRAY [address] | DO [address] | unspecified back | | | | [place] | [address] [place], [place] | pain laterality, | | | | [place] [address] | [id number] | unspecified location | | | | [phone] | | | +--------+ + + + [...] + + + +---------+ + + | Hubert 3 1200 MG | Take by mouth. [...] ST. | [address] | [place] | [phone] | | [facility] | | [address] | | | - IMAGING | | | | + + + + + documented in this encounter Visit Diagnoses + + | Diagnosis | + + | Back pain, unspecified back pain laterality, unspecified location | + + documented in this encounter"
--- OUTSIDE RECORDS SUMMARY | ~2019-11-01 | XMS | Encounter Summary ---
Demographics + + + | Address | [address] | | | [place] [address] | + + + | Home Phone [...] + + + | Author | [facility] | + + + | Organization | [facility] | + + + | Address | Unknown | + + + | Phone | Unavailable | + + + Support + + +---------+ + | Name | Relationship | Address | Phone | + + +---------+ + | Namrata Soalno | ECON | Unknown | Unavailable | + + +---------+ + | Maria G Nj | ECON | Unknown | | + + +---------+ + Care Team Providers + +------+ + | Care Rotational Moulding Operator Name | Role | Phone | [...] | | Scheduled | | Lumbar | [address] | [facility] | | | with BARBECUE COOK | | spine pain | Zack Shrestha | [address] | | | | | Procedures | A[place] [address] | [address] | | | | | CONSULT TO | [place], [place] | Mailcode: | | | | | BARIATRIC | [address] | Center for | | | | | SURGERY | Phone: | Health and | | | | | | [phone] | Healing, | | | | | | Fax: | Building 2 | | | | | | [phone] | [facility] [place] | | | | | | | [address] | | | | | | | Phone: | | | | | | | [phone] | | | | | | | Fax: | | | | | | | [phone] | +--------+ + + + + + [...] | | unspecified | [address] | [place], [place] | | | | | | [place], | [address] | | | | | Radiculopath | [place] [address] | Phone: | | | | | y, lumbar | Phone: | [phone] | | | | | region | [phone] | Fax: | | | | | Lumbago with | Fax: | [phone] | | | | | sciatica, | [phone] | | | | | | right side | | | +--------+--------+ + + + + Encounter Details +--------+---------+ + + + | Date | Type | Department | Care Team | Description | +--------+---------+ + + + | 11/07/ | Office | Orthopaedic Spine | Thomas Hair MD | Lumbar spine pain | | 2016 | Visit | Center at [facility] [address] | [address] | (Primary Dx) | | | | [address] | [place], | | | | | Mailcode: [facility] | [place] [address] | | | | | [facility] | [phone] | | | | | and Healing, | | | | | | [facility] | | | | | | [place], [place] | | | | | | [address] | | | | | | [phone] | | | +--------+---------+ + + + [...] the surgery. She had surgery done at [place] on. She has gone to the surgeon [...] AM PDTCalled and spoke to someone at [facility]'s image library in [place], [place]. They will push images immediately. They will also fax over reports. They are now in [employer]. d ocumented in this encounter Plan of [...]
--- OUTSIDE RECORDS SUMMARY | ~2019-11-01 | XMS | Encounter Summary ---
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 Do not take both of these together. I do recommend use of a stool softener to help prevent constipation. Recommend follow-up with neurosurgery as discussed as well as primary care. AttachmentsThe following attachments cannot be sent through Care Everywhere.HERNIATED INTER VERTEBRAL DISK ([place])documented in this encounter Medications at Time of [...] | likely encroaching on the descending left [id number] root. There is only minimal foraminal | [...] [facility] May [facility], 2015 at 0114 | [...] reported to the ER staff by the [facility] | |radiologist on May 19, 2015 [...] | ---- | | | 05/18/2015 21:49 [facility] | | | [facility] Emergency -hip pain 05/18/2015 18:37 | | | [facility] Emergency BACK | | | PAIN/ NO INJURY 05/07/2015 13:49 [facility] | | | Emergency -Disorder of thyroid, unspecified | | | | | | -Cellulitis of right lower limb | | | | | | -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 [place] | | | Dx are the number of primary diagnoses on the [facility]'s non-emergent dx | | | list. | | | | | | --- [facility] has no Care Guidelines for this patient. [place] | | | Prescription Review PDMP Report [...] | | | | | Intravenous, ONCE, [facility] 05/18/15 | | PM PST | | [...]
--- OUTSIDE RECORDS SUMMARY | ~2019-11-01 | XMS | Encounter Summary ---
Demographics + + + | Address | [address] | | | [place] [address] | + + + | Home Phone | | + + + | Preferred Language | Unknown | + + + | Marital Status | Single | + + + | Gnosticism Affiliation | Unknown | + + + | Race | Unknown | + + + | Ethnic Group | Unknown | + + + Author + + + | Author | [facility] | | | and [place] | + + + | Organization | [facility] | | | and [...] [place] | | | | | [address] | | + + + + + | Maria G Nj | ECON | Unknown | | + + + + + Care Team Providers + +------+ + | Care Freight Service Inspector Name | Role | Phone | + +------+ + | Scott Parmar MD | PCP | | + +------+ + Encounter Details +--------+ + + + + | Date | Type | Department | Care Team | Description | +--------+ + + + + | 09/28/ | Hospital | [facility] | Werner Singh, | Postural kyphosis of | | 2016 | Encounter | MED CTR XRAY [address] | DO [address] | lumbar region; | | | | [place] | [address] [place], [place] | Spondylolisthesis, | | | | [place] [address] | [address] | lumbar region; | | | | [phone] | | Lumbar stenosis; | | | [...] + + + +---------+ + + | Bolivar 3 1200 MG | Take by mouth. [...] abnormality COMPARISON: Lumbar radiographs July 05 | [facility] | | FINDINGS: A lateral view and frontal views of the thoracolumbar spine [facility] | | in neutral and lateral [...] | + + + + + | [facility] | [address] | [place], [place] | [phone] | | [facility] | | [address] | | | - IMAGING | | [...]
--- OUTSIDE RECORDS SUMMARY | ~2019-11-01 | XMS | Encounter Summary ---
Demographics + + + | Address | [address] | | | [place] [address] | + + + | Home Phone | | + + + | Preferred Language | Unknown | + + + | Marital Status | Single | + + + | Denominational Affiliation | Unknown | + + + | Race | Unknown | + + + | Ethnic Group | Unknown | + + + Author + + + | Author | [facility] | | | and [place] | + + + | Organization | [facility] | | [...] [place] | | | | | [address] | | + + + + + | Maria G Nj | ECON | Unknown | | + + + + + Care Team Providers + +------+ + | Care Mine Exploration Engineer Name | Role | Phone | [...] + | 08/21/ | Telephone | [facility] | Werner Singh, | Disability Form | | 2017 | | NEUROSURGERY [address] | DO [address] | | | | | [address] | [address] [place], [place] | | | | | [place], [place] | [id number] | | | | | [address] | | | | | | [phone] | | | +--------+ + + + [...]
--- OUTSIDE RECORDS SUMMARY | ~2019-11-01 | XMS | Encounter Summary ---
Demographics + + + | Address | [address] | | | [place] [address] | + + + | Home Phone | | + + + | Preferred Language | Unknown | + + + | Marital Status | Single | + + + | Sabianism Affiliation | Unknown | + + + | Race | Unknown | + + + | Ethnic Group | Unknown | + + + Author + + + | Author | [facility] | | | and [place] | + + + | Organization | [facility] | | | [...] [place] | | | | | [address] | | + + + + + | Maria G Nj | ECON | Unknown | | + + + + + Care Team Providers + +------+ + | Care Purification Operator Name | Role | Phone | [...] | | | | | unspecified | [address] | | | | | spinal | Phone: | [place], [place] | | | | | region | [phone] | [address] | | | | | Lumbar | Fax: | Phone: | | | | | radicular | [phone] | [phone] | | | | | pain | | Fax: | | | | | Chronic low | | [phone] | | | | | back pain [...] + + | 10/01/ | Office | [facility] | Werner Singh, | Kyphosis, | | 2015 | Visit | NEUROSURGERY [address] | DO [address] | unspecified kyphosis | | | | [address] | [address] [place], [place] | type, unspecified | | | | [place], [place] | [id number] | spinal region | | | | [address] | | (Primary Dx); Lumbar | | | | [phone] | | radicular pain; | | | [...] - 10/02/2015 11:41 AM PDTPlease follow-up at [facility] Please follow-up with me as needed.Electronically signed by Werner Singh DO at 11:41 AM PDT documented in this encounter Progress Notes Werner Singh DO - 10/02/2015 11:42 AM PDTFormatting of this note might be different fro m the original. Werner Singh DO [address] [place] [address] FAX: NEUROSURGERY HISTORY AND PHYSICAL EXAMINATION CHIEF COMPLAINT: Chief Complaint Patient presents with Follow-up MRI f/u HISTORY OF PRESENT ILLNESS: The patient is a 45 y.o. female with the complaint of Back and left leg symptoms that began 2004 after she fell at [employer]. following this , patient missed 2 weeks of work and ultimately progressed into work slowly with the help of physical therapy. For 18-24 months after this patient had ongoing back pain that was intol erable and she was able to go to work. Then, in February or March 2007 patient had surgery in [place] where she underwent an L3-L 4 and [...] addressed or treated. Patient worked at a [employer] and did purchase an L FO but has never gotten it fit. Following this surgery patient never recovered to the level that she was at prior to surgery. Patient ultimately went to a pain clinic in the [facility] where she has continued to get [...] this time her sister who lives in [place] would have to clean the house, help [...] let go from her job at the [employer] and is currently unemployed. Patient feels at [...] History Procedure Laterality Date Back surgery 04/09/2007 [facility] CURRENT MEDICATIONS: Current Outpatient Prescriptions Medication Sig [...] 2% ointment Apply topically 2 times daily. Nesmith 3 1200 MG CAPS Take by mouth. 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 CRANIAL NERVES: II: Acuity is intact. [...] Intrinsics 5 5 Ulnar Intrinsics 5 5 Special Trackwork Blacksmith Strength 5 5 Hip Flexion 5 5 [...] and nonoperative options, she will follow-up at [facility] or neurosurgery consultation. Her deformity, if determined [...]
--- OUTSIDE RECORDS SUMMARY | ~2019-11-01 | XMS | Encounter Summary ---
Demographics + + + | Address | [address] | | | [place] [address] | + + + | Home Phone [...] [place] | | | | | [address] | | + + + + + | Maria G Nj | ECON | Unknown | | + + + + + Care Team Providers + +------+ + | Care Art Professor Name | Role | Phone | [...] + + | 08/16/ | Telephone | [facility] | Garfield Spain | Appointment Question | | 2015 | | ORTHOPEDIC SURGERY | MD Robin [address] [facility] | | | | | [address] [facility] | [place], [place] | | | | | [place], [place] | [address] | | | | | [address] | | | | | | [phone] | | | +--------+ + + + [...]
--- OUTSIDE RECORDS SUMMARY | ~2019-11-01 | XMS | Encounter Summary ---
Demographics + + + | Address | [address] | | | [place] [address] | + + + | Home Phone [...] Author + + + | Author | [place] [facility] | + + + | Organization | [facility] | + + + | Address [...] Team Providers + +------+ + | Care Sheep Shearer Name | Role | Phone | + +------+ + | Scott Parmar MD | PCP | | + +------+ + Encounter Details +--------+ + + + + | Date | Type | Department | Care Team | Description | +--------+ + + + + | 11/07/ | Hospital | Radiology/Imaging | | | | 2016 | Encounter | Lab at [facility] [address] | | | | | | [address] Mailcode: | | | | | | [facility] | | | | | | Health and Healing, | | | | | | Building [facility] | | | | | | Floor [place], [place] | | | | | | [address] | | | | | | [phone] | | | +--------+ + + + [...] | | 0 | | | | [id number] | | | | | | | [...]
--- OUTSIDE RECORDS SUMMARY | ~2019-11-01 | XMS | Clinical Summary ---
Demographics + + + | Address | [address] | | | [place] [address] | + + + | Home Phone | | + + + | Preferred Language | Unknown | + + + | Marital Status | Single | + + + | Samaritan Affiliation | Unknown | + + + [...] Team Providers + +------+ + | Care Fashion Merchandiser Name | Role | Phone | + +------+ + | Scott Parmar MD | PCP | | + +------+ + Source Comments ДМИТРИЙ is fully live on both EpicCare Ambulatory and EpicCare InPatient.[facility] Allergies + + + + + [...] 0 | | | Activ | | [id number] | | | | | | e [...] | | | + +--------+ +--------+-------+---------+--------+ | PRODUCT MANAGEMENT INTERNSHIP MEDICAID | PRODUCT MANAGEMENT INTERNSHIP | [id number] | 12/27/19 | | | [...] Self | [birth year] | [address] | | | al/Fam | | 1970 | [phone] [place] | | | danika | | | 1 (Home) | [place] [address] | + +--------+ +--------+ + +
--- OUTSIDE RECORDS SUMMARY | ~2019-11-01 | XMS | Encounter Summary ---
Demographics + + + | Address | [address] | | | [place] [address] | + + + | Home Phone | | + + + | Preferred Language | Unknown | + + + | Marital Status | Single | + + + | Tenriism Affiliation | Unknown | + + + | Race | Unknown | + + + | Ethnic Group | Unknown | + + + Author + + + | Author | [facility] | | | and [place] | + + + | Organization | [facility] | | [...] [place] | | | | | [address] | | + + + + + | Maria G Nj | ECON | Unknown | | + + + + + Care Team Providers + +------+ + | Care Poiser Balance Name | Role | Phone | + [...] + + | 09/19/ | Telephone | [facility] | Werner Singh, | Imaging Only | | 2015 | | PHYSIATRY [address] | DO [address] | (Schedule | | | | [address] | [address] [place], [place] | MRI/Scoliosis) | | | | [place], [place] | [address] | | | | | [address] | | | | | | [phone] | | | +--------+ + + + [...]
--- OUTSIDE RECORDS SUMMARY | ~2019-11-01 | XMS | Encounter Summary ---
Demographics + + + | Address | [address] | | | [place] [address] | + + + | Home Phone | | + + + | Preferred Language | Unknown | + + + | Marital Status | Single | + + + | Latter-Day Affiliation | Unknown | + + + | Race | Unknown | + + + | Ethnic Group | Unknown | + + + Author + + + | Author | [facility] | | | and [place] | + + + | Organization | [facility] | | | [...] [place] | | | | | [address] | | + + + + + | Mraia G Nj | ECON | Unknown | | + + + + + Care Team Providers + +------+ + | Care Test Driller Name | Role | Phone | + [...] [address] | | | | | [place], [place] | [place] [address] | | | | | [address] | [phone] | | | | | [phone] | | | +--------+ + + + [...]
--- OUTSIDE RECORDS SUMMARY | ~2019-11-01 | XMS | Encounter Summary ---
Demographics + + + | Address | [address] | | | [place] [address] | + + + | Home Phone [...] + + + | Author | [place] [facility] | + + + | Organization | [facility] | + + + | Address [...] Team Providers + +------+ + | Care Auto Body Repairer Name | Role | Phone | [...] | Center at [facility] [address] | | | | | | [address] | | | | | | Mailcode: Center | | | | | | for Health and | | | | | | Healing, Building [address] | | | | | | [place], [place] | | | | | | [address] | | | | | | [phone] | | | +--------+ + + + [...]
--- OUTSIDE RECORDS SUMMARY | ~2019-11-01 | XMS | Encounter Summary ---
Demographics + + + | Address | [address] | | | [place] [address] | + + + | Home Phone | | + + + | Preferred Language | Unknown | + + + | Marital Status | Single | + + + | Nondenominational Affiliation | Unknown | + + + | Race | White | + + + | Ethnic Group | Not or | + + + Author + + + | Author | [facility] | + + + | Organization | [facility] | + + + [...] Team Providers + +------+ + | Care Upper Leather Sorter Name | Role | Phone | + +------+ + | Scott Parmar MD | PCP | | + +------+ + Encounter Details +--------+ + + + + | Date | Type | Department | Care Team | Description | +--------+ + + + + | 12/17/ | Abstract | Digestive Health | Clinic, Surgery | | | 2015 | | Center at [facility] [address] | | | | | | [address] | | | | | | Mailcode: Center | | | | | | for Health and | | | | | | Healing, [address] | | | | | | [place], [place] | | | | | | [address] | | | | | | [phone] | | | +--------+ + + + [...]
--- OUTSIDE RECORDS SUMMARY | ~2019-11-01 | XMS | Encounter Summary ---
Demographics + + + | Address | [address] | | | [place] [address] | + + + | Home Phone | | + + + | Preferred Language | Unknown | + + + | Marital Status | Single | + + + | Roman Catholic Affiliation | Unknown | + + + | Race | White | + + + | Ethnic Group | Not or | + + + Author + + + | Author | [place] [facility] | + + + | Organization | [facility] | + + + [...] Team Providers + +------+ + | Care Powerhouse Laborer Name | Role | Phone | + [...] Healing, | | | | | | [facility] 1, 3rd | | | | | | Floor [place], [place] | | | | | | [address] | | | | | | [phone] | | | +--------+ + + + [...] | | 0 | | | | [id number] | | | | | | | [...]
--- OUTSIDE RECORDS SUMMARY | ~2019-11-01 | XMS | Encounter Summary ---
Demographics + + + | Address | [address] | | | [place] [address] | + + + | Home Phone | | + + + | Preferred Language | Unknown | + + + | Marital Status | Single | + + + | Rastafari Affiliation | Unknown | + + + | Race | Unknown | + + + | Ethnic Group | Unknown | + + + Author + + + | Author | [facility] | | | and [place] | + + + | Organization | [facility] | | | [...] [place] | | | | | [address] | | + + + + + | Maria G Nj | ECON | Unknown | | + + + + + Care Team Providers + +------+ + | Care Bereavement Program Coordinator Name | Role | Phone | + +------+ + PCP | Unavailable | + +------+ + Encounter Details +--------+ + + + + | Date | Type | Department | Care Team | Description | +--------+ + + + + | 03/03/ | Hospital | [facility] | Garfield De Santiago | | | 1999 | Encounter | MED CTR SLEEP | MD Ingris [address] | | | | | [place] [address] | [address] [facility] | | | | | [place], [place] | [place] [address] | | | | | [address] | [phone] | | | | | [phone] | | | +--------+ + + + [...]
--- OUTSIDE RECORDS SUMMARY | ~2019-11-01 | XMS | Encounter Summary ---
Demographics + + + | Address | [address] | | | [place] [address] | + + + | Home Phone | | + + + | Preferred Language | Unknown | + + + | Marital Status | Single | + + + | Baptist Affiliation | Unknown | + + + | Race | Unknown | + + + | Ethnic Group | Unknown | + + + Author + + + | Author | [facility] | | | and [place] | + + + | Organization | [facility] | | | [...] [place] | | | | | [address] | | + + + + + | Maria G Nj | ECON | Unknown | | + + + + + Care Team Providers + +------+ + | Care Caser Up Name | Role | Phone | + [...] [address] | [address] [place], [place] | pain laterality, | | | | [place], [place] | [id number] | unspecified location | | | | [address] | | (Primary Dx) | | | | [phone] | | | +--------+ + + + [...] [address] | [place] | [phone] | | [facility] | | [address] | | | - IMAGING | | | | + + + + + documented in this encounter Visit Diagnoses + + | Diagnosis | + + | Back pain, unspecified back pain laterality, unspecified location - Primary | + + documented in this encounter"
--- OUTSIDE RECORDS SUMMARY | ~2019-11-01 | XMS | Encounter Summary ---
Demographics + + + | Address | [address] | | | [place] [address] | + + + | Home Phone | | + + + | Preferred Language | Unknown | + + + | Marital Status | Single | + + + | Confucianist Affiliation | Unknown | + + + | Race | Unknown | + + + | Ethnic Group | Unknown | + + + Author + + + | Author | [facility] | | | and [place] | + + + | Organization | [facility] | | | [...] [place] | | | | | [address] | | + + + + + | Maria G Nj | ECON | Unknown | | + + + + + Care Team Providers + +------+ + | Care Glove Sewer Name | Role | Phone | + [...] | Werner Dover DO | [address] | | | | | kyphosis of | [address] | [place], | | | | | lumbar | [address] | [place] | | | | | region | [place] | [address] | | | | | Spondylolist | [address] | Phone: | | | | | hesis, | Phone: | [phone] | | | | | lumbar | [phone] | Fax: | | | | | region | Fax: | [phone] | | | | | Lumbar | [phone] | | | | | | stenosis [...] | Werner Dover DO | [address] | | | | | kyphosis of | [address] | [place], | | | | | lumbar | [address] | [place] | | | | | region | [place], [place] | [address] | | | | | Spondylolist | [address] | Phone: | | | | | hesis, | Phone: | [phone] | | | | | lumbar | [phone] | Fax: | | | | | region | Fax: | [phone] | | | | | Lumbar | [phone] | | | | | | stenosis [...] + + | 09/28/ | Hospital | [facility] | Werner Singh, | Postural kyphosis of | | 2016 | Encounter | MED CTR MRI [address] | DO [address] | lumbar region; | | | | [address] [place], | [address] [place], [place] | Spondylolisthesis, | | | | [place] [address] | [address] | lumbar region; | | | | [phone] | | Lumbar stenosis; | | | [...] + + + +---------+ + + | Palmetto 3 1200 MG | Take by mouth. [...] COMPARISON: None TECHNIQUE: In the 3 T [facility] | | scanner, multiplanar, multisequence imaging [...] margins of the | | vertebral bodies [id number] to mid body T12 as discussed above. [...] + | [facility] | [address] | [place], [place] | [phone] | | [facility] | | [address] | | | - IMAGING | | [...]
--- OUTSIDE RECORDS SUMMARY | ~2019-11-01 | XMS | Encounter Summary ---
Demographics + + + | Address | [address] | | | [place] [address] | + + + | Home Phone | | + + + | Preferred Language | Unknown | + + + | Marital Status | Single | + + + | Taoist Affiliation | Unknown | + + + | Race | Unknown | + + + | Ethnic Group | Unknown | + + + Author + + + | Author | [facility] | | | and [place] | + + + | Organization | [facility] | | | and [...] [place] | | | | | [address] | | + + + + + | Maria G Nj | ECON | Unknown | | + + + + + Care Team Providers + +------+ + | Care Grocery Store Manager Name | Role | Phone | [...] + + | 08/16/ | Telephone | [facility] | Garfield Spain | Appointment Question | | 2015 | | ORTHOPEDIC SURGERY | MD Robin [address] [facility] | | | | | [address] | [place], [place] | | | | | [place], [place] | [address] | | | | | [address] | | | | | | [phone] | | | +--------+ + + + [...]
--- OUTSIDE RECORDS SUMMARY | ~2019-11-01 | XMS | Encounter Summary ---
Demographics + + + | Address | [address] | | | [place] [address] | + + + | Home Phone | | + + + | Preferred Language | Unknown | + + + | Marital Status | Single | + + + | Spiritism Affiliation | Unknown | + + + | Race | Unknown | + + + | Ethnic Group | Unknown | + + + Author + + + | Author | [facility] | | | and [place] | + + + | Organization | [facility] | | [...] [place] | | | | | [address] | | + + + + + | Maria G Nj | ECON | Unknown | | + + + + + Care Team Providers + +------+ + | Care Casino Manager Name | Role | Phone | [...] | Werner Dover DO | [address] | | | | | radicular | [address] | [place], | | | | | pain | [address] | [place] | | | | | Procedures | [place] | [address] | | | | | MRI Cervical | [address] | Phone: | | | | | Spine wo | Phone: | [phone] | | | | | Contrast | [phone] | Fax: | | | | | | Fax: | [phone] | | | | | | [phone] | | +--------+--------+ + + + + [...] | Werner Dover DO | [address] | | | | | radicular | [address] | [place], | | | | | pain | [address] | [place] | | | | | Procedures | [place], [place] | [address] | | | | | MRI Cervical | [address] | Phone: | | | | | Spine wo | Phone: | [phone] | | | | | Contrast | [phone] | Fax: | | | | | | Fax: | [phone] | | | | | | [phone] | | +--------+--------+ + + + + Encounter Details +--------+ + + + + | Date | Type | Department | Care Team | Description | +--------+ + + + + | 09/28/ | Hospital | [facility] | Werner Singh, | Cervical radicular | | 2016 | Encounter | MED CTR MRI [address] | DO [address] | pain | | | | [place], | [address] [place] | | | | | [place] [address] | [address] | | | | | [phone] | | | +--------+ + + + [...] + + + +---------+ + + | [place] 3 1200 MG | Take by mouth. [...] ST. | [address] | [place], [place] | [phone] | | [facility] | | [address] | | | - IMAGING | | | | + + + + + documented in this encounter Visit Diagnoses + + | Diagnosis | + + | Cervical radicular pain Brachial neuritis or radiculitis nos | + + documented in this encounter"
--- OUTSIDE RECORDS SUMMARY | ~2019-11-01 | XMS | Encounter Summary ---
Demographics + + + | Address | [address] | | | [place] [address] | + + + | Home Phone [...] [place] | | | | | [address] | | + + + + + | Maria G Nj | ECON | Unknown | | + + + + + Care Team Providers + +------+ + | Care Special Education Paraeducator Name | Role | Phone | + [...] + + | 10/15/ | Telephone | [facility] | Werner Singh, | Referral (Follow up) | | 2015 | | NEUROSURGERY [address] | DO [address] | | | | | [address] [facility] [address] | [address] [place], [place] | | | | | [place], [place] | [id number] | | | | | [address] | | | | | | [phone] | | | +--------+ + + + [...]
--- OUTSIDE RECORDS SUMMARY | ~2019-11-01 | XMS | Encounter Summary ---
Demographics + + + | Address | [address] | | | [place] [address] | + + + | Home Phone | | + + + | Preferred Language | Unknown | + + + | Marital Status | Single | + + + | Latter-Day Affiliation | Unknown | + + + | Race | Unknown | + + + | Ethnic Group | Unknown | + + + Author + + + | Author | [facility] | | | and [place] | + + + | Organization | [facility] | | | and [...] [place] | | | | | [address] | | + + + + + | Maria G Nj | ECON | Unknown | | + + + + + Care Team Providers + +------+ + | Care Project Technician Name | Role | Phone | [...] + + | 10/03/ | Telephone | [facility] | Werner Singh, | Letter | | 2015 | | NEUROSURGERY [address] | DO [address] | | | | | [address] [facility] | [address] [place], [place] | | | | | [place], [place] | [id number] | | | | | [address] | | | | | | [phone] | | | +--------+ + + + [...]
--- OUTSIDE RECORDS SUMMARY | ~2019-11-01 | XMS | Encounter Summary ---
Demographics + + + | Address | [address] | | | [place] [address] | + + + | Home Phone [...] + + + | Author | [facility] | | | and [place] | + + + | Organization | [facility] | | [...] [place] | | | | | [address] | | + + + + + | Maria G Nj | ECON | Unknown | | + + + + + Care Team Providers + +------+ + | Care Cardiac Monitor Technician Name | Role | Phone | [...] [address] | [address] [place], [place] | pain laterality, | | | | [place], [place] | [id number] | unspecified location | | | | [address] | | (Primary Dx) | | | | [phone] | | | +--------+ + + + [...] [address] | [place] | [phone] | | [facility] | | [address] | | | - IMAGING | | | | + + + + + documented in this encounter Visit Diagnoses + + | Diagnosis | + + | Back pain, unspecified back pain laterality, unspecified location - Primary | + + documented in this encounter"
--- OUTSIDE RECORDS SUMMARY | ~2019-11-01 | XMS | Encounter Summary ---
Demographics + + + | Address | [address] | | | [place] [address] | + + + | Home Phone | | + + + | Preferred Language | Unknown | + + + | Marital Status | Single | + + + | Methodist Affiliation | Unknown | + + + | Race | Unknown | + + + | Ethnic Group | Unknown | + + + Author + + + | Author | [facility] | | | and [place] | + + + | Organization | [facility] | | | [...] [place] | | | | | [address] | | + + + + + | Maria G Nj | ECON | Unknown | | + + + + + Care Team Providers + +------+ + | Care Customer Success Associate Name | Role | Phone | [...] | ankle and | [place], | [address] Phone: | | | | | joints of | [place] [address] | [phone] | | | | | left foot | Phone: | Fax: | | | | | Other | [phone] | [phone] | | | | | instability, | Fax: | | | | | | left ankle | [phone] | | | | | | Foot [...] Closed | | Neurosurgery | Diagnoses | [facility], Ed | Samantha, | | | | | Back pain | Followup | Werner Dover DO | | | | | Procedures | | [address] | | | | | [place] OFFICE | | [address] | | | | | CONSULTATION | | [place] | | | | | DEBBIE/ESTAB | | [address] Phone: | | | | | PATIENT 60 | | [phone] | | | | | MIN | | Fax: | | | | | | | [phone] | +--------+--------+ + + + + Encounter Details +--------+---------+ + + + | Date | Type | Department | Care Team | Description | +--------+---------+ + + + | 07/05/ | Office | [facility] | Declan Arthur, | Left ankle pain | | 2016 | Visit | NEUROSURGERY [address] | PA-C [address] | (Primary Dx); Left | | | | [address] | [address] [place] | ankle instability; | | | | [place], [place] | [place] [address] | Left foot drop; | | | | [address] | [phone] | Lumbar foraminal | | | | [phone] | | stenosis; Postural | | | [...] in this encounter Progress Notes Andreea Ferreira, Sprinkler Inspector - 07/05/2015 11:06 AM PST RIK Alexander [address] [facility] [place], [place] [address] FAX: NEUROSURGERY HISTORY AND PHYSICAL EXAMINATION CHIEF COMPLAINT: Chief Complaint Patient presents with New Patient Back pain HISTORY OF PRESENT ILLNESS: The patient is a 45 y.o. female with the complaint of Back and left leg symptoms that began 2004 after she fell at [employer]. following this , patient missed 2 weeks of work and ultimately progressed into work slowly with the help of physical therapy. For 18-24 months after this patient had ongoing back pain that was intol erable and she was able to go to work. Then, in February or March 2007 patient had surgery in [place] where she underwent an L3-L 4 and [...] addressed or treated. Patient worked at a [employer] and did purchase an L FO but has never gotten it fit. Following this surgery patient never recovered to the level that she was at prior to surgery. Patient ultimately went to a pain clinic in the [facility] where she has continued to get [...] this time her sister who lives in [place] would have to clean the house, help [...] let go from her job at the [employer] and is currently unemployed. Patient feels at [...] History Procedure Laterality Date Back surgery 04/09/2007 [facility] CURRENT MEDICATIONS: Current Outpatient Prescriptions [...] 2% ointment Apply topically 2 times daily. [place] 3 1200 MG CAPS Take by mouth. [...] has no apparent deficits with short or senior living memory. CRANIAL NERVES: II: Acuity is intact. [...] Intrinsics 5 5 Ulnar Intrinsics 5 5 Licensed Weigher Strength 5 5 Hip Flexion 5 5 [...] pounds. I am referring her to the [facility] or she ca n participate in weekly [...] [address] | [place] | [phone] | | [facility] | | [address] | | | - IMAGING | | [...]
--- OUTSIDE RECORDS SUMMARY | ~2019-11-01 | XMS | Encounter Summary ---
Demographics + + + | Address | [address] | | | [place] [address] | + + + | Home Phone | | + + + | Preferred Language | Unknown | + + + | Marital Status | Single | + + + | Mu-Ism Affiliation | Unknown | + + + | Race | Unknown | + + + | Ethnic Group | Unknown | + + + Author + + + | Author | [facility] | | | and [place] | + + + | Organization | [facility] | | | [...] [place] | | | | | [address] | | + + + + + | Maria G Nj | ECON | Unknown | | + + + + + Care Team Providers + +------+ + | Care Assistant Broker Name | Role | Phone | + [...] | | ORTHOPEDIC SURGERY | MD Robin [address] [place] [address] | Equinus deformity of | | | | [address] [facility] | [place], [place] | foot | | | | [place], [place] | [address] | | | | | [address] | | | | | | [phone] | | | +--------+ + + + [...]
--- OUTSIDE RECORDS SUMMARY | ~2019-11-01 | XMS | Encounter Summary ---
Demographics + + + | Address | [address] | | | [place] [address] | + + + | Home Phone | | + + + | Preferred Language | Unknown | + + + | Marital Status | Single | + + + | Congregation Affiliation | Unknown | + + + [...] [place] | | | | | [address] | | + + + + + | Maria G Nj | ECON | Unknown | | + + + + + Care Team Providers + +------+ + | Care Diamond Cleaver Name | Role | Phone | + +------+ + PCP | Unavailable | + +------+ + Encounter Details +--------+ + + + + | Date | Type | Department | Care Team | Description | +--------+ + + + + | 03/03/ | Hospital | [facility] | Garfield De Santiago | | | 1999 | Encounter | MED CTR SLEEP | MD Ingr[address] | | | | | [place] [address] | [address] [facility] | | | | | [place], [place] | [place] [address] | | | | | [address] | [phone] | | | | | [phone] | | | +--------+ + + + [...]
--- OUTSIDE RECORDS SUMMARY | ~2019-11-01 | XMS | Encounter Summary ---
Demographics + + + | Address | [address] | | | [place] [address] | + + + | Home Phone [...] | Organization | [facility] | [...] [place] | | | | | [address] | | + + + + + | Maria G Nj | ECON | Unknown | | + + + + + Care Team Providers + +------+ + | Care Piano Instructor Name | Role | Phone | [...] + + | 10/03/ | Telephone | [facility] | Werner Singh, | Letter | | 2015 | | NEUROSURGERY [address] | DO [address] | | | | | [address] [facility] [address] | [address] [place], [place] | | | | | [place], [place] | [id number] | | | | | [address] | | | | | | [phone] | | | +--------+ + + + [...]
--- OUTSIDE RECORDS SUMMARY | ~2019-11-01 | XMS | Encounter Summary ---
Demographics + + + | Address | [address] | | | [place] [address] | + + + | Home Phone [...] + + + | Author | [facility] | | | and [place] | + + + | Organization | [facility] [...] [place] | | | | | [address] | | + + + + + | Maria G Nj | ECON | Unknown | | + + + + + Care Team Providers + +------+ + | Care Tag Writer Name | Role | Phone | [...] [address] [place] | | | | | [place], [place] | [place] [address] | | | | | [address] | [phone] | | | | | [phone] | | | +--------+ + + + [...]
--- OUTSIDE RECORDS SUMMARY | ~2019-11-01 | XMS | Encounter Summary ---
Demographics + + + | Address | [address] | | | [place] [address] | + + + | Home Phone [...] + + + | Author | [facility] | | | and [place] | + + + | Organization | [facility] | | | [...] [place] | | | | | [address] | | + + + + + | Maria G Nj | ECON | Unknown | | + + + + + Care Team Providers + +------+ + | Care Manager Valuation Name | Role | Phone | + [...] | | | deformity of | [place] [address] | [address] Phone: | | | | | foot Foot | Phone: | [phone] | | | | | drop, left | [phone] | Fax: | | | | | foot | Fax: | [phone] | | | | | Procedures | [phone] | | | | | | DC MOTOR | | | | | | | &/SENS 1-2 | | | | | | | NRV CNDJ | | | | | | | PRECONF | | | | | | | ELTRODE LIMB | | | | | | | DC NEEDLE | | | | | | [...] | ankle and | [place], | [address] Phone: | | | | | joints of | [place] [address] | [phone] | | | | | left foot | Phone: | Fax: | | | | | Other | [phone] | [phone] | | | | | instability, | Fax: | | | | | | left ankle | [phone] | | | | | | Foot drop, | | | | | | | left foot | | | +--------+ + + + + + Encounter Details +--------+---------+ + + + | Date | Type | Department | Care Team | Description | +--------+---------+ + + + | 08/14/ | Office | [facility] | Jerson Declan Nat, | Left foot drop | | 2016 | Visit | ORTHOPEDIC SURGERY | PA-C [address] | (Primary Dx); | | | | [address] | [address] [place] | Equinus deformity of | | | | [place], [place] | [place] [address] | foot | | | | [address] | [phone] | | | | | [phone] | | | | | | | Garfield Spain | | | | | | MD Robin [address] | | | | | | [place], [place] | | | | | | [address] | | | | | | | [...] - 08/14/2015 5:49 PM PSTSee soap note [id number].Electronically sign ed by Garfield Spain MD at 08/14/2015 5:49 PM Garfield Saucedo MD - 5:39 PM PST [facility] ORTHOPEDIC SURGERY [address] [place] [phone] OFFICE NOTE GARFIELD SPAIN MD Patient: ANTONIO OROZCO Admitting: MR #: [id number] LOC: PT TYPE: Adm Date: 08/14/2015 : 1970 IDENTIFICATION: Antonio Orozco is a 45-year-old female who resides in [place]. She see s Dr. Parmar for primary care. CHIEF COMPLAINT: Left ankle pain and flexion contracture. HISTORY: Antonio states that she sustained an injury in 2004 while employed by a [employer]. She had persistent and worsening back pain [...] been seen at a pain clinic in [facility] where she has had several injections that have helped to relieve some pain for several weeks at a time. She was employed for almost 9 yea rs by in[employer]home [employer] in [place], but was let go from that job [...] mg by mouth twice daily. Bactroban ointment. [place] caps daily. Prilosec 20 mg by mouth [...] Transcribed on 08/15/2015 08:41:36 by nallely job# [id number] Confirmation #: [id number] cc: SCOTT PARMAR MD documented in this [...]
--- OUTSIDE RECORDS SUMMARY | ~2019-11-01 | XMS | Encounter Summary ---
Demographics + + + | Address | [address] | | | [place] [address] | + + + | Home Phone | | + + + | Preferred Language | Unknown | + + + | Marital Status | Single | + + + | Hindu Affiliation | Unknown | + + + | Race | Unknown | + + + | Ethnic Group | Unknown | + + + Author + + + | Author | [facility] | | | and [place] | + + + | Organization | [facility] | | | [...] [place] Guillen | | | | | [address] | | + + + + + | Maria G Nj | ECON | Unknown | | + + + + + Care Team Providers + +------+ + | Care Liquified Natural Gas Specialist Name | Role | Phone | [...] | Werner Dover DO | [address] | | | | | kyphosis of | [address] | [place], | | | | | lumbar | [address] | [place] | | | | | region | [place] | [address] | | | | | Spondylolist | [id number] | Phone: | | | | | hesis, | Phone: | [phone] | | | | | lumbar | [phone] | Fax: | | | | | region | Fax: | [phone] | | | | | Lumbar | [phone] | | | | | | stenosis [...] | Werner Dover DO | [address] | | | | | radicular | [address] | [place], | | | | | pain | [address] | [place] | | | | | Procedures | [place] | [address] | | | | | MRI Cervical | [address] | Phone: | | | | | Spine wo | Phone: | [phone] | | | | | Contrast | [phone] | Fax: | | | | | | Fax: | [phone] | | | | | | [phone] | | +--------+--------+ + + + + Reason for Visit + + + | Reason | Comments | + + + | Follow-up | Discuss surgery | + + + Encounter Details +--------+---------+ + + + | Date | Type | Department | Care Team | Description | +--------+---------+ + + + | 09/11/ | Office | [facility] | Werner Singh, | Postural kyphosis of | | 2016 | Visit | NEUROSURGERY [address] | DO [address] | lumbar region | | | | [address] | [address] [place], [place] | (Primary Dx); | | | | [place] | [address] | Spondylolisthesis, | | | | [address] | | lumbar region; | | | | [phone] | | Lumbar stenosis; | | | [...] m the original. Werner Singh DO [address] [place], [place] [address] FAX: NEUROSURGERY HISTORY AND PHYSICAL EXAMINATION CHIEF COMPLAINT: Chief Complaint Patient presents with Follow-up Discuss surgery HISTORY OF PRESENT ILLNESS: The patient is a 45 y.o. female with the complaint of Back and left leg symptoms that began 2004 after she fell at [facility]. following this , patient missed 2 weeks of work and ultimately progressed into work slowly with the help of physical therapy. For 18-24 months after this patient had ongoing back pain that was intol erable and she was able to go to work. Then, in February or March 2007 patient had surgery in [place] where she underwent an L3-L 4 and [...] addressed or treated. Patient worked at a [employer] and did purchase an L FO but has never gotten it fit. Following this surgery patient never recovered to the level that she was at prior to surgery. Patient ultimately went to a pain clinic in the [facility] where she has continued to get [...] this time her sister who lives in [place] would have to clean the house, help [...] let go from her job at the [employer] and is currently unemployed. Patient feels at [...] History Procedure Laterality Date Back surgery 04/09/2007 [facility] CURRENT MEDICATIONS: Current Outpatient Prescriptions Medication Sig [...] 2% ointment Apply topically 2 times daily. [place] 3 1200 MG CAPS Take by mouth. [...] no apparent deficits with short or terminal clerk memory. CRANIAL NERVES: II: Acuity is intact. [...] Intrinsics 5 5 Ulnar Intrinsics 5 5 Harp Repairer Strength 5 5 Hip Flexion 5 5 [...] of lumbar deformity surgery here or at [facility] depending on the imaging results. She [...] COMPARISON: None TECHNIQUE: In the 3 T [facility] | | scanner, multiplanar, multisequence imaging of [...] margins of the | | vertebral bodies [id number] to mid body T12 as discussed above. [...] [address] | [place] | [phone] | | [facility] | | [address] | | | - IMAGING | | [...] HISTORY: Cervical radiculopathy COMPARISON: None TECHNIQUE: | [facility] | | Multiplanar, multisequence imaging of the [...] + | [facility] | [address] | [place] | [phone] | | [facility] | | [address] | | | - IMAGING | | [...] abnormality COMPARISON: Lumbar radiographs July 05 | [facility] | | FINDINGS: A lateral view and frontal views of the thoracolumbar spine [facility] | | in neutral and lateral bending [...] + | [facility] | [address] | [place] | [phone] | | [facility] | | [address] | | | - IMAGING | | [...]
--- OUTSIDE RECORDS SUMMARY | ~2019-11-01 | XMS | Encounter Summary ---
Demographics + + + | Address | [address] | | | [place] [address] | + + + | Home Phone [...] + + + | Author | [facility] | | | and [place] | + + + | Organization | [facility] | | [...] [place]ill[place] | | | | | [address] | | + + + + + | Maria G Nj | ECON | Unknown | | + + + + + Care Team Providers + +------+ + | Care Business Controller Name | Role | Phone | + +------+ + | Scott Parmar MD | PCP | | + +------+ + Encounter Details +--------+ + + + + | Date | Type | Department | Care Team | Description | +--------+ + + + + | 07/05/ | Hospital | [facility] | MellisaDeclan ramirez, | Left ankle pain; | | 2015 | Encounter | MED CTR XRAY [address] | PA-C [address] | Left ankle | | | | [place] | [address] [place] | instability; Left | | | | [place] [address] | [place] [address] | foot drop | | | | [phone] | [phone] | | | | | | | [...] + + + +---------+ + + | [place] 3 1200 MG | Take by mouth. [...] + | [facility] | [address] | [place] | [phone] | | [facility] | | [address] | | | - IMAGING | | [...]
--- OUTSIDE RECORDS SUMMARY | ~2019-11-01 | XMS | Encounter Summary ---
Demographics + + + | Address | [address] | | | [place] [address] | + + + | Home Phone [...] [place] Guillen | | | | | [address] | | + + + + + | Maria G Nj | ECON | Unknown | | + + + + + Care Team Providers + +------+ + | Care Diesel Mechanic Apprentice Name | Role | Phone | + [...] | | | | | unspecified | [address] | | | | | spinal | Phone: | [place], [place] | | | | | region | [phone] | [address] | | | | | Lumbar | Fax: | Phone: | | | | | radicular | [phone] | [phone] | | | | | pain | | Fax: | | | | | Chronic low | | [phone] | | | | | back pain [...] + + | 10/01/ | Office | [facility] | Werner Singh, | Kyphosis, | | 2015 | Visit | NEUROSURGERY [address] | DO [address] | unspecified kyphosis | | | | [address] | [address] [place], [place] | type, unspecified | | | | [place], [place] | [id number] | spinal region | | | | [address] | | (Primary Dx); Lumbar | | | | [phone] | | radicular pain; | | | [...] - 10/02/2015 11:41 AM PDTPlease follow-up at [facility]. Please follow-up with me as needed.Electronically signed by Werner Singh DO at 11:41 AM PDT documented in this encounter Progress Notes Werner Singh DO - 10/02/2015 11:42 AM PDTFormatting of this note might be different fro m the original. Werner Singh DO [address] [place] [address] FAX: NEUROSURGERY HISTORY AND PHYSICAL EXAMINATION CHIEF COMPLAINT: Chief Complaint Patient presents with Follow-up MRI f/u HISTORY OF PRESENT ILLNESS: The patient is a 45 y.o. female with the complaint of Back and left leg symptoms that began 2004 after she fell at [employer]. following this , patient missed 2 weeks of work and ultimately progressed into work slowly with the help of physical therapy. For 18-24 months after this patient had ongoing back pain that was intol erable and she was able to go to work. Then, in February or March 2007 patient had surgery in [place] where she underwent an L3-L 4 and [...] addressed or treated. Patient worked at a [employer] and did purchase an L FO but has never gotten it fit. Following this surgery patient never recovered to the level that she was at prior to surgery. Patient ultimately went to a pain clinic in the [facility] where she has continued to [...] this time her sister who lives in [place] would have to clean the house, help [...] let go from her job at the [employer] and is currently unemployed. Patient feels at [...] Laterality Date Back surgery 04/09/2007 [facility] CURRENT MEDICATIONS: Current Outpatient Prescriptions Medication Sig [...] 2% ointment Apply topically 2 times daily. [place] 3 1200 MG CAPS Take by mouth. [...] has no apparent deficits with short or watermaster memory. CRANIAL NERVES: II: Acuity is intact. [...] Intrinsics 5 5 Ulnar Intrinsics 5 5 Ship Rigger Strength 5 5 Hip Flexion 5 5 [...] and nonoperative options, she will follow-up at [facility] or neurosurgery consultation. Her deformity, if determined [...]
--- OUTSIDE RECORDS SUMMARY | ~2019-11-01 | XMS | Clinical Summary ---
Demographics + + + | Address | [address] | | | [place] [address] | + + + | Home Phone | | + + + | Preferred Language | Unknown | + + + | Marital Status | Single | + + + | Bahai Affiliation | Unknown | + + + [...] [place]ill[place] | | | | | [address] | | + + + + + | Maria G Deutsch | ECON | Unknown | | + + + + + Care Team Providers + +------+ + | Care Armhole Feller Handstitching Machine Name | Role | Phone | + [...] | | + + + +---------+------+------+-------+ | [place] 3 1200 MG | Take by mouth. [...] | [employer] | MODA | [id number] | 05/18/ | [phone] | | Medica | | MEDICAID HMO [...] Person | Self | [birth year] | [address] | | | [address]/Ry | | 1970 | [phone] | [address] [place], | | | danika | | | 1 (Home) | [place] [address] | + +--------+ +--------+ + + Advance Directives + + + + + | Type | Date Recorded | Patient | Explanation | | | | Personal Shopper | | + + + + + | Power of | | | | | Stocklayer | | | | + + + + + | Advance | | | | | Directive | | | | + + + + +
--- OUTSIDE RECORDS SUMMARY | ~2019-11-01 | XMS | Encounter Summary ---
Demographics + + + | Address | [address] | | | [place] [address] | + + + | Home Phone [...] [place] | | | | | [address] | | + + + + + | Maria G Nj | ECON | Unknown | | + + + + + Care Team Providers + +------+ + | Care Manufacturing Quality Technician Name | Role | Phone | [...] | | | deformity of | [place] [address] | [address] Phone: | | | | | foot Foot | Phone: | [phone] | | | | | drop, left | [phone] | Fax: | | | | | foot | Fax: | [phone] | | | | | Procedures | [phone] | | | | | | MA MOTOR | | | | | | | &/SENS 1-2 | | | | | | | NRV CNDJ | | | | | | | PRECONF | | | | | | | ELTRODE LIMB | | | | | | | MA NEEDLE | | | | | | [...] [address] | radiculopathy | | | | [address] | | | | | | [phone] | | | +--------+ + + + [...] Lowry MD - 08/22/2015 9:36 AM PST [facility] Musculoskeletal, Sports and Spine, Physiatry [facility] [address] [place] [address] Test Date: 08/21/2015 Patient Name: Antonio Orozco : 1970 Physician: Nikita Lowry MD MR #: [id number] Sex: Male Referring Physician: Garfield Spain MD HISTORY: The patient is a pleasant 45 year-old female who is being seen today at [facility] of Dr. Garfield Spain for complaints [...] of treatment options. Nikita Lowry MD Fellow, [employer] documented [...]
--- OUTSIDE RECORDS SUMMARY | ~2019-11-01 | XMS | Clinical Summary ---
Demographics + + + | Address | [address] | | | [place] [address] | + + + | Home Phone | | + + + | Preferred Language | Unknown | + + + | Marital Status | Single | + + + | Lutheran Affiliation | Unknown | + + + | Race | Unknown | + + + | Ethnic Group | Unknown | + + + Author + + + | Author | [facility] | | | and [place] | + + + | Organization | [facility] | | | [...] [place]ill[place] | | | | | [address] | | + + + + + | Maria G Deutsch | ECON | Unknown | | + + + + + Care Team Providers + +------+ + | Care Brokerage Coordinator Name | Role | Phone | [...] | | + + + +---------+------+------+-------+ | [place] 3 1200 MG | Take by mouth. [...] | [employer] | MODA | [id number] | 05/18/ | [phone] | | Medica | | MEDICAID HMO [...] Person | Self | [birth year] | [address] | | | al/Ry | | 1970 | [phone] | [address] [place], | | | [place] | | | [address] (Home) | [place] [address] | + +--------+ +--------+ + + Advance Directives + + + + + | Type | Date Recorded | Patient | Explanation | | | | Case Packer And Sealer | | + + + + + | Power of | | | | | Cut Press Operator | | | | + + + + + | Advance | | | | | Directive | | | | + + + + +
[~2019-11-01 06:05] MED LIST changes: +ELIQUIS5 MG PO; +TYLENOL EXTRA500 MG PO
--- OUTSIDE RECORDS SUMMARY | 2019-11-01 06:08 | XMS ---
PreManage Notification: ANTWAN NUNEZ Security Jewel Lathe Operator Events No recent Security Events currently on file CRITERIA MET - History of Sepsis Dx - PDMP CARE PROVIDERS Name Unknown Assisted Facility Current PHONE: [phone] Name Unknown Assisted Facility Current PHONE: [phone] Whitney López Reporting Manager/Sheriff Sergeant 02/21/2019-Current PHONE: [phone] KEO [facility] Current PHONE: [phone] STEPHANIE BURNETT [facility] Current PHONE: [phone] Carolann has no Care Guidelines for this patient. ECathy VISIT COUNT (12 MO.) [address] [facility] TOTAL 3 NOTE: Visits indicate total known visits. ED/UCC VISIT TRACKING (12 MO.) 11/01/2019 06:06 [facility] TYPE: Emergency COMPLAINT: - FEVER 03/26/2019 17:37 [facility] TYPE: Emergency COMPLAINT: - LEFT ARM SWELLING, NON INJ 03/08/2019 19:55 [facility] TYPE: Emergency COMPLAINT: - SKIN ISSUE INPATIENT VISIT TRACKING (12 MO.) 03/26/2019 17:38 [facility] TYPE: Observation COMPLAINT: - DVT L ARM DIAGNOSES: - half-way (current) use of oral hypoglycemic drugs - Hyperuricemia without signs of inflammatory arthritis and top - Low back pain - Hypothyroidism, unspecified - Unspecified mood [affective] disorder - Essential (primary) hypertension - Other manager terminal (current) drug therapy - Type 2 diabetes mellitus without complications - Acute embolism and thrombosis of deep veins of left upper ext - long term care administrator (current) use of aspirin - Gastro-esophageal reflux disease without esophagitis - Pain in left forearm - Allergy status to penicillin - Acquired absence of left leg below knee - long term care administrator (current) use of non-steroidal anti-inflammatories - half-way (current) use of opiate analgesic - Dorsalgia, unspecified 03/16/2019 12:[address] [facility] TYPE: Medical Surgical COMPLAINT: - SEPSIS DIAGNOSES: - Type 2 diabetes mellitus without complications - Acquired absence of left leg below knee - Hypothyroidism, unspecified - Essential (primary) hypertension - Insomnia, unspecified - Hypothyroidism, unspecified - Hyperuricemia without signs of inflammatory arthritis and top - half-way (current) use of oral hypoglycemic drugs - Gastro-esophageal reflux disease without esophagitis - Other chronic pain - Unspecified mood [affective] disorder - Hyperuricemia without signs of inflammatory arthritis and top - half-way (current) use of opiate analgesic - Insomnia, unspecified - long term care administrator (current) use of aspirin - long term care administrator (current) use of non-steroidal anti-inflammatories - Other manager terminal (current) drug therapy - Allergy status to penicillin - Acquired absence of left leg below knee - Encounter for orthopedic aftercare following surgical amputat - Other chronic pain - long term care administrator (current) use of opiate analgesic - Unspecified mood [affective] disorder - Dorsalgia, unspecified - long term care administrator (current) use of non-steroidal anti-inflammatories - Essential (primary) hypertension - Obesity, unspecified - Other manager terminal (current) drug therapy - Obesity, unspecified - Encounter for immunization - long term care administrator (current) use of aspirin - Dorsalgia, unspecified - Body mass index (BMI) 39.0-39.9, adult - Type 2 diabetes mellitus without complications - Allergy status to penicillin - Gastro-esophageal reflux disease without esophagitis - Body mass index (BMI) 39.0-39.9, adult - half-way (current) use of oral hypoglycemic drugs 03/08/2019 22:[address] 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 - Gastro-esophageal reflux disease without esophagitis - Type 2 diabetes mellitus with diabetic chronic kidney disease - Anemia in chronic kidney disease - Hyperuricemia without signs of inflammatory arthritis and top - Sepsis due to Methicillin susceptible Staphylococcus aureus - Foot drop, left foot - half-way (current) use of oral hypoglycemic drugs - Personal history of nicotine dependence - Other acute postprocedural pain - Cutaneous abscess of left lower limb - Obesity, unspecified - Type 2 diabetes mellitus with diabetic neuropathy, unspecifie - Allergy status to penicillin - Chronic kidney disease, unspecified - Severe sepsis without septic shock - Psychophysiologic insomnia - Major depressive disorder, single episode, unspecified - Sepsis, unspecified organism - 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 - Other chronic pain - Other chronic osteomyelitis, left ankle and foot - 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 - Personal history of nicotine dependence - Chronic kidney disease, unspecified - Type 2 diabetes mellitus with diabetic chronic kidney disease - Other chronic pain - Urinary tract infection, site not specified - long term care administrator (current) use of aspirin - Obesity, unspecified - Other detention (current) drug therapy - Severe sepsis without septic shock - 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 - Sepsis due to Methicillin susceptible Staphylococcus aureus - Acute kidney failure, unspecified - Anemia in chronic kidney disease - Gastro-esophageal reflux disease without esophagitis - Streptococcus, group B, as the cause of diseases classified e - long term care administrator (current) use of oral hypoglycemic drugs - Urinary tract infection, site not specified - Cutaneous abscess of left lower limb - Hyperuricemia without signs of inflammatory arthritis and top - Type 2 diabetes mellitus with diabetic neuropathy, unspecifie - long term care administrator (current) use of non-steroidal anti-inflammatories - Dorsalgia, unspecified [email or web address]
[2019-11-01] MEDS ORDERED: BACLOFEN10 MG PO (06:35)
[2019-11-01] MEDS ORDERED: PANTOPRAZOLE SO40 MG PO (06:35)
[2019-11-01] MEDS ORDERED: ELIQUIS5 MG PO (06:36)
[2019-11-01] MEDS ORDERED: TURMERIC 500 M1 EACH PO (06:40)
[2019-11-01] MEDS ORDERED: LISINOPRIL-HCT1 EAC2 PO (15:20)
[2019-11-01] MEDS ORDERED: METFORMIN HCL1000 MG PO (15:21)
[2019-11-01] MEDS ORDERED: OXYCODONE HCL5 MG PO (15:52)
[2019-11-01] MEDS ORDERED: FLUTICASONE PRO16 GM NAS (15:53)
[2019-11-03] MEDS ORDERED: DOXYCYCLINE HY100 MG PO ×2 (11:58→12:04)
== END 2019-11-03 13:00 | disposition home or self-care (01) | DRG 872 ==
LOC: ED 06:05 → CCU 07:52 → MS 07:52
PROVIDERS: ADMIT Internal Medicine
DX: A41.02 Sepsis due to Methicillin resistant Staphylococcus aureus (principal); L03.115 Cellulitis of right lower limb; A41.89 Other specified sepsis; R65.20 Severe sepsis without septic shock; J30.2 Other seasonal allergic rhinitis; E11.42 Type 2 diabetes mellitus with diabetic polyneuropathy; K21.9 Gastro-esophageal reflux disease without esophagitis; E79.0 Hyperuricemia without signs of inflammatory arthritis and tophaceous disease; E03.9 Hypothyroidism, unspecified; F32.9 Major depressive disorder, single episode, unspecified; F51.05 Insomnia due to other mental disorder; G89.29 Other chronic pain; M25.562 Pain in left knee; M54.9 Dorsalgia, unspecified; Z20.828 Contact with and (suspected) exposure to other viral communicable diseases; Z88.0 Allergy status to penicillin; Z79.899 Other long term (current) drug therapy; Z86.718 Personal history of other venous thrombosis and embolism; Z89.512 Acquired absence of left leg below knee; Z79.01 Long term (current) use of anticoagulants; Z79.84 Long term (current) use of oral hypoglycemic drugs; Z79.891 Long term (current) use of opiate analgesic
CPT/HCPCS: 36415; 71045; 80048; 80053; 80202; 81001; 82565; 83036; 83605; 84520; 85025; 86060; 87088; 96374; 99285-25; J0696; J3370; J7030; J7060; J7121; U0002

== ENCOUNTER 2020-08-12 17:20 | Inpatient (IN) | payer MEDICARE, OTHER ==
[~2020-08-12] VITALS: Ht 167.6 cm; Wt 107.5 kg
[~2020-08-12 17:20] MED LIST changes: +DOXYCYCLINE HY100 MG PO; +FLUTICASONE PRO16 GM NAS; +PANTOPRAZOLE SO40 MG PO; +TURMERIC 500 M1 EACH PO
--- OUTSIDE RECORDS SUMMARY | 2020-08-12 17:22 | XMS ---
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 \F\ PRESTIGE CARE \T\ REHABILITATION - [place] PHONE: [phone] [facility] Mcfp Facility [facility] [employer] [facility] 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 Karen VISIT COUNT (12 MO.) 2 MOLINA Johnson TOTAL 2 NOTE: Visits indicate total known visits. ED/UCC VISIT TRACKING (12 MO.) 08/12/2020 17:20 MOLINA Barber [place] TYPE: Emergency COMPLAINT: - FEVER, BLURRED VISION 11/01/2019 06:06 [facility]OLINA [place] TYPE: Emergency COMPLAINT: - FEVER INPATIENT VISIT TRACKING (12 MO.) 11/01/2019 07:52 MOLINA Barber [place] TYPE: Medical Surgical COMPLAINT: - SEPSIS, RLE CELLULITIS DIAGNOSES: - Dorsalgia, unspecified - Insomnia due to other mental disorder - Other chronic pain - Acquired absence of left leg below knee - Other specified sepsis - senior living (current) use of oral hypoglycemic drugs - Other seasonal allergic rhinitis - Personal history of other venous thrombosis and embolism - Other specified sepsis - Contact with and (suspected) exposure to other viral communicable diseases - Hyperuricemia without signs of inflammatory arthritis and tophaceous disease - Other chronic pain - Severe sepsis without septic shock - Hyperuricemia without signs of inflammatory arthritis and tophaceous disease - Major depressive disorder, single episode, unspecified - Hypothyroidism, unspecified - Severe sepsis without septic shock - Acquired absence of left leg below knee - Sepsis due to Methicillin resistant Staphylococcus aureus - Gastro-esophageal reflux disease without esophagitis - Pain in left knee - Major depressive disorder, single episode, unspecified - Gastro-esophageal reflux disease without esophagitis - Personal history of other venous thrombosis and embolism - Dorsalgia, unspecified - Cellulitis of right lower limb - Pain in left knee - Allergy status to penicillin - senior living (current) use of opiate analgesic - Hypothyroidism, unspecified - Allergy status to penicillin - Other care home (current) drug therapy - senior living (current) use of opiate analgesic - senior living (current) use of anticoagulants - Type 2 diabetes mellitus with diabetic polyneuropathy - Contact with and (suspected) exposure to other viral communicable diseases - Type 2 diabetes mellitus with diabetic polyneuropathy - Other seasonal allergic rhinitis - senior living (current) use of oral hypoglycemic drugs - Cellulitis of right lower limb - Insomnia due to other mental disorder - senior living (current) use of anticoagulants - Other care home (current) drug therapy [email or web address]
--- NOTE | 2020-08-12 20:19 | NUR ---
PT ARRIVES TO CCU ROOM 126 ADMITTED FOR RIGHT LOWER LEG CELLULITIS WITH SEPSIS. PT IS ALERT AND ORIENTED, TRANSFERS SELF TO BED BY SLIDING FROM [facility]. RESTING HR 110. VANCO INFUSING. WILL START IVF BOLUS. DENIES PAIN. RLL SLIGHTLY RED UP MID STOKES AREA AND WARM TO THE TOUCH. PT GIVEN WATER AND DISTRICT SUPERVISOR TO BRING SANDWICH BOX. CALL LIGHT IN REACH.
--- NOTE | 2020-08-12 22:00 | NUR ---
PT UP TO BSC WITH SBA FOR VOID THEN BACK TO BED. NO COMPLAINTS AT THIS TIME.
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
--- NOTE | 2020-08-12 22:45 | NUR ---
PAIN STILL INCREASING, 5MG OXYCODONE GIVEN PER REQUEST.
--- NOTE | 2020-08-12 23:30 | NUR ---
PT STATES STABBING PHANTOM PAINS INCREASING ALTHOUGH HEADACHE GETTING BETTER. TEMP CHECKED AND IT IS UP TO 100.1 ORAL. WILL GIVE PRN TYLENOL.
--- NOTE | 2020-08-13 01:07 | NUR ---
PT UP TO BSC TO VOID 1000ML. HR UP TO 130 FROM 105 WHILE UP AND BACK DOWN TO 106 IN BED. STATES PHANTOM PAIN MUCH LESS FREQUENT NOW. TEMP RECHCECKED IS 100.1. ICE PACK REFRESHED.
--- NOTE | 2020-08-13 03:30 | NUR ---
IN TO CHECK ON PT, ASSESSMENT DONE, VS DONE. PT STATES SHE WAS ABLE TO FALL ASLEEP FINALLY. ICE PACK REFRESHED. CALL LIGHT IN REACH.
--- NOTE | 2020-08-13 05:27 | NUR ---
PT RESTFUL, EYES CLOSED, RESP EVEN AND UNLABORED, HR 98.
--- NOTE | 2020-08-13 05:40 | NUR ---
PT CALLS TO USE COMMODE. REPORTS PAIN IS STARTING TO RETURN, TEMP CHECKED AND IT IS BACK ON ITS WAY UP. TYLENOL GIVEN.
--- NOTE | 2020-08-13 07:02 | NUR ---
OXYCODONE GIVEN FOR PHANTOM PAIN AND HEADACHE PER REQUEST. ICE PACK REFRESHED.
--- NOTE | 2020-08-13 07:06 | NUR ---
HR REMAINED STEADY IN HIGH NINETIES LAST TIME SHE GOT UP TO BSC.
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
--- NOTE | 2020-08-13 09:41 | NUR ---
DR. MACIAS IN TO SEE PATIENT AT THIS TIME. PLAN TO CONTINUE TREATMENTS AND CONTINUE TO MONITOR. PT NOW OKAY WITH POTENTIAL IVs BEING STARTED ON LEFT ARM. WILL TRY TO DEFER FROM LEFT ARM MUCH POSSIBLE WITH CURRENT WORKING IV IN RIGHT AC AREA.
--- NOTE | 2020-08-13 10:31 | NUR ---
PT CALLED TO USE BSC. USES INDEPENDENT ONCE IN PLACE. ADMINISTERED SCHEDULED AND PRN MEDS FOR PAIN. 3\10.
--- NOTE | 2020-08-13 11:29 | NUR ---
ATTEMPTED NEW IV X2, BLOWN BOTH TIMES. MELISSA VARELA ABLE TO GET ONE IN LEFT FOREARM. PT TOLERATED WELL. DC'D INFILTRATED IV IN RIGHT AC. SENT NASAL SWAB TO LAB.
--- NOTE | 2020-08-13 12:09 | EKG ---
[facility] [address] [place] [address] Signed Sinus tachycardia Abnormal ECG When compared with ECG of 14-MAR-2019 12:17, Vent. rate has increased BY 39 BPM Confirmed by CORTNEY MACIAS MD ([id number]) on 08/13/2020 12:09:37 PM Electronically Signed By: CORTNEY MACIAS MD 08/13/20 1209 PATIENT NAME: ENRIQUEANTWAN Electrocardiogram DATE OF : 68 PHYSICIAN: CORTNEY MACIAS MD REPORT #: [id number] REPORT IS CONFIDENTIAL AND NOT TO BE RELEASED WITHOUT AUTHORIZATION
--- NOTE | 2020-08-13 12:28 | NUR ---
PT DECLINED TO ORDER LUNCH AT THIS TIME. HUNG SECOND BAG OF MAGNESIUM.
--- NOTE | 2020-08-13 14:38 | NUR ---
PT UP TO BSC FOR LARGE URINE OUTPUT. VS STABLE. GIVEN HOT PACK FOR NECK, COLD PACK FOR HEADACHE AND TYLENOL AND OXY. TEMP 99.9.
[2020-08-13] MEDS ORDERED: LEVOTHYROXINE100 MCG PO (15:06)
[2020-08-13] MEDS ORDERED: METFORMIN HCL500 MG PO (15:06)
--- NOTE | 2020-08-13 16:55 | NUR ---
PT IN BED TALKING WITH SISTER. PT DENIES CONCERNS. ORDERED DINNER. BS 125. ADMINISTERED SCHEDULED MEDS.
--- NOTE | 2020-08-13 17:33 | NUR ---
CALLED DR MACIAS WITH POSITIVE BLOOD CULTURES. HE ORDERED A NEW SET OF BLOOD CULTURES, PUT ORDER IN AND CALLED LAB. SPOKE WITH DAVION.
--- NOTE | 2020-08-13 17:57 | NUR ---
ASSESSED VS, STABLE. TOOK IN DINNER. PT ABLE TO ADJUST SELF IN BED. DENIES NEEDS ATT. PT NOW HAS COMPRSSION SLEEVE ON LEFT LEG THAT SISTER BROUGHT IN FOR HER. STATES SHE WEARS IT MOST OF THE TIME AND IT HELPS WITH PROSTETIC FIT.
--- NOTE | 2020-08-13 19:45 | NUR ---
PT CALLS TO USE COMMODE, VOIDED THEN GOT HER SELF BACK INTO BED. ICE PACK AND HEAT PACK REFRESHED. PT DENIES FURTHER NEEDS.
--- NOTE | 2020-08-13 20:15 | NUR ---
IN TO DO ASSESSMENT AND HS MEDS. PT STATES SHE IS STILL OCCASIONALLY HAVING PHANTOM PAINS IN LLE WELL PAIN IN BACK AND SHOULDERS BUT OVERALL LESS THAN IT HAD BEEN. RIGHT TOES, FOOT AND LOWER LEG FEEL COOL TO THE TOUCH, NO LONGER RED AND WARM THEY WERE LAST NIGHT. TEMP INCREASED, WILL MONITOR.
--- NOTE | 2020-08-13 22:00 | NUR ---
TEMP RECHECKED, DOWN TO 100.1, PT WILL CALL IF SHE WANTS TYLENOL OR PAIN MEDICINE BUT STATES SHE IS OKAY FOR NOW.
--- NOTE | 2020-08-14 00:55 | NUR ---
PT CALLED TO USE BSC. ASSESSMENT DONE. ORAL TEMP UP, WILL GIVE TYLENOL AND PAIN MEDICINE. PT STATES SHE IS HAVING TROUBLE FALLING ASLEEP.
--- NOTE | 2020-08-14 01:30 | NUR ---
PT STATES SHE FELT SLIGHTLY DIZZY WHEN MOVING FROM COMMODE TO BED. HR HAD GONE UP TO 120'S WHILE UP THEN QUICKLY BACK DOWN WHEN BACK IN BED. TEMP RECHECKED IS NOW UP TO 101.8.
--- NOTE | 2020-08-14 03:00 | NUR ---
TEMP RECHECKED DOWN TO 99, NO NEEDS AT THIS TIME.
--- NOTE | 2020-08-14 05:35 | NUR ---
PT HAS FINALLY BEEN SLEEPING AND RESTFUL, AWAKENS BRIEFLY FOR ASSESSMENT. TEMP 98.7, DENIES NEEDS, BACK, TO SLEEP. RESTING HR 70'S.
--- NOTE | 2020-08-14 07:39 | NUR ---
Patient sitting up in bed watching tv. Rigidity noted in upper extremities. Patient requests a sprite, which is provided. Muscle weakness noted in upper extremities and nursing staff assist patient with holding cup for patient to drink from straw. Patient denies pain, reports "I think I'm going to have a bowel movement soon." Plan for the day discussed, patient states "I'm going to take the day on." Denies further needs, call light within reach.
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
[2020-08-14] MEDS ORDERED: BACLOFEN10 MG PO (08:58)
[2020-08-14] MEDS ORDERED: OXYCODONE HCL5 MG PO (08:58)
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
--- NOTE | 2020-08-14 09:00 | NUR ---
Medications reconciled using pharmacy records and patient interview
--- NOTE | 2020-08-14 09:57 | NUR ---
v/s and I&Os done, fresh water and breakfast given. Room picked up. Pt. would like to take a shower sometime this morning. no other needs at this time. Call light with in reach .
--- NOTE | 2020-08-14 10:36 | NUR ---
DR. MACIAS IN TO SEE PATIENT. PLAN OF CARE DISCUSSED.
--- NOTE | 2020-08-14 11:17 | NUR ---
pt. is independant in the shower. no other needs at this time
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
--- NOTE | 2020-08-14 15:49 | NUR ---
ECHO IN ROOM WITH PATIENT AT THIS TIME.
--- NOTE | 2020-08-14 17:10 | NUR ---
50YR OLD WOMAN TRANSFERRED FROM 126 TO 119 IN BED. PT IS ALERT, ORIENTED, IN GOOD SPIRITS, PLEASED WITH NEW ROOM, DINNER BROUGHT TO ROOM AND PT SET UP FOR DINNER, ORIENTED TO ROOM AND CALL LIGHT, DENIES ANY NEEDS AT THIS TIME. CALL LIGHT IN EASY REACH.
--- NOTE | 2020-08-14 19:20 | NUR ---
RECEIVED REPORT FROM DAY SHIFT RN. PATIENT IS UP RESTING IN RECLINER WATCHING TV. PATIENT DENIES ANY NEEDS. PATIENT DENIES ANY PAIN AT THIS TIME. CALL LIGHT IN REACH.
--- NOTE | 2020-08-14 21:39 | NUR ---
PATIENT ASSISTED TO THE BSC A SBA. PATIENT NEEDS MINIMAL ASSISTANCE. PATIENT WAS ABLE TO VOID. PATIENT IS NOW RESTING IN BED. PATIENTS VITALS TAKEN AND RECORDED. INTAKE AND OUTPUT RECORDED. PATIENT ASSESMENT COMPLETED. PATIENT DENIES ANY PAIN AT THIS TIME. PATIENT PROVIDED WITH FRESH ICE WATER. EVENING MEDICATIONS GIVEN PER ORDER. IV ABX INFUSING PER ORDER. NO FURTHER NEEDS NOTED AT THIS TIME. CALL LIGHT AND BELONGINGS WITHIN REACH.
--- NOTE | 2020-08-14 22:05 | NUR ---
ABX COMPLETED INFUSING. PATIENT IS NOW SL PER ORDER. PATIENT DENIES ANY PAIN. FRESH ICE WATER PROVIDED. CALL LIGHT AND BELONGINGS WITHIN REACH. NO FUTHER NEEDS NOTED.
--- NOTE | 2020-08-15 01:32 | NUR ---
PATIENT IS RESTING IN BED WITH EYES CLOSED, RR 17. CALL LIGHT IN REACH.
--- NOTE | 2020-08-15 04:12 | NUR ---
PATIENT IS RESTING IN BED WITH EYES CLOSED, RR 17. CALL LIGHT IN REACH.
--- NOTE | 2020-08-15 06:07 | NUR ---
PATIENT IN LAB AT THIS TIME. PATIENTS MORNING MEDICATIONS GIVEN PER ORDER. PATIENT RATES PAIN AT A 2/10 IN HER R FOOT. PATIENT DENIES THE NEED FOR PAIN MEDCIATION AT THIS TIME. PATIENTS VITALS TAKEN AND RECORDED. PATIENT DENIES ANY NEEDS AT THIS TIME. CALL LIGHT AND BELONGINGS WITHIN REACH.
--- NOTE | 2020-08-15 06:08 | NUR ---
PATIENT RESTED WELL THROUGHOUT THE NIGHT. PATIENT IS A SBA. PATIENT HAS A LEFT BKA AND USES A PROSTHETIC DURING AMBULATION. PATIENT IS SL AND IV FLUSHES WELL. PATIENT IS ON A ADA DIET. PATIENT IS ON RA. PATIENT IS AAOX4. PATIENT IS LEFT ARM RESTRICTED. PATIENT HAS NOT REQUESTED PAIN MEDICATION DURING THIS SHIFT. PATIENT IS A PIVOT TRANSFER TO THE [facility].
--- NOTE | 2020-08-15 07:06 | NUR ---
REPORT RECEIVED FROM MELISSA LONG. PT RESTING IN BED ON RIGHT SIDE IN POSITION, WITH EYES CLOSED. RESPIRATIONS EVEN AND UNABLORED. BED RAILS UP. CALL LIGHT WITHIN REACH. PT ALLOWED TO REST.
--- NOTE | 2020-08-15 08:13 | NUR ---
MORNING ASSESSMENT AND MEDICAITON DUE. PT SITTING UP IN BED EATING BREAKFAST WITH HEAD OF BED ELEVATED TO 38 DEGREES. PT DENIES PAIN AND NAUSEA. PT ORIENTED TO ALL. PT ENCOURAGED TO GET UP TO CHAIR TO EAT, PT DECLINES. PT REPORTS NUMBNESS IN RIGHT FOOT PER BASELINE, DENIES ADDITIONAL PHANTOM PAINS. PT REPORTS MINOR CONSTIPATION. NIO ORDERS FOR BOWEL REGIME PLACED. MINIMAL REDNESS TO RIGHT FOOT NOTED ON TOP OF FOOT. FOOT WARM BUT NOT HOT TO TOUCH. STRONG PULSES NOTED. MEDICATION GIVEN (SEE MAR). PT WATCHING TV AND CONTINUES RESTING IN BED. NO ADDIITONAL REQUESTS OR COMPLAINTS. CALL LIGHT [employer] REACH. BED RAILS UP.
--- NOTE | 2020-08-15 09:13 | NUR ---
PATIENT IS SITTING UP IN HER CHAIR. FRESH WATER GIVEN. VITALS AND I&OS ARE DONE AND DOCUMENTED. FRESH WATER GIVEN. AM CARE IS DONE. CALL LIGHT IS IN REACH. NO FURTHER NEEDS AT THIS TIME.
--- NOTE | 2020-08-15 10:17 | NUR ---
THIS RN TO ROOM TO CHECK ON PT. PT REMAINS UP TO CHAIR. PT VISITING WITH CHAPALIN. PT REPORTS SHE IS ANTICIPATING DISCHARGE TODAY. PT DENIES PAIN AND NAUSEA AND REPORTS SHE HAS NO REQUESTS OR COMPLAINTS AT THIS TIME. CALL JOE MITCHELL.
--- NOTE | 2020-08-15 11:48 | NUR ---
THIS RN TO ROOM TO CHECK ON PT. PT DENIES PAIN AND NAUSA. REMAINS UP TO CHAIR. PT REPORTS SHE IS "JUST WAITING FOR THE DOCTOR." PT REPORTS SHE HAS NO REQUESTS OR COMPLAINTS. SHOWER OFFERED. PT DECLINES STATING SHE WILL SHOWER AT HOME IF SHE GETS TO GO HOME. NO ADDITIONAL REQUESTS OR COMPLAINTS. CALL LIGHT WITHIN REACH.
--- NOTE | 2020-08-15 12:30 | NUR ---
Spoke with Antonio, she is dressed and awaiting dc. Awaiting to see Dr. Patel. She denies needs for dc and plans on dc to home with help from friend.
[2020-08-15] MEDS ORDERED: CEPHALEXIN500 MG PO (12:46)
--- NOTE | 2020-08-15 13:06 | NUR ---
DISCHARGE ORDER PLACED. PT REPORTS SHE IS READY FOR DISCHARGE. PT DRESSES INDEPENDANTLY. VITAL SIGNS STABLE. IV DC'D BY DAMION, STUDENT RN, WITH ASSISTANCE FROM THIS RN. TIP INTACT. GAUZE AND COBAN APPLIED. PHARMCIST CALLED TO REVIEW MEDICAITONS WITH PT. NO ADDITIONAL REQUESTS AT THIS TIME. CALL LIGHT WITHIN REACH.
--- NOTE | 2020-08-15 13:36 | NUR ---
PT READY FOR DISCHARGE. PHARMACIST, GIOVANNA, TO BEDSIDE TO TALK WITH PT ABOUT MEDICATIONS. PT VERBALIZES UNDERSTANDING OF MEDICATIONS AND STATES HER QUESTIONS HAVE BEEN ANSWERED. DISCHARGE INSTRUCTIONS REVIEWED WITH PT. PT VERBALIZES UNDERSATNDING OF INSTRUCTIONS, MEDICATIONS, AND FOLLOW UP APPOINTMENT. PT TRANSFERES SELF TO WHEELCHAIR. PT WHEELED FROM MED/SURG. NO ADDITIONAL REQUESTS OR CONCERNS. ALL BELONGINGS WITH PT.
--- NOTE | 2020-08-15 14:00 | NUR ---
PT SITTING IN CHAIR, ENJOYING THE SUNSHINE. PT PLANS TO DC TODAY, HAD GOOD NIGHT AND FEELS MUCH BETTER. HAD PRAYER WITH PT, WILL FOLLOW NEEDED
== END 2020-08-15 13:45 | disposition home or self-care (01) | DRG 872 ==
LOC: ED 17:20 → CCU 19:54 → MS 08-14 17:20
PROVIDERS: ADMIT Internal Medicine; ATTEND Internal Medicine
DX: A41.51 Sepsis due to Escherichia coli [E. coli] (principal); L03.115 Cellulitis of right lower limb; A04.4 Other intestinal Escherichia coli infections; Z20.822 Contact with and (suspected) exposure to COVID-19; K75.2 Nonspecific reactive hepatitis; I10 Essential (primary) hypertension; K21.9 Gastro-esophageal reflux disease without esophagitis; E11.9 Type 2 diabetes mellitus without complications; E03.9 Hypothyroidism, unspecified; G89.4 Chronic pain syndrome; M54.9 Dorsalgia, unspecified; G54.6 Phantom limb syndrome with pain; F32.9 Major depressive disorder, single episode, unspecified; F51.05 Insomnia due to other mental disorder; Z79.899 Other long term (current) drug therapy; Z79.84 Long term (current) use of oral hypoglycemic drugs; Z79.891 Long term (current) use of opiate analgesic; Z88.0 Allergy status to penicillin; Z89.512 Acquired absence of left leg below knee
CPT/HCPCS: 36415; 71045; 80053; 81001; 83036; 83605; 83735; 85025; 86060; 86704; 86706; 86709; 86803; 87040; 87077; 87186; 87340; 93005; 93010; 93306; 99285-25; C9803; J0690; J0696; J1650; J1815; J3370; J3475; J7060; J7121; U0003

== ENCOUNTER 2020-11-22 09:00 | Day surgery (SDC) | payer MEDICARE, OTHER ==
[~2020-11-22] VITALS: Ht 167.6 cm; Wt 111.8 kg
[~2020-11-22 09:00] MED LIST changes: +ASPIRIN EC325 MG PO; +BENADRYL25 MG PO; +CEPHALEXIN500 MG PO; +LEVOTHYROXINE100 MCG PO; +METFORMIN HCL500 MG PO
--- NOTE | 2020-11-22 13:20 | NUR ---
11/22/20 1320 Charisse Gaines 1252 PT ARRIVED IN PACU SLEEPY AND MOVING AROUND IN BED. NO C/O'S PAIN. ICE TO ABD. 1300 BLOOD SUGAR 201. PT TRYING TO FIND A COMFORTABLE POSITION LAYING ON R SIDE. PILLOW BETWEEN KNEES, UNDER L ARM AND BEHIND BACK FOR COMFORT. 1315 COOL CLOTH TO FOREHEAD PER PT REQUEST. NO C/O'S PAIN OR NAUSEA.
--- NOTE | 2020-11-22 14:04 | NUR ---
1335: PATIENT BACK IN DAY SURGERY ROOM FROM PACU. C/O PAIN 8/. PATIENT GIVEN ICE WATER AND CRACKERS. VS CHECKED. IV SITE WNL. SCD ON RIGHT LEG. ABDOMINAL DRESSING CDI. SISTER AT BEDSIDE. CALL LIGHT WITHIN REACH. COOL RAG ON FOREHEAD PER REQUEST. 1400: PATIENT MEDICATED FOR PAIN WITH 1 TAB OF PERCOCET. TOLERATING WATER AND CRACKERS. PATIENT GIVEN ICE PACK FOR RIGHT SHOULDER PER REQUEST. CALL LIGHT WITHIN REACH.
[2020-11-22] MEDS ORDERED: PERCOCET 10-321 EACH PO (14:43)
--- NOTE | 2020-11-22 14:52 | NUR ---
1440: VS CHECKED. PATIENT RATES PAIN 6/10. GIVEN ICE PACK FOR LEFT SHOULDER PER REQUEST. ICE PACK TO ABDOMEN SINCE ARRIVING FROM PACU. TOLERATED CRACKERS. GIVEN PUDDING, SANDWICH ORDERED. SISTER AT BEDSIDE. CALL LIGHT WITHIN REACH.
--- NOTE | 2020-11-22 16:30 | NUR ---
1550: PATIENT ASSISTED OOB, TO GET DRESSED, AND UP TO BATHROOM. VOID WITHOUT DIFFICULTY. DISCHARGE INSTRUCTIONS GIVEN TO PATIENT AND SISTER. 1617: ICE PACKS REFILLED. IV DC'D WNL. TIP INTACT. DRESSING APPLIED. PATIENT DISCHARGED TO HOME WITH SISTER VIA PERSONAL WHEELCHAIR.
--- NOTE | 2020-11-23 05:55 | OR ---
[facility] [address], [place] [address] Signed DATE OF OPERATION: 11/22/2020 SURGEON: Phong Kwong MD PREOPERATIVE DIAGNOSIS: Chronic cholecystitis, cholelithiasis. POSTOPERATIVE DIAGNOSES: 1. Chronic cholecystitis, cholelithiasis. 2. Retroxiphoid chronic hernia. PROCEDURE: Laparoscopic cholecystectomy with intraoperative cholangiogram. ESTIMATED BLOOD LOSS: None. FINDINGS: Antonio had an unremarkable intraoperative cholangiogram. She had multiple small stones and a somewhat thickened gallbladder. Interestingly, she has a hernia behind her xiphoid process that has been there chronically. The diaphragm in that area is extremely thin. We could see the heart beating behind that area through the diaphragm. She had omentum in that initially and we simply reduced when we started surgery. INDICATIONS: Antonio is a 50-year-old female, who is diabetic. However, she told me she has lost 135 pounds. She has had trouble with cellulitis in her leg and ended up with a left BKA. She had what probably was cellulitis in the right leg, but also probably cholecystitis as well. She ended up in the hospital on antibiotics. She ended up with an ultrasound later when she was feeling better and it revealed cholelithiasis. Her liver function tests had normalized. Whether that is from sepsis or from gallstones is hard to know for sure. However, it was felt that she was still having symptoms. Consequently, she was asked to see me with respect to the above. In the office, I gave her a brochure on the gallbladder. She understands the location and function of the gallbladder. She understands laparoscopic versus open cholecystectomy and we had reviewed the expected intraop and postop course. She understands there is risk to surgery including, but not limited to bleeding, infection, scarring, change in contour of the skin, damage to bowel, damage to main bile duct, incisional hernias and other unforeseen comorbidities. She had expressed understanding and wished to proceed. Electronically Signed By: PHONG KWONG MD 11/23/20 0555 PATIENT NAME: ANTONIO NUNEZ OPERATIVE REPORT DATE OF : 68 REPORT #: [id number] PHYSICIAN: PHONG KWONG MD PCP: ODIN RICH MD REPORT IS CONFIDENTIAL AND NOT TO BE RELEASED WITHOUT AUTHORIZATION [facility] [address] [place] [id number] Signed PROCEDURE NOTE: I met with Antonio and her sister in our preop area. After answering their questions, we took Antonio into the operating room. She was placed in the supine position under general endotracheal tube anesthesia. She was given preoperative antibiotics along with subcutaneous heparin. SCDs were utilized. She was then prepped and draped in the usual sterile fashion. All trocars were placed in their usual positions under direct visualization of the camera without difficulty. We did have an extra nurse scrub in due to her body habitus. We had taken pictures throughout for photodocumentation. We discovered this hernia behind her xiphoid process which is I am sure chronic if not congenital. Afterwards, the gallbladder was elevated in the right upper quadrant. The triangle of Calot was dissected free. We had placed two clips across the cystic artery and it was divided. The intraoperative cholangiocatheter was inserted into the cystic duct. The intraoperative cholangiogram was then performed. Intraoperative cholangiogram was unremarkable. The cystic duct stump was secured with a PDS Endoloop. Two clips were placed across the cystic duct stump to faustina its location. The gallbladder was then slowly removed from the gallbladder fossa with the help of the cautery and placed into an EndoCatch bag. We used our laparoscopic suturing device to pass 0-Vicryl suture on either side of the fascia of the subxiphoid trocar site. This was tied down to close this fascia primarily. After this, all the trocars were removed along with the gallbladder. The gallbladder was opened on the back table by our circulating nurse for photodocumentation. We closed the fascia of the supraumbilical trocar site with interrupted [id number] and simple 0-Vicryl sutures. After this, local anesthetic was injected in all trocar sites. Each trocar site was irrigated and suctioned out until clear. The skin and dermis of each trocar site was closed with interrupted 3-0 subcuticular Monocryl sutures. Dry gauze and tape were applied to all incisions. After this, Antonio was awakened from anesthesia, extubated in the OR, and taken to the recovery room in stable condition. Phong Kwong MD ALB/MODL /[id number] cc: MD Dr. Odin Jones Electronically Signed By: PHONG KWONG MD 11/23/20 0555 PATIENT NAME: ANTONIO NUNEZ OPERATIVE REPORT DATE OF : 68 REPORT #: [id number] PHYSICIAN: PHONG KWONG MD PCP: ODIN RICH MD REPORT IS CONFIDENTIAL AND NOT TO BE RELEASED WITHOUT AUTHORIZATION [facility] [address] [place] [address] Signed Copies: PHONG KWONG MD ~ Electronically Signed By: PHONG KWONG MD 11/23/20 0555 PATIENT NAME: ANTONIO NUNEZN OPERATIVE REPORT DATE OF : 68 REPORT #: [id number] PHYSICIAN: PHONG KWONG MD PCP: ODIN RICH MD REPORT IS CONFIDENTIAL AND NOT TO BE RELEASED WITHOUT AUTHORIZATION
--- NOTE | 2020-11-23 14:59 | PATH ---
[facility] [address] [place], [place] [address] Signed SPECIMEN(S): A GALLBLADDER AND STONES SPECIMEN SOURCE: A. GALLBLADDER AND STONES CLINICAL HISTORY: Laparoscopic cholecystectomy with intraoperative cholangiogram. Calculus of gallbladder with acute chronic cholecystitis. FINAL PATHOLOGIC DIAGNOSIS: Gallbladder, cholecystectomy: - Chronic cholecystitis. COMMENT: No calculi are grossly identified within the gallbladder or within the specimen container. NAL:cml:C2NR MICROSCOPIC EXAMINATION: Histologic sections of all submitted blocks are examined by light microscopy. These findings, together with the gross examination, support the pathologic diagnosis. GROSS DESCRIPTION: The specimen, labeled "RM, gallbladder," is received in formalin and consists of Specimen: Previously-opened gallbladder. Dimensions: 7.5 cm in length and 5.2 cm in inner circumference. Serosa: Violaceous and smooth. Cystic Duct: Unobstructed. Calculi: No calculi are grossly identified within the gallbladder or within the container. Mucosa: Alberton-garza and velvety. Wall thickness: 0.4 cm. Lymph node: No pericystic lymph nodes are grossly identified. Additional: None. Cuff Folder sections are submitted in cassette (A1). JS (under the direct supervision of a pathologist) The Gross Description was prepared using a voice recognition system. The report was reviewed for accuracy; however, sound-alike word errors, addition and/or deletions may occur. If there is any PATIENT NAME: ANTWAN NUNEZ PATHOLOGY DATE OF : 68 REPORT #: [id number] PHYSICIAN: ALEX LIMON PCP: ANDRES RICH MD REPORT IS CONFIDENTIAL AND NOT TO BE RELEASED WITHOUT AUTHORIZATION [facility] [address] [address] Signed question about this report, please contact Client Services. PERFORMING LABORATORY: The technical component was performed [place] [address] (Fiscal Economist: Estelle Matthews MD; CLIA# [id number]). Professional [facility], [address] [address] (CLIA# [id number]). Diagnostician: Elisabeth Brown MD Pathologist Electronically Signed 11/23/2020 Copies: ~ PATIENT NAME: ANTWAN NUNEZ PATHOLOGY DATE OF : 68 REPORT #: [id number] PHYSICIAN: ALEX LIMON PCP: ANDRES RICH MD REPORT IS CONFIDENTIAL AND NOT TO BE RELEASED WITHOUT AUTHORIZATION
== END 2020-11-22 16:17 | disposition home or self-care (01) ==
LOC: DS 09:00
PROVIDERS: ATTEND Colon & Rectal Surgery
PROC: 0FT44ZZ Resection of Gallbladder, Percutaneous Endoscopic Approach (ICD-10-PCS; principal; 2020-11-22 11:00)
DX: K81.1 Chronic cholecystitis (principal); K46.9 Unspecified abdominal hernia without obstruction or gangrene; K57.30 Diverticulosis of large intestine without perforation or abscess without bleeding; E66.9 Obesity, unspecified; E11.9 Type 2 diabetes mellitus without complications; I10 Essential (primary) hypertension; E03.9 Hypothyroidism, unspecified; K21.9 Gastro-esophageal reflux disease without esophagitis; Z79.82 Long term (current) use of aspirin; Z79.84 Long term (current) use of oral hypoglycemic drugs; Z68.37 Body mass index [BMI] 37.0-37.9, adult; Z83.71 Family history of colonic polyps; Z89.512 Acquired absence of left leg below knee
CPT/HCPCS: 00790; 74300; 88304; J0330; J0690; J1100; J1644; J1885; J2001; J2405; J2704; J3010; J7121; Q9967

== ENCOUNTER 2020-11-24 17:55 | Emergency (ER) | payer MEDICARE, OTHER ==
[~2020-11-24] VITALS: Ht 167.6 cm; Wt 111.6 kg
[~2020-11-24 17:55] MED LIST changes: +PERCOCET 10-321 EACH PO
[2020-11-24] MEDS ORDERED: PERCOCET 5-3251 EACH PO (22:27)
== END 2020-11-24 23:13 | disposition home or self-care (01) ==
LOC: ED 17:55
DX: R50.82 Postprocedural fever (principal); I10 Essential (primary) hypertension; E11.40 Type 2 diabetes mellitus with diabetic neuropathy, unspecified; M10.9 Gout, unspecified; Z88.0 Allergy status to penicillin; Z79.899 Other long term (current) drug therapy; Z79.84 Long term (current) use of oral hypoglycemic drugs
CPT/HCPCS: 71045; 80053; 81001; 83605; 85025; 87040; 96374; 96375; 99283-25; J1170; J2405; J7030

== ENCOUNTER 2021-06-27 07:51 | Inpatient (IN) | payer MEDICARE, OTHER ==
[~2021-06-27] VITALS: Ht 167.6 cm; Wt 116.0 kg
[~2021-06-27 07:51] MED LIST changes: +VITAMIN D-40010 MCG PO; -VITAMIN D1000 UNIT PO
--- OUTSIDE RECORDS SUMMARY | 2021-06-27 07:54 | XMS ---
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 Karen VISIT COUNT (12 MO.) 3 MOLINA Johnson TOTAL 3 NOTE: Visits indicate total known visits. 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 [place] TYPE: Medical Surgical COMPLAINT: - SEPSIS / CELLULITIS DIAGNOSES: - Phantom limb syndrome with pain - Sepsis, unspecified organism - Sepsis due to Escherichia coli [E. coli] - Acquired absence of left leg below knee - Cellulitis of right lower limb - Dorsalgia, unspecified - Other longterm (current) drug therapy - Essential (primary) hypertension - Allergy status to penicillin - Nonspecific reactive hepatitis - medical terminologist (current) use of opiate analgesic - Other intestinal Escherichia coli infections - Major depressive disorder, single episode, unspecified - Type 2 diabetes mellitus without complications - [facility] (current) use of oral hypoglycemic drugs - Chronic pain syndrome - Insomnia due to other mental disorder - Gastro-esophageal reflux disease without esophagitis - Hypothyroidism, unspecified [email or web address]
[2021-06-27] MEDS ORDERED: CINNAMON500 MG PO (08:06)
[2021-06-27] MEDS ORDERED: ASPIRIN325 MG PO (08:06)
[2021-06-27] MEDS ORDERED: ATORVASTATIN CA20 MG PO (12:07)
--- NOTE | 2021-06-27 13:08 | NUR ---
pt done eating lunch. temp now down to 97.9. IV vanco continues to infuse. pt denies further needs at this time.
[2021-06-27] MEDS ORDERED: LISINOPRIL-HCT1 EAC2 PO (13:57)
--- NOTE | 2021-06-27 13:59 | NUR ---
MED REC COMPLETED BY PHARMACY
--- NOTE | 2021-06-27 14:29 | NUR ---
PT UP TO BSC, STAND BY ASSIST ONLY REQUIRED. PT VOIDED 1.5 L AT THIS TIME. BACK IN BED. IV FLUIDS INFUSING. PT EXTREMELY DIAPHORETIC. CHANGED BEDDING AT THIS TIME. IV FLUIDS INFUSING CALL LIGHT WITHIN REACH. WILL CONTINUE TO MONITOR.
--- NOTE | 2021-06-27 15:29 | NUR ---
ASSESSMENT COMPLETED AT THIS TIME. PT REMAINS ALERT AND ORIENTED X4, HEART RATE IN THE 80S, BLOOD PRESSURES LOW BUT MAPS MAINTAINED ABOVE 65. PT DENIES PAIN AT THIS TIME. REDNESS AND HEAT REMAINS THE SAME IN RIGHT LOWER EXTREMITY. CALL LIGHT WITHIN REACH. NO FURTHER NEEDS THIS TIME.
--- NOTE | 2021-06-27 18:57 | NUR ---
PT ATE ALL OF DINNER. IV FLUIDS CONTINUE TO INFUSE. DENIES PAIN OR DISCOMFORT. CALL LIGHT WITHIN REACH. WILL CONTINUET TO MONITOR.
--- NOTE | 2021-06-27 19:05 | NUR ---
RECEIVED REPORT FROM DAY SHIFT NURSES. PT ADMITTED FROM TODAY FOR RIGHT LEG CELLULITIS. RECEIVING LR 75ML/HR, HAS BEEN GETTING UP WITH STANDBY ASSIST.
--- NOTE | 2021-06-27 20:45 | NUR ---
PT ASSESSMENT COMPLETE. PT REQUESTED ICE PACKS FOR NECK AND SHOULDER COMPLIED WITH REQUEST. PT HAS ALSO GOTTEN UP TO VOID ABOUT 2100 ML OUT, PER PT THIS IS NORMAL FOR HER TO "PEE LIKE ONLY TWICE A DAY AND A LOT WHEN I GO" SAMPLE COLLECTED AND SENT TO LAB. PT DENIES NEEDING ANY PAIN MED AT THIS TIME.
--- NOTE | 2021-06-27 23:17 | NUR ---
CHECKING ON PT, SHE WOULD LIKE A PERCOCET AT THIS TIME FOR HER NECK AND SHOULDER PAIN. PT MEDICATED WITH ONE PERCOCET 5.325. PT ALSO PROVIDED WITH ICE PACK FOR HER NECK AND SHOULDER PAIN, REPORTS "IT HELPS"
--- NOTE | 2021-06-27 23:48 | NUR ---
PT'S VANCOMYCIN IS COMPLETE. PT REPORTS SHE WOULD LIKE TO TRY AND GOT TO SLEEP. HAS TURNED ONTO HER RIGHT SIDE. CALL LIGHT IN REACH. MAINTENANCE FLUIDS INFUSING AT 50ML/HR. ROOM DARKENED. PT REPORTS BEING PLENTY WARM DECLINES WARM BLANKET OFFER.
--- NOTE | 2021-06-28 00:52 | NUR ---
PT ASSESSMENT COMPLETE. PT WAS ASLEEP BUT WAS ABLE TO WAKE UP TO FOLLOW COMMANDS. MAINTENANCE FLUID INFUSING AT 50ML/HR. DENIES OTHER NEEDS REPORTSIMPROVED PAIN. CALL LIGHT IN REACH.
--- NOTE | 2021-06-28 01:59 | NUR ---
THIS RN INFORMED BY OTHER RN PT AWOKE, WAS "KICKING AND FLAILING IN THE BED" PT REPORTED THAT SOME "ACID CAME UP IN HER THROAT WANTS SOME TUMS" PUT IN NIO FOR MAALOX 30 ML. GAVE THIS TO PT AND WILL BE BACK TO CHECK ON HER.
--- NOTE | 2021-06-28 02:21 | NUR ---
PT REPORTS THAT THE MAALOX HAS "HELPED SOME" BUT STILL HAS THE "BURNING" IN HER NOSTRILS AND SINUS AREA. PT HAS TV ON AND IS GOING TO SIT UP AND WATCH IT FOR AWHILE. DENIES NEEDING ANYTHING ELSE AT THIS MOMENT.
--- NOTE | 2021-06-28 03:27 | NUR ---
PT'S SAO2 ALARMING SHOWING SATS IN MID 80S WITH GOOD PLETH. WHEN ENTERING ROOM PT HAS HER HEAD KINKED TO HER RIGHT SIDE WHILE SITTING UPRIGHT ASLEEP. WOKE PT UP AND SHE IS IMMEDIATELY STARTLED. PT'S SATS ON ROOM AIR COME UP TO THE HIGH 90'S.PT DENIES NEEDING ANYTHING WHEN ASKED.
--- NOTE | 2021-06-28 05:20 | NUR ---
FLUIDS COMPLETED, WILL KEEP OFF UNTIL LABS HAVE BEEN DRAWN PT REQUESTS HER LEFT ARM NOT BE USED FOR ANY LAB DRAWS.
--- NOTE | 2021-06-28 05:50 | NUR ---
PT ASLEEP. RESTARTED LR WITH NEW BAG POST LAB DRAW.
--- NOTE | 2021-06-28 07:30 | NUR ---
REPORT RECIEVED, CARE OF PT ASSUMED AT THIS TIME. PT ASLEEP, RR EVEN AND UNLABORED. CALL LIGHT AND PERSONAL BELONGINGS WITHIN REACH.
--- NOTE | 2021-06-28 07:57 | NUR ---
ASSESSMENT COMPLETED AT THIS TIME. FINE CRACKLES AUSCULTATED IN THE RIGHT LOWER LUNG BASE, ALL OTHER AIR MURPHY CLEAR. DISCUSSED USE OF IS AND DEEP BREATHING. IV FLUIDS INFUSING. PT STATES ACID REFLUX FROM LAST NIGHT HAS RESOLVED. DENIES PAIN OR DISCOMFORT AT THIS TIME. PLAN OF CARE FOR EVENING ESTABLISHED. CALL LIGHT WITHIN REACH. WILL CONTINUE TO MONITOR.
--- NOTE | 2021-06-28 09:27 | NUR ---
ABX DONE INFUSING. PT SALINE LOCKED AT THIS TIME.
--- NOTE | 2021-06-28 12:47 | NUR ---
ASSESSMENT COMPLETED. PT UP IN BATHROOM WITH ONE PERSON ASSIST TO SHOWER. NO UP IN CHAIR EATING LUNCH. CALL LIGHT WITHIN REACH. WILL CONTINUE TO MONITOR.
--- NOTE | 2021-06-28 14:31 | NUR ---
PT UP TO COMMODE AND BACK TO CHAIR. STEADY ON FEET. CALL LIGHT WITHIN REACH DENIES FURTHER NEEDS AT THIS TIME.
--- NOTE | 2021-06-28 16:17 | NUR ---
PT TRANSFERRED TO MEDICAL FLOOR VIA PERSONAL WC. PT TRANSFERRED FROM CHAIR TO WC INDEPENDENTLY. PT REMAINS ON RA, ALERT AND ORIENTED. BELONGINGS IN CLOSET. BEDSIDE TABLE, CALL LIGHT WITHIN REACH.
--- NOTE | 2021-06-28 18:06 | NUR ---
PT REPORTS RLE FEELS "TIGHTER" AND "WARMER" TO PT. CELLULITIS AREA HAD NOT BEEN MARKED SO THIS RN MARKED BORDERS OF REDDENED AREA TO BETTER ASSESS CHANGES. PT HAS HAD LEG ELEVATED SINCE ARRIVING TO THE FLOOR. NO FEVER AT THIS TIME.
--- NOTE | 2021-06-28 19:52 | NUR ---
BEDSIDE REPORT FROM TARIQ TORRES, PT AMBULATING FROM BATHROOM TO RECLINER AT THIS TIME, SHE IS ABLE TO PLACE AND REMOVE HER PROSTHETIC LEFT LEG. REPORTED THAT PT IS INDEPENDENT.
--- NOTE | 2021-06-28 20:22 | NUR ---
PT REPORTS PAIN IS TOLERABLE AT THIS TIME, DOES NOT WANT PAIN MEDICATIONS AT THIS TIME. SHE WOULD LIKE THE MAALOX AT 2200 WITH ProtagenX.
--- NOTE | 2021-06-28 23:11 | NUR ---
PT RESQUESTED AND WAS PROVIDED MORE PILLOWS LEFT STUMP AND SHOULDERS, ALSO MAALOX GIVEN PER PT REQUESTS PRN, VANCO INFUSING. NEW ICE PACKS PROVIDED FOR RLE CELLULITIS, WELL WITHIN LINES DRAWN THIS AFTERNOON BY TARIQ MO.
--- NOTE | 2021-06-29 01:20 | NUR ---
PT SLEEPING, ALERT TO RN IN ROOM TO TURN OFF IV PUMP. SHE SAID SHE HAD NO NEEDS AT THIS TIME. NO DISTRESS NOTED
--- NOTE | 2021-06-29 05:42 | NUR ---
PT SLEPT WELL OVER SHIFT, SHE HAS REPORTED NO PAIN OR NAUSEA, CELLULITIS TO RIGHT LOWER EXTREMETIES IMPROVING PER LINES DRAWN ON DAYSHIFT 06/28/21 BY TARIQ TORRES.
--- NOTE | 2021-06-29 06:29 | NUR ---
PT REPORTS NO PAIN THIS AM. NO NAUSEA. SHE IS ALERT AND ORIENTED. NO REQUEST AT THIS TIME, TWO NEW ICE PACKS PROVIDED FOR RLE CELLULITIS
--- NOTE | 2021-06-29 07:39 | NUR ---
report recieved from mold shifter RN pt sleeping in bed, no needs at the moment, call light within reach
--- NOTE | 2021-06-29 08:34 | NUR ---
RN IN ROOM TO DO MORNING MEDS AND ASSESSMENT, PT AWAKE ALERT, ON ROOM AIR, IV FLUSHED, UP EATING BREAKFAST DENIES ANY PAIN AT THE MOMENT
--- NOTE | 2021-06-29 09:49 | NUR ---
BROUGHT A MENU TO PATIENT'S ROOM. FOOD PREFERENCES OBTAINED. SHE DOES NOT LIKE MILK TO DRINK. HAS NO BOTTOM TEETH SO CANNOT CHEW APPLE SLICES. SHE PREFERS DIET LEMON BELKOFSKI WITH LUNCH AND DINNER. NOT A COFFEE DRINKER. SHE IS FAMILIAR WITH CARB EXCHANGES WHICH ARE LISTED ON THE BACK OF THE 60 GM CONSISTENT CARB MENU. PATIENT HAS NO QUESTIONS AT THIS TIME.
--- NOTE | 2021-06-29 10:00 | NUR ---
VANCO TROUGH DRAWN, LEVELS HIGH, HOLDING 1000 DOSE.
--- NOTE | 2021-06-29 11:45 | NUR ---
Spoke with Antonio, states she is feeling much better today. Redness is decreased in LE. Pt denies needs to going home. Feels she will be able to manage without problems. Prothesis is resting in bed with pt. Denies needs.
[2021-06-29] MEDS ORDERED: DOXYCYCLINE HY100 MG PO (12:25)
--- NOTE | 2021-06-29 12:29 | NUR ---
DR MACIAS ROUNDED ON PT, PER DR HOLLOWAY OK TO DC HOME AFTER HER 1300 VANCO DOSE
--- NOTE | 2021-06-29 13:26 | NUR ---
RN IN ROOM TO, START IV VANCO, NEW ICE PACK PROVIDED, FRESH WATER GIVEN, DENIES ANY OTHER NEEDS
== END 2021-06-29 15:46 | disposition home or self-care (01) | DRG 871 ==
LOC: ED 07:51 → CCU 10:26 → MS 06-28 16:00
PROVIDERS: ADMIT Internal Medicine; ATTEND Internal Medicine
DX: A41.9 Sepsis, unspecified organism (principal); E11.10 Type 2 diabetes mellitus with ketoacidosis without coma; L03.115 Cellulitis of right lower limb; N17.9 Acute kidney failure, unspecified; Z68.41 Body mass index [BMI] 40.0-44.9, adult; R65.20 Severe sepsis without septic shock; E03.9 Hypothyroidism, unspecified; E66.01 Morbid (severe) obesity due to excess calories; G89.4 Chronic pain syndrome; Z88.0 Allergy status to penicillin; M19.90 Unspecified osteoarthritis, unspecified site; Z20.822 Contact with and (suspected) exposure to COVID-19; I10 Essential (primary) hypertension; E11.40 Type 2 diabetes mellitus with diabetic neuropathy, unspecified; Z89.512 Acquired absence of left leg below knee; Z79.82 Long term (current) use of aspirin; Z79.899 Other long term (current) drug therapy; F39 Unspecified mood [affective] disorder; Z79.84 Long term (current) use of oral hypoglycemic drugs; E11.65 Type 2 diabetes mellitus with hyperglycemia
CPT/HCPCS: 71045; 80048; 80053; 80202; 81001; 83605; 85025; 87040; 96365; 99284-25; C9803; J0696; J1650; J1815; J3370; J7030; J7060; J7121; U0003

== ENCOUNTER 2021-10-03 05:40 | Day surgery (SDC) | payer MEDICARE, OTHER ==
[~2021-10-03] VITALS: Ht 167.6 cm; Wt 114.5 kg
--- NOTE | ~2021-10-03 | OR ---
[facility] [address] [place], [place] [address] Draft DATE OF OPERATION: 10/03/2021 SURGEON: Sahra Simmons MD PREOPERATIVE DIAGNOSIS: Postmenopausal bleeding. POSTOPERATIVE DIAGNOSIS: Postmenopausal bleeding, pending pathology. PROCEDURES: Hysteroscopy, dilation and curettage. ANESTHESIA: MAC. ESTIMATED BLOOD LOSS: Minimal. DRAINS: None. INDICATIONS AND FINDINGS: The patient is a 51-year-old female, who had not had any bleeding for approximately 10 years, but had a recent period type of bleeding in July. Ultrasound showed a thickened endometrial stripe. Endometrial biopsy was unsuccessful in the office. At the time of surgery, exam under anesthesia was normal though it was quite limited by her morbid obesity, which was primarily central. At the time of surgery, her uterus sounded to 8 cm. Her cavity was atrophic. DESCRIPTION OF PROCEDURE: The patient was prepped and draped in the dorsal lithotomy position. Initially, a weighted speculum was placed, but the cervix could not be visualized given her obesity. This was replaced by an open-sided speculum, which allowed for visualization of the cervix. It was grasped on the anterior lip with a single-tooth tenaculum. The cavity was then sounded to 8 cm. The endocervical canal was then dilated to #8 dilator. Following this, the MyoSure device was placed and the speculum removed. The cavity was evaluated. There was no obvious abnormality at all. The cavity appeared atrophic. The hysteroscope was removed and the open-sided speculum replaced. D and C was done with a small curette with a small amount of tissue found. The tenaculum was then removed and PATIENT NAME: ANTWAN NNUEZ OPERATIVE REPORT DATE OF : 68 REPORT #: [id number] PHYSICIAN: SAHRA SMIMONS MD PCP: ANDRES RICH MD REPORT IS CONFIDENTIAL AND NOT TO BE RELEASED WITHOUT AUTHORIZATION [facility] [address] [place] [id number] Draft there was no evidence of any ongoing bleeding. The patient tolerated the procedure well and was taken to the recovery room in good condition. MD JOSELUIS Cervantes/MODL /[id number] Copies: ~ PATIENT NAME: ANTWAN NUNEZ OPERATIVE REPORT DATE OF : 68 REPORT #: [id number] PHYSICIAN: SAHRA SIMMONS MD PCP: ANDRES RICH MD REPORT IS CONFIDENTIAL AND NOT TO BE RELEASED WITHOUT AUTHORIZATION
[~2021-10-03 05:40] MED LIST changes: +ATORVASTATIN CA20 MG PO; +CINNAMON500 MG PO; +COLLAGEN 15001 EACH PO; +PROBIOTIC1 EAC1 PO; +ZESTORETIC 10-1 EACH
--- NOTE | 2021-10-03 07:52 | NUR ---
10/03/21 0755 Maria Guadalupe Wiggins 9165-PATIENT ARRIVED TO PACU ON 6L MASK RR EVEN. PATIENT REACTIVE TO VERBAL STIMULI VERY DROWSY. ST. IVF INFUSING. JESSI PAD CDI. GLUCOSE CHECKED 164
[2021-10-03] MEDS ORDERED: HYDROCODON-ACE1 EA10 PO (08:12)
[2021-10-03] MEDS ORDERED: VENTOLIN HFA18 GM (08:12)
--- NOTE | 2021-10-04 11:45 | PATH ---
[facility] [address] [place], [place] [address] Signed SPECIMEN(S): A ENDOMETRIAL CURETTINGS SPECIMEN SOURCE: A. ENDOMETRIAL CURETTINGS CLINICAL HISTORY: Postmenopausal bleeding. Hysteroscopy DC. FINAL PATHOLOGIC DIAGNOSIS: Endometrium, curettage: - Fragments of inactive endometrium with crush artifact. - Fragments of squamous mucosa with scattered acute inflammation and reactive changes. - Negative for hyperplasia or malignancy. COMMENT: The majority of the endometrium is fragmented and/or crushed. No hyperplasia is seen in the architecturally intact fragments. NAL:cml:C2NR MICROSCOPIC EXAMINATION: Histologic sections of all submitted blocks are examined by light microscopy. These findings, together with the gross examination, support the pathologic diagnosis. GROSS DESCRIPTION: The specimen, labeled "RM, A," and designated on the requisition "EMC," is received in formalin and consists of multiple fragments of brown-garza soft tissue (2.5 x 0.6 x 0.1 cm aggregate). The specimen is submitted entirely in cassette (A1). AC (under the direct supervision of a pathologist) The Gross Description was prepared using a voice recognition system. The report was reviewed for accuracy; however, sound-alike word errors, addition and/or deletions may occur. If there is any question about this report, please contact Client Services. PERFORMING LABORATORY: The technical component was performed by [employer], [address] [place] [id number] (CLIA# [id number]). [facility] [address] [facility] [address] [address] (CLIA# PATIENT NAME: ANTWAN NUNEZ PATHOLOGY DATE OF : 68 REPORT #: [id number] PHYSICIAN: ALEX PATHOLOGY PCP: ANDRES RICH MD REPORT IS CONFIDENTIAL AND NOT TO BE RELEASED WITHOUT AUTHORIZATION [facility] [address] [place] [id number] Signed [id number]). Diagnostician: Elisabeth Brown MD Pathologist Electronically Signed 10/04/2021 Copies: ~ PATIENT NAME: ANTWAN NUNEZ PATHOLOGY DATE OF : 68 REPORT #: [id number] PHYSICIAN: ALEX PATHOLOGY PCP: ANDRES RICH MD REPORT IS CONFIDENTIAL AND NOT TO BE RELEASED WITHOUT AUTHORIZATION
== END 2021-10-03 08:55 | disposition home or self-care (01) ==
LOC: DS 05:40
PROVIDERS: ATTEND Obstetrics & Gynecology
PROC: 0UDB8ZX Extraction of Endometrium, Via Natural or Artificial Opening Endoscopic, Diagnostic (ICD-10-PCS; principal; 2021-10-03 07:00)
DX: N85.8 Other specified noninflammatory disorders of uterus (principal); E66.01 Morbid (severe) obesity due to excess calories; Z68.41 Body mass index [BMI] 40.0-44.9, adult; Z88.0 Allergy status to penicillin; Z89.512 Acquired absence of left leg below knee; E11.9 Type 2 diabetes mellitus without complications
CPT/HCPCS: J0131; J1644; J1885; J2001; J2405; J2704; J3010; J7121

== ENCOUNTER 2023-06-07 08:13 | Inpatient (IN) | payer MEDICARE, OTHER ==
[~2023-06-07] VITALS: Ht 167.6 cm; Wt 111.1 kg
[~2023-06-07 08:13] MED LIST changes: +TRULICITY3 MG/0.5 M; +VENTOLIN HFA18 GM; -ZESTORETIC 10-1 EACH; +ZESTORETIC 10-1 EACH PO
[2023-06-07 08:47] LABS: BILIRUBIN, URINE NEGATIVE (negative); BLOOD/HGB, URINE SMALL (Negative); KETONE, URINE NEGATIVE (Negative); LEUK ESTERASE, URINE LARGE (negative); NITRITE, URINE NEGATIVE (negative)
[2023-06-07 08:58] LABS: BACTERIA, URINE 1+ /hpf (negative); EPITHELIAL CELLS, URINE 0 /lpf (0-1+); REFLEX CULTURE, URINE Yes (No); WHITE BLOOD CELLS, URINE >50 /HPF (0-5)
[2023-06-07 09:16] LABS: BASOPHILS 0.5 % (0-2); EOSINOPHILS 0.4 % (0-6); HEMATOCRIT 39.5 % (35.0-50.0); HEMOGLOBIN 13.4 g/dL (12.0-18.0); LYMPHOCYTES 10.9 % (24-44); MCH 32.3 (27-36); MCV 94.9 fl (81-99); MONOCYTES 8.6 % (0-12); NEUTROPHILS 79.6 % (39-80); PLATELET COUNT 284 K/uL (140-440); RBC 4.16 M/ul (4.3-5.7); RDW 12.8 (10.5-15.0)
[2023-06-07 09:31] LABS: ALBUMIN 3.7 g/dL (3.4-5.0); ALBUMIN/GLOBULIN RATIO 0.97 (1.1-2.4); BILIRUBIN, TOTAL 0.5 ng/dL (0.2-1.0); BUN/CREATININE RATIO 8.14 (6.0-28.6); CALCIUM 9.1 mg/dL (8.5-10.1); CREATININE, SERUM 1.35 mg/dL (0.55-1.02); PROTEIN, TOTAL 7.5 g/dL (6.4-8.2)
[2023-06-07 09:37] LABS: LACTIC ACID, BLOOD 2.7 mmol/L (0.4-2.0)
--- NOTE | 2023-06-07 13:20 | NUR ---
RETRIEVED PT FROM ER, SHE ARRIVED ON THE UNIT VIA STRETCHER. MANAGER LAB BROUGHT DOWN HER PERSONAL WHEELCHAIR, PROSTHETIC LEG, AND BAG OF CLOTHES. ALL PERSONAL BELONGINGS ARE IN ROOM. SKIN CHECK WITH MELISSA MACIAS. PT HAS ONE AREA OF EXCEMA IN HER UMBILICUS AND REDDENED AREA ON RIGHT LOWER LEG (CELLULITIS), OUTLINED IN ER. PT REPORTS PAIN 5/10, NORMAL PAIN LEVEL IS 1-2/10. REPORTS PAIN "ZINGERS" IN HER STUMP THAT ONLY COME ON WHEN SHE HAS A FEVER. PT SETTLED IN ROOM WITH ADDITIONAL PILLOWS, PAIN MEDICATIONS GIVEN. ALL BELONGINGS IN REACH.
--- NOTE | 2023-06-07 13:44 | NUR ---
REQUESTED GABAPENTIN FROM DR TAVERAS FOR NEUROPATHIC PAIN. HE WILL ENTER THE ORDER AFTER ROUNDS.
[2023-06-07] MEDS ORDERED: PEPCID AC20 MG PO (15:31)
[2023-06-07] MEDS ORDERED: PROTONIX20 MG PO (15:32)
--- NOTE | 2023-06-07 15:33 | NUR ---
MED REC COMPLETE
--- NOTE | 2023-06-07 17:00 | NUR ---
PT BG 81, PT DENIES S/S OF HYPOGLYCEMIA, PT DOES NOT TAKE INSULIN BUT IS CONTROLLED WITH METFORMIN.
[2023-06-07 18:47] VITALS: BP 94/55
--- NOTE | 2023-06-07 19:30 | NUR ---
REPORT RECEIVED FROM DAY SHIFT RN. PATIENT RESTING IN BED WATCHING TV. NO FURTHER NEEDS. CALL LIGHT IN REACH.
[2023-06-07 21:18] VITALS: BP 121/71
--- NOTE | 2023-06-07 21:45 | NUR ---
PATIENT RESTING IN BED. PATIENT TRANSFERRED INDEPENDENTLY TO [facility] TO [place]. PATIENT BACK TO BED. VS AND I&Os OBTAINED AND RECORDED. SCHEDULED AND PRN MEDICATIONS ADMINISTERED, SEE AUG. ASSESSMENT COMPLETE. TEMP 99.6. 5/10 PAIN IN LLE. REDNESS MINIMALLY INCREASED ON RLE, OUTLINED WITH MARKER. FRESH WATER PROVIDED. PATIENT HAS NO FURTHER NEEDS. CALL LIGHT IN REACH.
--- NOTE | 2023-06-07 23:03 | NUR ---
PATIENT IN BED RESTING ON BACK WACTHING TV. RESPIRATIONS EVEN AND UNLABORED. CALL LIGHT IN REACH.
--- NOTE | 2023-06-08 00:52 | NUR ---
PATIENT IN BED RESTING ON BACK WITH EYES CLOSED. RESPIRATIONS EVEN AND UNLABORED. CALL LIGHT IN REACH.
[2023-06-08 02:04] VITALS: BP 100/67
--- NOTE | 2023-06-08 02:09 | NUR ---
PATIENT RESTING IN BED. AWAKENS EASILY. VS AND I&Os OBTAINED AND RECORDED. ASSESSMENT COMPLETE. PATIENT STATES NO CURRENT PAIN. REDNESS INCREASED ON RLE. THIS RN MARKED NEW REDNESS. FRESH WATER PROVIDED. PATIENT HAS NO FURTHER NEEDS. CALL LIGHT IN REACH.
--- NOTE | 2023-06-08 04:16 | NUR ---
PATIENT IN BED RESTING ON BACK WITH EYES CLOSED. RESPIRATIONS EVEN AND UNLABORED. CALL LIGHT IN REACH.
[2023-06-08 05:23] VITALS: BP 122/77
[2023-06-08 05:32] LABS: BASOPHILS 0.5 % (0-2); EOSINOPHILS 2.3 % (0-6); HEMATOCRIT 33.6 % (35.0-50.0); HEMOGLOBIN 11.6 g/dL (12.0-18.0); LYMPHOCYTES 38.5 % (24-44); MCHC 34.6 g/dl (30-36); MCV 95.5 fl (81-99); MONOCYTES 12.1 % (0-12); NEUTROPHILS 46.6 % (39-80); PLATELET COUNT 246 K/uL (140-440); RBC 3.52 M/ul (4.3-5.7); RDW 12.7 (10.5-15.0)
[2023-06-08 06:22] LABS: ALBUMIN 2.7 g/dL (3.4-5.0); ALBUMIN/GLOBULIN RATIO 0.84 (1.1-2.4); ANION GAP 13.6 (7-21); BILIRUBIN, TOTAL 0.3 ng/dL (0.2-1.0); BUN/CREATININE RATIO 10.92 (6.0-28.6); CALCIUM 8.2 mg/dL (8.5-10.1); CREATININE, SERUM 1.19 mg/dL (0.55-1.02); MAGNESIUM 1.7 mg/dL (1.8-2.4); POTASSIUM 3.6 mmol/L (3.5-5.1); PROTEIN, TOTAL 5.9 g/dL (6.4-8.2)
--- NOTE | 2023-06-08 07:28 | NUR ---
RECIEVED BEDSIDE REPORT FROM MELISSA ASTORGA AND MELISSA NEWSOME. PT HAD A GOOD NIGHT, SLEEPT WELL. PAIN WELL CONTROLLED WITH HS GABAPENTIN AND NORCO. VOIDING WELL. NO NEEDS AT THIS TIME.
[2023-06-08 09:58] VITALS: BP 98/58
--- NOTE | 2023-06-08 10:06 | NUR ---
PT IS AWAKE AND ALERT IN BED. SHE ATE BREAKFAST. REPORTS PAIN IS WELL CONTROLLED. REDNESS ON RIGHT LEG IS MUCH IMPROVED, LESS RED, NO EDEMA, WARMTH EQUAL TO LEFT EXTREMITY. IV ABX STARTED.
[2023-06-08 13:02] VITALS: BP 110/74
--- NOTE | 2023-06-08 14:37 | NUR ---
PT HAS HAD MANY VISITORS . HE IS SITTING UP IN THE CHAIR. DENIES NEEDS AT THIS TIME.
--- NOTE | 2023-06-08 17:19 | NUR ---
PT ADMITTED FOR CELLULITIS OF RIGHT LOWER LEG AND UTI. PT IS ON IVF @125. VOIDING WELL, ENCOURAGED TO ATTEMPT TO VOID AT LEAST EVERY 4 HOURS. REDNESS IS MUCH IMPROVED, LESS RED AND OUTLINED. BLOOD SUGAR CHECKS AC AND HS, NO INSULIN GIVED DURING SHIFT. PT IS VOIDING LARGE AMOUNTS. CALLS APROPRIATELY. CAN STAND/PIVOT INDEPENDENTLY. IV ABX ORDERED. MAG REPLACEMENT ORDERED.
[2023-06-08 17:48] VITALS: BP 127/80
--- NOTE | 2023-06-08 19:38 | NUR ---
REPORT RECEIVED FROM DAY SHIFT RN. PATIENT RESTING IN BED WATCHING TV. PATIENT STATES NO FURTHER NEEDS. CALL LIGHT IN REACH.
[2023-06-08 20:34] VITALS: BP 106/63
--- NOTE | 2023-06-08 20:54 | NUR ---
PATIENT RESTING IN BED ON PHONE. VS AND I&Os OBTAINED AND RECORDED. SCHEDULED MEDICATIONS ADMINISERED. FRESH ICE PACKS PROVIDED. ASSESSMENT COMPLETE. PULSE PRESENT IN RLE. REDNESS NOTED TO HAVE TRAVELED OUTSIDE MARKED AREA, BUT HAS DECREASED IN TEMPERATURE TO TOUCH. AREA REMARKED WITH SOLID LINES. PATIENT HAS NO FURTHER NEEDS. CALL LIGHT IN REACH. IV ABX INFUSING PER ORDER.
--- NOTE | 2023-06-08 22:52 | NUR ---
PATIENT IN BED ON BACK WATCHIN TV. THIS RN EMPTIED BSC. PATIENT HAS NO FURTHER NEEDS. CALL LIGHT IN REACH.
--- NOTE | 2023-06-09 00:41 | NUR ---
PATIENT IN BED RESTING ON BACK WITH EYES CLOSED. RESPIRATIONS EVEN AND UNLABORED. NEW BAG IV FLUID INFUSING PER ORDER. CALL LIGHT IN REACH.
--- NOTE | 2023-06-09 02:09 | NUR ---
PATIENT RESTING IN BED ON BACK WITH EYES CLOSED. RESPIRATIONS EVEN AND UNLABORED. IV ABX INFUSING PER ORDER. CALL LIGHT IN REACH.
--- NOTE | 2023-06-09 04:15 | NUR ---
PATIENT IN BED ON BACK RESTING WITH EYES CLOSED. RESPIRATIONS EVEN AND UNLABORED. CALL LIGHT IN REACH.
[2023-06-09 05:29] VITALS: BP 113/73
[2023-06-09 05:30] LABS: BASOPHILS 0.9 % (0-2); EOSINOPHILS 4.6 % (0-6); HEMATOCRIT 31.5 % (35.0-50.0); LYMPHOCYTES 42.1 % (24-44); MCH 33.1 (27-36); MCHC 34.8 g/dl (30-36); MCV 95.2 fl (81-99); MONOCYTES 11.3 % (0-12); NEUTROPHILS 41.1 % (39-80); PLATELET COUNT 232 K/uL (140-440); RDW 12.7 (10.5-15.0)
--- NOTE | 2023-06-09 05:35 | NUR ---
PATIENT RESTING IN BED WITH EYES CLOSED. PATIENT AWAKENS EASILY. VS AND I&Os OBTAINED AND RECORDED. FRESH WATER PROVIDED. ASSESSMENT COMPLETE. REDNESS IN RLE DECREASED. PATIENT DENIES FRESH ICE PACKS AT THIS TIME. PATIENT HAS NOT HAS BM IN 2 DAYS. THIS RN OFFERED PATIENT BOWEL CARE MEDICATION. PATIENT DENIES THE NEED AT THIS TIME. PATIENT HAS NO FURTHER NEEDS. CALL LIGHT IN REACH. SCHEDULED MEDICATION ADMINISTERED, SEE MAR. PATIENT DENIES PAIN AT THIS TIME.
[2023-06-09 05:45] LABS: ALBUMIN 2.6 g/dL (3.4-5.0); ALBUMIN/GLOBULIN RATIO 0.81 (1.1-2.4); BILIRUBIN, TOTAL 0.2 ng/dL (0.2-1.0); BUN/CREATININE RATIO 8.77 (6.0-28.6); CALCIUM 8.2 mg/dL (8.5-10.1); CREATININE, SERUM 1.14 mg/dL (0.55-1.02); PROTEIN, TOTAL 5.8 g/dL (6.4-8.2)
--- NOTE | 2023-06-09 08:01 | NUR ---
recieved report from nurse at 0730. pt at the time was asleep with even unlabored breathing. pt is cvurrently awake a+o. no other cares needed when offered or requested at this time. call light within reach
[2023-06-09 10:39] VITALS: BP 98/76
--- NOTE | 2023-06-09 11:32 | NUR ---
pt is currently in bed. assessment complete no abnormal findings. cellulitis outline looks less red and feels less warm. no pain no discomfort. pt requests ice water but no other cares at this time. call light within reach
[2023-06-09] MEDS ORDERED: BACTRIM DS TAB1 EACH PO (12:05)
[2023-06-09] MEDS ORDERED: CEFPODOXIME PR200 MG PO (12:06)
--- NOTE | 2023-06-09 13:10 | NUR ---
PT IS GETTING READY FOR DISCHARGE AND JUST ASKED FOR A REFILL OF ICE WATER. INFUSION ALMOST DONE . NO OTHER CARES REQUESTED OR NEEDED AT THIS TIME CALL LIGHT WITHIN REACH
[2023-06-09 14:21] VITALS: BP 111/85
== END 2023-06-09 14:10 | disposition home or self-care (01) | DRG 872 ==
LOC: ED 08:13 → MS 12:04
PROVIDERS: Emergency Medicine; ADMIT Family Medicine; ATTEND Family Medicine
DX: A41.9 Sepsis, unspecified organism (principal); N39.0 Urinary tract infection, site not specified; L03.115 Cellulitis of right lower limb; E11.9 Type 2 diabetes mellitus without complications; E03.9 Hypothyroidism, unspecified; E78.5 Hyperlipidemia, unspecified; E83.42 Hypomagnesemia; Z88.0 Allergy status to penicillin; Z89.512 Acquired absence of left leg below knee; Z79.82 Long term (current) use of aspirin; Z79.84 Long term (current) use of oral hypoglycemic drugs; Z79.85 Long-term (current) use of injectable non-insulin antidiabetic drugs; Z79.890 Hormone replacement therapy
CPT/HCPCS: 36415; 71045; 80053; 81001; 82553; 83605; 83735; 84100; 85025; 96361; 96374; 96375; 99285-25; A9270; J0692; J0696; J0878; J1650; J1885; J3475; J7030; J7121

== ENCOUNTER 2024-04-02 05:45 | Day surgery (SDC) | payer MEDICARE, OTHER ==
--- NOTE | 2024-03-24 12:39 | NUR ---
PHONE CALL TO PT AT THE FOLLOW NUMBER [phone]. LEFT MESSAGE WILL TRY AGAIN LATER TODAY.
[~2024-04-02] VITALS: Ht 167.6 cm; Wt 107.7 kg
[~2024-04-02 05:45] MED LIST changes: +CEFPODOXIME PR200 MG PO; +CRANBERRY 12,61 EACH PO; +LACTATED RINGER'S 1,000 ML IV SCH; +PEPCID AC20 MG PO; +PROTONIX20 MG PO
[2024-04-02 05:58] VITALS: BP 142/74
[2024-04-02] MEDS ORDERED: FAMOTIDINE 20 MG/ 2 ML VIAL ONE (06:09)
[2024-04-02] MEDS ORDERED: MIDAZOLAM HCL 2 MG/2 ML VIAL ONE (06:09)
[2024-04-02] MEDS ORDERED: fentaNYL citrate 100 MCG/2 ML VIAL ONE (06:09)
[2024-04-02] MEDS ORDERED: KETOROLAC TROMETHAMINE 30 MG/ML VIAL ONE (06:09)
[2024-04-02] MEDS ORDERED: propofoL 200 MG/20 ML VIAL ONE (06:09)
[2024-04-02] MEDS ORDERED: ondansetron HCL 4 MG/2 ML VIAL ONE (06:09)
[2024-04-02] MEDS ORDERED: METOCLOPRAMIDE HCL 10 MG/2 ML SDV ONE (06:09)
[2024-04-02] MEDS ORDERED: LACTATED RINGER'S 1,000 ML IV ONE (06:09)
[2024-04-02] MEDS ORDERED: DEXAMETHASONE SOD PHOS 4 MG/ML VIAL ONE (06:09)
[2024-04-02] MEDS ORDERED: BUPIVACAINE HCL 0.5% 30 ML VIAL ONE (06:11)
[2024-04-02] MEDS ORDERED: LIDOCAINE HCL 2% 5 ML SDV ONE (06:13)
[2024-04-02] MEDS ORDERED: KETOROLAC TROMETHAMINE 15 MG/ML VIAL IV PRN (07:00)
[2024-04-02] MEDS ORDERED: IBLOOD GLUCOSE TEST STRIP 1 EA TEST VI PRN ×2 (07:00→07:45)
[2024-04-02] MEDS ORDERED: HYDROCODONE/ACETA 7.5/325 TAB PO PRN (07:00)
[2024-04-02] MEDS ORDERED: CEFAZOLIN SODIUM 2 GM/20 ML SYR IV SCH (07:00)
[2024-04-02] MEDS ORDERED: LIDOCAINE HCL 1% 5 ML SDV INJ ONE (07:00)
[2024-04-02] MEDS ORDERED: TRANEXAMIC ACID 2,000 MG in SODIUM CHLORIDE 0.9% 100 ML IV SCH (07:00)
[2024-04-02] MEDS ORDERED: ePHEDrine sulfate 50 MG/ML AMP ONE (07:27)
[2024-04-02] MEDS ORDERED: droPERidol 5 MG/2 ML VIAL IV PRN (07:45)
[2024-04-02] MEDS ORDERED: fentaNYL citrate 50 MCG/ML SDV IV PRN (07:45)
[2024-04-02] MEDS ORDERED: METOCLOPRAMIDE HCL 10 MG/2 ML SDV IV PRN (07:45)
[2024-04-02] MEDS ORDERED: NALOXONE HCL 0.4 MG SYR IV PRN (07:45)
[2024-04-02] MEDS ORDERED: ondansetron HCL 4 MG/2 ML VIAL IV PRN (07:45)
[2024-04-02] MEDS ORDERED: MORPHINE SULFATE 10 MG/ML VIAL IV PRN (07:45)
[2024-04-02] MEDS ORDERED: PROCHLORPERAZINE EDISYLATE 10 MG/2 ML VIAL IV PRN (07:45)
[2024-04-02] MEDS ORDERED: CELECOXIB 200 MG CAP PO SCH (08:00)
[2024-04-02] MEDS ORDERED: HYDROCODON-ACE1 EA11 PO (08:06)
[2024-04-02] MEDS ORDERED: CELECOXIB200 MG PO (08:06)
--- NOTE | 2024-04-02 08:13 | NUR ---
04/02/24 0813 Heather Villareal PT TO PACU SLEEPY BUT AROUSABLE, SHE DENIES PAIN AND NAUSA.
[2024-04-02 08:49] VITALS: BP 106/63
--- NOTE | 2024-04-02 08:50 | NUR ---
Patient returns back to room 5 from PACU via bed. patient is awake and alert upon arrival. report received from MELISSA Guerrero. Patient denies any nausea or pain. She is having some tingling in her operative hand and fingers but is able to move them. Radial pulse is strong. to left arm. patient has a sling on. 3 operative sites covered with non-adhesive foam and opsite. cryocuff in place over left shouldre. vital signs obtained. first blood pressure read low, 81/50. adjusted blood pressure cuff and blood pressure improved, but still slightly low. IV fluids restarted and will finish off the bag. Water, applesauce, and pudding provided to patient. instructed to start slow with eating and drinking. I will give patient a little more time to continue to wake up and we will attempt ambulation/voiding in about 30 minutes. bed in lowest position. call light within reach. patient denies any other needs at this time.
[2024-04-02] MEDS ORDERED: SEVOFLURANE 250 ML BTL INH ONE (08:59)
[2024-04-02 10:19] VITALS: BP 108/61
--- NOTE | 2024-04-02 10:30 | NUR ---
patient was under the impression that Dr. Villareal was going to prescribe an anticoagulant for patient for after surgery. Call to Dr. Villareal and he reports that he was going to order something. Verbal order for Xarelto 10mg once daily for 21 days. This was called in to [facility] pharmacy per patient's request.
[2024-04-02] MEDS ORDERED: XARELTO10 MG PO (10:34)
--- NOTE | 2024-04-02 10:35 | NUR ---
patient reports having a cough that "isn't normal". I informed patient that her throat can be irritated from being intubated. She denies having any chest pain or shortness of breath, just an irritating cough. I instructed patient that if she gets home and she does have any chest pain or shortness of breath/difficulty breathing, that would be a reason to go to the ER. She expressed understanding.
--- NOTE | 2024-04-02 10:36 | NUR ---
At this time patient has met all discharge critera. She has eaten/drank. patient has ambulated and voided successfully. patient allowed to get dressed at this time with the assistance of her sister.
--- NOTE | 2024-04-02 10:45 | NUR ---
discharge instructions reviewed with patient. We reviewed in detail her medications, activity restrictions, diet, therapies, and her follow up appointment. She expressed understanding and I answered all questions. Patient was discharged with her sister via wheelchair.
--- NOTE | 2024-04-05 06:58 | OR ---
[facility] [address] [place], [place] [address] Signed DATE OF OPERATION: 04/02/2024 SURGEON: Mao Villareal MD PREOPERATIVE DIAGNOSIS: Rotator cuff tear, left shoulder. POSTOPERATIVE DIAGNOSIS: Rotator cuff tear, left shoulder. PROCEDURE PERFORMED: Left shoulder arthroscopy with rotator cuff repair. MEAL COOK: None. ANESTHESIA: General. BLOOD LOSS: Minimal. IMPLANTS: 4.75 SwiveLock x2. BRIEF HISTORY: Antonio is a 54-year-old female with a large rotator cuff tear that was painful. She wished to proceed with operative treatment. Risks, benefits, and alternatives were discussed with her and she understood and wished to proceed. Once consent was obtained, she was taken to the operating room. After adequate anesthesia, she was placed in a beach chair position. All downside pressure points were well padded. The left shoulder was prepped and draped in a standard sterile fashion. The shoulder was injected with 15 mL 0.25% Marcaine with epinephrine as was the subacromial space. Standard posterior portal was established and the scope was introduced in the shoulder. ARTHROSCOPIC FINDINGS: Moderate synovitis was noted anteriorly. There was a 3 cm rotator cuff tear with retraction to the mid joint. The biceps, biceps anchor, and labrum were intact. There was mild to moderate glenohumeral arthritis. Subacromial space showed no bursitis. Electronically Signed By: MAO VILLAREAL MD 04/05/24 0658 PATIENT NAME: ANTONIO NUNEZ OPERATIVE REPORT DATE OF : 68 REPORT #: [id number] PHYSICIAN: MAO VILLAREAL MD PCP: TRAN MCDANIELS MD REPORT IS CONFIDENTIAL AND NOT TO BE RELEASED WITHOUT AUTHORIZATION [facility] [address] [place], [place] [address] Signed DESCRIPTION OF OPERATION: Three lateral portals were established and the bursa was debrided to allow visualization of the rotator cuff. The nonviable parts of the rotator cuff were then debrided. Using Jewell clamp and a traction stitch, we were able to reduce the cuff to its attachment on the tuberosity with minimal tension. We then placed two sutures in the rotator cuff margin and debrided the tuberosity in a decorticating fashion. The most anterior suture was placed using the 1st anchor and the rotator cuff was tensioned down tight against the decorticated bone. Second anchor was placed about a cm behind this. Third anchor was not felt to be necessary. We did use the center stitch from the posterior anchor to suture the remainder of the cuff and a little bit of a dog-ear posteriorly down to the tuberosity. All suture ends were cut. The shoulder was taken through range of motion. The cuff repair was stable. There was [id number] bleeding from the tuberosity and the vent holes on the SwiveLock. The scope was withdrawn. Portals were closed with 3-0 nylon and dressed with Allevyn and OpSite. She tolerated the procedure well. All sponge, needle, and instrument counts were correct. Mao Villareal MD BA/MODL /[id number] Copies: ~ Electronically Signed By: MAO VILLAREAL MD 04/05/24 0658 PATIENT NAME: ANTONIO NUNEZ OPERATIVE REPORT DATE OF : 68 REPORT #: [id number] PHYSICIAN: MAO VILLAREAL MD PCP: TRAN MCDANIELS MD REPORT IS CONFIDENTIAL AND NOT TO BE RELEASED WITHOUT AUTHORIZATION
== END 2024-04-02 11:00 | disposition home or self-care (01) ==
LOC: DS 05:45
PROVIDERS: ATTEND Specialist
PROC: 0LQ24ZZ Repair Left Shoulder Tendon, Percutaneous Endoscopic Approach (ICD-10-PCS; principal; 2024-04-02 07:00)
DX: M75.112 Incomplete rotator cuff tear or rupture of left shoulder, not specified as traumatic (principal); E11.9 Type 2 diabetes mellitus without complications; I10 Essential (primary) hypertension; Z88.0 Allergy status to penicillin; Z79.82 Long term (current) use of aspirin; Z79.890 Hormone replacement therapy; Z79.899 Other long term (current) drug therapy; Z90.49 Acquired absence of other specified parts of digestive tract; Z90.710 Acquired absence of both cervix and uterus
CPT/HCPCS: 01630; 64415; 76942; C1713; J0690; J1100; J1885; J2250; J2405; J2704; J2765; J3010; J7121

== ENCOUNTER 2024-11-29 09:31 | Emergency (ER) | payer MEDICARE, OTHER ==
[~2024-11-29] VITALS: Ht 162.6 cm; Wt 108.4 kg
[~2024-11-29 09:31] MED LIST changes: +CELECOXIB200 MG PO; +CICLOPIROX100 GM TOP; +FAMOTIDINE20 MG PO; +HYDROCODON-ACE1 EA11 PO; -LACTATED RINGER'S 1,000 ML IV SCH; +LOW DOSE ASPIRI81 MG PO; +MELOXICAM7.5 MG PO; +METFORMIN HCL1000 M1 PO; +NITROFURANTOIN50 MG PO; +TRIAMCINOLONE A15 GM TOP; +TURMERIC500 M2 PO; +VITAMIN D350 MC3 PO; +XARELTO10 MG PO
[2024-11-29] MEDS ORDERED: HYDROCODONE/APAP 10/325 1 TAB PO ONE (11:45)
[2024-11-29] MEDS ORDERED: HYDROCODON-ACE1 EA10 PO (14:42)
[2024-11-29 14:45] VITALS: BP 116/58
--- NOTE | 2024-11-29 22:29 | EKG ---
[facility] [address] [facility] [place] [address] Signed Normal sinus rhythm Low voltage QRS Borderline ECG When compared with ECG of 17-MAR-2024 10:36, Nonspecific T wave abnormality no longer evident in Anterior leads Confirmed by Noman Taveras MD () on 11/29/2024 10:29:31 PM Electronically Signed By: NOMAN TAVERAS MD 11/29/24 2229 PATIENT NAME: ENRIQUEANTWAN Electrocardiogram DATE OF : 68 PHYSICIAN: NOMAN TAVERAS MD REPORT #: [id number] REPORT IS CONFIDENTIAL AND NOT TO BE RELEASED WITHOUT AUTHORIZATION
== END 2024-11-29 14:45 | disposition home or self-care (01) ==
LOC: ED 09:31
DX: S43.401A Unspecified sprain of right shoulder joint, initial encounter (principal); I10 Essential (primary) hypertension; E11.40 Type 2 diabetes mellitus with diabetic neuropathy, unspecified; J44.9 Chronic obstructive pulmonary disease, unspecified; M19.90 Unspecified osteoarthritis, unspecified site; Z89.512 Acquired absence of left leg below knee; Z88.0 Allergy status to penicillin; Z79.899 Other long term (current) drug therapy; Z79.82 Long term (current) use of aspirin; W18.12XA Fall from or off toilet with subsequent striking against object, initial encounter
CPT/HCPCS: 70450; 73030; 93005; 93010; 99284-25; A9270

== ENCOUNTER 2025-04-25 07:51 | Day surgery (SDC) | payer MEDICARE, OTHER ==
[~2025-04-25] VITALS: Ht 167.6 cm; Wt 105.0 kg
[~2025-04-25 07:51] MED LIST changes: +CEFAZOLIN SODIUM 2 GM in SODIUM CHLORIDE 0.9% 100 ML IV SCH; +ESTRACE42.5 GM VAGINAL; +IBLOOD GLUCOSE TEST STRIP 1 EA TEST VI PRN; +LACTATED RINGER'S 1,000 ML IV SCH; +LIDOCAINE HCL 1% 5 ML SDV INJ ONE
[2025-04-25 08:18] VITALS: BP 135/106
[2025-04-25] MEDS ORDERED: VITAMIN D325 MCG PO (08:25)
[2025-04-25] MEDS ORDERED: AZO BLADDER CO300 MG PO (08:28)
[2025-04-25] MEDS ORDERED: KETOROLAC TROMETHAMINE 30 MG/ML VIAL IV PRN (09:00)
[2025-04-25] MEDS ORDERED: OXYCODONE HCL 5 MG TAB PO PRN (09:00)
[2025-04-25] MEDS ORDERED: Ropivacaine HCl 0.5% 30 ML VIAL ONE (09:25)
[2025-04-25] MEDS ORDERED: LIDOCAINE HCL 2% 5 ML SDV ONE (09:27)
[2025-04-25] MEDS ORDERED: TRANEXAMIC ACID IN NACL,ISO-OS 1,000 MG/100 ML PIGGYBACK IV SCH (11:59)
[2025-04-25] MEDS ORDERED: fentaNYL citrate 100 MCG/2 ML VIAL ONE (12:03)
[2025-04-25] MEDS ORDERED: HYDROCODONE/ACETA 7.5/325 TAB PO PRN (12:30)
[2025-04-25] MEDS ORDERED: fentaNYL citrate 50 MCG/ML SDV IV PRN (12:45)
[2025-04-25] MEDS ORDERED: IBLOOD GLUCOSE TEST STRIP 1 EA TEST VI PRN (12:45)
[2025-04-25] MEDS ORDERED: NALOXONE HCL 0.4 MG SYR IV PRN (12:45)
[2025-04-25] MEDS ORDERED: HYDROmorphone HCL 1 MG/ML SYR IV PRN (12:45)
[2025-04-25] MEDS ORDERED: ACETAMINOPHEN 1,000 MG/100 ML VIAL ONE (12:51)
[2025-04-25] MEDS ORDERED: DEXAMETHASONE SOD PHOS 4 MG/ML VIAL ONE (12:51)
[2025-04-25] MEDS ORDERED: DICLOFENAC SODI75 MG PO (13:03)
[2025-04-25] MEDS ORDERED: HYDROCODON-ACE1 EA11 PO (13:03)
--- NOTE | 2025-04-25 13:22 | NUR ---
04/25/25 1322 Ann Jacobsen LE 1312: PT ARRIVESTO PACU NONAROUSAL/NONREACTIVE. REPORT RECEIVED FROM FINISH MENDER AND PORCELAIN FINISH SPRAYER. LE 1315: PT SPONTANEOUSLY WAKES UP. SHE SITS HERSELF UP FURTHER, SUPER DROWSY. LE 1319: PT IS TAPPING HER OXYGEN MASK. DENIES PAIN OR NAUSEA.
[2025-04-25 13:49] VITALS: BP 138/68
--- NOTE | 2025-04-25 13:54 | NUR ---
1347- PT ARRIVES FROM PACU. VITAL SIGNS OBTAINED. PT REPORTS NO PAIN OR NAUSEA. R ARM IS STILL NUMB, PT IS EDUCATED ABOUT BLOCK. LR INFUSING. SURGICAL SITE IS [facility]. DISCHARGE CRITERIA DISCUSSED AND PT IS UNDERSTANDING. PT IS SITTING UP AND TALKING WITH HER SISTER AND BEDSIDE. PT GIVEN WATER AND PUDDING PER REQUEST. CALL LIGHT IN REACH AND BED IS LOCKED IN THE LOWEST POSITION.
[2025-04-25] MEDS ORDERED: GABAPENTIN 300 MG CAP PO SCH (15:00)
[2025-04-25] MEDS ORDERED: CEFAZOLIN SODIUM 2 GM in SODIUM CHLORIDE 0.9% 100 ML IV SCH (15:00)
[2025-04-25] MEDS ORDERED: ACETAMINOPHEN 500 MG TAB PO SCH (15:00)
[2025-04-25 15:06] VITALS: BP 151/87
--- NOTE | 2025-04-25 15:32 | NUR ---
1515 HOURLY ROUNDING DONE WITH PT. PT REMOVED FROM OXYGEN TO ROOM AIR. 1520 PT ABLE TO AMBULATE TO BATHROOM WITH MINIMUM ASSITANCE. PT FEELS A LITTLE SHORT OF BREATH WHILE WALKING TO BATHROOM. PT ABLE TO URINATE 300 MLS OF CLEAR YELLOW URINE. 1530 PT ABLE TO AMBULATE BACK TO ROOM, PT BACK IN BED AND OXYGEN SATURATION CHECKED. PT AT 96% ON ROOM AIR. PT IN ROOM WITH SISTER, PT GETTING DRESSED WITH SISTER'S ASSISTANCE.
[2025-04-25 16:26] VITALS: BP 162/78
--- NOTE | 2025-04-25 16:30 | NUR ---
1620 HOURLY ROUNDING DONE. PT HAS BEEN ABLE TO TOLERATE PO FLUIDS AND SNACKS. PT HAS NO PAIN OR NAUSEA. PT HAS BEEN ABLE TO VOID. PT SURGICAL LIMB IN SLING. PT HAS SISTER AT BEDSIDE. 1631 TONJA RN IN ROOM TO DO DISCHARGE FOR PT.
[2025-04-25] MEDS ORDERED: SEVOFLURANE 250 ML BTL INH ONE (16:32)
--- NOTE | 2025-04-25 18:20 | NUR ---
1649-PT IV REMOVED. VSS. DISCAHRGE PAPERWORK GONE OVER AND EDUCATION GIVEN. ALL QUESTIONS AND CONCERNS ANSWERED. PT IS ABLE TO AMBULATE TO WHEELCHAIR WITH NO DIFFICULTY. PT HAS ALL BELONGINGS. SISTER IS BRINGING THE CAR TO THE FRONT. PT DC'S FROM DAY SURGERY AT THIS TIME BEING PROPELLED BY COOK HELPER.
[2025-04-25] MEDS ORDERED: SENNOSIDES 1 TAB PO SCH (21:00)
[2025-04-25] MEDS ORDERED: DICLOFENAC SOD 75 MG TABEC PO SCH (21:00)
--- NOTE | 2025-04-26 07:02 | OR ---
[facility] [address] [place], [place] [address] Signed DATE OF OPERATION: 04/25/2025 SURGEON: Mao Villareal MD PREOPERATIVE DIAGNOSIS: Distal clavicle nonunion, right. POSTOPERATIVE DIAGNOSIS: Distal clavicle nonunion, right. PROCEDURE PERFORMED: Iam procedure, right. SYSTEMS MANAGEMENT CONSULTANT: Glenda Clark PA-C. Glenda was present and critical for all portions of procedure. ANESTHESIA: General. BLOOD LOSS: 100 mL. BRIEF HISTORY: Antonio is a 55-year-old female suffered a ground level fall several months ago. She finally sought care last week and was found to have a nonunited distal clavicle fracture. Risks and benefits of operative treatment were discussed with her and she elected to proceed. DESCRIPTION OF PROCEDURE: Once consent was obtained, she was taken to the operating room. After adequate anesthesia, she was placed in a beach chair position. All downside pressure points were well padded. The right shoulder was prepped and draped in a standard sterile fashion. A standard saber incision was centered over the distal clavicle. This was carried through skin and subcutaneous tissue. The periosteum of the distal clavicle was then elevated anteriorly and posteriorly and the fracture was identified. The fracture was oblique in nature and was not healed at all and was grossly unstable. The distal clavicle was then dissected free of surrounding soft tissue and excised in total. The small spike off the remaining clavicle was removed. The wound was then copiously irrigated. The distal clavicle was sealed with bone wax and the periosteum was closed Electronically Signed By: MAO VILLAREAL MD 04/26/25 0702 PATIENT NAME: ANTONIO NUNEZN OPERATIVE REPORT DATE OF : 68 REPORT #: [id number] PHYSICIAN: MAO VILLAREAL MD PCP: TRAN MCDANIELS MD REPORT IS CONFIDENTIAL AND NOT TO BE RELEASED WITHOUT AUTHORIZATION [facility] [address] [place] [id number] Signed using 0 Monocryl. The subcutaneous tissue with 0 Monocryl and the skin with 3-0 Stratafix. The wound was sealed with LiquiBand and Steri-Strips, dressed with an Acticoat-7 dressing. She tolerated the procedure well. All sponge, needle, and instrument counts were correct. Mao Villareal MD BA/MODL /[id number] Copies: ~ Electronically Signed By: MAO VILLAREAL MD 04/26/25 0702 PATIENT NAME: ANTONIO NUNEZ CHRISTA OPERATIVE REPORT DATE OF : 68 REPORT #: [id number] PHYSICIAN: MAO VILLAREAL MD PCP: TRAN MCDANIELS MD REPORT IS CONFIDENTIAL AND NOT TO BE RELEASED WITHOUT AUTHORIZATION
[2025-04-26] MEDS ORDERED: CELECOXIB 200 MG CAP PO SCH (08:00)
== END 2025-04-25 16:50 | disposition home or self-care (01) ==
LOC: DS 07:51
PROVIDERS: ATTEND Specialist
PROC: 0PB90ZZ Excision of Right Clavicle, Open Approach (ICD-10-PCS; principal; 2025-04-25 11:50)
DX: S42.031K Displaced fracture of lateral end of right clavicle, subsequent encounter for fracture with nonunion (principal); W18.30XD Fall on same level, unspecified, subsequent encounter; I10 Essential (primary) hypertension; E11.9 Type 2 diabetes mellitus without complications; Z79.84 Long term (current) use of oral hypoglycemic drugs; Z79.899 Other long term (current) drug therapy; Z88.0 Allergy status to penicillin; Z89.512 Acquired absence of left leg below knee; Z90.49 Acquired absence of other specified parts of digestive tract; Z90.710 Acquired absence of both cervix and uterus
CPT/HCPCS: 00450; 64415; J0131; J0688; J1100; J2003; J2704; J2795; J3010; J7121